=== PATIENT | female | born 1980 | race Caucasian/White ===

== ENCOUNTER → 2018-11-26 12:37 | Outpatient (CLI) | payer BC, SELFPAY ==
[2018-11-26 12:10] VITALS: BMI 50.3
[2018-11-26 13:30] LABS: Absolute Lymphocyte Count 2.23 X10^3/uL (0.83-4.51); Absolute Neutrophil Count 4.7 X10^3/uL (2.0-7.7); Basophil# 0.02 X10^3/uL; Basophil% 0.3 % (0-1); Eosinophil# 0.12 X10^3/uL; Eosinophils% 1.6 % (0-5); Hematocrit 35.7 % (37-47); Hemoglobin 12.4 g/dL (12.0-15.0); Lymphocyte # 2.23 X10^3/ul (4.0); Lymphocyte % 29.1 % (19-41); Mean Corp Hgb Conc 34.7 g/dL (32-36); Mean Corpuscular Hgb 29.8 pg (27.0-32.0); Mean Corpuscular Volume 85.8 fL (81-99); Mean Platelet Vol. 9.4 fl (6.2-12.0); Monocyte# 0.58 X10^3/uL; Monocyte% 7.6 % (0-10); NRBC Flagged by Analyzer 0 % (0-5); Neutrophil # 4.68 X10^3/uL (2.7-7.7); Platelet Count 250 K/mm3 (150-450); RBC Distribution Width CV 13.2 % (11.6-14.6); RBC Distribution Width SD 40.9 fl (35.1-43.9); Red Blood Count 4.16 M/mm3 (4.2-5.4); White Blood Count 7.7 K/mm3 (4.4-11.0)
[2018-11-26 13:49] LABS: T4 Free Direct 1.21 ng/dL (0.76-1.46); Thyroid Stim Hormone (TSH) 5.85 uIU/mL (0.358-3.74)
[2018-11-26 14:30] LABS: HIV - WCH Non-Reactive (Nonreactive); Hepatitis B Surf AB - EMP Non-Reactive; Rubella IgG 27.3 IU/mL
[2018-11-26 17:16] LABS: Chlamydia Trachomatis by PCR Negative (Negative); Neisserai gonorrhoeae by PCR Negative (Negative); Probe Check PASS; Sample Adequacy Control PASS; Specimen Processing Control PASS
[2018-11-28 12:40] LABS: HPV APTIMA, High Risk Negative (Negative)
[2018-11-29 01:33] LABS: Rapid Plasmin Reagin (RPR) NONREACTIVE (NONREACTIVE)
== END ==
PROVIDERS: Nurse Practitioner Women's Health; Family Provider Internal Medicine; PCP Internal Medicine; Referring Provider Obstetrics & Gynecology; Visit Provider Obstetrics & Gynecology
DX: Z12.4 Encounter for screening for malignant neoplasm of cervix (principal); O09.529 Supervision of elderly multigravida, unspecified trimester; Z3A.00 Weeks of gestation of pregnancy not specified
CPT/HCPCS: 36415; 84439; 84443; 85025; 86592; 86703; 86706; 86762; 86850; 86900; 87086; 87088; 87491; 87591; 87624; 88175; G0145

== ENCOUNTER → 2019-01-02 14:20 | Outpatient (CLI) | payer BC, SELFPAY ==
[2018-12-24 10:41] VITALS: BMI 50.3
[2019-01-02 15:30] LABS: Glucose Challenge Gest 1H 50g 114 mg/dL (70-140)
[2019-01-03 08:59] LABS: Hepatitis B Surface Antigen Non-Reactive (Nonreactive)
== END ==
PROVIDERS: Family Provider Internal Medicine; PCP Internal Medicine; Referring Provider Obstetrics & Gynecology; Visit Provider Obstetrics & Gynecology
DX: O09.522 Supervision of elderly multigravida, second trimester (principal); Z3A.00 Weeks of gestation of pregnancy not specified
CPT/HCPCS: 36415; 82950; 87340

== ENCOUNTER → 2019-01-21 10:23 | Outpatient (CLI) | payer BC, SELFPAY ==
[2019-01-21 09:46] VITALS: BMI 50.3
--- NOTE | 2019-01-21 10:25 | US_ITS ---
STUDY: SECOND AND THIRD TRIMESTER OBSTETRICAL ULTRASOUND REASON FOR EXAM: Female, 38 years old well-being. LMP: September 17, 2018 TECHNIQUE: Transabdominal TECHNICAL QUALITY: Adequate. PRIOR ULTRASOUND: None. FINDINGS: There is a single intrauterine fetus. The fetus is in a breech presentation. There is no demonstrated cardiac activity. There is a normal amniotic fluid volume. The placenta is anterior in location and is not low lying. There are Grade 0 placental changes. BIOMETRY: BPD: 2.2 cm: 13 weeks, 5 days HC: 9.4 cm: 14 weeks, 3 days AC: 7.9 cm: 40 weeks, 3 days FL: 1.7 cm: 15 weeks, 1 days age by current US: 14 weeks, 2 days. YANNICK by current US: July 19, 2018 Age by LMP: 18 weeks, 0 days. YANNICK by LMP: June 24, 2018. US/OB Limited With Biometrics IMPRESSION: demise. Electronically Signed: Warren Nguyen, at 11:33 EDT , Service support ,
== END ==
PROVIDERS: Family Provider Internal Medicine; PCP Internal Medicine; Referring Provider Nurse Practitioner Women's Health; Visit Provider Nurse Practitioner Women's Health
DX: O46.90 Antepartum hemorrhage, unspecified, unspecified trimester (principal); Z3A.00 Weeks of gestation of pregnancy not specified
CPT/HCPCS: 76816

== ENCOUNTER 2019-01-24 11:04 | Day surgery (SDC) | payer BC, SELFPAY ==
[2019-01-21 09:46] VITALS: BMI 50.3
--- NOTE | 2019-01-22 06:43 | PCM.HPOB.BLA ---
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 Elective CS 2nd preg. 9#7 at 38wk (7) Supervision of high-risk of elderly multigravida Status: Acute Comment: Grav 5/2 YANNICK: PC:Cristobal Buitrago. Spouse: Burt (8) Papillary thyroid carcinoma Status: Acute Comment: Check labs q trim. Elevated TSH:seeing endo History and Physical Date of Admission: 01/24/19 142 Workload (10) Deficiencies (4) More... Last Refreshed Today 06:38 Turn on coverage Showing your items Edit Coverage Search Workload DIEGO DEL TORO CC Document Renate Navarro 18 hrs Open ANKUR DAI Electrocardiogram CC Report 1 day MARY ANNE REYNOSO CC Document Alfredo Lowery D 1 day Open MAGGIEOFFBERTHA Inpatient CC Items (2) CC Report 2 days STEVAN FOWLER Discharge Summary CC Report 2 days NORMA FLORES Inpatient CC Items (2) CC Report 4 days DELMA GIBBS Inpatient CC Items (2) CC Report 4 days Expand Unread Messages Messages4 of 5 Important Collapse Unread Messages CC Items6 of 7 Diego Del Toro (VIP) Diego Del Toro (VIP) 38 F 1980 Info Button CC Document Open 18 hours Details Subject CC Document From Renate Navarro Provider Adele Singh To Adele Singh CHIEF ELECTRICIAN Visit More Action Complete Save Select Recipients [facility] Radha Garcia SandraGallion, Hannah LMartin, MichelleCline, Stephanie MHastings, MollyMarcanthony, Sharon + Set as Important ? CHIEF ELECTRICIAN Visit Report HxHx print [facility] [address] [place] [address] OFFICE VISIT Date of Service: 01/21/19 MR#:[id number]:[id number] Name: DIEGO DEL TORO #:[id number] : 1980 Provider: JOSE GUADALUPE Navarro Age/Sex: 38/F Location:[facility] Status:Signed Intake Vital Signs 01/21/19 Body Mass Index (BMI) 50.3 01/21/19 Height 5 ft 6 in 01/21/19 Weight: 310 lb 2 oz 01/21/19 Body Mass Index (BMI) 50.0 01/21/19 Blood Pressure 128/78 H Intake Visit Reasons: 18 week ob Flight Control Specialist Required: No Is patient in pain?: No Allergies No Known Allergies Allergy (Verified 01/21/19 09:45) Medications levothyroxine 200 mcg tablet PO QDAY tab 04/11/17 [History Confirmed 01/21/19] Abdominal binder #1 ea 09/27/17 [Rx Confirmed 01/21/19] Last Menstral Period: 09/17/18 Zika: Zika virus screening: Negative : No PFSH PFSH Medical History Abdominal hernia (Acute) Aggressive fibromatosis (Acute) delivery delivered (Acute) Desmoid tumor (Acute) Thyroid cancer (Acute) Thyroid disease (Acute) Surgical History H/O colonoscopy (Acute) H/O excision of mass (Acute) Hx laparoscopic cholecystectomy (Acute ~2011) S/P total thyroidectomy (Acute ~2009) Family History Aunt No problems noted. 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 Date Name GA/Weeks Outcome Route Bth Weight Infant Gen Labor Lgth Anesthesia Del Locatn Provider FOB Unknown 2004- Mac 40 live - full term 10.4 Male 12hours epidural [facility] Dr. Morrison Unknown 2009-Cristobal 38 live - full term 9.7 Male spinal [facility] Dr. Shanice Santos Delivery Date: On 11/26/18 @ 11:22 Franca Cavazos 3rd laceration, large amount of blood loss; Delivery Date: On 11/26/18 @ 11:26 Franca Cavazos SOB post C/S- echo done; very anemic; found thyroid CA; hospitalized post for PE- but tests negative HPI 18 week ob: Details: DIEGO DEL TORO is a 38 year old who presents for routine OB visit. OB Visit YANNICK Calculator Estimated Delivery Date Method Current WG Current Estimate 06/24/19 Ultrasound #1 18w 0d Other Estimates 06/24/19 LMP (Certain) 18w 0d Initial Weight: 312 lb Date EGA Weight BP Urine Prot Glucose FHR FuHt Pres Mov CTX Dilation Effaced St Visit Note Effaced 12/24/18 14w 0d 309 lb (-3 lb) 102/72 Negative Negative 150 no vb some periods of cramping 01/21/19 18w 0d 310 lb 2 oz (-1 lb 14 oz) 128/78 Negative Negative Patient has had brown to clear discharge X 3 days with cramping. Unable to get FHT with doppler Visit Notes Visit Date: 01/21/19 Patient has had brown to clear discharge X 3 days with cramping. Unable to get FHT with doppler ATIF Vanegas on 01/21/19 Visit Date: 12/24/18 no vb some periods of cramping Adele Singh MD on 12/24/18 ACOG First Trimester First Trimester: Desire for , Anticipated Course of Care, Toxoplasmosis Precations, Use of Any medications, Sexual activity, Exercise, Sauna/Hot tub use, Seat Belt use, Indications for US and Screening for Aneuploidy; discussed Alcohol, discussed Tobacco Cessation, discussed Illicit/Recreational Drug/Substance Use, discussed Intimate Partner Violence, discussed Unstable Housing, discussed Environmental/Work Hazards or discussed Diagnostics Diagnostics Labs Blood Type A POSITIVE 11/26/18 Antibody Screen NEGATIVE 11/26/18 Hct 35.7 % (37-47) L 11/26/18 Hgb 12.4 g/dL (12.0-15.0) 11/26/18 Pap Smear Negative 07/18/13 Obstetrics Ultrasound 01/21/19 Rubella IgG Antibody 27.3 IU/mL 11/26/18 RPR NONREACTIVE (NONREACTIVE) 11/26/18 Hep Bs Antigen Non-Reactive (Nonreactive) 01/02/19 HIV 1&2 Antibody Non-Reactive (Nonreactive) 11/26/18 Chlam trachomat DNA PCR Negative (Negative) 11/26/18 N.gonorrhoeae DNA (PCR) Negative (Negative) 11/26/18 Glucose 1 Hr 50 gm 114 mg/dL (70-140) 01/02/19 Miscellaneous Test 01/02/19 Diagnostics Blood Type A POSITIVE 11/26/18 Antibody Screen NEGATIVE 11/26/18 Glucose 1 Hr 50 gm 114 mg/dL (70-140) 01/02/19 HIV 1&2 Antibody Non-Reactive (Nonreactive) 11/26/18 Rubella IgG Antibody 27.3 IU/mL 11/26/18 Pap Smear Negative 07/18/13 Hgb 12.4 g/dL (12.0-15.0) 11/26/18 Hct 35.7 % (37-47) L 11/26/18 RPR NONREACTIVE (NONREACTIVE) 11/26/18 Details: HIV: Urine Culture: Sequential Screen: NIPT Screen: Exam Other: Proceed to US room:no heart tones with negative color doppler of fetus. Patient to radiology for formal US and confirmed demise approx 14 weeks. Results [id number] Office Urine Glucose Negative Last Edit by Nina Alba on 01/21/19 09:48 Office Urine Protein Negative Last Edit by Nina Alba on 01/21/19 09:48 Assessment & Plan Problems 1. demise due to miscarriage O03.9 Plan Patient then met with Dr. Singh and discussed management options:patient would like to proceed with D&C. Dr. Singh discussed with patient risks, benefits, side effects of procedure. Patient wishes to proceed. This will be scheduled 01/24/19. Support given. Patient and responding as expected to situation. Orders Orders: POC Urinalysis 2 Dip (Clinic) Today OB Limited With Biometrics Today O46.90 Coding Level of Care Code OB Routine Diagnoses demise due to miscarriage O03.9 01/21/19 1215<Electronically signed by Renate MARMOLEJOC> Date Renate MARMOLEJOC Cosigner Signature:Date (if applicable) CC: Adele Singh MD ~ + View by User
[2019-01-24] VITALS (8 sets, daily range): BP systolic 126–147; BP diastolic 66–79; PULSE 69–92; RESP 16; TEMP 36.1–36.8; O2SAT 96–100; BMI 50.0
[2019-01-24 11:45] LABS: Hematocrit 33.7 % (37-47); Hemoglobin 11.1 g/dL (12.0-15.0); Mean Corp Hgb Conc 32.9 g/dL (32-36); Platelet Count 243 K/mm3 (150-450); RBC Distribution Width CV 13.2 % (11.6-14.6); RBC Distribution Width SD 42.5 fl (35.1-43.9); Red Blood Count 3.83 M/mm3 (4.2-5.4); White Blood Count 7.5 K/mm3 (4.4-11.0)
[2019-01-24] MEDS: Lactated Ringers 1,000 ML 125 ML IV (11:59)
--- NOTE | 2019-01-24 12:30 | POC_PTH ---
PATIENT: DIEGO DEL TORO [place] [facility] [place][id number] AGE/SX: 38/F ROOM: RE01/24/[address]: Dr. Adele Singh MD : 1980 BED: DIS: 01/24/2019 SPEC #: [id number] RECD: 01/24/19 13:51 STATUS: HILL GIOVANNY #: [id number] MARIEL: 01/24/19 12:[address]: Adele Singh DEPT: SURGICAL PATHOLOGY RECD BY: Eliceo Pressley ENTERED: 01/24/19 14:18 SP TYPE: PROD CONC OTHR DR: Dr. Marleny Waterman MD Tissues: Product of conception, NOS Procedures: Surgery Specimen Level IV HEADER OPERATION: Dilation and evacuation PRE-OP DIAGNOSIS: demise due to miscarriage TISSUE SUBMITTED: Products of conception - Anora testing MICROSCOPIC DIAGNOSIS Endometrium, curettage: Chorionic villi, decidualized stroma and trophoblastic cells consistent with products of conception. Fragments of tissue. AM:kaya 01/27/19 MICROSCOPIC DESCRIPTION Slides are reviewed. GROSS DESCRIPTION Received fresh is one container labeled with the patient's name and designated products of conception, Anora testing. The specimen consists of multiple irregular fragments of pink-red soft tissue that in aggregate measure 13 x 11 x 2 cm. Two pieces of tissue are also noted measuring 3.5 x 3 x 1 cm. A portion of tissue is submitted for cytogenetic (Anora) testing. Barrel Cooper tissue is submitted in three cassettes. Cassette 3 contains the tissue. / SJ:kaya 01/24/19 TC:5 CPT: ADDENDUM ADDENDUM ADDENDUM ADDENDUM ADDENDUM ADDENDUM ADDENDUM ADDENDUM ADDENDUM 02/10/2019 12:36 ADDENDUM 02/10/2019 12:36 ADDENDUM 02/10/2019 12:36 ADDENDUM 02/10/2019 12:36 ADDENDUM 02/10/2019 12:36 ANORA MICROARRAY CHROMOSOME ANALYSIS WITH PARENTAL SUPPORT RESULT: Normal female MICROARRAY RESULT: arr(1-22,X)x2 CLINICAL INTERPRETATION: Normal female result. Maternal cell contamination ([facility]) has been ruled?out. Please see complete above mentioned report in EMR
[2019-01-24] MEDS: Methylergonovine 0.2 MG/ML Ampul IM (13:04)
[2019-01-24] MEDS: miSOPROStol 200 MCG Tablet 800 MCG PO (14:01)
--- NOTE | 2019-01-24 14:25 | PCM.OPRPT ---
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 Elective CS 2nd preg. 9#7 at 38wk (7) Supervision of high-risk of elderly multigravida Status: Acute Comment: Grav 5/2 YANNICK: PC:Cristobal Buitrago. Spouse: Burt (8) Papillary thyroid carcinoma Status: Acute Comment: Check labs q trim. Elevated TSH:seeing endo Report of Operation Date of Procedure: 01/24/19 Pre-Operative Diagnosis: missed ab Post-Operative Diagnosis: same Surgery/Procedure Performed:: dilation and evacuation Description of Surgical Findings:: 16 week size fetus Type of Anesthesia:: Local MAC Special Medications: cytotec methergine pitocin Specimen's removed: fetus and placenta Drains: none Estimated Blood Loss (mL): 100 Fluids Replaced: crystalloid Description of Procedure: Patient was taken to the operating room and placed under MAC local anesthesia. She was prepped and draped in the normal sterile fashion the dorsal lithotomy position. Bladder was drained of clear urine and anterior lip of the cervix was grasped and the uterus sounded to 12 cm initially. Cervix was progressively dilated to allow passage of a 12 mm suction curette. Progressive passes were made removing the retained products of conception and it became evident that the fetus was larger than the initial 14 weeks estimated on ultrasound. Cervix was dilated further and uterus sounded to 16 cm and a 14 mm suction curette was used. Multiple passes were made and parts were removed and identified bilateral upper and lower extremities torso neck and cranium. Placenta and membranes were also identified and removed. Ultrasound guidance was performed to confirm complete removal and although limited visualization due to patient's body habitus was noted patient had minimal bleeding and it was felt that all products were removed based on uterine evaluation sonographically and visually directly. Sharp curettage confirmed complete removal of the retained products. All instruments were removed from the vagina and excellent hemostasis was noted after a stitch of 0 Vicryl was placed on the cervix where the tenaculum site was. Methergine Pitocin and Cytotec were given to help prevent any perioperative bleeding. Overall bleeding was minimal and within normal limits. The patient was taken to recovery in stable condition. Grafts/Implants Used: none - Complications none - Admit VTE Documentation VTE Present on Admission: No Multi Select Codes - Urinary/Genital Urinary/Genital CPT Codes: 42072 Miscarriage; 2nd trimester
--- NOTE | 2019-01-24 14:29 | DCINST_ITS ---
Discharge Diet: No Restrictions Discharge Activity: Return to Normal Activity, May Shower, May Take a Tub Bath Allergies/Adverse Reactions: Allergies No Known Allergies Allergy (Verified 01/24/19 11:39) Medications to take at Discharge levothyroxine 200 mcg tablet 200 mcg PO QDAY tab 04/11/17 Cetirizine HCl [Zyrtec] 10 mg PO DAILY 01/23/19 Primary Care Physician: Marleny Waterman MD [Primary Care Provider] - Test Results: Test results from this visit will be discussed in further detail at your follow- up appointment, if applicable. Please Follow Up With: Adele Singh MD - [phone]
[2019-01-24] MEDS: Doxycycline 100 MG CAPSULE PO (14:59)
[2019-02-11 07:44] LABS: Pathology Specimen OB SEE PATHOLOGY REPORT
== END 2019-01-24 15:18 | disposition home or self-care (01) ==
LOC: SDC 11:05 → AC 11:09
PROVIDERS: Family Provider Internal Medicine; PCP Internal Medicine; Referring Provider Obstetrics & Gynecology; Visit Provider Obstetrics & Gynecology
PROC: (CPT 59821; principal; 2019-01-24 12:15)
DX: O03.9 Complete or unspecified spontaneous abortion without complication (principal); D64.9 Anemia, unspecified
CPT/HCPCS: 01965; 59821; 85027; 86850; 86900; 86901; 88305; J7120; J2405

== ENCOUNTER → 2020-04-22 15:37 | Outpatient (CLI) | payer BC, MEDICAID, SELFPAY ==
[2020-04-22 15:15] VITALS: BMI 41.9
[2020-04-22 15:56] LABS: Absolute Lymphocyte Count 2.45 X10^3/uL (0.83-4.51); Absolute Neutrophil Count 6.4 X10^3/uL (2.0-7.7); Basophil# 0.03 X10^3/uL; Basophil% 0.3 % (0-1); Eosinophil# 0.05 X10^3/uL; Eosinophils% 0.5 % (0-5); Hematocrit 37.9 % (37-47); Hemoglobin 12.7 g/dL (12.0-15.0); Lymphocyte # 2.45 X10^3/ul (4.0); Lymphocyte % 25.4 % (19-41); Mean Corp Hgb Conc 33.5 g/dL (32-36); Mean Corpuscular Hgb 28.7 pg (27.0-32.0); Mean Corpuscular Volume 85.7 fL (81-99); Mean Platelet Vol. 9.1 fl (6.2-12.0); Monocyte% 7.3 % (0-10); NRBC Flagged by Analyzer 0 % (0-5); Neutrophil # 6.38 X10^3/uL (2.7-7.7); Neutrophil % 66.2 % (47-70); Platelet Count 349 K/mm3 (150-450); RBC Distribution Width CV 12.7 % (11.6-14.6); RBC Distribution Width SD 38.8 fl (35.1-43.9); Red Blood Count 4.42 M/mm3 (4.2-5.4); White Blood Count 9.6 K/mm3 (4.4-11.0)
[2020-04-22 16:36] LABS: Follicle Stimulating Hormone 5.6 mIU/mL; Prolactin 10.9 ng/mL
[2020-04-22 17:03] LABS: HIV - WCH Non-Reactive (Nonreactive)
[2020-04-25 20:07] LABS: HCV Quant. RNA PCR HCV Not Detected IU/mL (.)
[2020-04-26 21:00] LABS: HSV 1 IgG < 0.91 index (0.00-0.90); HSV 2 IgG < 0.91 index (0.00-0.90)
[2020-04-29 02:21] LABS: Rapid Plasmin Reagin (RPR) NONREACTIVE (NONREACTIVE)
[2020-04-29 10:16] LABS: 17-Hydroxyprogesterone 76 ng/dL (.)
== END ==
PROVIDERS: PCP Internal Medicine; Referring Provider Obstetrics & Gynecology; Visit Provider Obstetrics & Gynecology
DX: Z11.3 Encounter for screening for infections with a predominantly sexual mode of transmission (principal)
CPT/HCPCS: 36415; 82670; 83001; 83498; 84146; 84402; 85025; 86592; 86695; 86696; 86703; 87522

== ENCOUNTER → 2020-04-22 17:24 | Outpatient (CLI) | payer BC, MEDICAID, SELFPAY ==
[2020-04-22 15:15] VITALS: BMI 41.9
[2020-04-26 16:08] LABS: Chlamydia By Nucleic Acid AMP Negative (Negative)
[2020-04-26 20:52] LABS: Gonococcus By Nucleic Acid AMP Negative (Negative)
== END ==
PROVIDERS: PCP Internal Medicine; Referring Provider Obstetrics & Gynecology; Visit Provider Obstetrics & Gynecology
DX: Z11.3 Encounter for screening for infections with a predominantly sexual mode of transmission (principal)
CPT/HCPCS: 87491; 87591

== ENCOUNTER → 2020-11-03 08:31 | Outpatient (CLI) | payer BC, MEDICAID, SELFPAY ==
[2020-11-03 08:11] VITALS: BMI 41.9
[2020-11-03 08:54] LABS: Absolute Neutrophil Count 2.8 X10^3/uL (2.0-7.7); Basophil# 0.01 X10^3/uL; Basophil% 0.2 % (0-1); Eosinophil# 0.11 X10^3/uL; Eosinophils% 2.1 % (0-5); Hematocrit 38.5 % (37-47); Hemoglobin 12.6 g/dL (12.0-15.0); Lymphocyte % 31.1 % (19-41); Mean Corp Hgb Conc 32.7 g/dL (32-36); Mean Corpuscular Hgb 27.6 pg (27.0-32.0); Mean Corpuscular Volume 84.4 fL (81-99); Monocyte# 0.54 X10^3/uL; Monocyte% 10.5 % (0-10); NRBC Flagged by Analyzer 0 % (0-5); Neutrophil # 2.84 X10^3/uL (2.7-7.7); Neutrophil % 55.1 % (47-70); Platelet Count 249 K/mm3 (150-450); RBC Distribution Width CV 12.8 % (11.6-14.6); RBC Distribution Width SD 39.5 fl (35.1-43.9); Red Blood Count 4.56 M/mm3 (4.2-5.4); White Blood Count 5.2 K/mm3 (4.4-11.0)
[2020-11-04 12:31] LABS: Free T3 1.7 pg/mL (2.18-3.98); T4 Free Direct 1.49 ng/dL (0.76-1.46)
[2020-11-06 03:07] LABS: Chlamydia By Nucleic Acid AMP Negative (Negative)
[2020-11-06 07:31] LABS: Gonococcus By Nucleic Acid AMP Negative (Negative)
== END ==
PROVIDERS: PCP Internal Medicine; Referring Provider Nurse Practitioner Women's Health; Visit Provider Nurse Practitioner Women's Health
DX: Z11.3 Encounter for screening for infections with a predominantly sexual mode of transmission (principal); N76.0 Acute vaginitis
CPT/HCPCS: 36415; 84439; 84443; 84481; 85025; 87070; 87205; 87491; 87591

== ENCOUNTER → 2020-11-16 11:37 | Outpatient (CLI) | payer BC, MEDICAID, SELFPAY ==
[2020-04-22 15:15] VITALS: BMI 41.9
[2020-11-03 08:11] VITALS: BMI 41.9
--- NOTE | 2020-11-16 11:39 | US_ITS ---
STUDY: ULTRASOUND OF THE FEMALE PELVIS - COMPLETE REASON FOR EXAM: Female, 40 years old. aub LMP: 10/22/2020. TECHNIQUE: Transabdominal and Transvaginal TECHNICAL QUALITY: Adequate. COMPARISON: None. FINDINGS: The uterus is anteverted and is in a midline position. The uterus measures 10.7 cm x 7.3 cm x 6.4 cm. There is a Nabothian cyst of the cervix. The endometrium is thickened and measures 12.5 mm in thickness, and is hyperechoic. The myometrium is of heterogeneous echotexture although no focal fibroid is seen. There is no demonstrated myometrial mass. I.U.D. - The patient does not have an I.U.D. The right ovary is visualized. The right ovary measures 2.8 cm x 2.9 cm x 1.8 cm. There is no right ovarian cyst or ovarian mass. There is no visualized right adnexal mass or complex lesion. There is normal arterial and normal venous vascularity. The left ovary is visualized. The left ovary measures 3.7 cm x 2.3 cm x 2.3 cm. There is no left ovarian cyst or ovarian mass. There is no visualized left adnexal mass or complex lesion. There is normal arterial and normal venous vascularity. There is minimal fluid in the cul-de-sac. The pre void volume of the bladder was 412 ml. . US/Pelvic (Non ) IMPRESSION: Thickened endometrium. Electronically Signed: Warren Nguyen MD at 9:10 EDT , Service support ,
--- NOTE | 2020-11-16 11:39 | US_ITS ---
STUDY: ULTRASOUND OF THE FEMALE PELVIS - COMPLETE REASON FOR EXAM: Female, 40 years old. aub LMP: 10/22/2020. TECHNIQUE: Transabdominal and Transvaginal TECHNICAL QUALITY: Adequate. COMPARISON: None. FINDINGS: The uterus is anteverted and is in a midline position. The uterus measures 10.7 cm x 7.3 cm x 6.4 cm. There is a Nabothian cyst of the cervix. The endometrium is thickened and measures 12.5 mm in thickness, and is hyperechoic. The myometrium is of heterogeneous echotexture although no focal fibroid is seen. There is no demonstrated myometrial mass. I.U.D. - The patient does not have an I.U.D. The right ovary is visualized. The right ovary measures 2.8 cm x 2.9 cm x 1.8 cm. There is no right ovarian cyst or ovarian mass. There is no visualized right adnexal mass or complex lesion. There is normal arterial and normal venous vascularity. The left ovary is visualized. The left ovary measures 3.7 cm x 2.3 cm x 2.3 cm. There is no left ovarian cyst or ovarian mass. There is no visualized left adnexal mass or complex lesion. There is normal arterial and normal venous vascularity. There is minimal fluid in the cul-de-sac. The pre void volume of the bladder was 412 ml. . US/Transvaginal Non- IMPRESSION: Thickened endometrium. Electronically Signed: Warren Nguyen MD at 9:10 EDT , Service support ,
== END ==
PROVIDERS: PCP Internal Medicine; Referring Provider Obstetrics & Gynecology; Visit Provider Obstetrics & Gynecology
DX: N93.9 Abnormal uterine and vaginal bleeding, unspecified (principal)
CPT/HCPCS: 76830; 76856

== ENCOUNTER 2021-06-14 08:53 | Outpatient (CLI) | payer BC, MEDICAID, SELFPAY ==
[2021-06-14 09:32] LABS: ALB/GLOB Ratio 0.8 RATIO (0.9-2.4); AST(SGOT) 10 U/L (15-37); Alanine Aminotransfer ALT/SGPT 17 U/L (13-56); Albumin, Serum 3.3 g/dL (3.2-5.0); Alkaline Phosphatase 66 U/L (45-117); Anion Gap 6 (5-15); BUN 9 mg/dL (7-18); BUN/Creat Ratio 13.1 RATIO (10-20); Calcium,Total 8.8 mg/dL (8.5-10.1); Chloride 106 mmol/L (98-107); Creatinine, Serum 0.69 mg/dL (0.55-1.02); EST Glomerular Filtration Rate 100 mL/min (>60); Est Glom Filt Rate - Afr Amer 121 mL/min (>60); Globulin 3.9 g/dL (2.2-4.2); Glucose 100 mg/dL (74-106); Potassium 4.5 mmol/L (3.5-5.1); Protein, Total 7.2 g/dL (6.4-8.2); Sodium Level 138 mmol/L (136-145)
[2021-06-14 09:33] LABS: hCG Titer Quant., Serum 291 mIU/mL (1-3)
[2021-06-14 09:50] LABS: Thyroid Stim Hormone (TSH) 3.99 uIU/mL (0.358-3.74)
== END 2021-06-14 23:59 | disposition home or self-care (01) ==
LOC: PAVLAB 08:55
PROVIDERS: PCP Internal Medicine; Referring Provider Obstetrics & Gynecology; Visit Provider Obstetrics & Gynecology
DX: O20.0 Threatened abortion (principal); Z3A.00 Weeks of gestation of pregnancy not specified
CPT/HCPCS: 36415; 80053; 84443; 84702

== ENCOUNTER 2021-06-16 11:30 | Outpatient (CLI) | payer BC, MEDICAID, SELFPAY ==
--- NOTE | 2021-06-16 11:31 | US_ITS ---
STUDY: FIRST TRIMESTER OBSTETRICAL ULTRASOUND REASON FOR EXAM: Female, 40 years old . Left lower quadrant cramping. Positive test. LMP: 04/25/2021. TECHNIQUE: Transvaginal TECHNICAL QUALITY: Adequate. PRIOR ULTRASOUND: None. FINDINGS: There is no demonstrated intrauterine gestational sac. There is no demonstrated yolk sac. The placenta is non-visualized. There is no demonstrated embryo ( pole). The estimated gestation age (EGA) by LMP is 7 weeks, 3 days. The estimated date of delivery (YANNICK) by LMP is 01/30/2022. The uterus measures 12 cm x 8.4 cm x 6.8 cm. The endometrium is thickened measuring 20 mm. No intrauterine gestational sac is seen. There is no demonstrated uterine fibroid. The cervix is closed. The right ovary measures 2.6 cm x 2.6 cm x 3.5 cm. There is a 1.5 cm x 1.8 cm x 1.6 cm follicle in the right ovary. There is no visualized right adnexal mass or complex lesion. The left ovary measures 2.5 cm x 2.27 x 1.9 cm.. There is no left ovarian cyst. There is no visualized left adnexal mass or complex lesion. Trace amount of fluid in the pelvis. US/Transvaginal w/Preg US IMPRESSION: No intrauterine gestational sac is seen. Thickened endometrium. Repeat sonogram and serial beta hCG correlation recommended for possible early .. Electronically Signed: Warren Nguyen MD at 12:42 EST ,
[2021-06-16 13:53] LABS: ALB/GLOB Ratio 0.9 RATIO (0.9-2.4); AST(SGOT) 9 U/L (15-37); Alanine Aminotransfer ALT/SGPT 16 U/L (13-56); Albumin, Serum 3.2 g/dL (3.2-5.0); Alkaline Phosphatase 60 U/L (45-117); BUN 10 mg/dL (7-18); BUN/Creat Ratio 14.1 RATIO (10-20); Calcium,Total 8.3 mg/dL (8.5-10.1); Chloride 110 mmol/L (98-107); Creatinine, Serum 0.71 mg/dL (0.55-1.02); EST Glomerular Filtration Rate 97 mL/min (>60); Est Glom Filt Rate - Afr Amer 118 mL/min (>60); Globulin 3.4 g/dL (2.2-4.2); Glucose 109 mg/dL (74-106); Potassium 3.9 mmol/L (3.5-5.1); Protein, Total 6.6 g/dL (6.4-8.2); Sodium Level 139 mmol/L (136-145)
[2021-06-16 13:54] LABS: Anion Gap 5 (5-15)
[2021-06-16 13:55] LABS: hCG Titer Quant., Serum 702 mIU/mL (1-3)
== END 2021-06-16 23:59 | disposition home or self-care (01) ==
PROVIDERS: PCP Internal Medicine; Referring Provider Obstetrics & Gynecology; Visit Provider Obstetrics & Gynecology
DX: O20.0 Threatened abortion (principal); N93.9 Abnormal uterine and vaginal bleeding, unspecified; Z87.59 Personal history of other complications of pregnancy, childbirth and the puerperium
CPT/HCPCS: 36415; 76817; 80053; 84702; 93976

== ENCOUNTER 2021-06-27 07:33 | Outpatient (CLI) | payer BC, MEDICAID, SELFPAY ==
[2021-06-27 09:53] LABS: hCG Titer Quant., Serum 8234 mIU/mL (1-3)
== END 2021-06-27 23:59 | disposition home or self-care (01) ==
LOC: LAB 07:35
PROVIDERS: PCP Internal Medicine; Referring Provider Obstetrics & Gynecology; Visit Provider Obstetrics & Gynecology
DX: N92.6 Irregular menstruation, unspecified (principal)
CPT/HCPCS: 36415; 84702

== ENCOUNTER 2021-06-29 08:27 | Outpatient (CLI) | payer BC, MEDICAID, SELFPAY ==
--- NOTE | 2021-06-29 08:29 | US_ITS ---
STUDY: FIRST TRIMESTER OBSTETRICAL ULTRASOUND REASON FOR EXAM: Female, 41 years old well being LMP: Unknown. TECHNIQUE: Transvaginal TECHNICAL QUALITY: Adequate. PRIOR ULTRASOUND: Comparison is made with prior study dated 06/16/2021. FINDINGS: There is visualization of a single gestational sac in a normal intrauterine position. The mean sac diameter (MSD) measures 1.1 cm, indicating an estimated gestational age (EGA) of 5 weeks, 6 days. The gestational sac shape is within normal limits. There is no demonstrated yolk sac. The placenta is non-visualized. There is no demonstrated embryo ( pole). The estimated gestation age (EGA) by US is 5 weeks, 6 days. The estimated date of delivery (YANNICK) by US is 02/23/2022. The uterus measures 12.1 cm x 8.3 cm x 8 cm. There is no demonstrated uterine fibroid. The cervix is closed. The right ovary measures 3.6 cm x 2.4 cm x 3.0 cm. There is no right ovarian cyst. There is no visualized right adnexal mass or complex lesion. The left ovary measures 3.3 cm x 2.2 cm x 2 cm. There is no left ovarian cyst. There is no visualized left adnexal mass or complex lesion. There is no fluid in the cul de sac. US/Transvaginal w/Preg US IMPRESSION: Intrauterine gestational sac with a gestational age of 5 weeks and 6 days. No yolk sac or pole is seen at this time. Electronically Signed: Warren Nguyen MD at 10:50 EST ,
== END 2021-06-29 23:59 | disposition home or self-care (01) ==
PROVIDERS: PCP Internal Medicine; Visit Provider Obstetrics & Gynecology
DX: Z87.59 Personal history of other complications of pregnancy, childbirth and the puerperium (principal)
CPT/HCPCS: 76817

== ENCOUNTER 2021-08-10 13:41 | Outpatient (CLI) | payer MEDICAID, SELFPAY ==
--- NOTE | 2021-08-10 13:41 | US_ITS ---
STUDY: ULTRASOUND OF THE FEMALE PELVIS - COMPLETE REASON FOR EXAM: Female, 41 years old. Missed AB, discharge/odor - RPOC LMP: Unknown TECHNIQUE: Transvaginal TECHNICAL QUALITY: Adequate. COMPARISON: Comparison is made with prior examination dated 06/29/2021. FINDINGS: The uterus is anteverted and is in a midline position. The uterus measures 11.3 cm x 8 cm x 7.3 cm. Normal uterine cervix. The endometrium measures 8 mm in thickness, and is hyperechoic. There is no demonstrated endometrial mass. There is no demonstrated myometrial mass. I.U.D. - The patient does not have an I.U.D. The right ovary is visualized. The right ovary measures 3.7 cm x 2.4 cm x 2.4 cm. There is no right ovarian cyst or ovarian mass. There is no visualized right adnexal mass or complex lesion. There is normal arterial and normal venous vascularity. The left ovary is visualized. The left ovary measures 3.2 cm x 2.9 cm x 1.9 cm. There is no left ovarian cyst or ovarian mass. There is no visualized left adnexal mass or complex lesion. There is normal arterial and normal venous vascularity. There is no fluid in the cul-de-sac. US/Transvaginal Non- IMPRESSION: Normal female pelvis. Electronically Signed: Warren Nguyen MD at 14:55 EDT ,
== END 2021-08-10 23:59 | disposition home or self-care (01) ==
LOC: US 13:41
PROVIDERS: PCP Internal Medicine; Visit Provider Obstetrics & Gynecology
DX: N89.8 Other specified noninflammatory disorders of vagina (principal)
CPT/HCPCS: 76830; 87070; 87205

== ENCOUNTER → 2021-09-01 | Outpatient (CLI) | payer MEDICAID, SELFPAY | END | disposition home or self-care (01) | LOC: PAVLAB 07:55 | PROVIDERS: PCP Internal Medicine; Referring Provider Obstetrics & Gynecology; Visit Provider Obstetrics & Gynecology | DX: N97.0 Female infertility associated with anovulation (principal) | CPT/HCPCS: 36415 ==

== ENCOUNTER → 2021-12-10 | Outpatient (CLI) | payer MEDICAID, SELFPAY ==
[2021-12-10 09:48] LABS: hCG Titer Quant., Serum 5107 mIU/mL (1-3)
== END | disposition home or self-care (01) ==
LOC: LAB 07:39
PROVIDERS: PCP Internal Medicine; Visit Provider Obstetrics & Gynecology
DX: N91.2 Amenorrhea, unspecified (principal)
CPT/HCPCS: 36415; 84702

== ENCOUNTER → 2021-12-15 | Outpatient (CLI) | payer MEDICAID, SELFPAY ==
[2021-12-15 09:55] LABS: hCG Titer Quant., Serum 8178 mIU/mL (1-3)
== END | disposition home or self-care (01) ==
LOC: LAB 07:38
PROVIDERS: PCP Internal Medicine; Visit Provider Obstetrics & Gynecology
DX: N91.2 Amenorrhea, unspecified (principal)
CPT/HCPCS: 36415; 84702

== ENCOUNTER → 2021-12-17 | Outpatient (CLI) | payer MEDICAID, SELFPAY ==
[2021-12-17 10:01] LABS: hCG Titer Quant., Serum 8498 mIU/mL (1-3)
== END | disposition home or self-care (01) ==
LOC: LAB 07:36
PROVIDERS: PCP Internal Medicine; Referring Provider Nurse Practitioner Women's Health; Visit Provider Nurse Practitioner Women's Health
DX: O20.0 Threatened abortion (principal); Z3A.00 Weeks of gestation of pregnancy not specified
CPT/HCPCS: 36415; 84702

== ENCOUNTER → 2022-02-28 | Outpatient (CLI) | payer MEDICAID, SELFPAY | END | disposition home or self-care (01) | PROVIDERS: PCP Internal Medicine; Visit Provider Obstetrics & Gynecology | DX: N89.8 Other specified noninflammatory disorders of vagina (principal) | CPT/HCPCS: 87070; 87205 ==

== ENCOUNTER → 2022-06-21 | Outpatient (CLI) | payer OTHER, MEDICAID, SELFPAY ==
[2022-06-21 17:26] LABS: Homocysteine 6.4 umol/L (3.2-10.7)
[2022-06-21 18:05] LABS: Prolactin 9.5 ng/mL; Thyroid Stim Hormone (TSH) 5.77 uIU/mL (0.358-3.74)
[2022-06-21 19:53] LABS: HIV - WCH Non-Reactive (Nonreactive); Hepatitis B Surface Antigen Non-Reactive (Nonreactive); Hepatitis C Antibody Non-Reactive (Nonreactive); Rubella IgG Reactive (Nonreactive); Syphilis Antibodies Non-reactive; Vitamin D,25 Hydroxy 28.7 ng/mL
[2022-06-22 14:38] LABS: Follicle Stimulating Hormone 6.3 mIU/mL; Luteinizing Hormone 3.6 mIU/mL
[2022-06-28 10:08] LABS: Dilute Russell Viper Venom 35.2 sec (0.0-47.0); Thrombin Time 16.8 sec (0.0-23.0); dPT Confirm Ratio 1.18 Ratio (0.00-1.34)
[2022-06-28 20:32] LABS: Anti-Cardiolipin Ab, IgA, Qn < 9 APL U/mL (0-11); Anti-Cardiolipin Ab, IgG, Qn < 9 GPL U/mL (0-14); Anti-Cardiolipin Ab, IgM, Qn < 9 MPL U/mL (0-12); Antithrombin 3 Function 94 % (75-135); Beta-2-Glycoprotein I IgA <9 (0-25); Beta-2-Glycoprotein I IgG <9 (0-20); Beta-2-Glycoprotein I IgM <9 (0-32); Interpretation Comment: (.); PTT-LA 33.8 sec (0.0-43.5); Protein C, Functional 113 % (73-180); Protein S, Funtional 83 % (63-140); V-Zoster IgG (Immunity) 1348 index (Immune >165)
== END | disposition home or self-care (01) ==
PROVIDERS: PCP Internal Medicine; Referring Provider Obstetrics & Gynecology; Visit Provider Obstetrics & Gynecology
DX: Z01.83 Encounter for blood typing (principal); N97.9 Female infertility, unspecified; Z13.29 Encounter for screening for other suspected endocrine disorder; Z13.0 Encounter for screening for diseases of the blood and blood-forming organs and certain disorders involving the immune mechanism; Z11.3 Encounter for screening for infections with a predominantly sexual mode of transmission; Z11.51 Encounter for screening for human papillomavirus (HPV); N93.9 Abnormal uterine and vaginal bleeding, unspecified
CPT/HCPCS: 85305; 85302; 85306; 83516; 36415; 81240; 82306; 83001; 83002; 83090; 84146; 84443; 85300; 85303; 85307; 86146; 86147; 86703; 86762; 86780; 86787; 86803; 86900; 86901; 87340

== ENCOUNTER → 2022-06-27 | Outpatient (CLI) | payer OTHER, MEDICAID, SELFPAY ==
--- NOTE | 2022-06-27 11:49 | RAD_ITS ---
STUDY: HYSTEROSALPINGOGRAM. REASON FOR EXAM: Female, 42 years old. Fertility testing FLUOROSCOPY TIME (if supplied): ( 16 seconds ) minutes/seconds. One image was submitted. TECHNIQUE: A hysterosalpingogram was performed by the leach tank tender. Imaging was provided. COMPARISON: None. FINDINGS: The uterus is unremarkable. Both fallopian tubes are patent with free spill bilaterally. RAD/Salpingogram IMPRESSION: Normal hysterosalpingogram. Electronically Signed: Warren Nguyen MD at 12:40 EST ,
--- NOTE | 2022-06-27 12:40 | OP.PCM_ITS ---
Problems Associated Problem List Diagnoses (1) Encounter for fertility testing: Operative Report Date of Procedure: 06/27/22 Preop diagnosis: Infertility Postop diagnosis: Infertility, bilateral tubal patency Procedure: Hysterosalpingogram Surgeon: Jyothi Coleman Do Implantable devices: None Complications: None Findings: Bilateral tubal patency and normal uterine cavity Operative details: Patient was taken to the x-ray room and was placed on the x- ray table and was in the dorsal lithotomy position. Speculum was placed in the vagina and the cervix prepped with Betadine and the HSG catheter was easily introduced into the uterus and speculum removed. Radiologist was brought in and while pushing radiopaque dye into the uterus via the HSG catheter the radiologist took multiple images and views and confirmed bilateral tubal patency seen. No gross uterine filling defects or abnormalities were seen. All instruments removed from the vagina and the uterus without complication. Patient tolerated the procedure well. Multi Select Codes Urinary/Genital Urinary/Genital CPT Codes: 50206 HSG/SIS
== END | disposition home or self-care (01) ==
PROVIDERS: PCP Internal Medicine; Visit Provider Obstetrics & Gynecology
DX: Z31.41 Encounter for fertility testing (principal)
CPT/HCPCS: 58340; 74740

== ENCOUNTER → 2022-11-30 | Outpatient (CLI) | payer MEDICAID, SELFPAY ==
[2022-11-30 17:38] LABS: hCG Titer Quant., Serum 3605 mIU/mL (1-3)
== END | disposition home or self-care (01) ==
LOC: LAB 16:16
PROVIDERS: Obstetrics & Gynecology; PCP Internal Medicine; Referring Provider Nurse Practitioner Women's Health; Visit Provider Nurse Practitioner Women's Health
DX: N91.2 Amenorrhea, unspecified (principal); N93.9 Abnormal uterine and vaginal bleeding, unspecified
CPT/HCPCS: 36415; 84443; 84702

== ENCOUNTER → 2022-12-06 | Outpatient (CLI) | payer MEDICAID, SELFPAY ==
--- NOTE | 2022-12-06 14:43 | US_ITS ---
STUDY: FIRST TRIMESTER OBSTETRICAL ULTRASOUND REASON FOR EXAM: Female, 42 years old viability LMP: October 16, 2022 TECHNIQUE: Transvaginal TECHNICAL QUALITY: Adequate. PRIOR ULTRASOUND: None. FINDINGS: There is visualization of a single gestational sac in a normal intrauterine position. The mean sac diameter (MSD) measures 128, indicating an estimated gestational age (EGA) of 6 weeks, 1 days. The gestational sac shape is within normal limits. There is a visualized yolk sac. The yolk sac measures 4 mm. The placenta is non-visualized. There is visualization of a live embryo. The crown-rump length (CRL) measures 3.2 mm, indicating an estimated gestational age (EGA) of 6 weeks, 1 days. There is demonstrated cardiac activity with a heart rate of 105 bpm. The estimated gestation age (EGA) by LMP is 7 weeks, 2 days. The estimated date of delivery (YANNICK) by LMP is July 23, 2023. The estimated gestation age (EGA) by US is 6 weeks, 1 days. The estimated date of delivery (YANNICK) by US is July 31, 2023. The uterus measures 12 cm x 8.2 cm x 7.6 cm. There is no demonstrated uterine fibroid. The cervix is closed. The right ovary measures 3.7 cm x 3 cm x 2.3 cm. There is no right ovarian cyst. There is no visualized right adnexal mass or complex lesion. The left ovary measures 3.7 cm x 2.7 cm x 2.2 cm. There is no left ovarian cyst. There is no visualized left adnexal mass or complex lesion. There is no fluid in the cul de sac. US/Transvaginal w/Preg US IMPRESSION: Single live uterine gestation with a mean gestational age of 6 weeks and 1 day. Electronically Signed: Warren Nguyen MD at 13:43 EDT ,
== END | disposition home or self-care (01) ==
PROVIDERS: PCP Internal Medicine; Referring Provider Obstetrics & Gynecology; Visit Provider Obstetrics & Gynecology
DX: N91.2 Amenorrhea, unspecified (principal)
CPT/HCPCS: 76817

== ENCOUNTER → 2022-12-20 | Outpatient (CLI) | payer MEDICAID, SELFPAY ==
[2022-12-22 22:06] LABS: Chlamydia By Nucleic Acid AMP Negative (Negative); Gonococcus By Nucleic Acid AMP Negative (Negative)
== END | disposition home or self-care (01) ==
PROVIDERS: PCP Internal Medicine; Referring Provider Obstetrics & Gynecology; Visit Provider Obstetrics & Gynecology
DX: O09.90 Supervision of high risk pregnancy, unspecified, unspecified trimester (principal); Z3A.00 Weeks of gestation of pregnancy not specified
CPT/HCPCS: 87086; 87491; 87591

== ENCOUNTER → 2022-12-26 | Outpatient (CLI) | payer MEDICAID, SELFPAY ==
[2022-12-26 15:28] LABS: Absolute Lymphocyte Count 1.87 X10^3/uL (0.83-4.51); Absolute Neutrophil Count 5.1 X10^3/uL (2.0-7.7); Basophil# 0.02 X10^3/uL; Basophil% 0.3 % (0-1); Eosinophil# 0.12 X10^3/uL; Eosinophils% 1.5 % (0-5); Hemoglobin 12.1 g/dL (12.0-15.0); Lymphocyte # 1.87 X10^3/ul (0.83-4.51); Lymphocyte % 23.9 % (19-41); Mean Corp Hgb Conc 33.6 g/dL (32-36); Mean Corpuscular Hgb 27.9 pg (27.0-32.0); Mean Corpuscular Volume 82.9 fL (81-99); Mean Platelet Vol. 9.1 fl (6.2-12.0); Monocyte# 0.66 X10^3/uL; Monocyte% 8.4 % (0-10); NRBC Flagged by Analyzer 0 % (0-5); Neutrophil # 5.11 X10^3/uL (2.7-7.7); Neutrophil % 65.4 % (47-70); Platelet Count 325 K/mm3 (150-450); RBC Distribution Width CV 14.5 % (11.6-14.6); Red Blood Count 4.34 M/mm3 (4.2-5.4); White Blood Count 7.8 K/mm3 (4.4-11.0)
[2022-12-26 16:10] LABS: Thyroid Stim Hormone (TSH) 0.09 uIU/mL (0.358-3.74)
[2022-12-26 16:41] LABS: HIV - WCH Non-Reactive (Nonreactive); Hepatitis B Surface Antigen Non-Reactive (Nonreactive); Hepatitis C Antibody Non-Reactive (Nonreactive); Rubella IgG Reactive (Nonreactive); Syphilis Antibodies Non-reactive
== END | disposition home or self-care (01) ==
LOC: PAVLAB 14:49
PROVIDERS: PCP Internal Medicine; Referring Provider Obstetrics & Gynecology; Visit Provider Obstetrics & Gynecology
DX: O09.90 Supervision of high risk pregnancy, unspecified, unspecified trimester (principal); O99.280 Endocrine, nutritional and metabolic diseases complicating pregnancy, unspecified trimester; E03.9 Hypothyroidism, unspecified; Z3A.00 Weeks of gestation of pregnancy not specified
CPT/HCPCS: 36415; 84443; 85025; 86703; 86762; 86780; 86803; 86850; 86900; 86901; 87340

== ENCOUNTER → 2023-01-09 | Outpatient (CLI) | payer SELFPAY ==
[2023-01-09 15:54] LABS: NATERA MAILED SPECIMEN
== END | disposition home or self-care (01) ==
LOC: PAVLAB 14:42
PROVIDERS: PCP Internal Medicine; Referring Provider Obstetrics & Gynecology; Visit Provider Obstetrics & Gynecology
DX: O09.511 Supervision of elderly primigravida, first trimester (principal); Z3A.00 Weeks of gestation of pregnancy not specified

== ENCOUNTER → 2023-01-24 | Outpatient (CLI) | payer MEDICAID, SELFPAY ==
[2023-01-24 11:54] LABS: Glucose Challenge Gest 1H 50g 176 mg/dL (70-140)
== END | disposition home or self-care (01) ==
PROVIDERS: PCP Internal Medicine; Referring Provider Obstetrics & Gynecology; Visit Provider Obstetrics & Gynecology
DX: Z34.90 Encounter for supervision of normal pregnancy, unspecified, unspecified trimester (principal)
CPT/HCPCS: 36415; 82950

== ENCOUNTER → 2023-02-05 | Outpatient (CLI) | payer MEDICAID, SELFPAY ==
[2023-02-05 16:00] LABS: T4 Free Direct 1.06 ng/dL (0.76-1.46); Thyroid Stim Hormone (TSH) 8.95 uIU/mL (0.358-3.74)
== END | disposition home or self-care (01) ==
LOC: PAVLAB 14:58
PROVIDERS: PCP Internal Medicine; Referring Provider Nurse Practitioner Women's Health; Visit Provider Nurse Practitioner Women's Health
DX: E03.9 Hypothyroidism, unspecified (principal)
CPT/HCPCS: 36415; 84439; 84443

== ENCOUNTER → 2023-03-22 | Outpatient (CLI) | payer MEDICAID, SELFPAY ==
[2023-03-22 11:07] LABS: Absolute Lymphocyte Count 1.77 X10^3/uL (0.83-4.51); Absolute Neutrophil Count 7.4 X10^3/uL (2.0-7.7); Basophil# 0.05 X10^3/uL; Basophil% 0.5 % (0-1); Eosinophil# 0.12 X10^3/uL; Eosinophils% 1.2 % (0-5); Hematocrit 31.9 % (37-47); Hemoglobin 10.3 g/dL (12.0-15.0); Lymphocyte # 1.77 X10^3/ul (0.83-4.51); Lymphocyte % 17.4 % (19-41); Mean Corp Hgb Conc 32.3 g/dL (32-36); Mean Corpuscular Hgb 28.7 pg (27.0-32.0); Mean Corpuscular Volume 88.9 fL (81-99); Mean Platelet Vol. 9.1 fl (6.2-12.0); Monocyte# 0.72 X10^3/uL; Monocyte% 7.1 % (0-10); NRBC Flagged by Analyzer 0 % (0-5); Neutrophil # 7.37 X10^3/uL (2.7-7.7); Neutrophil % 72.3 % (47-70); Platelet Count 237 K/mm3 (150-450); RBC Distribution Width CV 14.5 % (11.6-14.6); RBC Distribution Width SD 46.1 fl (35.1-43.9); Red Blood Count 3.59 M/mm3 (4.2-5.4); White Blood Count 10.2 K/mm3 (4.4-11.0)
[2023-03-22 11:33] LABS: Free T3 1.4 pg/mL (2.18-3.98); T4 Free Direct 1.01 ng/dL (0.76-1.46); Thyroid Stim Hormone (TSH) 5.19 uIU/mL (0.358-3.74)
[2023-03-22 11:51] LABS: HIV - WCH Non-Reactive (Nonreactive); Syphilis Antibodies Non-reactive
== END | disposition home or self-care (01) ==
LOC: PAVLAB 10:38
PROVIDERS: Advanced Practice Midwife; Nurse Practitioner Women's Health; PCP Internal Medicine; Referring Provider Obstetrics & Gynecology; Visit Provider Obstetrics & Gynecology
DX: Z34.90 Encounter for supervision of normal pregnancy, unspecified, unspecified trimester (principal); E03.9 Hypothyroidism, unspecified
CPT/HCPCS: 36415; 84439; 84443; 84481; 85025; 86703; 86780

== ENCOUNTER → 2023-03-28 | Outpatient (CLI) | payer MEDICAID, SELFPAY | END | disposition home or self-care (01) | LOC: LABSPEC 16:43 | PROVIDERS: PCP Internal Medicine; Visit Provider Nurse Practitioner Women's Health | DX: O23.40 Unspecified infection of urinary tract in pregnancy, unspecified trimester (principal); R30.0 Dysuria | CPT/HCPCS: 87077; 87086; 87088; 87186 ==

== ENCOUNTER → 2023-04-18 | Outpatient (CLI) | payer MEDICAID, SELFPAY | END | disposition home or self-care (01) | LOC: LABSPEC 13:30 | PROVIDERS: PCP Internal Medicine; Visit Provider Obstetrics & Gynecology | DX: O23.40 Unspecified infection of urinary tract in pregnancy, unspecified trimester (principal) | CPT/HCPCS: 87086; 87088 ==

== ENCOUNTER → 2023-05-02 | Outpatient (CLI) | payer MEDICAID, SELFPAY ==
[2023-05-02 12:28] LABS: Absolute Lymphocyte Count 1.97 X10^3/uL (0.83-4.51); Absolute Neutrophil Count 7.3 X10^3/uL (2.0-7.7); Basophil# 0.05 X10^3/uL; Basophil% 0.5 % (0-1); Eosinophil# 0.11 X10^3/uL; Eosinophils% 1.1 % (0-5); Hematocrit 34.3 % (37-47); Hemoglobin 10.9 g/dL (12.0-15.0); Lymphocyte # 1.97 X10^3/ul (0.83-4.51); Lymphocyte % 18.9 % (19-41); Mean Corp Hgb Conc 31.8 g/dL (32-36); Mean Corpuscular Hgb 28.5 pg (27.0-32.0); Mean Corpuscular Volume 89.8 fL (81-99); Mean Platelet Vol. 9.6 fl (6.2-12.0); Monocyte# 0.84 X10^3/uL; Monocyte% 8.1 % (0-10); NRBC Flagged by Analyzer 0 % (0-5); Neutrophil # 7.31 X10^3/uL (2.7-7.7); Platelet Count 290 K/mm3 (150-450); RBC Distribution Width CV 14.2 % (11.6-14.6); Red Blood Count 3.82 M/mm3 (4.2-5.4); White Blood Count 10.4 K/mm3 (4.4-11.0)
== END | disposition home or self-care (01) ==
LOC: PAVLAB 11:53
PROVIDERS: PCP Internal Medicine; Referring Provider Obstetrics & Gynecology; Visit Provider Obstetrics & Gynecology
DX: O99.019 Anemia complicating pregnancy, unspecified trimester (principal); Z3A.00 Weeks of gestation of pregnancy not specified
CPT/HCPCS: 36415; 85025

== ENCOUNTER → 2023-06-01 | Outpatient (CLI) | payer MEDICAID, SELFPAY ==
--- NOTE | 2023-06-01 09:39 | US_ITS ---
STUDY: OBSTETRICAL ULTRASOUND - BIOPHYSICAL PROFILE REASON FOR EXAM: Female, 42 years old well being -- 32 weeks LMP: October 16, 2022. PRIOR ULTRASOUND: Comparison is made with prior study dated December 06, 2022. TECHNIQUE: Transabdominal TECHNICAL QUALITY: Adequate. FINDINGS: There is a single intrauterine fetus. The fetus is in a cephalic and oblique left presentation. There is demonstrated cardiac activity with a heart rate of 147 bpm. The amniotic fluid volume is in the 95th percentile. The largest amniotic fluid pocket measures 10.8 cm. The amniotic fluid index (PARTH) is 26.04 cm. The placenta is right lateral in location and is not low lying. There are Grade 1 placental changes. Age by LMP: 32 weeks, 4 days. YANNICK by LMP: July 23, 2023. BIOPHYSICAL PROFILE: Breathing Movements (FBM): 2 Gross Body Movements (GBM): 2 Tone (FT): 2 Amniotic Fluid Volume (AFV): 2 TOTAL SCORE: 8 / 8 The amniotic fluid volume is in the 95th percentile. US/Biophysical Prof W/O Non Stres IMPRESSION: Normal biophysical profile of 8/8. Electronically Signed: Warren Nguyen MD at 10:27 [facility] ,
--- OUTSIDE RECORDS SUMMARY | 2023-06-01 10:06 | XMS RPT_ITS | CCD ---
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 Name Role Phone Micheline DENNIS, Pedro Pablo Jackson Unavailable Adele Steinberg MD Unavailable [phone] Lianet Mckeon MD Primary Care Provider Larisa RN, Odilia Collins (Rn) Unavailable UnavailLianet Barrientos MD Primary Care Provider Larisa CHEN, Odilia Collins (Rn) Unavailable UnavailLianet Barrientos MD Primary Care Provider Pietro Tapia MD Unavailable To Chamorro MD Unavailable Heath DENNIS, PhD, Johnny Ocampo Unavailable Lianet Mckeon MD Primary Care Provider Larisa CHEN, Odilia Collins (Rn) Unavailable UnavailLianet Barrientos MD Primary Care Provider Pietro Tapia MD Unavailable [phone] To Chamorro MD Unavailable Heath DENNIS, PhD, Johnny Ocampo Unavailable [phone] ELIJAH, SHAVON C Referring Unavailable TALAMPAS, LIANET Primary Care Unavailable ELIJAH, SHAVON C Attending Unavailable TALAMPAS, LIANET Primary Care Unavailable ELIJAH, SAHVON C Attending Unavailable ELIJAH, SHAVON C Referring Unavailable ELIJAH, SHAVON C Referring Unavailable TALAMPAS, LIANET Primary Care Unavailable ELIJAH, SHAVON C Attending Unavailable ELIJAH, SHAVON C Attending Unavailable LAYAAMPAUGUSTUS, LIANET Primary Care Unavailable SHAVON NAVA Referring Unavailable TALAMPAS, LIANET Primary Care Unavailable ARI BECERRA Attending Unavailable ARI BECERRA Referring Unavailable Larisa CHEN, Odilia Collins (Rn) Unavailable Unavailab le TALAMPAS, LIANET D Primary Care Unavailable JULIO AVALOS Referring Unavailable TALAMPAS, LIANET D Primary Care Unavailable JULIO AVALOS Attending Unavailable DARIAN PRUETT Referring Unavailable SHEWMONDARIAN Attending Unavailable TALAMPAS, LIANET D Primary Care Unavailable TALAMPAS, LIANET D Primary Care Unavailable SHEWMONDARIAN Referring Unavailable SHEWMONDARIAN Attending Unavailable TALAMPAS, LIANET D Primary Care Unavailable TALAMPAS, LIANET D Primary Care Unavailable SHEWMONDARIAN Referring Unavailable TALAMPAS, LIANET D Primary Care Unavailable TALAMPAS, LIANET D Primary Care Unavailable SHEWMONDARIAN Referring Unavailable SHEWMONDARIAN Attending Unavailable TALAMPAS, LIANET D Primary Care Unavailable ROBBIEJULIO Referring Unavailable Alicia Weiner Attending Unavailable TALAMPAS, LIANET D Referring Unavailable TALAMPAS, LIANET D Primary Care Unavailable TALAMPAS, LIANET Primary Care Unavailable RACHAEL NAM Attending Unavailable JAMES CANNON Referring Unavailab le TALAMPAS, LIANET Primary Care Unavailable ABILIO CHRISTINA Attending Unavailable JAMES CANNON Referring Unavailab JAMIL Leonard Attending Unavailable NO PRIMARY CAREMD Primary Care Unavailable ADELE STEINBERG Referring UnavailJAMIL Herbert Attending Unavailable NO PRIMARY CAREMD Primary Care Unavailable ADELE STEINBERG Referring Unavailabl e JAMES CANNON Referring Unavailab le TALAMPAS, LIANET Primary Care Unavailable RACHAEL NAM Attending Unavailable TALAMPAS, LIANET Primary Care Unavailable RACHAEL NAM Attending Unavailable JAMES CANNON Referring Unavailab le TALAMPAS, LIANET Primary Care Unavailable VON CONTRERAS Attending Unavailable VON CONTRERAS Referring Unavailable Allergies Allergy Classification Reported Allergen(s) Allergy Type Date of Onset Reaction(s) Facility (20 sources) Adhesive Tape; Translations: [ADHESIVE TAPE (ROSLAMBERT)] Propensity to adverse reactions to substance 12-26-2019 Itching [facility] (3 sources) *Adhesive Tape Propensity to adverse reactions 12-26-2019 [facility] Medications Current Medications Medication Drug Class(es) Dates Sig (Normalized) Sig (Original) cetirizine hydrochloride 10 mg oral tablet (3 sources) Histamine-1 Receptor Antagonist take 1 tablet by mouth once daily cetirizine 10 MG Tab Take 1 tablet by mouth daily. 0 Active docosahexaenoic acid 1000 mg / omega-3 acid ethyl esters (residential) 300 mg delayed release oral capsule (3 sources) take 1 capsule by mouth once daily at breakfast [place]-3 Fatty Acids (FISH OIL) [address] take 1,200 mg by mouth daily with breakfast. 0 Active ibuprofen 200 mg oral capsule (3 sources) Nonsteroidal Anti-inflammatory Drug Ibuprofen (MIDOL) 200 MG Cap Take 2 capsules by mouth as needed. 0 Active Multiple Vitamin (multivitamin) capsule (1 source) take 1 capsule by mouth once daily Multiple Vitamin (multivitamin) capsule Take 1 capsule by mouth daily. 0 Active perflutren lipid microspheres 1.3 mL in NaCl (PF) 0.9% 10 mL injection (DEFINITY) (13 sources) Start: 08-10-2021 End: 11-09-2022 perflutren lipid microspheres 1.3 mL in NaCl (PF) 0.9% 10 mL injection (DEFINITY) Probiotic Product (PROBIOTIC DAILY PO) (3 sources) Probiotic Produc t (PROBIOTIC DAILY PO) take by mouth. 0 Active turmeric extract 500 mg oral capsule (3 sources) take 1 tablet by mouth once daily at breakfast Turmeric 500 MG Cap take 1 tablet by mouth daily with breakfast.. Reported on 06/28/2016 0 Active Completed/Discontinued Medications Medication Drug Class(es) Dates Sig (Normalized) Sig (Original) ascorbic acid 500 mg chewable tablet (3 sources) Vitamin C End: 10-18-2022 take 2 tablets by mouth once daily at breakfast ascorbic acid 500 MG Tab take 1,000 mg by mouth daily with breakfast. 0 10/18/2022 Discontinued 12 hr buPROPion hydrochloride 90 mg / naltrexone hydrochloride 8 mg extended release oral tablet (12 sources) Opioid Antagonist, Aminoketone Start: 09-14-2020 naltrexone-bupropi on (CONTRAVE) 8-90 mg ER tablet Indications: Class 3 severe obesity due to excess calories with serious comorbidity and body mass index (BMI) of 40.0 to 44.9 in adult (FORM[facility]LY [facility]) titrate as directed up to 2 tablets twice daily 120 tablet 0 09/14/2020 Active Problems Active Problems Problem Classification Problem Date Documented Da te Episodic/Chronic Cancer of thyroid (20 sources) Papillary thyroid carcinoma; Translations: [Malignant neoplasm of thyroid gland] Onset: 01-05-2010 05-02-2021 Chronic Complications of surgical procedures or medical care (20 sources) Postoperative hypothyroidism; Translations: [Postprocedural hypothyroidism] Onset: 03-15-2018 03-15-2018 Chronic Endometriosis (3 sources) 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; Translations: [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] Onset: 01-19-2017 01-19-2017 Chronic Female infertility (3 sources) Secondary female infertility; Translations: [Female infertility, unspecified] Onset: 01-19-2017 01-19-2017 Chronic Nonspecific chest pain (1 source) Precordial pain; Translations: [Precordial pain] Episodic Nutritional deficiencies (20 sources) Vitamin D deficiency; Translations: [Vitamin D deficiency, unspecified] Onset: 09-21-2011 09-21-2011 Chronic Other gastrointestinal disorders (2 sources) Altered bowel function; Translations: [Change in bowel habit] 11-13-2022 Episodic Other gastrointestinal disorders (2 sources) Diarrhea; Translations: [Diarrhea, unspecified] 11-13-2022 Episodic Other gastrointestinal disorders (2 sources) Abdominal bloating; Translations: [Abdominal distension (gaseous)] 11-13-2022 Episodic Other hematologic conditions (1 source) History of anemia; Translations: [Personal history of diseases of the blood and blood-forming organs and certain disorders involving the immune mechanism] 11-13-2022 Episodic Other nutritional; endocrine; and metabolic disorders (20 sources) Morbid obesity; Translations: [Morbid (severe) obesity due to excess calories] Onset: 10-30-2014 08-15-2018 Chronic Other nutritional; endocrine; and metabolic disorders (10 sources) Body mass index 40+ - severely obese; Translations: [Morbid (severe) obesity due to excess calories] Onset: 10-04-2022 Chronic Other nutritional; endocrine; and metabolic disorders (1 source) Morbid (severe) obesity due to excess calories; Translations: [Obesity, Class III, BMI 40-49.9 (morbid obesity) (HCC)] Onset: 10-04-2022 Chronic Other nutritional; endocrine; and metabolic disorders (1 source) Weight gain; Translations: [Abnormal weight gain] Episodic Other nutritional; endocrine; and metabolic disorders (2 sources) Abnormal weight gain; Translations: [Weight gain] Onset: 10-04-2022 Episodic Residual codes; unclassified (1 source) Sleep apnea; Translations: [Sleep apnea, unspecified] Chronic Residual codes; unclassified (1 source) Sleep apnea, unspecified; Translations: [Sleep apnea, unspecified type] Onset: 03-27-2023 Chronic Residual codes; unclassified (1 source) History of chest pain; Translations: [Personal history of other specified conditions] 11-13-2022 Episodic Unclassified (1 source) APPOINTMENT CANCELLED Past or Other Problems Problem Classification Problem Date Documented Date Episodic/Chronic Abdominal hernia (3 sources) Hernia of abdominal cavity; Translations: [Unspecified abdominal hernia without obstruction or gangrene] Onset: 01-19-2017 01-19-2017 Episodic Malaise and fatigue (2 sources) Fatigue; Translations: [Other fatigue] Onset: 10-04-2022 Episodic Mood disorders (3 sources) Mood disorders Onset: 10-15-2019 Resolved: 10-15-2019 10-15-2019 Nausea and vomiting (20 sources) Postoperative nausea and vomiting; Translations: [Nausea with vomiting, unspecified] Onset: 10-30-2014 10-30-2014 Episodic Neoplasms of unspecified nature or uncertain behavior (20 sources) Abdominal fibromatosis; Translations: [Neoplasm of uncertain behavior of connective and other soft tissue] Onset: 10-30-2014 10-30-2014 Episodic Other aftercare (1 source) Encounter for therapeutic drug level monitoring; Translations: [Encounter for therapeutic drug monitoring] Onset: 10-04-2022 Episodic Other nervous system disorders (20 sources) Abnormal gait; Translations: [Unspecified abnormalities of gait and mobility] Onset: 02-24-2015 02-24-2015 Episodic Other screening for suspected conditions (not mental disorders or infectious disease) (7 sources) Patient encounter status; Translations: [Encounter for screening mammogram for malignant neoplasm of breast] Onset: 10-04-2022 Episodic Results Test Name Value Interpretation Reference Range Facil ity Vital Signs Date Time Vital Sign Value Performing Clinician Lolis garcia 11-13-2022 09:36-0400 Body height 167.6 cm Alicia Sattley PA-C Work Phone: [facility] 11-13-2022 09:36-0400 Body temperature 97.39 [degF] Alicia Husam PA-C Work Phone: [facility] 11-13-2022 09:36-0400 Body weight 140.62 kg Alicia Sattley PA-C Work Phone: [facility] 11-13-2022 09:36-0400 Diastolic blood pressure 76 mm[Hg] Alicia Sattley PA-C Work Phone: [facility] 11-13-2022 09:36-0400 Heart rate 77 /min Alicia Husam PA-C Work Phone: [facility] 11-13-2022 09:36-0400 SaO2% (BldA) [Mass fraction] 100 % Alicia Husam PA-C Work Phone: [facility] 11-13-2022 09:36-0400 Systolic blood pressure 128 mm[Hg] Alicia Husam PA-C Work Phone: [facility] 10-18-2022 14:06-0400 Body mass index (BMI) [Ratio] 49.62 kg/m2 Shavon Elijah PRODUCT DEVELOPMENT ASSISTANT-CORRESPONDENCE REVIEW CLERK Work Phone: [facility] 10-18-2022 14:06-0400 Body temperature 98.2 [degF] Shavon Elijah PRODUCT DEVELOPMENT ASSISTANT-CORRESPONDENCE REVIEW CLERK Work Phone: [facility] 10-18-2022 14:06-0400 Body weight 139.44 kg Shavon [facility] PRODUCT DEVELOPMENT ASSISTANT-CORRESPONDENCE REVIEW CLERK Work Phone: [facility] 10-18-2022 14:06-0400 Diastolic blood pressure 65 mm[Hg] Shavon Elijah PRODUCT DEVELOPMENT ASSISTANT-CORRESPONDENCE REVIEW CLERK Work Phone: [facility] 10-18-2022 14:06-0400 Heart rate 84 /min Shavon Nava PRODUCT DEVELOPMENT ASSISTANT-CORRESPONDENCE REVIEW CLERK Work Phone: [facility] 10-18-2022 14:06-0400 Respiratory rate 16 /min Shavon Elijah PRODUCT DEVELOPMENT ASSISTANT-CORRESPONDENCE REVIEW CLERK Work Phone: [facility] 10-18-2022 14:06-0400 SaO2% (BldA) [Mass fraction] 96 % Shavon Elijah PRODUCT DEVELOPMENT ASSISTANT-CORRESPONDENCE REVIEW CLERK Work Phone: [facility] 10-18-2022 14:06-0400 Systolic blood pressure 137 mm[Hg] Shavon Elijah PRODUCT DEVELOPMENT ASSISTANT-CORRESPONDENCE REVIEW CLERK Work Phone: [facility] 10-04-2022 07:48-0400 Body height 166.4 cm Julio Robbie PRODUCT DEVELOPMENT ASSISTANT.CORRESPONDENCE REVIEW CLERK Work Phone: [facility] 10-04-2022 07:48-0400 Body weight 138.35 kg Julio Robbie PRODUCT DEVELOPMENT ASSISTANT.CORRESPONDENCE REVIEW CLERK Work Phone: [facility] 10-04-2022 07:48-0400 Diastolic blood pressure 68 mm[Hg] Julio Robbie PRODUCT DEVELOPMENT ASSISTANT.CORRESPONDENCE REVIEW CLERK Work Phone: [facility] 10-04-2022 07:48-0400 Heart rate 81 /min Julio Robbie PRODUCT DEVELOPMENT ASSISTANT.CORRESPONDENCE REVIEW CLERK Work Phone: [facility] 10-04-2022 07:48-0400 SaO2% (BldA) [Mass fraction] 98 % Julio Robbie PRODUCT DEVELOPMENT ASSISTANT.CORRESPONDENCE REVIEW CLERK Work Phone: [facility] 10-04-2022 07:48-0400 Systolic blood pressure 114 mm[Hg] Julio Robbie PRODUCT DEVELOPMENT ASSISTANT.CORRESPONDENCE REVIEW CLERK Work Phone: [facility] 07-13-2022 08:34-0500 Body height 167.6 cm Shavon Nava PRODUCT DEVELOPMENT ASSISTANT-CORRESPONDENCE REVIEW CLERK Work Phone: [facility] 07-13-2022 08:34-0500 Body mass index (BMI) [Ratio] 48.42 kg/m2 Shavon Elijah PRODUCT DEVELOPMENT ASSISTANT-CORRESPONDENCE REVIEW CLERK Work Phone: [facility] 07-13-2022 08:34-0500 Body weight 136.08 kg Shavon Nava PRODUCT DEVELOPMENT ASSISTANT-CORRESPONDENCE REVIEW CLERK Work Phone: [facility] 07-13-2022 08:34-0500 Diastolic blood pressure 66 mm[Hg] Shavon [facility] PRODUCT DEVELOPMENT ASSISTANT-CORRESPONDENCE REVIEW CLERK Work Phone: [facility] 07-13-2022 08:34-0500 Heart rate 73 /min Shavon Nava PRODUCT DEVELOPMENT ASSISTANT-CORRESPONDENCE REVIEW CLERK Work Phone: [facility] 07-13-2022 08:34-0500 Systolic blood pressure 130 mm[Hg] Shavon Nava PRODUCT DEVELOPMENT ASSISTANT-CORRESPONDENCE REVIEW CLERK Work Phone: [facility] 07-07-2022 11:26-0500 Body weight 137.98 kg Darian Pruett MD Work Phone: [facility] 07-07-2022 11:26-0500 Diastolic blood pressure 83 mm[Hg] Darian Pruett MD Work Phone: [facility] 07-07-2022 11:26-0500 Heart rate 79 /min Darian Pruett MD Work Phone: [facility] 07-07-2022 11:26-0500 Systolic blood pressure 142 mm[Hg] Darian Pruett MD Work Phone: [facility] 01-23-2017 09:42-0400 BMI (Body Mass Index) 48.38 kg/m2 Pedro Pablo Tobias MD [facility] Work Phone: 01-23-2017 09:42-0400 Body Temperature 98.1 [degF] Pedro Pablo Tobias MD [facility] Work Phone: 01-23-2017 09:42-0400 BP Diastolic 79 mm[Hg] Pedro Pablo Tobias MD [facility] Work Phone: 01-23-2017 09:42-0400 BP Systolic 112 mm[Hg] Pedro Pablo Tobias MD [facility] Work Phone: 01-23-2017 09:42-0400 Pulse (Heart Rate) 80 /min Pedro Pablo Tobias MD [facility] Work Phone: 01-23-2017 09:42-0400 Respiratory Rate 20 /min Pedro Pablo Tobias MD [facility] Work Phone: 01-23-2017 09:42-0400 Weight 135.99 kg Pedro Pablo Tobias MD [facility] Work Phone: 01-19-2017 10:41-0400 BMI (Body Mass Index) 49.64 kg/m2 Adele Steinberg MD [facility] 01-19-2017 10:41-0400 Body Temperature 97.3 [degF] Adele Steinberg MD [facility] 01-19-2017 10:41-0400 BP Diastolic 75 mm[Hg] Adele Steinberg MD [facility] 01-19-2017 10:41-0400 BP Systolic 129 mm[Hg] Adele Steinberg MD [facility] 01-19-2017 10:41-0400 Height 167.64 cm Adele Steinberg MD [facility] 01-19-2017 10:41-0400 Pulse (Heart Rate) 92 /min Adele Steinberg MD [facility] 01-19-2017 10:41-0400 Respiratory Rate 16 /min Adele Steinberg MD [facility] 01-19-2017 10:41-0400 Weight 139.52 kg Adele Steinberg MD [facility] 01-19-2017 10:41-0400 Weight 139.53 kg Adele Steinberg MD [facility] Encounters Encounter Date Encounter Type Care Provider Facility Start: 05-08-2023 End: 05-08-2023 ambulatory [facility] Start: 04-09-2023 End: 04-09-2023 ambulatory [facility]ET [facility] Start: 04-04-2023 ambulatory Lianet ellis MD Work Phone: [facility] [place] Start: 03-27-2023 End: 03-28-2023 ambulatory LIANET MCKEON Facility:[facility] Start: 03-23-2023 End: 03-23-2023 ambulatory [facility] Start: 03-22-2023 End: 03-23-2023 ambulatory LIANET MCKEON Facility:[facility] Start: 03-19-2023 ambulatory LIANET [facility] Start: 03-05-2023 End: 03-05-2023 ambulatory JAMES Lema [facility] Start: 01-26-2023 End: 01-26-2023 ambulatory JAMIL MORELAND [facility] Start: 01-02-2023 Telephone encounter Darian hampton MD Work Phone: [facility] [place] Start: 01-01-2023 Telephone encounter Darian hampton MD Work Phone: [facility] [place] Procedures Date Procedure Procedure Detail Performing Clinician Start: 07-13-2022 Ct abdomen & pelvis w/contrast material Shavon Nava PRODUCT DEVELOPMENT ASSISTANT-CORRESPONDENCE REVIEW CLERK Work Phone: Start: 07-13-2022 End: 07-13-2022 Creatinine blood Shavon Nava PRODUCT DEVELOPMENT ASSISTANT-CORRESPONDENCE REVIEW CLERK Work Phone: Start: 07-07-2022 Us soft tissue head & neck real time imge docm Darian Pruett MD Work Phone: Start: 03-01-2022 Mammography Mammography Coordinator Start: 07-20-2018 Adult depression screening assessment Angely Black OD Work Phone: History of cholecystectomy S/P laparoscopic cholecystectomy Alicia Weiner PA-C Work Phone: Plan of Treatment Date Care Activity Detail Author Start: 02-08-2031 Tetanus vaccination TETANUS [facility] Start: 02-08-2031 Urine microalbumin profile DTaP,Tdap,Td Vaccine (8 - Td or Tdap) [facility] Start: 04-19-2027 Tetanus vaccination TETANUS [facility] Start: 04-19-2027 Urine microalbumin profile [facility] Start: 11-27-2023 HPV TESTING HPV TESTING [facility] Start: 10-05-2023 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 CHINMAY DISEASE VISIT ANNUAL PCP TEAM CHRONIC DISEASE VISIT [facility] Start: 03-01-2023 Mammography [facility] Start: 02-12-2023 End: 04-14-2023 Thyroxine (T4) free [Mass/volume] in Serum or Plasma T4 FREE/FREE THYROX Lab Routine Papillary carcinoma of thyroid (HCC) Expected: 02/12/2023 (Approximate), Expires: 04/14/2023 [facility] Work Phone: Immunizations Immunization Date Immunization Notes Care Provider Fa [facility] 03-05-2020 influenza, seasonal, injectable Angely Black OD Work Phone: [facility] 03-05-2020 influenza virus vaccine, unspecified formulation Shavon Nava PRODUCT DEVELOPMENT ASSISTANT-CORRESPONDENCE REVIEW CLERK Work Phone: [facility] 04-24-2017 measles, mumps and rubella virus vaccine Angely Black OD Work Phone: [facility] Work Phone: 04-19-2017 tetanus toxoid, redu godfrey diphtheria toxoid, and acellular pertussis vaccine, adsorbed Angelyamanda Black OD Work Phone: [facility] 01-28-1994 trivalent poliovirus vaccine, live, oral Angely Black OD Work Phone: [facility] 12-28-1993 measles, mumps and rubella virus vaccine Angelycharles Almodovarr OD Work Phone: [facility] 12-09-1986 diphtheria, tetanus toxoids and pertussis vaccine Angely Wayne OD Work Phone: [facility] 04-12-1983 diphtheria, tetanus toxoids and pertussis vaccine Angely Wayne OD Work Phone: [facility] 04-12-1983 trivalent poliovirus vaccine, live, oral Angely Almodovarr OD Work Phone: [facility] 09-09-1982 measles, mumps and rubella virus vaccine Angely Wayne OD Work Phone: [facility] 1981 diphtheria, tetanus toxoids and pertussis vaccine Angely Wayne OD Work Phone: [facility] 1981 trivalent poliovirus vaccine, live, oral Angely Wayne OD Work Phone: [facility] 1981 diphtheria, tetanus toxoids and pertussis vaccine Angely Wayne OD Work Phone: [facility] 1981 trivalent poliovirus vaccine, live, oral Angely Wayne OD Work Phone: [facility] 1981 diphtheria, tetanus toxoids and pertussis vaccine Angely Wayne OD Work Phone: [facility] 1981 trivalent poliovirus vaccine, live, oral Angely Wayne OD Work Phone: [facility] Payers Date Payer Category Payer Medicaid [id number] 2022 Medicaid [id number] 2022 Private Health Insurance [employer] Tammi MILLER [id number] 2022-Present [address] [place] [address] [id number] 2022 Private Health Insurance [id number] 2020 Medicaid [employer] MEDICAID [id number] 2020-Present [phone] [address] [place] [address] Medicaid [id number] 2020 Medicaid [id number] 2019 Unknown [employer] ADVANT AGE [employer] [id number] 2019-Present [address] [place] [address] [id number] 2019 Unknown [id number] 1981 Unknown [id number] 1981 Unknown [id number] 594 1981 Unknown [id number] 594 1981 Unknown [id number] 594 1981 Unknown [id number] 594 1981 Unknown [id number] 479 1981 Unknown [id number] 1981 Unknown [id number] 479 1981 Unknown [id number] 479 1981 Unknown [id number] 479 1981 Unknown [id number] 479 1981 Unknown [id number] 479 Social History Date Type Detail Facility Start: 09-22-2011 End: 09-04-2014 Tobacco smoking status TXIS Never smoked tobacco [facility] Start: 04-08-2021 End: 11-13-2022 Alcohol intake Current non-drinker of alcohol (finding) [facility] Start: 1980 Sex Assigned At Not on file C [facility] Start: 07-18-2021 End: 07-13-2022 Exposure to SARS-CoV-2 (event) Not sure [facility] Start: 11-14-2021 End: 11-24-2021 Exposure to SARS-CoV-2 (event) Unable to assess [facility] Start: 09-22-2011 End: 09-04-2014 Tobacco use and exposure Smokeless tobacco non-user [facility] Work Phone: Start: 09-29-2022 End: 10-18-2022 History of Social function [facility] Start: 09-29-2022 End: 10-18-2022 [facility] use [facility] [facility] Adolescent depressio n screening assessment 0 [facility] Gender identity Identifies as fe male gender (finding) [facility] Medical Equipment Procedure Code Equipment Code Equipment Origin al Text Equipment Identifier Dates Mesh Xenmatrix A b 15x20 Cm - [id number] Start: 12-08-2014 Clinical Notes 10-02-2009 to 04-04-2023 Telephone Encounter - Carlos A Clemens - 02/06/2023 11:43 AM EDTTelephone Encounter - Alicia Weiner PA-C - 11/13/2022 11:12 AM EDTTelephone Encounter - Raven Mane - 11/13/2022 10:16 AM EDT Note Date & Type Note Facility 04-04-2023 Note Patient Outreach (IN [facility]) DIEGO DEL TORO ([id number]) 1980 F Date Time Provider Department 04/04/23 LIANET MCKEON During your visit today, we recorded the following information about you: Allergies As of Date: 04/04/2023 Noted Allergy Reaction ADHESIVE TAPE (ROSINS) 12/26/2019 9 - Itching Comments: Tegaderm, paper tape ok Date Reviewed: 11/13/2022 Reviewed by: Alicia Weiner PA-C - Fully Assessed Visit Diagnosis:Encounter for screening mammogram for breast cancer [Z12.31] Order(s):[facility] SCREENING [[id number]] Order #: [id number] FUTURE Prescriptions as of 04/09/2023 - levothyroxine (SYNTHROID) 175 mcg tablet take 6 AND 1/2 per week - calcium carbonate (CALCIUM 300 ORAL) Take 1 tablet by mouth once daily. - GARLIC Take 1 mL by mouth once daily. - CPAP AutoPAP 5-20 cmH2O, mask to comfort, tubing, heated humidifier, filters, Lifetime supplies, - Miscellaneous Medical Supply [facility] K[place] brace Dx: S89.92XA, M25.562 - Multivitamin capsule Take 1 capsule by mouth once daily. - Lactobacillus acidophilus 10 billion cell cap Take by mouth once daily. 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 Carlos A Clemens Rx sent Patient asking prep Golytely be sent into [facility] [place] Raven Mane Landscape Designer 02/09/2023 colon/egd ruano Patient denied sooner dates Raven Mane Landscape Designer documented in this encounter [facility] 01-02-2023 Miscellaneous Notes Spoke with Allyson at [facility] and clarified that the patient is to take 1 full tablet of Synthroid 175mcg 6 days/week and 1/2 of a 175mcg tablet 1 day a week. Zenia Fernandez RN Allyson calling from [employer] to get clarification on instructions sent over on levothyroxine (SYNTHROID) 175 mcg tablet. Contact Information [phone] Thank you documented in this encounter [facility] 01-02-2023 Miscellaneous Notes Darian Pruett MD P Lkwd Clerical Pool virtual in 6 weeks, check first before calling to see if patient was successful in making their own appointment 1st Attempt Left message to call office. 01/02/2023 8:39 AM Hoda Au documented in this encounter [facility] 01-01-2023 Note HNO ID: [id number] Author: Darian Pruett MD Service: ? Author Type: Physician Type: Progress Notes Filed: 01/01/2023 11:30 AM Note Text: Virtual Visit utilizing both audio and video components FaceTime I have communicated my name and active licensure. The patient's identity and physical location were verified at the time of this visit. Either the patient or their legal access representative has been informed of the risks and benefits of -- and alternatives to -- treatment through a remote evaluation and consents to proceed with the evaluation remotely. 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 She caught up for missed doses, which is correct, but then stopped levothyroxine for the last 3 days out of concern for the low TSH just found of 0.09. This is actually in Dr. Jes Carbajal's normal range for TSH in 1st trimester of . However I will back her off from daily to 6.5/wk of 175 mcg levothyroxine. Followup in 6 weeks. 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 Six months later, unstimulated TG was undetectable, and has been undetectable without stimulation ever since. 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 Doing OK per this followup. 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 Plan: 1) take 2 pills per day for the next 3 days to catch up with your levothyroxine, then switch to taking 6 AND 1/2 pills per week. 2) [place] to [place] by virtual visit with labs beforehand Darian Pruett MD Data Review: Component Latest Ref Rng AND Units 06/13/2022 10/04/2022 12/29/22 approx TG Antibody Screen <14.4 IU/mL 1.1 Thyroglobulin Ab, Serum <4.0 IU/mL <0.9 Thyroglobulin 1.6 - 59.9 ng/mL <0.2 (L) Thyroglobulin, Serum 1.6 - 50.0 ng/mL 0.2 (L) Free T4 0.9 - 1.7 ng/dL 1.1 3.2 (H) TSH 0.270 - 4.200 mIU/L 13.400 (H) 0.017 (L) 0.09 Free T3 2.3 - 4.1 pg/mL 3.8 History Thyroid Cancer last visit Jun 2022 had ultrasound 10 weeks gestation as of 01/01/23 has lost 4 pregnancies, trying hard to do everything right. Seeing highway engineering technician TSH reported to be 0.09, basis for concern by her Ob She had forgotten levothyroxine for 2 weeks on vacation, so caught up by taking 2 at a time for the next 2 weeks. Then the aboveblood test caused her to be concerned at too suppressed a TSH, so she stopped levothyroxine for the last 3 days... Insurance refused gastric bypass surgery. 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 Tobias, at [facility] Pathology (12/28/09): 4cm classic papillary thyroid CA, in left lobe, no angiolymphatic invasion or extracapsular extension, but capsular penetration pressent. Margins free of tumor. 4/5 nodes positive for metastases. T2N1Mx Scan (03/29/10): post 131-Iodine therapy, uptake in left thyroid bed representing residual thyroid tissue, there was uptake in chest on original scan, but could not be confirmed on SPECT/CT, (02/22/12): focal uptake in thyroid bed, no evidence of distant mets, hypothyroid stimulated [facility] (03/16/10): Rx 100 mCi 131-Iodine Thyroglobulin Component Thyroglobulin TG Antibody Screen Latest Ref Rng 0.8 - 49.0 ng/mL <14.4 IU/mL 02/20/2005 11/01/2009 01/11/2010 5.2 1.1 03/03/2010 11.1 1.0 03/10/2010 16.1 1.1 03/14/2010 08/25/2010 <0.2 (L) <1.0 09/21/2011 <0.2 (L) <1.0 02/09/2012 2.5 <1.0 02/16/2012 5.7 <1.0 07/03/2013 <0.2 (L) 1.0 12/31/2013 <0.2 (L) 1.0 06/29/2014 <0.2 (L) <1.0 01/04/2015 <0.2 (L) <1.0 07/16/2015 <0.2 (L) 1.4 03/10/16 <0.2 1.2 08/18/16 <0.2 1.8 03/15/18 <0.2 4.6 04/14/19 <0.2 2.5 02/11/20 <0.2 1.7 06/13/22 Anu Assay <0.2 1.1 nl <4.0 IU/mL 06/13/2022 0.2 <0.9 mRNA Component TSHR mRNA Latest Ref Rng <1.0 ng/ug 11/01/2009 1.1 (H) Vitamin D Component Vitamin D 25 Hydroxy Latest Ref Rng 31.0 - 80.0 ng/mL 08/25/2010 28.1 (L) 09/21/2011 29.8 (L) 07/03/2013 26.6 (L) 12/31/2013 37.7 06/29/2014 37.6 01/04/2015 43.4 07/16/2015 45.7 Ultrasound (01/13/10): no suspicious adenopathy along great vessels or in lateral neck on either side. No masses in thyroid bed. (09/22/11): no suspicious adenopathy along great vessels or in lateral neck on either side. No masses in thyroid bed. (07/02/13): no suspicious adenopathy along great vessels or in lateral neck on either side. No masses in thyroid bed. (07/06/14): no suspicious adenopathy along great vessels or in lateral neck on either side. (more content not included)... 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 She caught up for missed doses, which is correct, but then stopped levothyroxine for the last 3 days out of concern for the low TSH just found of 0.09. This is actually in Dr. Jes Carbajal's normal range for TSH in 1st trimester of . However I will back her off from daily to 6.5/wk of 175 mcg levothyroxine. Followup in 6 weeks. 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 Six months later, unstimulated TG was undetectable, and has been undetectable without stimulation ever since. 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 Doing OK per this followup. 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 Plan: 1) take 2 pills per day for the next 3 days to catch up with your levothyroxine, then switch to taking 6 & 1/2 pills per week. 2) [place] to [place] 6 [place] by virtual visit with labs beforehand Darian Pruett MD Data Review: Component Latest Ref Rng & Units 06/13/2022 10/04/2022 12/29/22 approx TG Antibody Screen <14.4 IU/mL 1.1 Thyroglobulin Ab, Serum <4.0 IU/mL <0.9 Thyroglobulin 1.6 - 59.9 ng/mL <0.2 (L) Thyroglobulin, Serum 1.6 - 50.0 ng/mL 0.2 (L) Free T4 0.9 - 1.7 ng/dL 1.1 3.2 (H) TSH 0.270 - 4.200 mIU/L 13.400 (H) 0.017 (L) 0.09 Free T3 2.3 - 4.1 pg/mL 3.8 documented in this encounter [facility] 01-01-2023 History of Presen t illness Narrative Virtual Visit utilizing both audio and video components FaceTime I have communicated my name and active licensure. The patient's identity and physical location were verified at the time of this visit. Either the patient or their legal access representative has been informed of the risks and benefits of -- and alternatives to -- treatment through a remote evaluation and consents to proceed with the evaluation remotely. 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 She caught up for missed doses, which is correct, but then stopped levothyroxine for the last 3 days out of concern for the low TSH just found of 0.09. This is actually in Dr. Jes Carbajal's normal range for TSH in 1st trimester of . However I will back her off from daily to 6.5/wk of 175 mcg levothyroxine. Followup in 6 weeks. 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 Six months later, unstimulated TG was undetectable, and has been undetectable without stimulation ever since. 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 Doing OK per this followup. 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 Plan: 1) take 2 pills per day for the next 3 days to catch up with your levothyroxine, then switch to taking 6 & 1/2 pills per week. 2) return to me in 6 weeks by virtual visit with labs beforehand Darian Pruett MD Data Review: Component Latest Ref Rng & Units 06/13/2022 10/04/2022 12/29/22 approx TG Antibody Screen <14.4 IU/mL 1.1 Thyroglobulin Ab, Serum <4.0 IU/mL <0.9 Thyroglobulin 1.6 - 59.9 ng/mL <0.2 (L) Thyroglobulin, Serum 1.6 - 50.0 ng/mL 0.2 (L) Free T4 0.9 - 1.7 ng/dL 1.1 3.2 (H) TSH 0.270 - 4.200 mIU/L 13.400 (H) 0.017 (L) 0.09 Free T3 2.3 - 4.1 pg/mL 3.8 History Thyroid Cancer last visit Jun 2022 had ultrasound 10 weeks gestation as of 01/01/23 has lost 4 pregnancies, trying hard to do everything right. Seeing highway engineering technician TSH reported to be 0.09, basis for concern by her Ob She had forgotten levothyroxine for 2 weeks on vacation, so caught up by taking 2 at a time for the next 2 weeks. Then the aboveblood test caused her to be concerned at too suppressed a TSH, so she stopped levothyroxine for the last 3 days... Insurance refused gastric bypass surgery. 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 Tobias, at [facility] Pathology (12/28/09): 4cm classic papillary thyroid CA, in left lobe, no angiolymphatic invasion or extracapsular extension, but capsular penetration pressent. Margins free of tumor. 4/5 nodes positive for metastases. T2N1Mx Scan (03/29/10): post 131-Iodine therapy, uptake in left thyroid bed representing residual thyroid tissue, there was uptake in chest on original scan, but could not be confirmed on SPECT/CT, (02/22/12): focal uptake in thyroid bed, no evidence of distant mets, hypothyroid stimulated [facility] (03/16/10): Rx 100 mCi 131-Iodine Thyroglobulin Component Thyroglobulin TG Antibody Screen Latest Ref Rng 0.8 - 49.0 ng/mL <14.4 IU/mL 02/20/2005 11/01/2009 01/11/2010 5.2 1.1 03/03/2010 11.1 1.0 03/10/2010 16.1 1.1 03/14/2010 08/25/2010 <0.2 (L) <1.0 09/21/2011 <0.2 (L) <1.0 02/09/2012 2.5 <1.0 02/16/2012 5.7 <1.0 07/03/2013 <0.2 (L) 1.0 12/31/2013 <0.2 (L) 1.0 06/29/2014 <0.2 (L) <1.0 01/04/2015 <0.2 (L) <1.0 07/16/2015 <0.2 (L) 1.4 03/10/16 <0.2 1.2 08/18/16 <0.2 1.8 03/15/18 <0.2 4.6 04/14/19 <0.2 2.5 02/11/20 <0.2 1.7 06/13/22 Anu Assay <0.2 1.1 nl <4.0 IU/mL 06/13/2022 0.2 <0.9 mRNA Component TSHR mRNA Latest Ref Rng <1.0 ng/ug 11/01/2009 1.1 (H) Vitamin D Component Vitamin D 25 Hydroxy Latest Ref Rng 31.0 - 80.0 ng/mL 08/25/2010 28.1 (L) 09/21/2011 29.8 (L) 07/03/2013 26.6 (L) 12/31/2013 37.7 06/29/2014 37.6 01/04/2015 43.4 07/16/2015 45.7 Ultrasound (01/13/10): no suspicious adenopathy along great vessels or in lateral neck on either side. No masses in thyroid bed. (09/22/11): no suspicious adenopathy along great vessels or in lateral neck on either side. No masses in thyroid bed. (07/02/13): no suspicious adenopathy along great vessels or in lateral neck on either side. No masses in thyroid bed. (07/06/14): no suspicious adenopathy along great vessels or in lateral neck on either side. No masses in thyroid bed. (09/08/15): no suspicious adenopathy along great vessels or in lateral neck on either side. No masses in thyroid bed. (06/28/18): no suspicious adenopathy along great vessels or in lateral neck on either side. No masses in thyroid bed. (07/07/22): no suspicious adenopathy along great vessels or in lateral neck on either side. No masses in thyroid bed. ROS PHYSICAL EXAM LMP 09/18/2022 PAST MED / SURG / FAMILY / SOCIAL HISTORY PAST MEDICAL HISTORY Diagnosis Date Cholecystitis, acute 2010 removed Desmoid tumor Thyroid mass papillary cancer Unspecified , without mention of complication, unspecified 06/2006 PAST SURGICAL HISTORY Procedure Laterality Date DELIVERY ONLY 2009 , low transverse COLONOSCOPY FLX DX W/COLLJ SPEC WHEN PFRMD 11/04/2014 Colonoscopy LAPAROSCOPY, SURGICAL; CHOLECYSTOEN 2011 PAST SURGICAL HISTORY OF Abdominal Wall Resection THYROIDECTOMY TOTAL/SUBTOTAL LMTD NECK DISSECT 12-28-09 TOTAL THYROID FAMILY HISTORY Problem Relation Age of Onset Breast Cancer Mother Diabetes Maternal Grandmother Heart Maternal Grandmother Lipids Maternal Grandmother Hypertension Maternal Grandmother Heart Maternal Grandfather Lipids Maternal Grandfather Hypertension Maternal Grandfather other (Parkinson's Disease) Paternal Grandfather Alcohol/Drug Maternal Uncle Social History Tobacco Use Smoking status: Never Smokeless tobacco: Never Vaping Use Vaping Use: Never used Substance Use Topics Alcohol use: No Drug use: No MEDICATIONS & ALLERGIES Current Outpatient Medications Medication Sig Dispense Refill calcium carbonate (CALCIUM 300 ORAL) Take 1 tablet by mouth once daily. GARLIC Take 1 mL by mouth once daily. levothyroxine (SYNTHROID) 175 mcg tablet take 7 & 1/2 pills per week (one a day with extra 1/2 pill on Sunday) 100 tablet 3 CPAP AutoPAP 5-20 cmH2O, mask to comfort, tubing, heated humidifier, filters, Lifetime supplies, 1 Device 0 Miscellaneous Medical Supply [facility] [place] Knee brace Dx: S89.92XA, M25.562 1 Each 0 Multivitamin capsule Take 1 capsule by mouth once daily. Lactobacillus acidophilus 10 billion cell cap Take by mouth once daily. No current facility-administered medications for this visit. ALLERGIES Allergen Reactions Adhesive Tape (Etelvina* Itching Tegaderm, paper tape ok documented in this encounter [facility] 12-19-2022 Note HNO ID: [id number] Author: Janna Ojeda Service: ? Author Type: ? Type: Progress Notes Filed: 12/18/2022 10:12 PM Note Text: The patient did not show up for the scheduled sleep study. The patient will be contacted to reschedule the sleep study. Janna Ojeda [facility] 12-18-2022 History of Presen t illness Narrative The patient did not show up for the scheduled sleep study. The patient will be contacted to reschedule the sleep study. Janna Ojeda October 24, 2022 Standing PSG Orders signed in the last 90 days None Future PSG Orders signed in the last 90 days Ordered Auth. provider PAP TITRATION PSG (CPAP, BIPAP, ASV) [[id number]] 10/04/22 Julio Avalos APRN.CORRESPONDENCE REVIEW CLERK Assoc. diagnoses: Weight gain [R63.5], Sleep apnea, unspecified type [G47.30] Q: Indications: A: Obstructive sleep apnea Q: STOP-BANG conditions - Select All That Apply: A: BMI > 35 kg/m2 Q: Special Needs (e.g.behavior, non-ambulatory, >450 lbs)?: A: No Q: Prior PAP (CPAP or Bilevel PAP) Use?: A: Yes Q: Sleep History: A: Sleep apnea Q: Current use of supplemental oxygen during sleep period?: A: No Q: Add supplemental oxygen if needed per sleep lab policy?: A: Yes All Prior Sleep Studies (past 365 days) Some values may be hidden. Unless noted otherwise, only the newest values recorded on each date are displayed. Sleep Studies PAP TITRATION PSG (CPAP, BIPAP, ASV) Future Expected: Expires: 11/03/23 BMI Readings from Last 2 Encounters: 10/04/22 : 49.98 kg/m 07/07/22 : 49.10 kg/m PAST MEDICAL HISTORY Diagnosis Date Cholecystitis, acute 2010 removed Desmoid tumor Thyroid mass papillary cancer Unspecified , without mention of complication, unspecified 06/2006 The medical record was reviewed to determine if the proposed sleep study conforms to the AASM Practice Parameters for the Indications for Polysomnography and Related Procedures, or if the sleep study is indicated for other reasons. Indications for study: CHASTITY previously diagnosed: Evaluate response to PAP therapy Sleep study to be performed: Split Study-Polysomnogram with PAP titration Special instructions: Split night study if AHI > 15. Start with 5 cmH2O then titrate per protocol Target REM/supine sleep Add EtCO2 and Transcutaneous CO2 if available Hx CHASTITY on APAP 5-20 cmH2O Alesia Sluga --- Sleep Medicine Staff Note: I have read the above protocol, edited as needed, and agree to the plan. Michael Dawkins III, PhD 1:28 PM, 10/24/2022 October 24, 2022 An order has been received for PAP titration study from tammi [facility] Staff. Visit prep complete. Comments :No The sleep study is scheduled for 11/09. Insurance: Payor: [employer] MEDICAID / Plan: [employer] MEDICAID [facility] / Product Type: Medicaid / Payer/Plan Subscr Sex Relation Sub. Ins. ID Effective Group Num 1. ANTHEM MEDICA* DIEGO DEL TORO 1980 Female Self [id number] 06/07/22 [address] [place] documented in this encounter [facility] 11-13-2022 Note HNO ID: [id number] Author: Alicia Weiner PA-C Service: ? Author Type: Physician Computer Support Specialist Type: Progress Notes Filed: 11/13/2022 12:32 PM Note Text: HISTORY AND PHYSICAL Diego Martinmanisha 1980 REFERRING PHYSICIAN: Julio Avalos APRN.CNP CHIEF COMPLAINT: Consult (Colonoscopy consult, abdominal pain. ) HPI: The patient is a 42 year old female referred for endoscopy. Diego notes a long history of loose stools. Patient denies any particular aggravating or alleviating factors and notes random onset of symptoms, sometimes during the day and sometimes waking up at night with these. Associated symptoms include upper and lower abdominal discomfort and bloating. Denies changes in medications or travel. Patient is s/p cholecystectomy in 2011. Patient has undergone prior colonoscopy, denies EGD previously. Colonoscopy [place] [address] Malloy under Monitored Anesthetic Care showed no concerning findings. Patient notes was told by another that provider that given her personal history of abdominal desmoid tumor and papillary thyroid cancer, she should be having colonoscopies regularly. Patient denies problems with sedation in the past. Of note, patient has upcoming stress test scheduled for evaluation of precordial pain and fatigue. PAST MEDICAL HISTORY Diagnosis Date Cholecystitis, acute 2010 removed Desmoid tumor Thyroid mass papillary cancer Unspecified , without mention of complication, unspecified 06/2006 PAST SURGICAL HISTORY Procedure Laterality Date DELIVERY ONLY 2009 , low transverse COLONOSCOPY FLX DX W/COLLJ SPEC WHEN PFRMD 11/04/2014 Colonoscopy LAPAROSCOPY, SURGICAL; CHOLECYSTOEN 2011 PAST SURGICAL HISTORY OF Abdominal Wall Resection THYROIDECTOMY TOTAL/SUBTOTAL LMTD NECK DISSECT 12-28-09 TOTAL THYROID Current Outpatient Medications Medication Sig calcium carbonate (CALCIUM 300 ORAL) Take 1 tablet by mouth once daily. GARLIC Take 1 mL by mouth once daily. levothyroxine (SYNTHROID) 175 mcg tablet take 7 AND 1/2 pills per week (one a day with extra 1/2 pill on Sunday) CPAP AutoPAP 5-20 cmH2O, mask to comfort, tubing, heated humidifier, filters, Lifetime supplies, Multivitamin capsule Take 1 capsule by mouth once daily. Lactobacillus acidophilus 10 billion cell cap Take by mouth once daily. Miscellaneous Medical Supply [facility] Knee brace Dx: S89.92XA, M25.562 No current facility-administered medications for this visit. ALLERGIES: Adhesive Tape (Rosins) PERSONAL HISTORY: Social History Tobacco Use Smoking status: Never Smokeless tobacco: Never Vaping Use Vaping Use: Never used Substance Use Topics Alcohol use: No Drug use: No FAMILY HISTORY: FAMILY HISTORY Problem Relation Age of Onset Breast Cancer Mother Diabetes Maternal Grandmother Heart Maternal Grandmother Lipids Maternal Grandmother Hypertension Maternal Grandmother Heart Maternal Grandfather Lipids Maternal Grandfather Hypertension Maternal Grandfather other (Parkinson's Disease) Paternal Grandfather Alcohol/Drug Maternal Uncle REVIEW OF SYMPTOMS: The review of systems data was entered by the nurse and reviewed by mn Nursing Notes: Irais Gilbert RN 11/13/2022 9:43 AM Signed REVIEW OF SYSTEMS: General: The patient NOTES fatigue, denies weight loss, NOTES weight gain, denies feeling hot, and denies feelings of cold. Eyes: The patient denies glaucoma, denies eye injury/surgery, wears glasses or contacts. Ear/Nose/Throat: The patient NOTES allergies, denies hayfever, denies ear infections, and denies bloody noses. Cardiovascular: The patient NOTES chest pain, denies heart disease, denies high blood pressure,denies cardiac stent, denies prior heart attack, denies irregular heart beat, denies high cholesterol, denies poor circulation, denies heart failure, other cardiac issues, NOTES claudication, denies cold feet, denies peripheral arterial stent. Respiratory: The patient denies tuberculosis, denies pneumonia, denies frequent cough, denies pulmonary embolism, denies shortness of breath, and denies coughing up blood. Gastrointestinal: The patient denies difficulty swallowing, denies acid reflux, denies ulcers, denies vomiting, denies jaundice/hepatitis, NOTES gallbladder problems, denies black or tarry stools, NOTES hemorrhoids, denies bleeding from rectum, denies diverticulitis, denies constipation, NOTES diarrhea, denies loss of stool control, and NOTES hernias. Kidney/Bladder: The patient denies kidney stones, denies urine infections, and denies bloody urine. Skin: The patient denies a history of skin cancer, NOTES bleeding/changing moles, and denies a history of skin rash. Neurologic: The patient denies a history of epilepsy/convulsions, denies headaches, denies head/spinal injuries, and denies stroke/TIA. Psychiatric: The patient denies psychiatric medications, denies depression, and de (more content not included)... [facility] 11-13-2022 History of Presen t illness Narrative HISTORY AND PHYSICAL Diego Del Toro 1980 REFERRING PHYSICIAN: Julio Avalos APRN.CNP CHIEF COMPLAINT: Consult (Colonoscopy consult, abdominal pain. ) HPI: The patient is a 42 year old female referred for endoscopy. Diego notes a long history of loose stools. Patient denies any particular aggravating or alleviating factors and notes random onset of symptoms, sometimes during the day and sometimes waking up at night with these. Associated symptoms include upper and lower abdominal discomfort and bloating. Denies changes in medications or travel. Patient is s/p cholecystectomy in 2011. Patient has undergone prior colonoscopy, denies EGD previously. Colonoscopy in [address] Malloy under Monitored Anesthetic Care showed no concerning findings. Patient notes was told by another that provider that given her personal history of abdominal desmoid tumor and papillary thyroid cancer, she should be having colonoscopies regularly. Patient denies problems with sedation in the past. Of note, patient has upcoming stress test scheduled for evaluation of precordial pain and fatigue. PAST MEDICAL HISTORY Diagnosis Date Cholecystitis, acute 2010 removed Desmoid tumor Thyroid mass papillary cancer Unspecified , without mention of complication, unspecified 06/2006 PAST SURGICAL HISTORY Procedure Laterality Date DELIVERY ONLY 2009 , low transverse COLONOSCOPY FLX DX W/COLLJ SPEC WHEN PFRMD 11/04/2014 Colonoscopy LAPAROSCOPY, SURGICAL; CHOLECYSTOEN 2011 PAST SURGICAL HISTORY OF Abdominal Wall Resection THYROIDECTOMY TOTAL/SUBTOTAL LMTD NECK DISSECT 12-28-09 TOTAL THYROID Current Outpatient Medications Medication Sig calcium carbonate (CALCIUM 300 ORAL) Take 1 tablet by mouth once daily. GARLIC Take 1 mL by mouth once daily. levothyroxine (SYNTHROID) 175 mcg tablet take 7 & 1/2 pills per week (one a day with extra 1/2 pill on Sunday) CPAP AutoPAP 5-20 cmH2O, mask to comfort, tubing, heated humidifier, filters, Lifetime supplies, Multivitamin capsule Take 1 capsule by mouth once daily. Lactobacillus acidophilus 10 billion cell cap Take by mouth once daily. Miscellaneous Medical Supply [facility] [place] brace Dx: S89.92XA, M25.562 No current facility-administered medications for this visit. ALLERGIES: Adhesive Tape (Rosins) PERSONAL HISTORY: Social History Tobacco Use Smoking status: Never Smokeless tobacco: Never Vaping Use Vaping Use: Never used Substance Use Topics Alcohol use: No Drug use: No FAMILY HISTORY: FAMILY HISTORY Problem Relation Age of Onset Breast Cancer Mother Diabetes Maternal Grandmother Heart Maternal Grandmother Lipids Maternal Grandmother Hypertension Maternal Grandmother Heart Maternal Grandfather Lipids Maternal Grandfather Hypertension Maternal Grandfather other (Parkinson's Disease) Paternal Grandfather Alcohol/Drug Maternal Uncle REVIEW OF SYMPTOMS: The review of systems data was entered by the nurse and reviewed by mn Nursing Notes: Irais Gilbert RN 11/13/2022 9:43 AM Signed REVIEW OF SYSTEMS: General: The patient NOTES fatigue, denies weight loss, NOTES weight gain, denies feeling hot, and denies feelings of cold. Eyes: The patient denies glaucoma, denies eye injury/surgery, wears glasses or contacts. Ear/Nose/Throat: The patient NOTES allergies, denies hayfever, denies ear infections, and denies bloody noses. Cardiovascular: The patient NOTES chest pain, denies heart disease, denies high blood pressure,denies cardiac stent, denies prior heart attack, denies irregular heart beat, denies high cholesterol, denies poor circulation, denies heart failure, other cardiac issues, NOTES claudication, denies cold feet, denies peripheral arterial stent. Respiratory: The patient denies tuberculosis, denies pneumonia, denies frequent cough, denies pulmonary embolism, denies shortness of breath, and denies coughing up blood. Gastrointestinal: The patient denies difficulty swallowing, denies acid reflux, denies ulcers, denies vomiting, denies jaundice/hepatitis, NOTES gallbladder problems, denies black or tarry stools, NOTES hemorrhoids, denies bleeding from rectum, denies diverticulitis, denies constipation, NOTES diarrhea, denies loss of stool control, and NOTES hernias. Kidney/Bladder: The patient denies kidney stones, denies urine infections, and denies bloody urine. Skin: The patient denies a history of skin cancer, NOTES bleeding/changing moles, and denies a history of skin rash. Neurologic: The patient denies a history of epilepsy/convulsions, denies headaches, denies head/spinal injuries, and denies stroke/TIA. Psychiatric: The patient denies psychiatric medications, denies depression, and denies voices, denies substance abuse. Endocrine: The patient NOTES thyroid disorders, denies diabetes, and denies hormonal problems. Hematologic: The patient denies a history of bruising, denies bleeding, and denies anemia, denies blood clots. Infections: The patient denies a history of measles and mumps, denies rheumatic fever, and denies sexually transmitted diseases. Musculoskeletal: The patient denies back pain/injury, denies back problems, denies sciatica, denies knee/foot trouble, denies arthritis, or denies gout. When was patient's last Mammogram screening? 03/01/2022 Last Colonoscopy: 11/04/2014 Irais Gilbert RN I have confirmed and edited as necessary, the PFSH and ROS obtained by others. Alicia Weiner PA-C PHYSICAL EXAMINATION: General: The patient is 42 year old female, well nourished, well hydrated in no acute distress. The patient is oriented to time, place, and person. VITALS: Blood pressure 128/76, pulse 77, temperature 36.3 C (97.4 F), height 167.6 cm (5' 6 ), weight (!) 140.6 kg (310 lb), last menstrual period 09/18/2022, SpO2 100 %. Body mass index is 50.04 kg/m . HEENT: Normal cephalic, ataumatic, pupils are equally round, sclera are anicteric, mucous membranes are moist, oropharynx is clear. Neck has no masses, asymmetry or lymphadenopathy. Respiratory: Clear to auscultation and percussion. Normal respiratory excursion and pattern. Cardiac: Examination is regular rate and rhythm. Normal S1/S2 Abdominal exam: Soft, nontender, with no palpable masses. No hepatosplenomegaly. No palpable hernias. Extremities: no clubbing, cyanosis or edema. No adenopathy. LABORATORY VALUES: As Noted RADIOLOGIC STUDIES: As Noted Assessment IMPRESSION: change in bowel habits, diarrhea, abdominal bloating, upper abdominal discomfort. 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 Will plan for upper and lower endoscopy with biopsies, pending stress test. We discussed the risks and benefits of the planned endoscopy. I have informed the patient that complications can occur including failure to complete the endoscopy and perforation. The patient had the opportunity to ask questions concerning the planned endoscopy. My staff has also explained the procedure to the patient in understandable terms and has given the patient printed material concerning the procedure. The patient freely consents to surgery. I plan to use Golytely bowel preparation The patient has medical comorbidities for which we will plan for the procedure to be performed under Monitored Anesthetic Care. If scopes negative, consider trial of cholestyramine resin Diagnoses: (R19.4) Change in bowel habits (primary encounter diagnosis) (R19.7) Diarrhea, unspecified type (R14.0) Abdominal bloating (D48.1) Desmoid tumor of abdomen (C73) Papillary thyroid CA (Z90.49) S/P laparoscopic cholecystectomy (Z87.898) History of chest pain Consultation requested by Julio Avalos CNP for an opinion regarding abdominal bloating, diarrhea, and need for high-risk colonoscopy due to personal history of abdominal desmoid tumor and papillary thyroid cancer. My final recommendations will be communicated back to the requesting physician by way of shared Medical record or letter to requesting physician via US mail. Alicia Weiner PA-C documented in this encounter [facility] 11-13-2022 Nurse Note REVIEW OF SYSTEMS: General: The patient NOTES fatigue, denies weight loss, NOTES weight gain, denies feeling hot, and denies feelings of cold. Eyes: The patient denies glaucoma, denies eye injury/surgery, wears glasses or contacts. Ear/Nose/Throat: The patient NOTES allergies, denies hayfever, denies ear infections, and denies bloody noses. Cardiovascular: The patient NOTES chest pain, denies heart disease, denies high blood pressure,denies cardiac stent, denies prior heart attack, denies irregular heart beat, denies high cholesterol, denies poor circulation, denies heart failure, other cardiac issues, NOTES claudication, denies cold feet, denies peripheral arterial stent. Respiratory: The patient denies tuberculosis, denies pneumonia, denies frequent cough, denies pulmonary embolism, denies shortness of breath, and denies coughing up blood. Gastrointestinal: The patient denies difficulty swallowing, denies acid reflux, denies ulcers, denies vomiting, denies jaundice/hepatitis, NOTES gallbladder problems, denies black or tarry stools, NOTES hemorrhoids, denies bleeding from rectum, denies diverticulitis, denies constipation, NOTES diarrhea, denies loss of stool control, and NOTES hernias. Kidney/Bladder: The patient denies kidney stones, denies urine infections, and denies bloody urine. Skin: The patient denies a history of skin cancer, NOTES bleeding/changing moles, and denies a history of skin rash. Neurologic: The patient denies a history of epilepsy/convulsions, denies headaches, denies head/spinal injuries, and denies stroke/TIA. Psychiatric: The patient denies psychiatric medications, denies depression, and denies voices, denies substance abuse. Endocrine: The patient NOTES thyroid disorders, denies diabetes, and denies hormonal problems. Hematologic: The patient denies a history of bruising, denies bleeding, and denies anemia, denies blood clots. Infections: The patient denies a history of measles and mumps, denies rheumatic fever, and denies sexually transmitted diseases. Musculoskeletal: The patient denies back pain/injury, denies back problems, denies sciatica, denies knee/foot trouble, denies arthritis, or denies gout. When was patient's last Mammogram screening? 03/01/2022 Last Colonoscopy: 11/04/2014 Irais Gilbert RN documented in this encounter [facility] 10-24-2022 Note HNO ID: [id number] Author: Michael Dawkins III, PhD Service: ? Author Type: Physician Type: Progress Notes Filed: 12/18/2022 10:12 PM Note Text: October 24, 2022 Standing PSG Orders signed in the last 90 days None Future PSG Orders signed in the last 90 days Ordered Auth. provider PAP TITRATION PSG (CPAP, BIPAP, ASV) [[id number]] 10/04/22 Julio Avalos APRN.CORRESPONDENCE REVIEW CLERK Assoc. diagnoses: Weight gain [R63.5], Sleep apnea, unspecified type [G47.30] Q: Indications: A: Obstructive sleep apnea Q: STOP-BANG conditions - Select All That Apply: A: BMI > 35 kg/m2 Q: Special Needs (e.g.behavior, non-ambulatory, >450 lbs)?: A: No Q: Prior PAP (CPAP or Bilevel PAP) Use?: A: Yes Q: Sleep History: A: Sleep apnea Q: Current use of supplemental oxygen during sleep period?: A: No Q: Add supplemental oxygen if needed per sleep lab policy?: A: Yes All Prior Sleep Studies (past 365 days) Some values may be hidden. Unless noted otherwise, only the newest values recorded on each date are displayed. Sleep Studies PAP TITRATION PSG (CPAP, BIPAP, ASV) Future Expected: Expires: 11/03/23 BMI Readings from Last 2 Encounters: 10/04/22 : 49.98 kg/m? 07/07/22 : 49.10 kg/m? PAST MEDICAL HISTORY Diagnosis Date Cholecystitis, acute 2010 removed Desmoid tumor Thyroid mass papillary cancer Unspecified , without mention of complication, unspecified 06/2006 The medical record was reviewed to determine if the proposed sleep study conforms to the AASM Practice Parameters for the Indications for Polysomnography and Related Procedures, or if the sleep study is indicated for other reasons. Indications for study: CHASTITY previously diagnosed: Evaluate response to PAP therapy Sleep study to be performed: Split Study-Polysomnogram with PAP titration Special instructions: Split night study if AHI > 15. Start with 5 cmH2O then titrate per protocol Target REM/supine sleep Add EtCO2 and Transcutaneous CO2 if available Hx CHASTITY on APAP 5-20 cmH2O Alesia Sluga --- Sleep Medicine Staff Note: I have read the above protocol, edited as needed, and agree to the plan. Michael Dawkins III, PhD 1:28 PM, 10/24/2022 [facility] 10-24-2022 Note HNO ID: [id number] Author: Ny Jacobo Service: ? Author Type: ? Type: Progress Notes Filed: 12/18/2022 10:12 PM Note Text: October 24, 2022 An order has been received for PAP titration study from tammi Monet. [facility] Staff. Visit prep complete. Comments :No The sleep study is scheduled for 11/09. Insurance: Payor: [employer]ICAID / Plan: [employer] [facility] MEDICAID [facility] / Product Type: Medicaid / Payer/Plan Subscr Sex Relation Sub. Ins. ID Effective Group Num 1. [employer]* DIEGO DEL TORO 1980 Female Self [id number] 06/07/22 [address] Ny Jacobo [facility] 10-18-2022 History of Presen t illness Narrative CC: Chief Complaint Patient presents with Follow-up This visit was completed via telephone. HPI: Ms. Butzer, a 42 y.o. 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 HISTORY She initially presented with left chest wall pain in 07/2013 and was thought to have a rib cage deformity. CXR in July 2013 was unremarkable. She was sent to another physician for spine manipulation and then later referred to a chiropractor. Over time the mass increased in size and became very painful. She went back to her PCP in 08/2014 to ask for an abdominal brace/binder and further workup were eventually done. CT Chest/Abdomen 08/20/2014 demonstrated a 14.2 x 8.9 x 11.9 cm left anterior chest/superior abdomen mass, involving the left rectus abdominis muscle partially displacing the rectus abdominus muscle anteriorly. It invaded the chest wall and there was cortical breakthrough of the ribs. Treatment History: 08/24/2014: S/p core needle biopsy of the chest wall mass pathology c/w desmoid tumor. [facility] concurs. 09/09/2014: initial consultation with Dr. Joe. She did report black discharge expressed from her left nipple and followed up with her [employer]PER[employer]. Initial and follow up mammograms showed no abnormalities. 09/16/2014: case discussed at the [facility] and the consensus is to proceed with surgery. 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 Combo case with Dr. Chaomrro and Dr. Tapia. Pt had uncomplicated postop recovery course and has been on active surveillance since then. 02/03/2015: Patient had an outside scan to evaluate a LLQ abdominal wall nodule. It has been there for >2 years at the scar. There was also finding of a subcutaneous nodule close to her umbilicus. 04/21/2015: Surveillance CT chest/abd/pelvis showed no evidence of local recurrence. Relatively stable periumbilical and LLQ subcutaneous nodules. 06/08/16: Surveillance CT abdomen/pelvis shows the ovoid nodule in the periumbilical region has increased in size measuring 2.8 X 1.7 cm, previously 1.9 X 1.3 cm. The anterior left lower abdominal wall nodule has increased in size measuring 2.3 X 2.8 cm, previously 1.9 X 1.8 cm. 07/17/16: Biopsy Pathology: ---Final Pathologic Diagnosis--- A. Abdominal wall nodule #1, biopsy: (LLQ Abdominal wall) - Endometriosis (ER, ID, and CD10 reactive) B. Abdominal wall nodule #2, biopsy: (jose martin-umbilical nodule) - Histologically unremarkable fibroconnective tissue 05/15/18: Stable NEDRA Previously seen by Dr. Ramirez for hernia repair, in which she was recommended weight loss and observation at this time in regards to hernia repair. She was lost to follow up with many cancelled/no show visits. Last time she was seen was via telehealth 01/2020. Today, is a follow-up visit with CT A/P. She has no concerns or new lumps/lesions to report. States just trying to get back in for surveillance. She is feeling well. Denies changes in PMH, PSH, ROS, except as noted above. Current Medications: Current Outpatient Medications Medication Sig Dispense Refill Calcium Carbonate (CALCIUM 600 PO) Take by mouth. cetirizine 10 MG Tab Take 1 tablet by mouth daily. GARLIC PO take 1,000 mg by mouth daily with breakfast. Ibuprofen (MIDOL) 200 MG Cap Take 2 capsules by mouth as needed. levothyroxine (SYNTHROID) 175 MCG Tab Take 1.1429 tablets by mouth every morning before breakfast. Multiple Vitamin (multivitamin) capsule Take 1 capsule by mouth daily. Probiotic Product (PROBIOTIC DAILY PO) take by mouth. Vitamin D3 2000 UNITS Cap Take 1 capsule by mouth daily with breakfast. [place]-3 Fatty Acids (FISH OIL) [address] take 1,200 mg by mouth daily with breakfast. (Patient not taking: Reported on 10/18/2022) Turmeric 500 MG Cap take 1 tablet by mouth daily with breakfast.. Reported on 06/28/2016 (Patient not taking: Reported on 10/18/2022) No current facility-administered medications for this visit. Review of Systems Negative for additional constitutional, HEENT, cardiovascular, respiratory, gastrointestinal, genitourinary, musculoskeletal, integumentary, neurological, psychiatric, endocrine, or hematologic/lymphatic complaints aside from that which was mentioned in the history of present illness. Physical Exam Physical Exam Constitutional: Appearance: She is obese. She is not ill-appearing. Eyes: Extraocular Movements: Extraocular movements intact. Cardiovascular: Rate and Rhythm: Normal rate and regular rhythm. Pulses: Normal pulses. Heart sounds: Normal heart sounds. No murmur heard. Pulmonary: Effort: Pulmonary effort is normal. No respiratory distress. Breath sounds: Normal breath sounds. No wheezing. Abdominal: General: Bowel sounds are normal. There is no distension. Palpations: Abdomen is soft. There is no mass. Tenderness: There is no abdominal tenderness. Hernia: No hernia is present. Comments: Well healed abdominal/lower chest incision. No nodularity or mass appreciated. Musculoskeletal: Right lower leg: No edema. Left lower leg: No edema. Skin: General: Skin is dry. Findings: No lesion or rash. Neurological: Mental Status: She is alert. Imaging: MRI 10/15/19 FINDINGS: Patient was unable to tolerate imaging. The exam is significantly degraded by motion artifact. Postcontrast images were not obtained. Lack of IV contrast limits the evaluation of solid organs and vasculature. There is a fat-containing hernia along the right anterior abdominal wall superior to the umbilicus, grossly similar in appearance the prior exam. Previously described left lower abdominal wall nodule and ovoid soft tissue nodule in the periumbilical region are not seen on this exam and may be out of the [id number] or obscured by motion artifact. IMPRESSION IMPRESSION: 1. Exam severely limited by patient's ability to cooperate with imaging. Previously described periumbilical and left anterior lower abdominal wall nodules are not well evaluated on this exam. 2. Stable large fat-containing right paramedian ventral wall hernia. 12/26/19 CT A/P FINDINGS: Lung Bases: The visualized lung bases and lower mediastinal structures are unremarkable. ABDOMEN Liver: Liver attenuation suggesting steatosis. No focal lesions. Biliary/Gallbladder: The gallbladder is surgically absent. The biliary tree is nondilated. Spleen: Spleen is normal in size and CT density. Pancreas: Pancreas is normal. There is no evidence of pancreatic mass or peripancreatic fluid. Adrenals: Adrenal glands are unremarkable. Kidneys: Kidneys are normal in size. There are no stones or hydronephrosis. Subcentimeter left interpolar cyst. Retroperitoneal/Vasculature: No retroperitoneal adenopathy is identified. Gastrointestinal/Mesentery: The bowel loops are non-dilated without wall thickening or mass. Stomach is filled with oral contrast. PELVIS Bladder: The bladder is only mildly distended at the time of image acquisition which limits evaluation, but appears grossly normal. Genital: The uterus, ovaries and adnexal structures are unremarkable. Other: Redemonstration of right paramedian fat-containing ventral wall hernia. The ovoid soft tissue nodule containing fat in the periumbilical region has significantly decreased in size (axial image 90) measuring 1.3 cm, previously 2.3 x 1.8 cm in June 2016. The anterior left lower abdominal wall nodule has decreased in size (axial image 108) measuring 1.7 x 1.8 cm, previously 2.3 x 2.1 x 2.5 cm in June 2016. Long standing abdominal wall ventral hernia containing fat with its orifice measuring 4.3 cm. Bony Structures: Visualized bony structures are consistent with the patient's age. IMPRESSION IMPRESSION: 1. Decreased size of periumbilical and left lower quadrant abdominal masses compared with exam from June 2016 and May 2018. 2. No new suspicious masses or lymph nodes. 3. Redemonstration of fat-containing right paramedian ventral hernia. Assessment: Diego Del Toro is a 42 y.o. female with large left chest wall desmoid tumor s/p resection, partial resection of left ribs (6 and 7) and complex reconstruction on 12/08/2014. Patient is doing well clinically without concerns. Two abdominal nodules on 06/08/2016 CT had showed increased in size, which were previously biopsied- one nodule as endometriosis (LLQ), and 2nd nodule as fibroconnective tissue (jose martin-umbilical). Midline umbilical abdominal wall nodule currently measuring 1.8 x 2 cm (has historically increased/decreased on scans) Previously 2.3 x 1.8 cm in June 2016-biopsied unremarkable fibroconnective tissue LLQ abdominal wall nodule is stable-biopsied endometriosis. Plan: 1. CT chest now to fully evaluate prior Desmoid field-call with results (if remains NEDRA can RTC [address] Chest) Patient will contact the office if any concern or question arises in the meantime. PRIYANK Ching documented in this encounter [facility] 10-18-2022 Instructions Claire Chavez RN - 10/18/2022 1:30 PM EDT [facility] Surgical Oncology Care Team Office: [phone] Dr. Johnny Joe/ Dr. Ari Becerra/ Dr. Natalie Case Nurse Practitioner--PRIYANK Ching Primary RN--Claire SYKESN, RN, OCN Windows Security Engineer--Melinda Monzon and Franca GUTIERREZ reviewed with patient documented in this encounter [facility] 10-07-2022 Miscellaneous Notes Pt called and is notified of providers results and instructions. Pt voices understanding. Alicia De La Paz RN Please call Diego and let her know labs back, her thyroid is actually over active at this point so we need to decrease her synthroid dose. I have that currently she takes the 175 mcg for a total of 7 and a half pills per week. I would decrease that by 1 whole pill, so instead she would take 6 and a half pills per week, take 175 mcg as a whole tablet 6 days and then only a half a tablet on one day of the week. Her iron is also low, I recommend she start an iron supplement, could do an OTC but would recommend she do something like a ferrous sulfate 325 mg and could do every other day. Blood counts, hgba1c, kidneys, liver, electrolytes, cholesterol, vitamin D, vitamin b12 all with in an acceptable range. Inflammation markers also stable, SED rate normal, CRP just on the edge of normal. documented in this encounter [facility] 10-04-2022 Note HNO ID: [id number] Author: Julio Avalos APRN.CORRESPONDENCE REVIEW CLERK Service: ? Author Type: Nurse Practitioner Type: Progress Notes Filed: 10/04/2022 9:21 AM Note Text: SUBJECTIVE Diego Del Toro is a 42 year old female here today for concerns. Chief Complaint Patient presents with: Chest Pain: off and on and described it as burning sensation would like to have a stress test Abdominal Pain: with loose stools and is interested in a colonoscopy Fatigue: uses CPAP and questions if need PAP titration to check settings Lab Orders Weight Problem HPI Diego Del Toro is a 42 year old female established patient of Lianet Mckeon MD. She presents today with several concerns. Has concerns that she does not feel good overall. She has been noticing a lot of fatigue, weight gain of about 25+ pounds, some abdominal discomfort, and at times chest pains with exercises. Previously had an EKG that showed sinus rhythm, no signs ischemia or infarction noted and had ordered a stress test but did not complete this. No shortness of breath. Would like to do so now. She does have a history significant for sleep apnea, thyroid cancer with post-surgical hypothyroidism and vitamin d def. She is compliant with PAP therapy and would like a repeat titration sleep study. Also would like to have labs. Her medications were reviewed today and her list is now up to date. Medications Current Outpatient Medications Medication Sig calcium carbonate (CALCIUM 300 ORAL) Take 1 tablet by mouth once daily. GARLIC Take 1 mL by mouth once daily. levothyroxine (SYNTHROID) 175 mcg tablet take 7 AND 1/2 pills per week (one a day with extra 1/2 pill on Sunday) Lactobacillus acidophilus 10 billion cell cap Take by mouth once daily. cholecalciferol (VITAMIN D3) 50 mcg (2,000 unit) tablet Take 1 tablet by mouth once daily. CPAP AutoPAP 5-20 cmH2O, mask to comfort, tubing, heated humidifier, filters, Lifetime supplies, Rdvnn-5-YDS-EPA-Fish Oil (FISH OIL) 1,000 mg (120 mg-180 mg) cap Take 2 capsules by mouth once daily. (Patient not taking: Reported on 10/04/2022) Miscellaneous Medical Supply [facility] [place] Dx: S89.92XA, M25.562 Multivitamin capsule Take 1 capsule by mouth once daily. 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 Tobias, at [facility] * Path (12/28/09): 4cm classic papillary thyroid CA, in left lobe, no angiolymphatic invasion or extracapsular extension, but capsular penetration pressent. Margins free of tumor. 4/5 nodes positive for metastases. T2N1Mx * [facility] (03/16/10): Rx 100 mCi 131-Iodine * Scan (03/29/10): post 131-Iodine therapy, uptake in left thyroid bed representing residual thyroid tissue, there was uptake in chest on original scan, but could not be confirmed on SPECT/CT, * Thyroglobulin (01/11/10): TG=5.2 ng/ml, Ab=1.1 IU/ml (02/21/10): TG=11.1 ng/ml, Ab=1.0 IU/ml, TSH=29.60 (03/11/10): TG=16.1 ng/ml, Ab=1.1 IU/ml, TSH=40.87 (08/25/10): TG <0.2 ng/ml, Ab <1.0 IU/ml Component Thyroglobulin TG Antibody Screen Stmiulation Latest Ref Rng 0.8 - 49.0 ng/mL <14.4 IU/mL 01/11/2010 5.2 1.1 03/03/2010 11.1 1.0 03/10/2010 16.1 1.1 08/25/2010 <0.2 (L) <1.0 09/21/2011 <0.2 (L) <1.0 02/09/2012 2.5 <1.0 hypothyroid 02/16/2012 5.7 <1.0 hypothyroid * Social History Tobacco Use Smoking status: Never Smokeless tobacco: Never Substance Use Topics Alcohol use: No Drug use: No Review of Systems Constitutional: Positive for fatigue and unexpected weight change. Negative for chills, diaphoresis and fever. Respiratory: Negative. Cardiovascular: Positive for chest pain. Negative for palpitations and leg swelling. OBJECTIVE BP 114/68 Pulse 81 Ht 5' 5.5 (1.66m) Wt 305 lb (138.3kg) SpO2 98% LMP 09/18/2022 BMI 49.96 kg/(m2). Physical Exam Vitals and nursing note reviewed. Constitutional: General: She is awake. She is not in acute distress. Appearance: Normal appearance. She is well-developed and well-groomed. She is obese. She is not ill-appearing, toxic-appearing or diaphoretic. HENT: Head: Normocephalic. Right Ear: External ear normal. Left Ear: External ear normal. Nose: Nose normal. Eyes: Gen (more content not included)... [facility] 10-04-2022 History of Presen t illness Narrative SUBJECTIVE Diego Del Toro is a 42 year old female here today for concerns. Chief Complaint Patient presents with: Chest Pain: off and on and described it as burning sensation would like to have a stress test Abdominal Pain: with loose stools and is interested in a colonoscopy Fatigue: uses CPAP and questions if need PAP titration to check settings Lab Orders Weight Problem HPI Diego Del Toro is a 42 year old female established patient of Lianet Mckeon MD. She presents today with several concerns. Has concerns that she does not feel good overall. She has been noticing a lot of fatigue, weight gain of about 25+ pounds, some abdominal discomfort, and at times chest pains with exercises. Previously had an EKG that showed sinus rhythm, no signs ischemia or infarction noted and had ordered a stress test but did not complete this. No shortness of breath. Would like to do so now. She does have a history significant for sleep apnea, thyroid cancer with post-surgical hypothyroidism and vitamin d def. She is compliant with PAP therapy and would like a repeat titration sleep study. Also would like to have labs. Her medications were reviewed today and her list is now up to date. \ Medications Current Outpatient Medications Medication Sig calcium carbonate (CALCIUM 300 ORAL) Take 1 tablet by mouth once daily. GARLIC Take 1 mL by mouth once daily. levothyroxine (SYNTHROID) 175 mcg tablet take 7 & 1/2 pills per week (one a day with extra 1/2 pill on Sunday) Lactobacillus acidophilus 10 billion cell cap Take by mouth once daily. cholecalciferol (VITAMIN D3) 50 mcg (2,000 unit) tablet Take 1 tablet by mouth once daily. CPAP AutoPAP 5-20 cmH2O, mask to comfort, tubing, heated humidifier, filters, Lifetime supplies, Yowpd-4-DDZ-EPA-Fish Oil (FISH OIL) 1,000 mg (120 mg-180 mg) cap Take 2 capsules by mouth once daily. (Patient not taking: Reported on 10/04/2022) [facility] [place] Dx: S89.92XA, M25.562 Multivitamin capsule Take 1 capsule by mouth once daily. 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 Tobias, at [facility] * Path (12/28/09): 4cm classic papillary thyroid CA, in left lobe, no angiolymphatic invasion or extracapsular extension, but capsular penetration pressent. Margins free of tumor. 4/5 nodes positive for metastases. T2N1Mx * [facility] (03/16/10): Rx 100 mCi 131-Iodine * Scan (03/29/10): post 131-Iodine therapy, uptake in left thyroid bed representing residual thyroid tissue, there was uptake in chest on original scan, but could not be confirmed on SPECT/CT, * Thyroglobulin (01/11/10): TG=5.2 ng/ml, Ab=1.1 IU/ml (02/21/10): TG=11.1 ng/ml, Ab=1.0 IU/ml, TSH=29.60 (03/11/10): TG=16.1 ng/ml, Ab=1.1 IU/ml, TSH=40.87 (08/25/10): TG <0.2 ng/ml, Ab <1.0 IU/ml Component Thyroglobulin TG Antibody Screen Stmiulation Latest Ref Rng 0.8 - 49.0 ng/mL <14.4 IU/mL 01/11/2010 5.2 1.1 03/03/2010 11.1 1.0 03/10/2010 16.1 1.1 08/25/2010 <0.2 (L) <1.0 09/21/2011 <0.2 (L) <1.0 02/09/2012 2.5 <1.0 hypothyroid 02/16/2012 5.7 <1.0 hypothyroid * Social History Tobacco Use Smoking status: Never Smokeless tobacco: Never Substance Use Topics Alcohol use: No Drug use: No Review of Systems Constitutional: Positive for fatigue and unexpected weight change. Negative for chills, diaphoresis and fever. Respiratory: Negative. Cardiovascular: Positive for chest pain. Negative for palpitations and leg swelling. OBJECTIVE BP 114/68 Pulse 81 Ht 5' 5.5 (1.66m) Wt 305 lb (138.3kg) SpO2 98% LMP 09/18/2022 BMI 49.96 kg/(m^2). Physical Exam Vitals and nursing note reviewed. Constitutional: General: She is awake. She is not in acute distress. Appearance: Normal appearance. She is well-developed and well-groomed. She is obese. She is not ill-appearing, toxic-appearing or diaphoretic. HENT: Head: Normocephalic. Right Ear: External ear normal. Left Ear: External ear normal. Nose: Nose normal. Eyes: General: Vision grossly intact. Conjunctiva/sclera: Conjunctivae normal. Pupils: Pupils are equal, round, and reactive to light. Neck: Vascular: No JVD. Trachea: Trachea normal. Cardiovascular: Rate and Rhythm: Normal rate and regular rhythm. Pulses: Normal pulses. Heart sounds: Normal heart sounds. No murmur heard. Pulmonary: Effort: Pulmonary effort is normal. No accessory muscle usage, prolonged expiration or respiratory distress. Breath sounds: Normal breath sounds. Musculoskeletal: Cervical back: Neck supple. Skin: General: Skin is warm and dry. Capillary Refill: Capillary refill takes less than 2 seconds. Neurological: General: No focal deficit present. Mental Status: She is alert and oriented to person, place, and time. Mental status is at baseline. Psychiatric: Attention and Perception: Attention and perception normal. Mood and Affect: Mood and affect normal. Speech: Speech normal. Behavior: Behavior normal. Behavior is cooperative. Thought Content: Thought content normal. Cognition and Memory: Cognition and memory normal. Judgment: Judgment normal. ASSESSMENT/PLAN: 1. Precordial pain - ICD9: 786.51, ICD10: R07.2 (primary diagnosis) Check labs today, set up for stress test, depending on results may need to consider checking an ECHO. Reviewed prior EKG, stable, she states no changes in symptoms since that EKG. - NM CARDIAC PERF STRESS/EXERCISE 2. Other fatigue - ICD9: 780.79, ICD10: R53.83 See above, labs today to check for any metabolic issues. - TSH BLD - T3 FREE BLD - T4 FREE/FREE THYROX - IRON + TIBC - VITAMIN D 25 HYDROXY - VITAMIN B12 BLOOD - SED RATE WESTERGREN - C-REACTIVE PROTEIN (CRP) - NM CARDIAC PERF STRESS/EXERCISE 3. Weight gain - ICD9: 783.1, ICD10: R63.5 See above. - HGB A1C - TSH BLD - T3 FREE BLD - T4 FREE/FREE THYROX - PAP TITRATION PSG (CPAP, BIPAP, ASV) 4. Sleep apnea, unspecified type - ICD9: 780.57, ICD10: G47.30 See above. More fatigue possibly due to worsening sleep apnea. - PAP TITRATION PSG (CPAP, BIPAP, ASV) 5. Post-surgical hypothyroidism - ICD9: 244.0, ICD10: E89.0 Check labs, more fatigue may be from worsening hypothyroidism. - TSH BLD - T3 FREE BLD - T4 FREE/FREE THYROX 6. Vitamin D deficiency - ICD9: 268.9, ICD10: E55.9 - VITAMIN D 25 HYDROXY 7. Obesity, Class III, BMI >= 40 - ICD9: 278.01, ICD10: E66.01 - HGB A1C 8. Lipid screening - ICD9: V77.91, ICD10: Z13.220 - LIPID PANEL BASIC 9. Encounter for therapeutic drug monitoring - ICD9: V58.83, ICD10: Z51.81 - CBC + DIFF - COMP METABOLIC PANEL 10. Screening for colon cancer - ICD9: V76.51, ICD10: Z12.11 Would like a follow up colonoscopy from her prior one because of thyroid cancer and connective tissues history. Prior colonoscopy provider did not mention any follow up so she will see general surgery to discuss. - CONSULT TO GENERAL SURGERY Portions of this note have been entered by ancillary staff. I have reviewed and when necessary edited, so that they are an adequate record of my encounter with this patient Please note that parts of this document were created using voice recognition software and therefore may contain grammatical errors. Patient verbalizes understanding of instructions from today's visit and in agreement with treatment plan. Questions answered. Agrees to call the office if questions, concerns of issues with acute symptoms not improving or if they worsen. See diagnoses and orders for additional plan(s). Allergies and medications were reviewed, list was updated, and refills given if needed. Past medical, surgical, social, and family history reviewed and updated as appropriate. Encouraged proper diet & exercise as well as compliance with taking medications. Age-appropriate health preventative measures were discussed. Return if symptoms worsen or fail to improve, for Keep next scheduled appointment.. Complete testing, call with results, decide on next steps. Julio Avalos APRN-NIHARIKA documented in this encounter [facility] 08-08-2022 Note HNO ID: [id number] Author: Asya Bynum Poly-T Service: ? Author Type: ? Type: Progress Notes Filed: 08/07/2022 10:45 PM Note Text: Your patient, Diego Del Toro, could not have the sleep study you ordered due to noshow. We will call the patient and make a reasonable attempt to reschedule the sleep study. Please note, your orders will still be valid for one year. Thank you for your attention. [facility] 07-07-2022 Note HNO ID: [id number] Author: Darian Pruett MD Service: ? Author Type: Physician Type: Procedures Filed: 07/07/2022 12:13 PM Note Text: Thyroid / Neck Ultrasound Findings: no suspicious adenopathy along great vessels or in lateral neck on either side. No masses in thyroid bed. Impression benign study Recommendation: followup ultrasound in 1 year Darian Pruett MD Clinical Issues Reason for the study: followup of thyroid CA Comparison: none Technical Issues Equipment: [employer] Prosound Alpha 6 Transducer: Linear/Trapezoidal multifrequency Regions examined: Neck, Sagittal and transverse views were obtained. Color power Doppler were applied when indicated. [facility] 07-07-2022 Note HNO ID: [id number] Author: Darian Pruett MD Service: ? Author Type: Physician Type: Progress Notes Filed: 07/07/2022 12:13 PM Note Text: Assessment / Plan Assessment: 1) Surgical hypothyroidism. TSH high, apparently from forgetting doses. Rather than increase the dose significantly, I'll just increase the dose based on her weight change (6% gain), and have her take 175 x 7.5/wk followup labs in 6 weeks and send Thinkr message. Discussed catching up for missed doses. 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 Six months later, unstimulated TG was undetectable, and has been undetectable without stimulation ever since. Ultrasound today clean 3) Desmoid tumor, had extensive surgery down at [facility], involved the chest wall and abdomen. Doing OK per this followup. 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 Plan: 1) increase on the levothyroxine 175 mcg x 7 AND 1/2 per week, I'll look at your labs and send comment by MyChart 2) return to me in 6 months by virtual visit Darian Purett MD Data Review: Component Latest Ref Rng AND Units 01/24/2021 08/10/2021 06/13/2022 TG Antibody Screen <14.4 IU/mL 1.1 Thyroglobulin Ab, Serum <4.0 IU/mL <0.9 Thyroglobulin 1.6 - 59.9 ng/mL <0.2 (L) <0.2 (L) Thyroglobulin, Serum 1.6 - 50.0 ng/mL 0.2 (L) TSH 0.270 - 4.200 mIU/L 0.164 (L) 0.124 (L) 13.400 (H) Free T4 0.9 - 1.7 ng/dL 1.9 (H) 2.1 (H) 1.1 Free T3 2.3 - 4.1 pg/mL Thyroglobulin Ab <14.4 IU/mL <1.0 History Thyroid Cancer, TSH currently 13.4 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 Fertility doc upped her dose to 200 mcg/d levothyroxine, she hasn't started yet. Insurance refused gastric bypass surgery. 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 Tobias, at [facility] Pathology (12/28/09): 4cm classic papillary thyroid CA, in left lobe, no angiolymphatic invasion or extracapsular extension, but capsular penetration pressent. Margins free of tumor. 4/5 nodes positive for metastases. T2N1Mx Scan (03/29/10): post 131-Iodine therapy, uptake in left thyroid bed representing residual thyroid tissue, there was uptake in chest on original scan, but could not be confirmed on SPECT/CT, (02/22/12): focal uptake in thyroid bed, no evidence of distant mets, hypothyroid stimulated [facility] (03/16/10): Rx 100 mCi 131-Iodine Thyroglobulin Component Thyroglobulin TG Antibody Screen Latest Ref Rng 0.8 - 49.0 ng/mL <14.4 IU/mL 02/20/2005 11/01/2009 01/11/2010 5.2 1.1 03/03/2010 11.1 1.0 03/10/2010 16.1 1.1 03/14/2010 08/25/2010 <0.2 (L) <1.0 09/21/2011 <0.2 (L) <1.0 02/09/2012 2.5 <1.0 02/16/2012 5.7 <1.0 07/03/2013 <0.2 (L) 1.0 12/31/2013 <0.2 (L) 1.0 06/29/2014 <0.2 (L) <1.0 01/04/2015 <0.2 (L) <1.0 07/16/2015 <0.2 (L) 1.4 03/10/16 <0.2 1.2 08/18/16 <0.2 1.8 03/15/18 <0.2 4.6 04/14/19 <0.2 2.5 02/11/20 <0.2 1.7 06/13/22 Anu Assay <0.2 1.1 nl <4.0 IU/mL 06/13/2022 0.2 <0.9 mRNA Component TSHR mRNA Latest Ref Rng <1.0 ng/ug 11/01/2009 1.1 (H) Vitamin D Component Vitamin D 25 Hydroxy Latest Ref Rng 31.0 - 80.0 ng/mL 08/25/2010 28.1 (L) 09/21/2011 29.8 (L) 07/03/2013 26.6 (L) 12/31/2013 37.7 06/29/2014 37.6 01/04/2015 43.4 07/16/2015 45.7 Ultrasound (01/13/10): no suspicious adenopathy along great vessels or in lateral neck on either side. No masses in thyroid bed. (09/22/11): no suspicious adenopathy along great vessels or in lateral neck on either side. No masses in thyroid bed. (07/02/13): no suspicious adenopathy along great vessels or in lateral neck on either side. No masses in thyroid bed. (07/06/14): no suspicious adenopathy along great vessels or in lateral neck on either side. No masses in thyroid bed. (09/08/15): no suspicious adenopathy along great vessels or in lateral neck on either side. No masses in thyroid bed. (06/28/18): no suspicious adenopathy along great vessels or in lateral neck on either side. No masses in thyroid bed. (07/07/22): no suspicious adenopathy along great vessels or in lateral neck on either side. No masses in thyroid bed. ROS PHYSICAL EXAM BP 142/83 Pulse 79 Wt (!) 138 kg (304 lb 3.2 oz) LMP 05/12/2021 BMI 49.10 kg/m? PAST MED / SURG / FAMILY / SOCIAL HISTORY PAST MEDICAL HISTORY Diagnosis Date Cholecystitis, acute 2010 removed Desmoid tumor Thyroid mass papillary cancer Unspecified , without mention of complication, unspecified 06/2006 PAST SURGICAL HISTORY Procedure Laterality Date DELIVERY O (more content not included)... [facility] 07-07-2022 Instructions Darian Pruett MD - 07/07/2022 12:12 PM EST Assessment / Plan Assessment: 1) Surgical hypothyroidism. TSH high, apparently from forgetting doses. Rather than increase the dose significantly, I'll just increase the dose based on her weight change (6% gain), and have her take 175 x 7.5/wk followup labs in 6 weeks and send Thinkr message. Discussed catching up for missed doses. 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 Six months later, unstimulated TG was undetectable, and has been undetectable without stimulation ever since. Ultrasound today clean 3) Desmoid tumor, had extensive surgery down at [facility], involved the chest wall and abdomen. Doing OK per this followup. 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 Plan: 1) increase on the levothyroxine 175 mcg x 7 & 1/2 per week, I'll look at your labs and send comment by MyChart 2) return to me in 6 months by virtual visit Darian Pruett MD Data Review: Component Latest Ref Rng & Units 01/24/2021 08/10/2021 06/13/2022 TG Antibody Screen <14.4 IU/mL 1.1 Thyroglobulin Ab, Serum <4.0 IU/mL <0.9 Thyroglobulin 1.6 - 59.9 ng/mL <0.2 (L) <0.2 (L) Thyroglobulin, Serum 1.6 - 50.0 ng/mL 0.2 (L) TSH 0.270 - 4.200 mIU/L 0.164 (L) 0.124 (L) 13.400 (H) Free T4 0.9 - 1.7 ng/dL 1.9 (H) 2.1 (H) 1.1 Free T3 2.3 - 4.1 pg/mL Thyroglobulin Ab <14.4 IU/mL <1.0 documented in this encounter [facility] 07-07-2022 Procedure note Thyroid / Neck Ultrasound Findings: no suspicious adenopathy along great vessels or in lateral neck on either side. No masses in thyroid bed. Impression benign study Recommendation: followup ultrasound in 1 year Darian Pruett MD Clinical Issues Reason for the study: followup of thyroid CA Comparison: none Technical Issues Equipment: [employer] Prosound Alpha 6 Transducer: Linear/Trapezoidal multifrequency Regions examined: Neck, Sagittal and transverse views were obtained. Color power Doppler were applied when indicated. documented in this encounter [facility] 07-07-2022 History of Presen t illness Narrative Assessment / Plan Assessment: 1) Surgical hypothyroidism. TSH high, apparently from forgetting doses. Rather than increase the dose significantly, I'll just increase the dose based on her weight change (6% gain), and have her take 175 x 7.5/wk followup labs in 6 weeks and send Thinkr message. Discussed catching up for missed doses. 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 Six months later, unstimulated TG was undetectable, and has been undetectable without stimulation ever since. Ultrasound today clean 3) Desmoid tumor, had extensive surgery down at [facility], involved the chest wall and abdomen. Doing OK per this followup. 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 Plan: 1) increase on the levothyroxine 175 mcg x 7 & 1/2 per week, I'll look at your labs and send comment by Thinkr 2) return to me in 6 months by virtual visit Darian Pruett MD Data Review: Component Latest Ref Rng & Units 01/24/2021 08/10/2021 06/13/2022 TG Antibody Screen <14.4 IU/mL 1.1 Thyroglobulin Ab, Serum <4.0 IU/mL <0.9 Thyroglobulin 1.6 - 59.9 ng/mL <0.2 (L) <0.2 (L) Thyroglobulin, Serum 1.6 - 50.0 ng/mL 0.2 (L) TSH 0.270 - 4.200 mIU/L 0.164 (L) 0.124 (L) 13.400 (H) Free T4 0.9 - 1.7 ng/dL 1.9 (H) 2.1 (H) 1.1 Free T3 2.3 - 4.1 pg/mL Thyroglobulin Ab <14.4 IU/mL <1.0 History Thyroid Cancer, TSH currently 13.4 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 Fertility doc upped her dose to 200 mcg/d levothyroxine, she hasn't started yet. Insurance refused gastric bypass surgery. 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 Tobias, at [facility] Pathology (12/28/09): 4cm classic papillary thyroid CA, in left lobe, no angiolymphatic invasion or extracapsular extension, but capsular penetration pressent. Margins free of tumor. 4/5 nodes positive for metastases. T2N1Mx Scan (03/29/10): post 131-Iodine therapy, uptake in left thyroid bed representing residual thyroid tissue, there was uptake in chest on original scan, but could not be confirmed on SPECT/CT, (02/22/12): focal uptake in thyroid bed, no evidence of distant mets, hypothyroid stimulated [facility] (03/16/10): Rx 100 mCi 131-Iodine Thyroglobulin Component Thyroglobulin TG Antibody Screen Latest Ref Rng 0.8 - 49.0 ng/mL <14.4 IU/mL 02/20/2005 11/01/2009 01/11/2010 5.2 1.1 03/03/2010 11.1 1.0 03/10/2010 16.1 1.1 03/14/2010 08/25/2010 <0.2 (L) <1.0 09/21/2011 <0.2 (L) <1.0 02/09/2012 2.5 <1.0 02/16/2012 5.7 <1.0 07/03/2013 <0.2 (L) 1.0 12/31/2013 <0.2 (L) 1.0 06/29/2014 <0.2 (L) <1.0 01/04/2015 <0.2 (L) <1.0 07/16/2015 <0.2 (L) 1.4 03/10/16 <0.2 1.2 08/18/16 <0.2 1.8 03/15/18 <0.2 4.6 04/14/19 <0.2 2.5 02/11/20 <0.2 1.7 06/13/22 Anu Assay <0.2 1.1 nl <4.0 IU/mL 06/13/2022 0.2 <0.9 mRNA Component TSHR mRNA Latest Ref Rng <1.0 ng/ug 11/01/2009 1.1 (H) Vitamin D Component Vitamin D 25 Hydroxy Latest Ref Rng 31.0 - 80.0 ng/mL 08/25/2010 28.1 (L) 09/21/2011 29.8 (L) 07/03/2013 26.6 (L) 12/31/2013 37.7 06/29/2014 37.6 01/04/2015 43.4 07/16/2015 45.7 Ultrasound (01/13/10): no suspicious adenopathy along great vessels or in lateral neck on either side. No masses in thyroid bed. (09/22/11): no suspicious adenopathy along great vessels or in lateral neck on either side. No masses in thyroid bed. (07/02/13): no suspicious adenopathy along great vessels or in lateral neck on either side. No masses in thyroid bed. (07/06/14): no suspicious adenopathy along great vessels or in lateral neck on either side. No masses in thyroid bed. (09/08/15): no suspicious adenopathy along great vessels or in lateral neck on either side. No masses in thyroid bed. (06/28/18): no suspicious adenopathy along great vessels or in lateral neck on either side. No masses in thyroid bed. (07/07/22): no suspicious adenopathy along great vessels or in lateral neck on either side. No masses in thyroid bed. ROS PHYSICAL EXAM BP 142/83 Pulse 79 Wt (!) 138 kg (304 lb 3.2 oz) LMP 05/12/2021 BMI 49.10 kg/m PAST MED / SURG / FAMILY / SOCIAL HISTORY PAST MEDICAL HISTORY Diagnosis Date Cholecystitis, acute 2010 removed Desmoid tumor Thyroid mass papillary cancer Unspecified , without mention of complication, unspecified 06/2006 PAST SURGICAL HISTORY Procedure Laterality Date DELIVERY ONLY 2009 , low transverse COLONOSCOPY FLX DX W/COLLJ SPEC WHEN PFRMD 11/04/2014 Colonoscopy LAPAROSCOPY, SURGICAL; CHOLECYSTOEN 2011 PAST SURGICAL HISTORY OF Abdominal Wall Resection THYROIDECTOMY TOTAL/SUBTOTAL LMTD NECK DISSECT 12-28-09 TOTAL THYROID FAMILY HISTORY Problem Relation Age of Onset Breast Cancer Mother Diabetes Maternal Grandmother Heart Maternal Grandmother Lipids Maternal Grandmother Hypertension Maternal Grandmother Heart Maternal Grandfather Lipids Maternal Grandfather Hypertension Maternal Grandfather other (Parkinson's Disease) Paternal Grandfather Alcohol/Drug Maternal Uncle Social History Tobacco Use Smoking status: Never Smokeless tobacco: Never Substance Use Topics Alcohol use: No Drug use: No MEDICATIONS & ALLERGIES Current Outpatient Medications Medication Sig Dispense Refill levothyroxine (SYNTHROID) 175 mcg tablet take 6 & 1/2 pills per week (one a day but only 1/2 pill on Sunday) 90 tablet 3 CPAP AutoPAP 5-20 cmH2O, mask to comfort, tubing, heated humidifier, filters, Lifetime supplies, 1 Device 0 Samvp-6-[id number]-EPA-Fish Oil (FISH OIL) 1,000 mg (120 mg-180 mg) cap Take 2 capsules by mouth once daily. Miscellaneous Medical Supply [facility] [place] brace Dx: S89.92XA, M25.562 1 Each 0 Multivitamin capsule Take 1 capsule by mouth once daily. Lactobacillus acidophilus 10 billion cell cap Take by mouth once daily. cholecalciferol (VITAMIN D3) 50 mcg (2,000 unit) tablet Take 1 tablet by mouth once daily. Current Facility-Administered Medications Medication Dose Route Frequency Provider Last Rate Last Admin perflutren lipid microspheres 1.3 mL in NaCl (PF) 0.9% 10 mL injection (DEFINITY) INTRAVENOUS DIRECTED PRN Kinga Perez MD sodium chloride 0.9 % (flush) 10 mL (BD POSIFLUSH) 10 mL INTRAVENOUS DIRECTED PRN Kinga Perez MD ALLERGIES Allergen Reactions Adhesive Tape (Etelvina* Itching Tegaderm, paper tape ok documented in this encounter [facility] 06-13-2022 Note HNO ID: [id number] Author: Darian Pruett MD Service: ? Author Type: Physician Type: Progress Notes Filed: 06/13/2022 9:47 AM Note Text: Virtual Visit utilizing both audio and video components FaceTime Assessment / Plan Assessment: 1) Surgical hypothyroidism. TSH a ittle suppressed last check which was 9 months ago. Will check now. Has tried for , lost 2 early in in the last year. Her minimally suppressed TSH mamta have been normal for . I'll check labs now, but she doesn't have a need for TSH suppression this far out after thyroid CA. 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 Six months later, unstimulated TG was undetectable, and has been undetectable without stimulation ever since. 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 Doing OK per this followup. 4) CHASTITY on CPAP, has been using every night, doing well with it. Has another sleep study coming up. Plan: 1) continue on the levothyroxine 175 mcg x 6 AND 1/2 per week, I'll look at your labs and send comment by MyChart 2) return to me this Sunday for quick neck ultrasound. 2) return to me in 6 months by virtual visit Darian Pruett MD Data Review: History Thyroid Cancer, she is not fogetting her levothyroxine any more, she is on 200 mcg/d since letting me know she was 4 weeks ago Insurance refused gastric bypass surgery. 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 Tobias, at [facility] Pathology (12/28/09): 4cm classic papillary thyroid CA, in left lobe, no angiolymphatic invasion or extracapsular extension, but capsular penetration pressent. Margins free of tumor. 4/5 nodes positive for metastases. T2N1Mx Scan (03/29/10): post 131-Iodine therapy, uptake in left thyroid bed representing residual thyroid tissue, there was uptake in chest on original scan, but could not be confirmed on SPECT/CT, (02/22/12): focal uptake in thyroid bed, no evidence of distant mets, hypothyroid stimulated [facility] (03/16/10): Rx 100 mCi 131-Iodine Thyroglobulin Component Thyroglobulin TG Antibody Screen TSH Latest Ref Rng 0.8 - 49.0 ng/mL <14.4 IU/mL 0.400 - 5.500 uIU/mL 02/20/2005 0.96 11/01/2009 0.67 01/11/2010 5.2 1.1 03/03/2010 11.1 1.0 29.60 (H) 03/10/2010 16.1 1.1 40.87 (H) 03/14/2010 40.52 (H) 08/25/2010 <0.2 (L) <1.0 0.332 (L) 09/21/2011 <0.2 (L) <1.0 1.010 02/09/2012 2.5 <1.0 35.360 02/16/2012 5.7 <1.0 48.720 07/03/2013 <0.2 (L) 1.0 1.050 12/31/2013 <0.2 (L) 1.0 0.879 06/29/2014 <0.2 (L) <1.0 2.230 01/04/2015 <0.2 (L) <1.0 0.427 07/16/2015 <0.2 (L) 1.4 4.090 03/10/16 <0.2 1.2 9.070 08/18/16 <0.2 1.8 0.032 03/15/18 <0.2 4.6 0.030 mRNA Component TSHR mRNA Latest Ref Rng <1.0 ng/ug 11/01/2009 1.1 (H) Vitamin D Component Vitamin D 25 Hydroxy Latest Ref Rng 31.0 - 80.0 ng/mL 08/25/2010 28.1 (L) 09/21/2011 29.8 (L) 07/03/2013 26.6 (L) 12/31/2013 37.7 06/29/2014 37.6 01/04/2015 43.4 07/16/2015 45.7 Ultrasound (01/13/10): no suspicious adenopathy along great vessels or in lateral neck on either side. No masses in thyroid bed. (09/22/11): no suspicious adenopathy along great vessels or in lateral neck on either side. No masses in thyroid bed. (07/02/13): no suspicious adenopathy along great vessels or in lateral neck on either side. No masses in thyroid bed. (07/06/14): no suspicious adenopathy along great vessels or in lateral neck on either side. No masses in thyroid bed. (09/08/15): no suspicious adenopathy along great vessels or in lateral neck on either side. No masses in thyroid bed. (06/28/18): no suspicious adenopathy along great vessels or in lateral neck on either side. No masses in thyroid bed. ROS PHYSICAL EXAM LMP 05/12/2021 PAST MED / SURG / FAMILY / SOCIAL HISTORY PAST MEDICAL HISTORY Diagnosis Date Cholecystitis, acute 2010 removed Desmoid tumor Thyroid mass papillary cancer Unspecified , without mention of complication, unspecified 06/2006 PAST SURGICAL HISTORY Procedure Laterality Date DELIVERY ONLY 2009 , low transverse COLONOSCOPY FLX DX W/COLLJ SPEC WHEN PFRMD 11/04/2014 Colonoscopy LAPAROSCOPY, SURGICAL; CHOLECYSTOEN 2011 PAST SURGICAL HISTORY OF Abdominal Wall Resection THYROIDECTOMY TOTAL/SUBTOTAL LMTD NECK DISSECT 12-28-09 TOTAL THYROID FAMILY HISTORY Problem Relation Age of Onset Breast Cancer Mother Diabetes Maternal Grandmother Heart Maternal Grandmother Lipids Maternal Grandmother Hypertension Maternal Grandmother Heart Maternal Grandfather Lipids Maternal Grandfather Hypertension Maternal Grandfather other (Parkinson's Disease) Paternal Grandfather Al (more content not included)... [facility] 06-13-2022 Instructions Darian Pruett MD - 06/13/2022 9:46 AM EST Assessment / Plan Assessment: 1) Surgical hypothyroidism. TSH a ittle suppressed last check which was 9 months ago. Will check now. Has tried for , lost 2 early in in the last year. Her minimally suppressed TSH mamta have been normal for . I'll check labs now, but she doesn't have a need for TSH suppression this far out after thyroid CA. 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 Six months later, unstimulated TG was undetectable, and has been undetectable without stimulation ever since. 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 Doing OK per this followup. 4) CHASTITY on CPAP, has been using every night, doing well with it. Has another sleep study coming up. Plan: 1) continue on the levothyroxine 175 mcg x 6 & 1/2 per week, I'll look at your labs and send comment by Stephany 2) return to me this Sunday for quick neck ultrasound. 2) return to me in 6 months by virtual visit Darian Pruett MD documented in this encounter [facility] 06-13-2022 History of Presen t illness Narrative Virtual Visit utilizing both audio and video components FaceTime Assessment / Plan Assessment: 1) Surgical hypothyroidism. TSH a ittle suppressed last check which was 9 months ago. Will check now. Has tried for , lost 2 early in in the last year. Her minimally suppressed TSH mamta have been normal for . I'll check labs now, but she doesn't have a need for TSH suppression this far out after thyroid CA. 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 Six months later, unstimulated TG was undetectable, and has been undetectable without stimulation ever since. 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 Doing OK per this followup. 4) CHASTITY on CPAP, has been using every night, doing well with it. Has another sleep study coming up. Plan: 1) continue on the levothyroxine 175 mcg x 6 & 1/2 per week, I'll look at your labs and send comment by Stephany 2) return to me this Sunday for quick neck ultrasound. 2) return to me in 6 months by virtual visit Darian Pruett MD Data Review: History Thyroid Cancer, she is not fogetting her levothyroxine any more, she is on 200 mcg/d since letting me know she was 4 weeks ago Insurance refused gastric bypass surgery. 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 Tobias, at [facility] Pathology (12/28/09): 4cm classic papillary thyroid CA, in left lobe, no angiolymphatic invasion or extracapsular extension, but capsular penetration pressent. Margins free of tumor. 4/5 nodes positive for metastases. T2N1Mx Scan (03/29/10): post 131-Iodine therapy, uptake in left thyroid bed representing residual thyroid tissue, there was uptake in chest on original scan, but could not be confirmed on SPECT/CT, (02/22/12): focal uptake in thyroid bed, no evidence of distant mets, hypothyroid stimulated [facility] (03/16/10): Rx 100 mCi 131-Iodine Thyroglobulin Component Thyroglobulin TG Antibody Screen TSH Latest Ref Rng 0.8 - 49.0 ng/mL <14.4 IU/mL 0.400 - 5.500 uIU/mL 02/20/2005 0.96 11/01/2009 0.67 01/11/2010 5.2 1.1 03/03/2010 11.1 1.0 29.60 (H) 03/10/2010 16.1 1.1 40.87 (H) 03/14/2010 40.52 (H) 08/25/2010 <0.2 (L) <1.0 0.332 (L) 09/21/2011 <0.2 (L) <1.0 1.010 02/09/2012 2.5 <1.0 35.360 02/16/2012 5.7 <1.0 48.720 07/03/2013 <0.2 (L) 1.0 1.050 12/31/2013 <0.2 (L) 1.0 0.879 06/29/2014 <0.2 (L) <1.0 2.230 01/04/2015 <0.2 (L) <1.0 0.427 07/16/2015 <0.2 (L) 1.4 4.090 03/10/16 <0.2 1.2 9.070 08/18/16 <0.2 1.8 0.032 03/15/18 <0.2 4.6 0.030 mRNA Component TSHR mRNA Latest Ref Rng <1.0 ng/ug 11/01/2009 1.1 (H) Vitamin D Component Vitamin D 25 Hydroxy Latest Ref Rng 31.0 - 80.0 ng/mL 08/25/2010 28.1 (L) 09/21/2011 29.8 (L) 07/03/2013 26.6 (L) 12/31/2013 37.7 06/29/2014 37.6 01/04/2015 43.4 07/16/2015 45.7 Ultrasound (01/13/10): no suspicious adenopathy along great vessels or in lateral neck on either side. No masses in thyroid bed. (09/22/11): no suspicious adenopathy along great vessels or in lateral neck on either side. No masses in thyroid bed. (07/02/13): no suspicious adenopathy along great vessels or in lateral neck on either side. No masses in thyroid bed. (07/06/14): no suspicious adenopathy along great vessels or in lateral neck on either side. No masses in thyroid bed. (09/08/15): no suspicious adenopathy along great vessels or in lateral neck on either side. No masses in thyroid bed. (06/28/18): no suspicious adenopathy along great vessels or in lateral neck on either side. No masses in thyroid bed. ROS PHYSICAL EXAM LMP 05/12/2021 PAST MED / SURG / FAMILY / SOCIAL HISTORY PAST MEDICAL HISTORY Diagnosis Date Cholecystitis, acute 2010 removed Desmoid tumor Thyroid mass papillary cancer Unspecified , without mention of complication, unspecified 06/2006 PAST SURGICAL HISTORY Procedure Laterality Date DELIVERY ONLY 2009 , low transverse COLONOSCOPY FLX DX W/COLLJ SPEC WHEN PFRMD 11/04/2014 Colonoscopy LAPAROSCOPY, SURGICAL; CHOLECYSTOEN 2011 PAST SURGICAL HISTORY OF Abdominal Wall Resection THYROIDECTOMY TOTAL/SUBTOTAL LMTD NECK DISSECT 12-28-10 TOTAL THYROID FAMILY HISTORY Problem Relation Age of Onset Breast Cancer Mother Diabetes Maternal Grandmother Heart Maternal Grandmother Lipids Maternal Grandmother Hypertension Maternal Grandmother Heart Maternal Grandfather Lipids Maternal Grandfather Hypertension Maternal Grandfather other (Parkinson's Disease) Paternal Grandfather Alcohol/Drug Maternal Uncle Social History Tobacco Use Smoking status: Never Smokeless tobacco: Never Substance Use Topics Alcohol use: No Drug use: No MEDICATIONS & ALLERGIES Current Outpatient Medications Medication Sig Dispense Refill levothyroxine (SYNTHROID) 175 mcg tablet take 6 & 1/2 pills per week (one a day but only 1/2 pill on Sunday) 90 tablet 0 CPAP AutoPAP 5-20 cmH2O, mask to comfort, tubing, heated humidifier, filters, Lifetime supplies, 1 Device 0 Fkujv-0-JTQ-EPA-Fish Oil (FISH OIL) 1,000 mg (120 mg-180 mg) cap Take 2 capsules by mouth once daily. Miscellaneous Medical Supply [facility] [place] K[place] brace Dx: S89.92XA, M25.562 1 Each 0 Multivitamin capsule Take 1 capsule by mouth once daily. Lactobacillus acidophilus (PROBIOTIC) 10 billion cell cap Take by mouth once daily. Cholecalciferol, Vitamin D3, (VITAMIN D-3) 2,000 unit tab Take 1 tablet by mouth once daily. Current Facility-Administered Medications Medication Dose Route Frequency Provider Last Rate Last Admin perflutren lipid microspheres 1.3 mL in NaCl (PF) 0.9% 10 mL injection (DEFINITY) INTRAVENOUS DIRECTED PRN Kinga Perez MD sodium chloride 0.9 % (flush) 10 mL (BD POSIFLUSH) 10 mL INTRAVENOUS DIRECTED PRN Kinga Perez MD ALLERGIES Allergen Reactions Adhesive Tape (Etelvina* Itching Tegaderm, paper tape ok documented in this encounter [facility] 03-13-2022 Miscellaneous Notes Patient notified Hello. Please call patient and let them know mammogram was without problems. No changes needed at this time and to keep next scheduled appointment. Recommend repeat mammogram per screening guidelines in 1 year. Thanks. documented in this encounter [facility] 03-06-2022 Miscellaneous Notes Called pt regarding instructions for stress test and needs to reschedule. Transferred to cental scheduling. documented in this encounter [facility] 03-02-2022 Miscellaneous Notes March 02, 2022 PID: [id number] [place] [address] Dear Ms. Del Toro, We are pleased to inform you that the results of your recent breast imaging exam on 03/01/2022 are normal. Early detection of cancer is very important. We also understand recommendations regarding breast cancer screening are controversial. Please discuss with your primary care provider which strategy is best for you and whether a mammogram is right for you. Your imaging studies and report will be kept on file at [facility] as part of your permanent medical record and are available for your continuing care. Thank you for allowing us to help in meeting your health care needs. Sincerely, Dr. Phipps Interpreting Radiologist [facility] (Normal over 40) documented in this encounter [facility] 02-02-2022 Miscellaneous Notes Left message regarding reminder for stress test tomorrow and given instructions. documented in this encounter [facility] 12-08-2021 History of Presen t illness Narrative The patient did not show up for the scheduled sleep study. The patient will be contacted to reschedule the sleep study. Janna Ortega November 11, 2021 Standing PSG Orders signed in the last 90 days None Future PSG Orders signed in the last 90 days None All Prior Sleep Studies (past 365 days) Some values may be hidden. Unless noted otherwise, only the newest values recorded on each date are displayed. Sleep Studies CONSULT TO SLEEP MEDICINE - ADULT Future Expected: Expires: 08/10/22 PAP TITRATION PSG (CPAP, BIPAP, ASV) Future Expected: Expires: 09/09/22 BMI Readings from Last 2 Encounters: 08/10/21 : 46.16 kg/m 01/13/21 : 43.77 kg/m PAST MEDICAL HISTORY Diagnosis Date Cholecystitis, acute 2010 removed Desmoid tumor Thyroid mass papillary cancer Unspecified , without mention of complication, unspecified 06/2006 The medical record was reviewed to determine if the proposed sleep study conforms to the AASM Practice Parameters for the Indications for Polysomnography and Related Procedures, or if the sleep study is indicated for other reasons. Indications for study: Repeat Sleep Testing She does not feel that the sleep machine is helping her, she has lost 14 pounds since the test 4 yearse ago, and would like her machine adjusted. Sleep study to be performed: Split Study-Polysomnogram with PAP titration Special instructions: Split night study if AHI > 15. Start with 5 cmH2O then titrate per protocol Target REM/supine sleep Add EtCO2 or Transcutaneous CO2 if available Gómez Polanco Poly-T --- Sleep Medicine Staff Note: I have read the above protocol, edited as needed, and agree to the plan. Michael Dawkins III, PhD 11:47 AM, 11/11/2021 November 11, 2021 An order has been received for PAP titration study from Dr. Kinga Perez MD, a [facility] Staff. Visit prep complete. Comments :No The sleep study is scheduled for 12/07. Insurance: Payor: [place] [employer]ICA[employer] / Plan: [employer] ADVANTAGE MEDICAID / Product Type: Medicaid / Payor/Plan Subscr Sex Relation Sub. Ins. ID Effective Group Num 1. PARAMOUNT MED* ALVERT[place]IE[place] S 1980 Female Self [id number] [birth year] [address] Ceasar Rosas documented in this encounter [facility] 08-26-2021 Miscellaneous Notes Spoke with patient regarding reminder for stress test on Sunday and given instructions documented in this encounter [facility] 08-19-2021 Miscellaneous Notes Please call the patient to clarify if she reduced levothyroxine to 6.5 tablets weekly? Her labs indicate that she is still getting too much thyroid hormone. Thank you- Tonja Pathak APRN.CORRESPONDENCE REVIEW CLERK Component Latest Ref Rng & Units 08/10/2021 TSH 0.270 - 4.200 mIU/L 0.124 (L) Free T4 0.9 - 1.7 ng/dL 2.1 (H) documented in this encounter [facility] 08-13-2021 Miscellaneous Notes Done. Thank you, Cee Beasley Noted and sent to [employer] bpm architect. Dolly Wang LPN Order is placed. Thank you Yisel Rojo APRN.NIHARIKA The COVID swab ordered expires 08/20. In order to get stress echo done 08/29 the exp date needs to be changed documented in this encounter [facility] 08-08-2021 Miscellaneous Notes Patient states its not worse, its been off an off. Has appointment Sunday with Dr. Perez, will go to ER if worsening. Unclear from message if current symptoms are worse or not. If she is having chest pain with exertion currently she should be seen in the emergency department. If severe or concerning symptoms would also recommend emergency department. Patient calling with request for sooner appointment. Patient denies any new or worsening symptoms of which a provider is not aware: Yes. Patient states she has been dealing with leg swelling, fatigue, back pain and chest pain with exertion and just not feeling herself has mad an appointment for next month but would like to be seen sooner. Patient was conferenced to Ruiz in Appointment Center for PCP scheduling. documented in this encounter [facility] 08-01-2021 History of Presen t illness Narrative Not on Zoom, no answer for telephone, voicemail full so cannot leave message. The appointment was cancelled for this patient. Darian Pruett MD documented in this encounter [facility] 07-22-2021 Miscellaneous Notes Patient came to desk asking to have glasses rx reprinted off from April. I was not able to find it or print it off. Patient would like hers and her sons as well. Per patient will be back the 24th to get it. documented in this encounter [facility] documented as of this encounter (statuses as of 07/29/2021) [facility]05-29-2010 History of Past illness Narrative* Problem Noted Date Resolved Date Nocturnal dyspnea 10/02/2009 10/30/2014 Overview: Volume overload following ; Spiral CT negative for PE but with small pleural effusions; Echocardiogram normal Supervision of other normal 02/22/2009 10/11/2009 with poor obstetric history 02/22/2009 10/11/2009 documented as of this encounter (statuses as of 08/01/2021) [facility] History of Past illness Narrative* Problem Noted Date Resolved Date Nocturnal dyspnea 10/02/2009 10/30/2014 Overview: Volume overload following ; Spiral CT negative for PE but with small pleural effusions; Echocardiogram normal Supervision of other normal 02/22/2009 10/11/2009 with poor obstetric history 02/22/2009 10/11/2009 documented as of this encounter (statuses as of 08/01/2021) [facility] History of Past illness Narrative* Problem Noted Date Resolved Date Nocturnal dyspnea 10/02/2009 10/30/2014 Overview: Volume overload following ; Spiral CT negative for PE but with small pleural effusions; Echocardiogram normal Supervision of other normal 02/22/2009 10/11/2009 with poor obstetric history 02/22/2009 10/11/2009 documented as of this encounter (statuses as of 08/08/2021) [facility] History of Past illness Narrative* Problem Noted Date Resolved Date Nocturnal dyspnea 10/02/2009 10/30/2014 Overview: Volume overload following ; Spiral CT negative for PE but with small pleural effusions; Echocardiogram normal Supervision of other normal 02/22/2009 10/11/2009 with poor obstetric history 02/22/2009 10/11/2009 documented as of this encounter (statuses as of 08/13/2021) [facility] History of Past illness Narrative* Problem Noted Date Resolved Date Nocturnal dyspnea 10/02/2009 10/30/2014 Overview: Volume overload following ; Spiral CT negative for PE but with small pleural effusions; Echocardiogram normal Supervision of other normal 02/22/2009 10/11/2009 with poor obstetric history 02/22/2009 10/11/2009 documented as of this encounter (statuses as of 08/19/2021) [facility] History of Past illness Narrative* Problem Noted Date Resolved Date Nocturnal dyspnea 10/02/2009 10/30/2014 Overview: Volume overload following ; Spiral CT negative for PE but with small pleural effusions; Echocardiogram normal Supervision of other normal 02/22/2009 10/11/2009 with poor obstetric history 02/22/2009 10/11/2009 documented as of this encounter (statuses as of 08/26/2021) [facility] History of Past illness Narrative* Problem Noted Date Resolved Date Nocturnal dyspnea 10/02/2009 10/30/2014 Overview: Volume overload following ; Spiral CT negative for PE but with small pleural effusions; Echocardiogram normal Supervision of other normal 02/22/2009 10/11/2009 with poor obstetric history 02/22/2009 10/11/2009 documented as of this encounter (statuses as of 12/08/2021) [facility] History of Past illness Narrative* Problem Noted Date Resolved Date Nocturnal dyspnea 10/02/2009 10/30/2014 Overview: Volume overload following ; Spiral CT negative for PE but with small pleural effusions; Echocardiogram normal Supervision of other normal 02/22/2009 10/11/2009 with poor obstetric history 02/22/2009 10/11/2009 documented as of this encounter (statuses as of 02/02/2022) [facility] History of Past illness Narrative* Problem Noted Date Resolved Date Nocturnal dyspnea 10/02/2009 10/30/2014 Overview: Volume overload following ; Spiral CT negative for PE but with small pleural effusions; Echocardiogram normal Supervision of other normal 02/22/2009 10/11/2009 with poor obstetric history 02/22/2009 10/11/2009 documented as of this encounter (statuses as of 03/04/2022) [facility] History of Past illness Narrative* Problem Noted Date Resolved Date Nocturnal dyspnea 10/02/2009 10/30/2014 Overview: Volume overload following ; Spiral CT negative for PE but with small pleural effusions; Echocardiogram normal Supervision of other normal 02/22/2009 10/11/2009 with poor obstetric history 02/22/2009 10/11/2009 documented as of this encounter (statuses as of 03/06/2022) [facility] History of Past illness Narrative* Problem Noted Date Resolved Date Nocturnal dyspnea 10/02/2009 10/30/2014 Overview: Volume overload following ; Spiral CT negative for PE but with small pleural effusions; Echocardiogram normal Supervision of other normal 02/22/2009 10/11/2009 with poor obstetric history 02/22/2009 10/11/2009 documented as of this encounter (statuses as of 03/13/2022) [facility] History of Past illness Narrative* Problem Noted Date Resolved Date Nocturnal dyspnea 10/02/2009 10/30/2014 Overview: Volume overload following ; Spiral CT negative for PE but with small pleural effusions; Echocardiogram normal Supervision of other normal 02/22/2009 10/11/2009 with poor obstetric history 02/22/2009 10/11/2009 documented as of this encounter (statuses as of 06/13/2022) [facility] History of Past illness Narrative* Problem Noted Date Resolved Date Nocturnal dyspnea 10/02/2009 10/30/2014 Overview: Volume overload following ; Spiral CT negative for PE but with small pleural effusions; Echocardiogram normal Supervision of other normal 02/22/2009 10/11/2009 with poor obstetric history 02/22/2009 10/11/2009 documented as of this encounter (statuses as of 06/17/2022) [facility] History of Past illness Narrative* Problem Noted Date Resolved Date Nocturnal dyspnea 10/02/2009 10/30/2014 Overview: Volume overload following ; Spiral CT negative for PE but with small pleural effusions; Echocardiogram normal Supervision of other normal 02/22/2009 10/11/2009 with poor obstetric history 02/22/2009 10/11/2009 documented as of this encounter (statuses as of 07/07/2022) [facility] History of Past illness Narrative* Problem Noted Date Resolved Date Nocturnal dyspnea 10/02/2009 10/30/2014 Overview: Volume overload following ; Spiral CT negative for PE but with small pleural effusions; Echocardiogram normal Supervision of other normal 02/22/2009 10/11/2009 with poor obstetric history 02/22/2009 10/11/2009 documented as of this encounter (statuses as of 10/04/2022) [facility] History of Past illness Narrative* Problem Noted Date Resolved Date Nocturnal dyspnea 10/02/2009 10/30/2014 Overview: Volume overload following ; Spiral CT negative for PE but with small pleural effusions; Echocardiogram normal Supervision of other normal 02/22/2009 10/11/2009 with poor obstetric history 02/22/2009 10/11/2009 documented as of this encounter (statuses as of 10/07/2022) [facility] History of Past illness Narrative* Problem Noted Date Diagnosed Date Resolved Date Nocturnal dyspnea 10/02/2009 10/30/2014 Overview: Volume overload following ; Spiral CT negative for PE but with small pleural effusions; Echocardiogram normal Supervision of other normal 02/22/2009 10/11/2009 with poor obstetric history 02/22/2009 10/11/2009 documented as of this encounter (statuses as of 11/13/2022) [facility] History of Past illness Narrative* Problem Noted Date Diagnosed Date Resolved Date Nocturnal dyspnea 10/02/2009 10/30/2014 Overview: Volume overload following ; Spiral CT negative for PE but with small pleural effusions; Echocardiogram normal Supervision of other normal 02/22/2009 10/11/2009 with poor obstetric history 02/22/2009 10/11/2009 documented as of this encounter (statuses as of 12/19/2022) [facility] History of Past illness Narrative* Problem Noted Date Diagnosed Date Resolved Date Nocturnal dyspnea 10/02/2009 10/30/2014 Overview: Volume overload following ; Spiral CT negative for PE but with small pleural effusions; Echocardiogram normal Supervision of other normal 02/22/2009 10/11/2009 with poor obstetric history 02/22/2009 10/11/2009 documented as of this encounter (statuses as of 01/01/2023) [facility] History of Past illness Narrative* Problem Noted Date Diagnosed Date Resolved Date Nocturnal dyspnea 10/02/2009 10/30/2014 Overview: Volume overload following ; Spiral CT negative for PE but with small pleural effusions; Echocardiogram normal Supervision of other normal 02/22/2009 10/11/2009 with poor obstetric history 02/22/2009 10/11/2009 documented as of this encounter (statuses as of 01/02/2023) [facility] History of Past illness Narrative* Problem Noted Date Diagnosed Date Resolved Date Nocturnal dyspnea 10/02/2009 10/30/2014 Overview: Volume overload following ; Spiral CT negative for PE but with small pleural effusions; Echocardiogram normal Supervision of other normal 02/22/2009 10/11/2009 with poor obstetric history 02/22/2009 10/11/2009 documented as of this encounter (statuses as of 01/02/2023) [facility] History of Past illness Narrative* Problem Noted Date Diagnosed Date Resolved Date Nocturnal dyspnea 10/02/2009 10/30/2014 Overview: Volume overload following ; Spiral CT negative for PE but with small pleural effusions; Echocardiogram normal Supervision of other normal 02/22/2009 10/11/2009 with poor obstetric history 02/22/2009 10/11/2009 documented as of this encounter (statuses as of 02/07/2023) [facility] History of Past illness Narrative* Problem Noted Date Diagnosed Date Resolved Date Nocturnal dyspnea 10/02/2009 10/30/2014 Overview: Volume overload following ; Spiral CT negative for PE but with small pleural effusions; Echocardiogram normal Supervision of other normal 02/22/2009 10/11/2009 with poor obstetric history 02/22/2009 10/11/2009 documented as of this encounter (statuses as of 04/09/2023) [facility] Diagnosis Encounter for screening mammogram for breast cancer [facility]LL[facility]- [facility] Diagnosis Pre-op testing- Primary Preoperative examination, unspecified [facility] Diagnosis 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 documented in this encounter [facility] note* Diagnosis Postoperative hypothyroidism- Primary Postsurgical hypothyroidism documented in this encounter [facility] note* Diagnosis Papillary carcinoma of thyroid (HCC)- Primary Malignant neoplasm of thyroid gland [facility]* Diagnosis 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 documented in this encounter [facility] note* Diagnosis Precordial pain- Primary Other fatigue Weight gain Abnormal weight gain Sleep apnea, unspecified type Post-surgical hypothyroidism Postsurgical hypothyroidism Vitamin D deficiency Unspecified vitamin D deficiency Obesity, Class III, BMI >= 40 Morbid obesity Lipid screening Screening for lipoid disorders Encounter for therapeutic drug monitoring Screening for colon cancer Special screening for malignant neoplasms, colon documented in this encounter [facility] note* Diagnosis 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 Desmoid Neoplasm of uncertain behavior of connective and other soft tissue documented in this encounter [facility] note* Diagnosis Change in bowel habits- Primary Other symptoms involving digestive system Diarrhea, unspecified type Abdominal bloating Flatulence, eructation, and gas pain Desmoid tumor of abdomen Neoplasm of uncertain behavior of connective and other soft tissue Papillary thyroid CA Malignant neoplasm of thyroid gland S/P laparoscopic cholecystectomy Other postprocedural status History of chest pain Personal history of other specified diseases [facility]* Diagnosis Papillary carcinoma of thyroid (HCC)- Primary Malignant neoplasm of thyroid gland [facility]* Diagnosis Diarrhea, unspecified type- Primary Abdominal bloating Flatulence, eructation, and gas pain Change in bowel habits Other symptoms involving digestive system History of anemia Personal history of diseases of blood and blood-forming organs [facility]* Diagnosis Encounter for screening mammogram for breast cancer documented in this encounter [facility] for referral (narrative)* Diagnostic Procedure Only (Routine) - Pending Review Specialty Diagnoses / Procedures Referred By Morris mckeon Referred To Contact [facility] Diagnoses Encounter for screening mammogram for breast cancer Procedures CHAZ SCREENING SCREENING MAMMOGRAPHY BI 2-VIEW BREAST INC CAD Lianet Mckeon MD [address] [place] [address] [facility] [address] [place] [address] Referral ID Status Reason Start Date Expiration Date Visits Requested Visits Authorized [id number] Pending Review Auto-Generat ed Referral 07/27/2021 08/26/2022 1 1 [facility] for referral (narrative)* Diagnostic Procedure Only (Routine) - Authorized Specialty Diagnoses / Procedures Referred By Morris mckeon Referred To Contact [facility] Diagnoses Other fatigue Precordial pain Procedures NM CARDIAC PERF STRESS/EXERCISE MYOCARDIAL SPECT MULTIPLE STUDIES Julio Avalos APRN.CNP [address] [place] [id number] [facility] [address] [place] [address] Referral ID Status Reason Start Date Expiration Date Visits Requested Visits Authorized [id number] Authorized Auto-Generat ed Referral 10/04/2022 11/03/2023 1 1 * Consult, Test, Treat (Routine) - Pending Review Specialty Diagnoses / Procedures Referred By Morris mckeon Referred To Contact General Surgery Diagnoses Screening for colon cancer Procedures CONSULT TO GENERAL SURGERY OFFICE/OUTPATIENT [facility] 60-74 MINUTES Julio Avalos APRN.CNP [address] [place] [address] Referral ID Status Reason Start Date Expiration Date Visits Requested Visits Authorized [id number] Pending Review PCP Requested Referral 10/04/2022 10/04/2023 1 1 [facility] for referral (narrative)* Outpatient Procedure (Routine) - Pending Review Specialty Diagnoses / Procedures Referred By Morris mckeon Referred To Contact [facility] Diagnoses Diarrhea, unspecified type Abdominal bloating Change in bowel habits History of anemia Procedures COLONOSCOPY DIAGNOSTIC COLONOSCOPY FLX DX W/COLLJ SPEC WHEN PFRMD Alicia Weiner PA-C [address] [place] [address] [facility] [place] [address] [place] [phone] Referral ID Status Reason Start Date Expiration Date Visits Requested Visits Authorized [id number] Pending Review Auto-Generat ed Referral 11/13/2022 11/14/2023 1 1 * Outpatient Procedure (Routine) - Pending Review Specialty Diagnoses / Procedures Referred By Morris mckeon Referred To Contact [facility] Diagnoses Diarrhea, unspecified type Abdominal bloating Change in bowel habits History of anemia Procedures EGD DIAGNOSTIC ESOPHAGOGASTRODUODENOSC OPY TRANSORAL DIAGNOSTIC Alicia Weiner PA-C [address] [place] [address] [address] Referral ID Status Reason Start Date Expiration Date Visits Requested Visits Authorized [id number] Pending Review Auto-Generat ed Referral 11/13/2022 11/14/2023 1 1 [facility] for referral (narrative)* Diagnostic Procedure Only (Routine) - Pending Review Specialty Diagnoses / Procedures Referred By Morris mckeon Referred To Contact [facility] Diagnoses Encounter for screening mammogram for breast cancer Procedures CHAZ SCREENING SCREENING MAMMOGRAPHY BI 2-VIEW BREAST INC CAD Lianet Mckeon MD [address] [place] [address] [facility] [address] [place] [address] Referral ID Status Reason Start Date Expiration Date Visits Requested Visits Authorized [id number] Pending Review Auto-Generat ed Referral 05/03/2024 1 1 [facility] Summary Purpose Family History No Family History Records FoundNo Family History Records FoundNo Family History Records FoundNo Family History Records FoundNo Family History Records Found Advance Directives No Advanced Directives Records FoundNo Advanced Directives Records FoundNo Advanced Directives Records FoundNo Advanced Directives Records FoundNo Advanced Directives Records Found Reason for Referral Specialty Diagnoses / Procedures Referred By Contac t Referred To Contact Diagnoses 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 Procedures CT ABDOMEN/PELVIS WITH CONTRAST CHG CT SCAN,ABDOMENT AND PELVIS,W CONTRAST Shavon Nava C, PRODUCT DEVELOPMENT ASSISTANT-CORRESPONDENCE REVIEW CLERK [address] [place] [address] Referral ID Status Reason Start Date Expiration Date Visits Re quested Visits Authorized [id number] Closed 02/22/2022 03/19/2023 1 1 Specialty Diagnoses / Procedures Referred By Contac t Referred To Contact Diagnoses Desmoid Procedures CT CHEST WITH CONTRAST CHG DIAGNOSTIC COMPUTED TOMOGRAPHY THORAX W/CONTRAST Shavon Nava, PRODUCT DEVELOPMENT ASSISTANT-CORRESPONDENCE REVIEW CLERK [address] [place] [address] Referral ID Status Reason Start Date Expiration Date V isits Requested Visits Authorized [id number] Auth Not Needed 10/18/2022 11/12/2023 1 1 Additional Source Comments Source Comments (unrecognize d section and content) In the event this informatio n is protected by the Federal Confidentiality of Alcohol and Drug Abuse Patient Records regulations: The Federal rules restrict any use of the information to criminally investigate or prosecute any alcohol or drug abuse patient.[facility] the event this information is protected by the Federal Confidentiality of Alcohol and Drug Abuse Patient Records regulations: The Federal rules restrict any use of the information to criminally investigate or prosecute any alcohol or drug abuse patient.[facility] the event this information is protected by the Federal Confidentiality of Alcohol and Drug Abuse Patient Records regulations: The Federal rules restrict any use of the information to criminally investigate or prosecute any alcohol or drug abuse patient.[facility] the event this information is protected by the Federal Confidentiality of Alcohol and Drug Abuse Patient Records regulations: The Federal rules restrict any use of the information to criminally investigate or prosecute any alcohol or drug abuse patient.[facility] the event this information is protected by the Federal Confidentiality of Alcohol and Drug Abuse Patient Records regulations: The Federal rules restrict any use of the information to criminally investigate or prosecute any alcohol or drug abuse patient.[facility] the event this information is protected by the Federal Confidentiality of Alcohol and Drug Abuse Patient Records regulations: The Federal rules restrict any use of the information to criminally investigate or prosecute any alcohol or drug abuse patient.[facility] the event this information is protected by the Federal Confidentiality of Alcohol and Drug Abuse Patient Records regulations: The Federal rules restrict any use of the information to criminally investigate or prosecute any alcohol or drug abuse patient.[facility] the event this information is protected by the Federal Confidentiality of Alcohol and Drug Abuse Patient Records regulations: The Federal rules restrict any use of the information to criminally investigate or prosecute any alcohol or drug abuse patient.[facility] the event this information is protected by the Federal Confidentiality of Alcohol and Drug Abuse Patient Records regulations: The Federal rules restrict any use of the information to criminally investigate or prosecute any alcohol or drug abuse patient.[facility] the event this information is protected by the Federal Confidentiality of Alcohol and Drug Abuse Patient Records regulations: The Federal rules restrict any use of the information to criminally investigate or prosecute any alcohol or drug abuse patient.[facility] the event this information is protected by the Federal Confidentiality of Alcohol and Drug Abuse Patient Records regulations: The Federal rules restrict any use of the information to criminally investigate or prosecute any alcohol or drug abuse patient.[facility] the event this information is protected by the Federal Confidentiality of Alcohol and Drug Abuse Patient Records regulations: The Federal rules restrict any use of the information to criminally investigate or prosecute any alcohol or drug abuse patient.[facility] the event this information is protected by the Federal Confidentiality of Alcohol and Drug Abuse Patient Records regulations: The Federal rules restrict any use of the information to criminally investigate or prosecute any alcohol or drug abuse patient.[facility] the event this information is protected by the Federal Confidentiality of Alcohol and Drug Abuse Patient Records regulations: The Federal rules restrict any use of the information to criminally investigate or prosecute any alcohol or drug abuse patient.[facility] the event this information is protected by the Federal Confidentiality of Alcohol and Drug Abuse Patient Records regulations: The Federal rules restrict any use of the information to criminally investigate or prosecute any alcohol or drug abuse patient.[facility] the event this information is protected by the Federal Confidentiality of Alcohol and Drug Abuse Patient Records regulations: The Federal rules restrict any use of the information to criminally investigate or prosecute any alcohol or drug abuse patient.[facility] the event this information is protected by the Federal Confidentiality of Alcohol and Drug Abuse Patient Records regulations: The Federal rules restrict any use of the information to criminally investigate or prosecute any alcohol or drug abuse patient.[facility] the event this information is protected by the Federal Confidentiality of Alcohol and Drug Abuse Patient Records regulations: The Federal rules restrict any use of the information to criminally investigate or prosecute any alcohol or drug abuse patient.[facility] the event this information is protected by the Federal Confidentiality of Alcohol and Drug Abuse Patient Records regulations: The Federal rules restrict any use of the information to criminally investigate or prosecute any alcohol or drug abuse patient.[facility] the event this information is protected by the Federal Confidentiality of Alcohol and Drug Abuse Patient Records regulations: The Federal rules restrict any use of the information to criminally investigate or prosecute any alcohol or drug abuse patient.[facility] the event this information is protected by the Federal Confidentiality of Alcohol and Drug Abuse Patient Records regulations: The Federal rules restrict any use of the information to criminally investigate or prosecute any alcohol or drug abuse patient.[facility] the event this information is protected by the Federal Confidentiality of Alcohol and Drug Abuse Patient Records regulations: The Federal rules restrict any use of the information to criminally investigate or prosecute any alcohol or drug abuse patient.[facility] the event this information is protected by the Federal Confidentiality of Alcohol and Drug Abuse Patient Records regulations: The Federal rules restrict any use of the information to criminally investigate or prosecute any alcohol or drug abuse patient.[facility] the event this information is protected by the Federal Confidentiality of Alcohol and Drug Abuse Patient Records regulations: The Federal rules restrict any use of the information to criminally investigate or prosecute any alcohol or drug abuse patient.[facility] Reason for Visit (unrecogniz ed section and content) Reason Onset Date Comments Appointment Cancelled 08/01/2021 Reason Comments Appointment Reason Comments Orders Reason Comments Results Reason Comments Reminder Call Reason Comments PSG Check In Specialty Diagnoses / Procedures Referred By Contac t Referred To Contact Diagnoses 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 Procedures CT ABDOMEN/PELVIS WITH CONTRAST CHG CT SCAN,ABDOMENT AND PELVIS,W CONTRAST Shavon Nava, PRODUCT DEVELOPMENT ASSISTANT-CORRESPONDENCE REVIEW CLERK [address] [place] [address] Referral ID Status Reason Start Date Expiration Date V isits Requested Visits Authorized [id number] Auth Not Needed 02/22/2022 03/19/2023 1 1 Reason Comments Thyroid Cancer Reason Comments Thyroid Problem Specialty Diagnoses / Procedures Referred By Contac t Referred To Contact Endocrinology / ENDOCRINOLOGY Diagnoses Thyroid cancer (HCC) neck ultrasound for thyroid Cancer *per [facility] Procedures US SOFT TISSUE HEAD & NECK REAL TIME IMGE DOCM THYROID BIOPSY/ULTRASOUND Darian Pruett MD [address] [place] [address] Darian Pruett MD [address] [place] [address] Referral ID Status Reason Start Date Expiration Date Visits Re quested Visits Authorized [id number] Closed 06/13/2022 05/06/2023 1 1 Referral ID Status Reason Start Date Expiration Date Visits Re quested Visits Authorized [id number] Closed 02/22/2022 03/19/2023 1 1 Reason Comments Chest Pain off and on and descr ibed it as burning sensation would like to have a stress test Abdominal Pain with loose stools an d is interested in a colonoscopy Fatigue uses CPAP and questi ons if need PAP titration to check settings Lab Orders Weight Problem Reason Comments Follow-up Reason Comments Consult Colonoscopy consult, abdominal pain. Specialty Diagnoses / Procedures Referred By Contac t Referred To Contact General Surgery Diagnoses Screening for colon cancer Procedures CONSULT TO GENERAL SURGERY OFFICE/OUTPATIENT [facility] 60-74 MINUTES Julio Avalos APRN.CORRESPONDENCE REVIEW CLERK [address] [place] [address] Referral ID Status Reason Start Date Expiration Date Visits Requested Visits Authorized [id number] Pending Review PCP Requested Referral 10/04/2022 10/04/2023 1 1 Reason Comments Medication Clarification Reason Comments 02/09/2023 colon/egd ruano ' Care Teams (unrecognized sec tion and content) 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 Start Date End Date Lianet Mckeon MD [address] [place] [address] PCP - General 11/04/14 Odilia Peres (Rn), RN [address] [place] [address] Specialty Can Filler General Surgery 08/20/18 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 Start Date End Date Lianet Mckeon MD [address] [place] [address] PCP - General 11/04/14 Odilia Peres (Rn), RN [address] [place] [address] Specialty Can Filler General Surgery 08/20/18 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 Start Date End Date Lianet Mckeon MD [address] [place] [address] PCP - General 11/04/14 Odilia Peres (Rn), RN [address] [place], [place] [phone] Specialty Can Filler General Surgery 08/20/18 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 Start Date End Date Lianet Mckeon MD [address] [place] [address] PCP - General 11/04/14 Odilia Peres (Rn), RN [address] [place], [place] [phone] Specialty Can Filler General Surgery 08/20/18 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 Start Date End Date Lianet Mckeon MD [address] [place] [address] PCP - General 11/04/14 Odilia Peres (Rn), RN [address] [place] [address] Specialty Can Filler General Surgery 08/20/18 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 Start Date End Date Lianet Mckeon MD [address] [place] [address] PCP - General 11/04/14 Odilia Peres (Rn), RN [address] [place], [place] [phone] Specialty Can Filler General Surgery 08/20/18 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 Start Date End Date Lianet Mckeon MD [address] [place] [address] PCP - General 11/04/14 Odilia Peres (Rn), RN [address] [place], [place] [phone] Specialty Can Filler General Surgery 08/20/18 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 Start Date End Date Lianet Mckeon MD [address] [place] [address] PCP - General 11/04/14 Odilia Peres (Rn), RN [address] [place], [place] [phone] Specialty Can Filler General Surgery 08/20/18 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 Start Date End Date Lianet Mckeon MD [address] [place] [address] PCP - General 11/04/14 Odilia Peres (Rn), RN [address] [place], [place] [phone] Specialty Can Filler General Surgery 08/20/18 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 Start Date End Date Lianet Mckeon MD PCP - General Internal Medicine 09/09/14 Pietro Tapia MD [address] [place] [address] [place] [phone] Surgeon Plastic Surgery 12/08/14 To Chamorro MD Surgeon Thoracic Surgery 12/08/14 Johnny Joe MD, PhD [address] [place] [phone] Surgeon Surgical Oncology 12/08/14 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 Start Date End Date Lianet Mckeon MD [address] [place] [address] PCP - General 11/04/14 Odilia Peres (Rn), RN [address] [place] [address] Specialty Can Filler General Surgery 08/20/18 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 Start Date End Date Lianet Mckeon MD [address] [place] [address] PCP - General 11/04/14 Oidlia Peres (Rn), RN [address] [place], [place] [phone] Specialty Can Filler General Surgery 08/20/18 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 Start Date End Date Lianet Mckeon MD PCP - General Internal Medicine 09/09/14 Pietro Tapia MD [address] [facility] [address] [place] [address] Surgeon Plastic Surgery 12/08/14 To Chamorro MD Surgeon Thoracic Surgery 12/08/14 Johnny Joe MD, PhD [address] [place] [address] Surgeon Surgical Oncology 12/08/14 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 Start Date End Date Lianet Mckeon MD [address] [place] [address] PCP - General 11/04/14 Odilia Peres (Rn), [place] [id number] [place] [address] Specialty Can Filler General Surgery 08/20/18 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 Start Date End Date Lianet Mckeon MD [address] [place] [address] PCP - General 11/04/14 Odilia Peres (Rn), RN [address] [place] [address] Specialty Can Filler General Surgery 08/20/18 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 Start Date End Date Lianet Mckeon MD PCP - General Internal Medicine 09/09/14 Pietro Tapia MD [address] [facility] [address] [place] [address] Surgeon Plastic Surgery 12/08/14 To Chamorro MD [address] [facility] [address] [place] [address] Surgeon Thoracic Surgery 12/08/14 Johnny Joe MD, PhD [address] [place] [address] Surgeon Surgical Oncology 12/08/14 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 Start Date End Date Lianet Mckeon MD [address] [place] [address] PCP - General 11/04/14 Odilia Peres (Rn), [place] [id number] [place] [address] Specialty Can Filler General Surgery 08/20/18 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 Start Date End Date Lianet Mckeon MD [address] [place] [address] PCP - General 11/04/14 Odilia Peres (Rn), RN [address] [place] [address] Specialty Can Filler General Surgery 08/20/18 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 Start Date End Date Lianet Mckeon MD [address] [place] [address] PCP - General 11/04/14 Odilia Peres (Rn), RN [address] [place], [place] [phone] Specialty Can Filler General Surgery 08/20/18 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 Start Date End Date Lianet Mckeon MD [address] [place] [address] PCP - General 11/04/14 Odilia Peres (Rn), RN [address] [place], [place] [phone] Specialty Can Filler General Surgery 08/20/18 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 Start Date End Date Lianet Mckeon MD [address] [place] [address] PCP - General 11/04/14 Odilia Peres (Rn), RN [address] [place], [place] [phone] Specialty Can Filler General Surgery 08/20/18 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 Start Date End Date Lianet Mckeon MD [address] [place] [address] PCP - General 11/04/14 Odilia Peres (Rn), RN [address] [place] [address] Specialty Can Filler General Surgery 08/20/18 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 Start Date End Date Lianet Mckeon MD [address] [place] [address] PCP - General 11/04/14 [place] [address] [facility] [address] [place] [address] Specialty Can Filler General Surgery 08/20/18 INFORMATION SOURCE (unrecogn ized section and content) DATE CREATED AUTHOR AUTHOR'S ORGANIZ ATION 10/27/2022 [facility] DATE CREATED AUTHOR AUTHOR'S ORGANIZ ATION 04/10/2023 [facility] DATE CREATED AUTHOR AUTHOR'S ORGANIZ ATION 04/21/2023 [facility] DATE CREATED AUTHOR AUTHOR'S ORGANIZ ATION 05/09/2023 [facility] FOR RECORDS PERTAINING TO PATIENTS WHO ARE OR HAVE BEEN ENROLLED IN A CHEMICAL DEPENDENCY/SUBSTANCEABUSE PROGRAM, SOME INFORMATION MAY BE OMITTED. This clinical summary was aggregated from multiple sources. Caution should be exercised in using it in the provision of clinical care. This summary normalizes information from multiple sources, and as a consequence, information in this document may materially change the coding, format and clinical context of patient data. In addition, data may be omitted in some cases. CLINICAL DECISIONS SHOULD BE BASED ON THE PRIMARY CLINICAL RECORDS. [employer] provides no warranty or guarantee of the accuracy or completeness of information in this document.
== END | disposition home or self-care (01) ==
PROVIDERS: PCP Internal Medicine; Referring Provider Obstetrics & Gynecology; Visit Provider Obstetrics & Gynecology
DX: O24.419 Gestational diabetes mellitus in pregnancy, unspecified control (principal); Z3A.00 Weeks of gestation of pregnancy not specified
CPT/HCPCS: 76819

== ENCOUNTER → 2023-06-12 | Outpatient (CLI) | payer MEDICAID, SELFPAY ==
--- NOTE | 2023-06-12 09:44 | US_ITS ---
STUDY: OBSTETRICAL ULTRASOUND - BIOPHYSICAL PROFILE REASON FOR EXAM: Female, 42 years old well being -- 34 weeks LMP: October 16, 2022. PRIOR ULTRASOUND: Comparison is made with prior study dated June 01, 2023. TECHNIQUE: Transabdominal TECHNICAL QUALITY: Adequate. FINDINGS: There is a single intrauterine fetus. The fetus is in a breech presentation. There is demonstrated cardiac activity with a heart rate of 140 bpm. There is a normal amniotic fluid volume. The largest amniotic fluid pocket measures 5.8 cm. The amniotic fluid index (PARTH) is 18 cm. The placenta is fundal in location. There are Grade 0 placental changes. Age by LMP: 34 weeks, 1 days. YANNICK by LMP: July 23, 2023. age by prior US: 34 weeks, 1 days. YANNICK by prior US: July 23, 2023. BIOPHYSICAL PROFILE: Breathing Movements (FBM): 2 Gross Body Movements (GBM): 2 Tone (FT): 2 Amniotic Fluid Volume (AFV): 2 TOTAL SCORE: 8 / 8 US/Biophysical Prof W/O Non Stres IMPRESSION: Normal biophysical profile of 8/8. Electronically Signed: Warren Nguyen MD at 11:01 EST ,
== END | disposition home or self-care (01) ==
PROVIDERS: PCP Internal Medicine; Referring Provider Obstetrics & Gynecology; Visit Provider Obstetrics & Gynecology
DX: O24.419 Gestational diabetes mellitus in pregnancy, unspecified control (principal); Z3A.00 Weeks of gestation of pregnancy not specified
CPT/HCPCS: 76819

== ENCOUNTER → 2023-06-19 | Outpatient (CLI) | payer MEDICAID, SELFPAY ==
--- NOTE | 2023-06-19 09:31 | US_ITS ---
STUDY: OBSTETRICAL ULTRASOUND - BIOPHYSICAL PROFILE REASON FOR EXAM: Female, 42 years old well being -- 35 weeks LMP: October 16, 2022. PRIOR ULTRASOUND: Comparison is made with prior study dated June 12, 2023. TECHNIQUE: Transabdominal TECHNICAL QUALITY: Adequate. FINDINGS: There is a single intrauterine fetus. The fetus is in a breech presentation. There is demonstrated cardiac activity with a heart rate of 136 bpm. There is a normal amniotic fluid volume. The largest amniotic fluid pocket measures 9.3 cm. The amniotic fluid index (PARTH) is 23.8 cm. This measures upper limits of normal. The placenta is fundal in location. There are Grade 1 placental changes. Age by LMP: 35 weeks, 1 days. YANNICK by LMP: July 23, 2023. age by prior US: 35 weeks, 1 days. YANNICK by prior US: July 23, 2023. BIOPHYSICAL PROFILE: Breathing Movements (FBM): 2 Gross Body Movements (GBM): 2 Tone (FT): 2 Amniotic Fluid Volume (AFV): 2 TOTAL SCORE: 8 / 8 US/Biophysical Prof W/O Non Stres IMPRESSION: Normal biophysical profile of 8/8. Electronically Signed: Warren Nguyen MD at 12:23 EST ,
== END | disposition home or self-care (01) ==
PROVIDERS: PCP Internal Medicine; Referring Provider Obstetrics & Gynecology; Visit Provider Obstetrics & Gynecology
DX: O24.419 Gestational diabetes mellitus in pregnancy, unspecified control (principal); Z3A.34 34 weeks gestation of pregnancy
CPT/HCPCS: 76819

== ENCOUNTER → 2023-06-22 | Outpatient (CLI) | payer MEDICAID, SELFPAY ==
--- NOTE | 2023-06-22 12:34 | US_ITS ---
STUDY: OBSTETRICAL ULTRASOUND - BIOPHYSICAL PROFILE REASON FOR EXAM: Female, 42 years old well being, polyhydramnios -- GDM LMP: October 16, 2022. PRIOR ULTRASOUND: Comparison is made with prior study dated June 19, 2023. TECHNIQUE: Transabdominal TECHNICAL QUALITY: Adequate. FINDINGS: There is a single intrauterine fetus. The fetus is in a breech presentation. There is demonstrated cardiac activity with a heart rate of 131 bpm. There is increased amniotic fluid consistent with polyhydramnios. The largest amniotic fluid pocket measures 10.3 cm. The amniotic fluid index (PARTH) is 26.8 cm. The placenta is fundal in location. There are Grade 1 placental changes. Age by LMP: 35 weeks, 4 days. YANNICK by LMP: July 23, 2023. BIOPHYSICAL PROFILE: Breathing Movements (FBM): 2 Gross Body Movements (GBM): 2 Tone (FT): 2 Amniotic Fluid Volume (AFV): 2 TOTAL SCORE: 8 / 8 US/Biophysical Prof W/O Non Stres IMPRESSION: Normal biophysical profile of 8/8. Electronically Signed: Warren Nguyen MD at 14:58 EST ,
--- OUTSIDE RECORDS SUMMARY | 2023-06-22 12:53 | XMS RPT_ITS | CCD ---
Author Name Unknown Address [address] [place] [address] Organization [facility] Care Team Providers Care Mechanotherapist Name Role Phone Micheline DENNIS, Pedro Pablo Jackosn Unavailable Adele Steinberg MD Unavailable [phone] Lianet Mckeon MD Primary Care Provider Larisa RN, Odilia Collins (Rn) Unavailable UnavailLianet Barrientos MD Primary Care Provider Larisa CHEN, Odilia Collins (Rn) Unavailable UnavailLianet Barrientos MD Primary Care Provider Pietro Tapia MD Unavailable To Chamorro MD Unavailable [phone] Heath DENNIS, PhD, Johnny Ocampo Unavailable Lianet Mckeon MD Primary Care Provider Larisa CHEN, Odilia Collins (Rn) Unavailable UnavailLianet Barrientos MD Primary Care Provider Pietro Tapia MD Unavailable [phone] Chamorro MD Unavailable [phone] Heath DENNIS, PhD, Johnny Ocampo Unavailable [phone] ELIJAH, SHAVON C Referring Unavailable TALAMPAS, LIANET Primary Care Unavailable ELIJAH, SHAVON C Attending Unavailable TALAMPAS, LIANET Primary Care Unavailable ELIJAH, SHAVON C Attending Unavailable ELIJAH, SHAVON C Referring [...] AVALOS Attending Unavailable DARIAN PRUETT Referring Unavailable SHEWDARIAN LIZARRAGA Attending Unavailable TALAMPAS, LIANET D Primary Care Unavailable TALAMPAS, LIANET D Primary Care Unavailable SHEWDARIAN LIZARRAGA Referring Unavailable SHEWMONDARIAN Attending Unavailable TALAMPAS, LIANET D Primary Care Unavailable TALAMPAS, LIANET D Primary Care Unavailable DARIAN PRUETT Referring Unavailable TALAMPAS, LIANET D Primary Care Unavailable TALAMPAS, LIANET D Primary Care Unavailable SHEWDARIAN LIZARRAGA Referring Unavailable SHEWMONDARIAN Attending Unavailable TALAMPAS, LIANET D Primary Care Unavailable JULIO AVALOS Referring Unavailable Alicia Weiner Attending Unavailable TALAMPAS, LIANET D Referring Unavailable TALAMPAS, LIANET D Primary Care Unavailable RACHAEL NAM Attending Unavailable JAMES CANNON Referring Unavailab le TALAMPAS, LIANET Primary Care Unavailable ABILIO CHRISTINA Attending Unavailable JAMES CANNON Referring Unavailab le TALAMPAS, LIANET Primary Care Unavailable RACHAEL NAM Attending Unavailable JAMES CANNON Referring Unavailab le TALAMPAS, LIANET Primary Care Unavailable TALAMPAS, LIANET Primary Care Unavailable VON CONTRERAS Attending Unavailable VON CONTRERAS Referring Unavailable TALAMPAS, LIANET Primary Care Unavailable RACHAEL NAM Attending Unavailable JAMES CANNON Referring Unavailab le TALAMPAS, LIANET Primary Care Unavailable JAMES CANNON Referring Unavailab le RACHAEL NAM Attending Unavailable JAMIL MORELAND Attending Unavailable NO PRIMARY CARE, Primary Care Unavailable ADELE STEINBERG Referring Unavailroxanne e JAMIL MORELAND Attending Unavailable NO PRIMARY CARE, Primary Care Unavailable ADELE STEINBERG Referring Unavailabl e Allergies Allergy Classification Reported Allergen(s) Allergy Type Date of Onset Reaction(s) Facility (20 sources) Adhesive Tape; Translations: [ADHESIVE TAPE (ROSINS)] Propensity to adverse reactions to substance 12-26-2019 Itching [facility] (3 sources) *Adhesive Tape Propensity to adverse reactions 12-26-2019 [facility] Medications Current Medications Medication Drug Class(es) Dates Sig (Normalized) Sig (Original) cetirizine hydrochloride 10 mg oral tablet (3 sources) Histamine-1 Receptor Antagonist take 1 tablet by mouth once daily cetirizine 10 MG Tab Take 1 tablet by mouth daily. 0 Active docosahexaenoic acid 1000 mg / omega-3 acid ethyl esters (shelter) 300 mg delayed release oral capsule (3 sources) take 1 capsule by mouth once daily at breakfast Peterson-3 Fatty Acids (FISH OIL) 1000 MG Cap [...] (BMI) of 40.0 to 44.9 in adult (HCC) titrate as directed up to 2 tablets [...] 11-13-2022 09:36-0400 Body height 167.6 cm Alicia Patelf PA-C Work Phone: [facility] 11-13-2022 09:36-0400 Body temperature 97.39 [degF] Alicia [place] PA-C Work Phone: [facility] 11-13-2022 09:36-0400 Body weight 140.62 kg Alicia Husam PA-C Work Phone: [facility] 11-13-2022 09:36-0400 Diastolic blood pressure 76 mm[Hg] Alicia [place] PA-C Work Phone: [facility] 11-13-2022 09:36-0400 Heart rate 77 /min Alicia Husam PA-C Work Phone: [facility] 11-13-2022 09:36-0400 SaO2% (BldA) [Mass fraction] 100 % Alicia [place] PA-C Work Phone: [facility] 11-13-2022 09:36-0400 Systolic blood pressure 128 mm[Hg] Alicia Husam PA-C Work Phone: [facility] 10-18-2022 14:06-0400 Body mass index (BMI) [Ratio] 49.62 kg/m2 Shavon Elijah ROCK CLIMBING INSTRUCTOR-BENCH WORKER Work Phone: [facility] 10-18-2022 14:06-0400 Body temperature 98.2 [degF] Shavon Rodgerswell ROCK CLIMBING INSTRUCTOR-BENCH WORKER Work Phone: [facility] 10-18-2022 14:06-0400 Body weight 139.44 kg Shavon [place] ROCK CLIMBING INSTRUCTOR-BENCH WORKER Work Phone: [facility] 10-18-2022 14:06-0400 Diastolic blood pressure 65 mm[Hg] Shavon Rodgerswell ROCK CLIMBING INSTRUCTOR-BENCH WORKER Work Phone: [facility] 10-18-2022 14:06-0400 Heart rate 84 /min Shavon Elijah ROCK CLIMBING INSTRUCTOR-BENCH WORKER Work Phone: [facility] 10-18-2022 14:06-0400 Respiratory rate 16 /min Shavon [place] ROCK CLIMBING INSTRUCTOR-BENCH WORKER Work Phone: [facility] 10-18-2022 14:06-0400 SaO2% (BldA) [Mass fraction] 96 % Shavon [place] ROCK CLIMBING INSTRUCTOR-BENCH WORKER Work Phone: [facility] 10-18-2022 14:06-0400 Systolic blood pressure 137 mm[Hg] Shavon [place] ROCK CLIMBING INSTRUCTOR-BENCH WORKER Work Phone: [facility] 10-04-2022 07:48-0400 Body height 166.4 cm Julio Brittney ROCK CLIMBING INSTRUCTOR.BENCH WORKER Work Phone: [facility] 10-04-2022 07:48-0400 Body weight 138.35 kg Julio Brittney ROCK CLIMBING INSTRUCTOR.BENCH WORKER Work Phone: [facility] 10-04-2022 07:48-0400 Diastolic blood pressure 68 mm[Hg] Julio Brittney ROCK CLIMBING INSTRUCTOR.BENCH WORKER Work Phone: [facility] 10-04-2022 07:48-0400 Heart rate 81 /min Julio Brittney ROCK CLIMBING INSTRUCTOR.BENCH WORKER Work Phone: [facility] 10-04-2022 07:48-0400 SaO2% (BldA) [Mass fraction] 98 % Julio Brittney ROCK CLIMBING INSTRUCTOR.BENCH WORKER Work Phone: [facility] 10-04-2022 07:48-0400 Systolic blood pressure 114 mm[Hg] Julio Brittney ROCK CLIMBING INSTRUCTOR.BENCH WORKER Work Phone: [facility] 07-13-2022 08:34-0500 Body height 167.6 cm Shavon Nava ROCK CLIMBING INSTRUCTOR-BENCH WORKER Work Phone: [facility] 07-13-2022 08:34-0500 Body mass index (BMI) [Ratio] 48.42 kg/m2 Shavon Nava ROCK CLIMBING INSTRUCTOR-BENCH WORKER Work Phone: [facility] 07-13-2022 08:34-0500 Body weight 136.08 kg Shavon Nava ROCK CLIMBING INSTRUCTOR-BENCH WORKER Work Phone: [facility] 07-13-2022 08:34-0500 Diastolic blood pressure 66 mm[Hg] Shavon Nava ROCK CLIMBING INSTRUCTOR-BENCH WORKER Work Phone: [facility] 07-13-2022 08:34-0500 Heart rate 73 /min Shavon Nava ROCK CLIMBING INSTRUCTOR-BENCH WORKER Work Phone: [facility] 07-13-2022 08:34-0500 Systolic blood pressure 130 mm[Hg] Shavon Nava ROCK CLIMBING INSTRUCTOR-BENCH WORKER Work Phone: [facility] 07-07-2022 11:26-0500 Body weight 137.98 kg Darian Pruett MD Work Phone: [facility] 07-07-2022 11:26-0500 Diastolic blood pressure 83 mm[Hg] Darian Pruett MD Work Phone: [facility] 07-07-2022 11:26-0500 Heart rate 79 /min Darian Pruett MD Work Phone: [facility] 07-07-2022 11:26-0500 Systolic blood pressure 142 mm[Hg] Darian Pruett MD Work Phone: [facility] 01-23-2017 09:42-0400 BMI (Body Mass Index) 48.38 kg/m2 Pedro Pablo Tobias MD [facility] Work Phone: 01-23-2017 09:42-0400 Body Temperature 98.1 [degF] Pedro Pablo Tobias MD [facility] Work Phone: 01-23-2017 09:42-0400 BP Diastolic 79 mm[Hg] Pedro aPblo Tobias MD [facility] Work Phone: 01-23-2017 09:42-0400 BP Systolic 112 mm[Hg] Pedro Pablo Tobias MD [facility] Work Phone: 01-23-2017 09:42-0400 Pulse (Heart Rate) 80 /min Pedro Pablo Tobias MD [facility] Work Phone: 01-23-2017 09:42-0400 Respiratory Rate 20 /min Pedro Pablo Tobias MD [facility] Work Phone: 01-23-2017 09:42-0400 Weight 135.99 kg Pedro Pablo Tobias MD [facility] Work Phone: 01-19-2017 10:41-0400 BMI (Body Mass Index) 49.64 kg/m2 Adele Steinberg MD [facility] 01-19-2017 10:41-0400 Body Temperature 97.3 [degF] Adele Steinberg MD [facility] 01-19-2017 10:41-0400 BP Diastolic 75 mm[Hg] Adele Steinberg MD [facility] 01-19-2017 10:41-0400 BP Systolic 129 mm[Hg] Adele Steinberg MD [facility] 01-19-2017 10:41-0400 Height 167.64 cm Adele Steinberg MD [facility] 01-19-2017 10:41-0400 Pulse (Heart Rate) 92 /min Adele Steinberg MD [facility] 01-19-2017 10:41-0400 Respiratory Rate 16 /min Adele Steinberg MD [facility] 01-19-2017 10:41-0400 Weight 139.52 kg Adele Steinberg MD [facility] 01-19-2017 10:41-0400 Weight 139.53 kg Adele Steinberg MD [facility] Encounters Encounter Date Encounter Type Care Provider Facility Start: 06-05-2023 End: 06-05-2023 ambulatory RACHAEL NAM [facility] Start: 05-08-2023 End: 05-08-2023 ambulatory ABILIO CHRISTINA [facility] Start: 04-09-2023 End: 04-09-2023 ambulatory RACHAEL NAM [facility] Start: 04-04-2023 ambulatory Lianet ellis MD Work Phone: [facility] Start: 03-27-2023 End: 03-28-2023 ambulatory LIANET ASIFAMPAUGUSTUS Facility:[facility] Start: 03-23-2023 End: 03-23-2023 ambulatory LIANET LAYAAMPAUGUSTUS [facility] Start: 03-22-2023 End: 03-23-2023 ambulatory LIANET MCKEON Facility:[facility] Start: 03-19-2023 ambulatory LIANET LAYAAMPAS [facility] Start: 03-05-2023 End: 03-05-2023 ambulatory LIANET LAYAAMPAUGUSTUS [facility] Start: 01-26-2023 End: 01-26-2023 ambulatory JAMIL MORELAND [facility] Start: 01-02-2023 Telephone encounter Darian hampton MD Work Phone: [facility] [place] Start: 01-01-2023 Telephone encounter Darian hampton MD Work Phone: [facility] [place] Procedures Date Procedure Procedure Detail Performing Clinician Start: 07-13-2022 Ct abdomen & pelvis w/contrast material Shavon Nava ROCK CLIMBING INSTRUCTOR-BENCH WORKER Work Phone: Start: 07-13-2022 End: 07-13-2022 Creatinine blood Shavon Nava ROCK CLIMBING INSTRUCTOR-BENCH WORKER Work Phone: Start: 07-07-2022 Us soft tissue head & neck real time imge docm Darian Pruett MD Work Phone: Start: 03-01-2022 Mammography Mammography Coordinator Start: 07-20-2018 Adult depression screening assessment Angely Black OD Work Phone: History of cholecystectomy S/P laparoscopic cholecystectomy Alicia Weiner PA-C Work Phone: Plan of Treatment Date Care Activity Detail Author Start: 02-08-2031 Tetanus vaccination TETANUS [facility] Start: 02-08-2031 Urine microalbumin profile DTaP,Tdap,Td Vaccine (8 - Td or Tdap) [facility] Start: 04-19-2027 Tetanus vaccination TETANUS [facility] Start: 04-19-2027 Urine microalbumin profile [facility] Start: 11-27-2023 HPV TESTING HPV TESTING [facility] Start: 10-05-2023 ANNUAL PCP TEAM CREW LEAD CHINMAY DISEASE VISIT ANNUAL PCP TEAM CHRONIC DISEASE VISIT [facility] Start: 03-01-2023 Mammography [facility] Start: 02-12-2023 End: 04-14-2023 Thyroxine (T4) free [Mass/volume] in Serum or Plasma T4 FREE/FREE THYROX Lab Routine Papillary carcinoma of thyroid (HCC) Expected: 02/12/2023 (Approximate), Expires: 04/14/2023 [facility] Work Phone: Immunizations Immunization Date Immunization Notes Care Provider Yoko anthony 03-05-2020 influenza, seasonal, injectable Angely Black OD Work Phone: [facility] 03-05-2020 influenza virus vaccine, unspecified formulation Shavon Nava ROCK CLIMBING INSTRUCTOR-BENCH WORKER Work Phone: [facility] 04-24-2017 measles, mumps and rubella virus vaccine Angely Black OD Work Phone: [facility] Work Phone: 04-19-2017 tetanus toxoid, redu godfrey diphtheria toxoid, and acellular pertussis vaccine, adsorbed Angely Black OD Work Phone: [facility] 01-28-1994 trivalent poliovirus vaccine, live, oral Angely Black OD Work Phone: [facility] 12-28-1993 measles, mumps and rubella virus vaccine Angely Wayne OD Work Phone: [facility] 12-09-1986 diphtheria, tetanus toxoids and pertussis vaccine Angely Black OD Work Phone: [facility] 04-12-1983 diphtheria, tetanus toxoids and pertussis vaccine Angely Black OD Work Phone: [facility] 04-12-1983 trivalent poliovirus vaccine, live, oral Angely Black OD Work Phone: [facility] 09-09-1982 measles, mumps and rubella virus vaccine Angely Wayne OD Work Phone: [facility] 1980 diphtheria, tetanus toxoids and pertussis vaccine Angely Wayne OD Work Phone: [facility] 1980 trivalent poliovirus vaccine, live, oral Angely Wayne OD Work Phone: [facility] 1980 diphtheria, tetanus toxoids and pertussis vaccine Angely Wayne OD Work Phone: [facility] 1980 trivalent poliovirus vaccine, live, oral Angely Wayne OD Work Phone: [facility] 1980 diphtheria, tetanus toxoids and pertussis vaccine Angely Wayne OD Work Phone: [facility] 1980 trivalent poliovirus vaccine, live, oral Angely Wayne OD Work Phone: [facility] Payers Date Payer Category Payer Medicaid [id number] 2022 Medicaid [id number] 2022 Private Health Insurance LAVERNE MILLER [id number] 2022-Present [address] [place] [address] [id number] 2022 Private Health Insurance [id number] 2020 Medicaid [employer] MEDICAID [id number] 2020-Present [phone] [address] [place] [address] Medicaid [id number] 2020 Medicaid [id number] 2019 Unknown [employer] AGE [employer] [id number] 2019-Present [address] [place] [address] [id number] 2019 Unknown [id number] 1981 Unknown [id number] 594 1981 Unknown [id number]. 594 1981 Unknown [id number]. 594 1981 Unknown [id number] [id number]. 594 1981 Unknown [id number]. 594 1981 Unknown [id number] [id number]. 479 1981 Unknown [id number]. 479 1981 Unknown [id number] [id number]. 479 1981 Unknown [id number] [id number]. 479 1981 Unknown [id number] [id number]. 479 1981 Unknown [id number] [id number]. 479 1981 Unknown [id number]. 479 1981 Unknown [id number]. 479 Social History Date Type Detail Facility Start: 09-22-2011 End: 09-04-2014 Tobacco smoking status [facility] Never smoked tobacco [facility] Start: 04-08-2021 End: 11-13-2022 Alcohol intake Current non-drinker of alcohol (finding) [facility] Start: 1980 Sex Assigned At Not on file [facility] Start: 07-18-2021 End: 07-13-2022 Exposure to SARS-CoV-2 (event) Not sure [facility] Start: 11-14-2021 End: 11-24-2021 Exposure to SARS-CoV-2 (event) Unable to assess [facility] Start: 09-22-2011 End: 09-04-2014 Tobacco use and exposure Smokeless tobacco non-user [facility] Work Phone: Start: 09-29-2022 End: 10-18-2022 History of Social function [facility] Start: 09-29-2022 End: 10-18-2022 Tobacco use panel [facility] Adolescent depressio n screening assessment 0 [facility] Gender identity Identifies as fe male gender (finding) [facility] Medical Equipment Procedure Code Equipment Code Equipment Origin al Text Equipment Identifier Dates Mesh Xenmatrix A b 15x20 Cm - [id number] Start: 12-08-2014 Clinical Notes 10-02-2009 to 04-04-2023 Telephone Encounter - Carlos A Clemens - 02/06/2023 11:43 AM EDTTelephone Encounter - Alicia Weiner PA-C - 11/13/2022 11:12 AM EDTTelephone Encounter - Raven Mane - 11/13/2022 10:16 AM EDT Note Date & Type Note Facility 04-04-2023 Note Patient Outreach (IN [facility]) DIEGO [place] ([id number]) 1980 F Date Time Provider Department 04/04/23 LIANET MCKEON During your visit today, we recorded the following information about you: Allergies As of Date: 04/04/2023 Noted Allergy Reaction ADHESIVE TAPE (ROSINS) 12/26/2019 9 - Itching Comments: Reina, paper tape ok Date Reviewed: 11/13/2022 Reviewed by: Alicia Weiner PA-C - Fully Assessed Visit Diagnosis:Encounter for screening mammogram for breast cancer [Z12.31] Order(s):[facility] SCREENING [[id number]] Order #: [id number] FUTURE Prescriptions as of 04/09/2023 - levothyroxine (SYNTHROID) 175 mcg tablet take 6 AND 1/2 per week - calcium carbonate (CALCIUM 300 ORAL) Take 1 tablet by mouth once daily. - GARLIC Take 1 mL by mouth once daily. - CPAP AutoPAP 5-20 cmH2O, mask to comfort, tubing, heated humidifier, filters, Lifetime supplies, - Miscellaneous Medical Supply [facility] Knee brace Dx: S89.92XA, M25.562 - Multivitamin [...] >= 40 [E66.01] 10/04/2022 Encounter Status:Closed by JOSE, PRODUSER on 04/09/23 [facility] 02-06-2023 Miscellaneous Notes Patient procedure has been cancelled, she is . Carlos A Clemens Rx sent Patient [facility] [place] [facility] Nurse 02/09/2023 colon/egd ruano Patient denied sooner dates [facility] Nurse documented in this encounter [facility] 01-02-2023 Miscellaneous Notes Spoke with Allyson at [facility] and clarified that the patient is to take 1 full tablet of Synthroid 175mcg 6 days/week and 1/2 of a 175mcg tablet 1 day a week. Zenia Fernandez RN Allyson calling from [facility] to get clarification on instructions sent over on levothyroxine (SYNTHROID) 175 mcg tablet. Contact Information [phone] Thank you documented in this encounter [facility] 01-02-2023 Miscellaneous Notes Darian Pruett MD P Lkwd Clerical Pool virtual in 6 weeks, check first before calling to see if patient was successful in making their own appointment 1st Attempt Left message to call office. 01/02/2023 8:39 AM Hoda Au documented in this encounter [facility] 01-01-2023 Note HNO ID: [id number] Author: Darian Pruett MD Service: ? Author Type: Physician Type: Progress Notes Filed: 01/01/2023 11:30 AM Note Text: Virtual Visit utilizing both audio and video components FaceTime I have communicated my name and active licensure. The patient's identity and physical location were verified at the time of this visit. Either the patient or their legal business services representative has been informed of the risks and benefits of -- and alternatives to -- treatment through a remote evaluation and consents to proceed with the evaluation remotely. Patient location: [place], [place] Assessment / Plan Assessment: 1) Surgical [...] hard to do everything right. Seeing highway construction inspector TSH reported to be 0.09, basis for [...] refused gastric bypass surgery. 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 Tobias, at [facility] Pathology (12/28/09): 4cm classic papillary thyroid CA, [...] on either side. (more content not included)... [facility] 01-01-2023 Instructions Darian Pruett MD - [...] 4.1 pg/mL 3.8 documented in this encounter [facility] 01-01-2023 History of Presen t illness Narrative Virtual Visit utilizing both audio and video components FaceTime I have communicated my name and active licensure. The patient's identity and physical location were verified at the time of this visit. Either the patient or their legal business services representative has been informed of the risks and benefits of -- and alternatives to -- treatment through a remote evaluation and consents to proceed with the evaluation remotely. Patient location: [place], [place] Assessment / Plan Assessment: 1) Surgical hypothyroidism [...] hard to do everything right. Seeing highway construction inspector TSH reported to be 0.09, basis for [...] refused gastric bypass surgery. 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 Tobias, at [facility] Pathology (12/28/09): 4cm classic papillary thyroid CA, [...] supplies, 1 Device 0 Miscellaneous Medical Supply [facility] Knee brace Dx: S89.92XA, M25.562 1 Each 0 Multivitamin capsule Take 1 capsule by mouth once daily. Lactobacillus acidophilus 10 billion cell cap Take by mouth once daily. No current facility-administered medications for this visit. ALLERGIES Allergen Reactions Adhesive Tape (Etelvina* Itching Tegaderm, paper tape ok documented in this encounter [facility] 12-19-2022 Note HNO ID: [id number] Author: Janna Ojeda Service: ? Author Type: ? Type: Progress Notes Filed: 12/18/2022 10:12 PM Note Text: The patient did not show up for the scheduled sleep study. The patient will be contacted to reschedule the sleep study. Janna Ojeda [facility] 12-18-2022 History of Presen t illness Narrative The patient did not show up for the scheduled sleep study. The patient will be contacted to reschedule the sleep study. Jannalawson Ojeda October 24, 2022 Standing PSG Orders signed in the last 90 days None Future PSG Orders signed in the last 90 days Ordered Auth. provider PAP TITRATION PSG (CPAP, BIPAP, ASV) [[id number]] 10/04/22 Julio Avalos APRN.BENCH WORKER Assoc. diagnoses: Weight gain [R63.5], Sleep apnea, [...] been received for PAP titration study from lawson [facility] Staff. Visit prep complete. Comments :No The sleep study is scheduled for 11/09. Insurance: Payor: [employer] MEDICAID / Plan: [employer] [facility] MEDICAID [facility] / Product Type: Medicaid / Payer/Plan Subscr Sex Relation Sub. Ins. ID Effective Group Num 1. ANTHEM MEDICA* GENNARO DEL TOROINE [place] 1980 Female Self [id number] 06[birth year]07/22 [address] Ny Jacobo documented in this encounter [facility] 11-13-2022 Note HNO ID: [id number] Author: Alicia Weiner PA-C Service: ? Author Type: Physician Carding Supervisor Type: Progress Notes Filed: 11/13/2022 12:32 PM Note Text: HISTORY AND PHYSICAL Diego [place] 1980 REFERRING PHYSICIAN: Julio Avalos APRN.CNP CHIEF [...] Wall Resection THYROIDECTOMY TOTAL/SUBTOTAL LMTD NECK DISSECT 824-10 TOTAL THYROID Current Outpatient Medications Medication Sig [...] by mouth once daily. Miscellaneous Medical Supply [facility] Knee brace Dx: S89.92XA, M25.562 No current [...] entered by the nurse and reviewed by me Nursing Notes: Irais Gilbert RN 11/13/2022 9:43 [...] depression, and de (more content not included)... [facility] 11-13-2022 History of Presen t illness [...] TOTAL/SUBTOTAL LMTD NECK DISSECT 12-28-10 TOTAL THYROID Current Outpatient Medications Medication Sig [...] by mouth once daily. Miscellaneous Medical Supply [facility] Knee brace Dx: S89.92XA, M25.562 No current [...] entered by the nurse and reviewed by ma Nursing Notes: Irais Gilbert RN 11/13/2022 9:43 [...] Alicia Weiner PA-C documented in this encounter [facility] 11-13-2022 Nurse Note REVIEW OF SYSTEMS: [...] Irais Gilbert RN documented in this encounter [facility] 10-24-2022 Note HNO ID: [id number] Author: Michael Dawkins III, PhD Service: ? Author Type: Physician Type: Progress Notes Filed: 12/18/2022 10:12 PM Note Text: October 24, 2022 Standing PSG Orders signed in the last 90 days None Future PSG Orders signed in the last 90 days Ordered Auth. provider PAP TITRATION PSG (CPAP, BIPAP, ASV) [[id number]] 10/04/22 Julio Avaols APRN.BENCH WORKER Assoc. diagnoses: Weight gain [R63.5], Sleep apnea, [...] Michael Dawkins III, PhD 1:28 PM, 10/24/2022 [facility] 10-24-2022 Note HNO ID: [id number] Author: Ny Jacobo Service: ? Author Type: ? Type: Progress Notes Filed: 12/18/2022 10:12 PM Note Text: October 24, 2022 An order has been received for PAP titration study from lawson Monet. [facility] Staff. Visit prep complete. Comments :No The sleep study is scheduled for 11/09. Insurance: Payor: [employer] MEDICAID / Plan: [facility] MEDICAID [facility] / Product Type: Medicaid / Payer/Plan Subscr Sex Relation Sub. Ins. ID Effective Group Num 1. ANTHEM MEDICA* DIEGO DEL TORO 1980 Female Self [id number] 06/07/22 [address] Ny Jacobo [facility] 10-18-2022 History of Presen t illness Narrative CC: Chief Complaint Patient presents with Follow-up This visit was completed via telephone. HPI: Ms. Del Toro, a 42 y.o. female from [facility], was seen in the [facility] [...] left nipple and followed up with her FOOD PRODUCTS TESTER. Initial and follow up mammograms showed no abnormalities. 09/16/2014: case discussed at the [facility] and the consensus is to proceed with surgery. 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 Combo case with Dr. Chamorro and Dr. Tapia. Pt had uncomplicated postop [...] biopsy: (LLQ Abdominal wall) - Endometriosis (ER, VT, and CD10 reactive) B. Abdominal wall nodule [...] 1 capsule by mouth daily with breakfast. Peterson-3 Fatty Acids (FISH OIL) 1000 MG Cap [...] exam and may be out of the [id number] or obscured by motion artifact. IMPRESSION IMPRESSION: [...] meantime. PRIYANK Ching documented in this encounter [facility] 10-18-2022 Instructions Claire Chavez RN - 10/18/2022 1:30 PM EDT Your Surgical Oncology Care Team Office: [phone] Dr. Johnny Joe/ Dr. Ari Becerra/ Dr. Natalie Case Nurse Practitioner--PRIYANK Ching Primary RN--Claire SYKESN, RN, OCN Engineering And Development Director--Melinda Monzon and Franca GUTIERREZ reviewed with patient documented in this encounter [facility] 10-07-2022 Miscellaneous Notes Pt called and is [...] edge of normal. documented in this encounter [facility] 10-04-2022 Note HNO ID: [id number] Author: Julio Avalos APRN.NIHARIKA Service: ? Author Type: Nurse Practitioner Type: [...] comfort, tubing, heated humidifier, filters, Lifetime supplies, Ihjcj-3-JLY-EPA-Fish Oil (FISH OIL) 1,000 mg (120 mg-180 mg) cap Take 2 capsules by mouth once daily. (Patient not taking: Reported on 10/04/2022) Miscellaneous Medical Supply [facility] Knee brace Dx: S89.92XA, M25.562 Multivitamin capsule [...] Surgery (12/28/09): total thyroidectomy, Dr. Tobias, at [facility] * Path (12/28/09): 4cm classic papillary thyroid [...] normal. Eyes: Gen (more content not included)... [facility] 10-04-2022 History of Presen t illness [...] comfort, tubing, heated humidifier, filters, Lifetime supplies, Hwclj-8-YTE-EPA-Fish Oil (FISH OIL) 1,000 mg (120 mg-180 mg) cap Take 2 capsules by mouth once daily. (Patient not taking: Reported on 10/04/2022) [facility] Knee brace Dx: S89.92XA, M25.562 Multivitamin capsule [...] Surgery (12/28/09): total thyroidectomy, Dr. Tobias, at [facility] * Path (12/28/09): 4cm classic papillary thyroid [...] call with results, decide on next steps. PRIYANK Vargas documented in this encounter [facility] 08-08-2022 Note HNO ID: [id number] Author: Asya Parada-T Service: ? Author Type: ? Type: Progress Notes Filed: 08/07/2022 10:45 PM Note Text: Your patient, Diego Del Toro, could not have the sleep study you ordered due to noshow. We will call the patient and make a reasonable attempt to reschedule the sleep study. Please note, your orders will still be valid for one year. Thank you for your attention. [facility] 07-07-2022 Note HNO ID: [id number] Author: Darian Pruett MD Service: ? Author [...] Color power Doppler were applied when indicated. [facility] 07-07-2022 Note HNO ID: [id number] Author: Darian Pruett MD Service: ? Author Type: Physician Type: Progress Notes Filed: 07/07/2022 12:13 PM Note Text: Assessment / Plan Assessment: 1) Surgical hypothyroidism. TSH high, apparently from forgetting doses. Rather than increase the dose significantly, I'll just increase the dose based on her weight change (6% gain), and have her take 175 x 7.5/wk followup labs in 6 weeks and send Weeve message. Discussed catching up for missed doses. 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 Fertility doc upped her dose to 200 mcg/d levothyroxine, she hasn't started yet. Insurance refused gastric bypass surgery. 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 Tobias, at [facility] Pathology (12/28/09): 4cm classic papillary thyroid CA, [...] Date DELIVERY O (more content not included)... [facility] 07-07-2022 Instructions Darian Pruett MD - 07/07/2022 12:12 PM EST Assessment / Plan Assessment: 1) Surgical hypothyroidism. TSH high, apparently from forgetting doses. Rather than increase the dose significantly, I'll just increase the dose based on her weight change (6% gain), and have her take 175 x 7.5/wk followup labs in 6 weeks and send Weeve message. Discussed catching up for missed doses. [...] at your labs and send comment by YouFighart 2) return to me in 6 months [...] <14.4 IU/mL <1.0 documented in this encounter [facility] 07-07-2022 Procedure note Thyroid / Neck Ultrasound Findings: no suspicious adenopathy along great vessels or in lateral neck on either side. No masses in thyroid bed. Impression benign study Recommendation: followup ultrasound in 1 year Darian Pruett MD Clinical Issues Reason for the study: followup of thyroid CA Comparison: none Technical Issues Equipment: [employer] Alpha 6 Transducer: Linear/Trapezoidal multifrequency Regions examined: Neck, Sagittal and transverse views were obtained. Color power Doppler were applied when indicated. documented in this encounter [facility] 07-07-2022 History of Presen t illness Narrative Assessment / Plan Assessment: 1) Surgical hypothyroidism. TSH high, apparently from forgetting doses. Rather than increase the dose significantly, I'll just increase the dose based on her weight change (6% gain), and have her take 175 x 7.5/wk followup labs in 6 weeks and send Weeve message. Discussed catching up for missed doses. 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 Fertility doc upped her dose to 200 mcg/d levothyroxine, she hasn't started yet. Insurance refused gastric bypass surgery. 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 Tobias, at [facility] Pathology (12/28/09): 4cm classic papillary thyroid CA, [...] humidifier, filters, Lifetime supplies, 1 Device 0 Kkjjm-0-WMN-EPA-Fish Oil (FISH OIL) 1,000 mg (120 mg-180 mg) cap Take 2 capsules by mouth once daily. Miscellaneous Medical Supply [facility] Knee brace Dx: S89.92XA, M25.562 1 Each [...] paper tape ok documented in this encounter [facility] 06-13-2022 Note HNO ID: [id number] Author: Darian Pruett MD Service: ? Author [...] at your labs and send comment by YouFighart 2) return to me this Sunday for quick neck ultrasound. 2) return to me in 6 months by virtual visit Darian Pruett MD Data Review: History Thyroid Cancer, she is not fogetting her levothyroxine any more, she is on 200 mcg/d since letting me know she was 4 weeks ago Insurance refused gastric bypass surgery. 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 Tobias, at [facility] Pathology (12/28/09): 4cm classic papillary thyroid CA, [...] either side. No masses in thyroid bed. (5/18/12): no suspicious adenopathy along great vessels or [...] Paternal Grandfather Al (more content not included)... [facility] 06-13-2022 Instructions Darian Pruett MD - [...] Darian Pruett MD documented in this encounter [facility] 06-13-2022 History of Presen t illness [...] refused gastric bypass surgery. 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 Tobias, at [facility] Pathology (12/28/09): 4cm classic papillary thyroid CA, [...] humidifier, filters, Lifetime supplies, 1 Device 0 Facwq-7-HKS-EPA-Fish Oil (FISH OIL) 1,000 mg (120 mg-180 mg) cap Take 2 capsules by mouth once daily. Miscellaneous Medical Supply [facility] Knee brace Dx: S89.92XA, M25.562 1 Each [...] paper tape ok documented in this encounter [facility] 03-13-2022 Miscellaneous Notes Patient notified Anna. Please call patient and let them know mammogram was without problems. No changes needed at this time and to keep next scheduled appointment. Recommend repeat mammogram per screening guidelines in 1 year. Thanks. documented in this encounter [facility] 03-06-2022 Miscellaneous Notes Called pt regarding instructions for stress test and needs to reschedule. Transferred to [facility]. documented in this encounter [facility] 03-02-2022 Miscellaneous Notes March 02, 2022 PID: [id number] Diego Del Toro [address] [place] [address] Dear Ms. Del Toro, We are pleased [...] report will be kept on file at [facility] as part of your permanent medical record and are available for your continuing care. Thank you for allowing us to help in meeting your health care needs. Sincerely, Dr. Phipps Interpreting Radiologist [facility] (Normal over 40) documented in this encounter [facility] 02-02-2022 Miscellaneous Notes Left message regarding reminder for stress test tomorrow and given instructions. documented in this encounter [facility] 12-08-2021 History of Presen t illness Narrative The patient did not show up for the scheduled sleep study. The patient will be contacted to reschedule the sleep study. Janna GarciaT November 11, 2021 Standing PSG Orders signed [...] from Dr. Kinga Perez MD, a B. [facility] Staff. Visit prep complete. Comments :No The sleep study is scheduled for 12/07. Insurance: Payor: [employer] MEDICAID / Plan: [employer] ADVANTAGE MEDICAID / Product Type: Medicaid / Payor/Plan Subscr Sex Relation Sub. Ins. ID Effective Group Num 1. PARAMOUNT MED* ALVRETOGENNARODIEGO S 1980 Female Self [id number] [birth year]20 [address] Ceasar Rosas documented in this encounter [facility] 08-26-2021 Miscellaneous Notes Spoke with patient regarding reminder for stress test on Sunday and given instructions documented in this encounter [facility] 08-19-2021 Miscellaneous Notes Please call the patient to clarify if she reduced levothyroxine to 6.5 tablets weekly? Her labs indicate that she is still getting too much thyroid hormone. Thank you- Tonja Pathak APRN.BENCH WORKER Component Latest Ref Rng & Units 08/10/2021 TSH 0.270 - 4.200 mIU/L 0.124 (L) Free T4 0.9 - 1.7 ng/dL 2.1 (H) documented in this encounter [facility] 08-13-2021 Miscellaneous Notes Done. Thank you, Cee Beasley Noted and sent to maintenance groundman. Dolly Wang LPN Order is placed. Thank you Yisel Rjoo APRN.NIHARIKA The COVID swab ordered expires 08/20. In order to get stress echo done 08/29 the exp date needs to be changed documented in this encounter [facility] 08-08-2021 Miscellaneous Notes Patient states its [...] be seen sooner. Patient was conferenced to [facility] for PCP scheduling. documented in this encounter [facility] 08-01-2021 History of Presen t illness Narrative Not on Zoom, no answer for telephone, voicemail full so cannot leave message. The appointment was cancelled for this patient. Darian Pruett MD documented in this encounter [facility] 07-22-2021 Miscellaneous Notes Patient came to desk asking to have glasses rx reprinted off from April. I was not able to find it or print it off. Patient would like hers and her sons as well. Per patient will be back the to get it. documented in this encounter [facility] documented as of this encounter (statuses as of 07/29/2021) [facility] History of Past illness Narrative* Problem Noted Date Resolved Date Nocturnal dyspnea 10/02/2009 10/30/2014 Overview: Volume overload following ; Spiral CT negative for PE but with small pleural effusions; Echocardiogram normal Supervision of other normal 02/22/2009 10/11/2009 with poor obstetric history 02/22/2009 10/11/2009 documented as of this encounter (statuses as of 08/01/2021) [facility] History of Past illness Narrative* Problem Noted Date Resolved Date Nocturnal dyspnea 10/02/2009 10/30/2014 Overview: Volume overload following ; Spiral CT negative for PE but with small pleural effusions; Echocardiogram normal Supervision of other normal 02/22/2009 10/11/2009 with poor obstetric history 02/22/2009 10/11/2009 documented as of this encounter (statuses as of 08/01/2021) [facility] History of Past illness Narrative* Problem Noted Date Resolved Date Nocturnal dyspnea 10/02/2009 10/30/2014 Overview: Volume overload following ; Spiral CT negative for PE but with small pleural effusions; Echocardiogram normal Supervision of other normal 02/22/2009 10/11/2009 with poor obstetric history 02/22/2009 10/11/2009 documented as of this encounter (statuses as of 08/08/2021) [facility] History of Past illness Narrative* Problem Noted Date Resolved Date Nocturnal dyspnea 10/02/2009 10/30/2014 Overview: Volume overload following ; Spiral CT negative for PE but with small pleural effusions; Echocardiogram normal Supervision of other normal 02/22/2009 10/11/2009 with poor obstetric history 02/22/2009 10/11/2009 documented as of this encounter (statuses as of 08/13/2021) [facility] History of Past illness Narrative* Problem Noted Date Resolved Date Nocturnal dyspnea 10/02/2009 10/30/2014 Overview: Volume overload following ; Spiral CT negative for PE but with small pleural effusions; Echocardiogram normal Supervision of other normal 02/22/2009 10/11/2009 with poor obstetric history 02/22/2009 10/11/2009 documented as of this encounter (statuses as of 08/19/2021) [facility] History of Past illness Narrative* Problem Noted Date Resolved Date Nocturnal dyspnea 10/02/2009 10/30/2014 Overview: Volume overload following ; Spiral CT negative for PE but with small pleural effusions; Echocardiogram normal Supervision of other normal 02/22/2009 10/11/2009 with poor obstetric history 02/22/2009 10/11/2009 documented as of this encounter (statuses as of 08/26/2021) [facility] History of Past illness Narrative* Problem Noted Date Resolved Date Nocturnal dyspnea 10/02/2009 10/30/2014 Overview: Volume overload following ; Spiral CT negative for PE but with small pleural effusions; Echocardiogram normal Supervision of other normal 02/22/2009 10/11/2009 with poor obstetric history 02/22/2009 10/11/2009 documented as of this encounter (statuses as of 12/08/2021) [facility] History of Past illness Narrative* Problem Noted Date Resolved Date Nocturnal dyspnea 10/02/2009 10/30/2014 Overview: Volume overload following ; Spiral CT negative for PE but with small pleural effusions; Echocardiogram normal Supervision of other normal 02/22/2009 10/11/2009 with poor obstetric history 02/22/2009 10/11/2009 documented as of this encounter (statuses as of 02/02/2022) [facility] History of Past illness Narrative* Problem Noted Date Resolved Date Nocturnal dyspnea 10/02/2009 10/30/2014 Overview: Volume overload following ; Spiral CT negative for PE but with small pleural effusions; Echocardiogram normal Supervision of other normal 02/22/2009 10/11/2009 with poor obstetric history 02/22/2009 10/11/2009 documented as of this encounter (statuses as of 03/04/2022) [facility] History of Past illness Narrative* Problem Noted Date Resolved Date Nocturnal dyspnea 10/02/2009 10/30/2014 Overview: Volume overload following ; Spiral CT negative for PE but with small pleural effusions; Echocardiogram normal Supervision of other normal 02/22/2009 10/11/2009 with poor obstetric history 02/22/2009 10/11/2009 documented as of this encounter (statuses as of 03/06/2022) [facility] History of Past illness Narrative* Problem Noted Date Resolved Date Nocturnal dyspnea 10/02/2009 10/30/2014 Overview: Volume overload following ; Spiral CT negative for PE but with small pleural effusions; Echocardiogram normal Supervision of other normal 02/22/2009 10/11/2009 with poor obstetric history 02/22/2009 10/11/2009 documented as of this encounter (statuses as of 03/13/2022) [facility] History of Past illness Narrative* Problem Noted Date Resolved Date Nocturnal dyspnea 10/02/2009 10/30/2014 Overview: Volume overload following ; Spiral CT negative for PE but with small pleural effusions; Echocardiogram normal Supervision of other normal 02/22/2009 10/11/2009 with poor obstetric history 02/22/2009 10/11/2009 documented as of this encounter (statuses as of 06/13/2022) [facility] History of Past illness Narrative* Problem Noted Date Resolved Date Nocturnal dyspnea 10/02/2009 10/30/2014 Overview: Volume overload following ; Spiral CT negative for PE but with small pleural effusions; Echocardiogram normal Supervision of other normal 02/22/2009 10/11/2009 with poor obstetric history 02/22/2009 10/11/2009 documented as of this encounter (statuses as of 06/17/2022) [facility] History of Past illness Narrative* Problem Noted Date Resolved Date Nocturnal dyspnea 10/02/2009 10/30/2014 Overview: Volume overload following ; Spiral CT negative for PE but with small pleural effusions; Echocardiogram normal Supervision of other normal 02/22/2009 10/11/2009 with poor obstetric history 02/22/2009 10/11/2009 documented as of this encounter (statuses as of 07/07/2022) [facility] History of Past illness Narrative* Problem Noted Date Resolved Date Nocturnal dyspnea 10/02/2009 10/30/2014 Overview: Volume overload following ; Spiral CT negative for PE but with small pleural effusions; Echocardiogram normal Supervision of other normal 02/22/2009 10/11/2009 with poor obstetric history 02/22/2009 10/11/2009 documented as of this encounter (statuses as of 10/04/2022) [facility] History of Past illness Narrative* Problem Noted Date Resolved Date Nocturnal dyspnea 10/02/2009 10/30/2014 Overview: Volume overload following ; Spiral CT negative for PE but with small pleural effusions; Echocardiogram normal Supervision of other normal 02/22/2009 10/11/2009 with poor obstetric history 02/22/2009 10/11/2009 documented as of this encounter (statuses as of 10/07/2022) [facility] History of Past illness Narrative* Problem Noted Date Diagnosed Date Resolved Date Nocturnal dyspnea 10/02/2009 10/30/2014 Overview: Volume overload following ; Spiral CT negative for PE but with small pleural effusions; Echocardiogram normal Supervision of other normal 02/22/2009 10/11/2009 with poor obstetric history 02/22/2009 10/11/2009 documented as of this encounter (statuses as of 11/13/2022) [facility] History of Past illness Narrative* Problem Noted Date Diagnosed Date Resolved Date Nocturnal dyspnea 10/02/2009 10/30/2014 Overview: Volume overload following ; Spiral CT negative for PE but with small pleural effusions; Echocardiogram normal Supervision of other normal 02/22/2009 10/11/2009 with poor obstetric history 02/22/2009 10/11/2009 documented as of this encounter (statuses as of 12/19/2022) [facility] History of Past illness Narrative* Problem Noted Date Diagnosed Date Resolved Date Nocturnal dyspnea 10/02/2009 10/30/2014 Overview: Volume overload following ; Spiral CT negative for PE but with small pleural effusions; Echocardiogram normal Supervision of other normal 02/22/2009 10/11/2009 with poor obstetric history 02/22/2009 10/11/2009 documented as of this encounter (statuses as of 01/01/2023) [facility] History of Past illness Narrative* Problem Noted Date Diagnosed Date Resolved Date Nocturnal dyspnea 10/02/2009 10/30/2014 Overview: Volume overload following ; Spiral CT negative for PE but with small pleural effusions; Echocardiogram normal Supervision of other normal 02/22/2009 10/11/2009 with poor obstetric history 02/22/2009 10/11/2009 documented as of this encounter (statuses as of 01/02/2023) [facility] History of Past illness Narrative* Problem Noted Date Diagnosed Date Resolved Date Nocturnal dyspnea 10/02/2009 10/30/2014 Overview: Volume overload following ; Spiral CT negative for PE but with small pleural effusions; Echocardiogram normal Supervision of other normal 02/22/2009 10/11/2009 with poor obstetric history 02/22/2009 10/11/2009 documented as of this encounter (statuses as of 01/02/2023) [facility] History of Past illness Narrative* Problem Noted Date Diagnosed Date Resolved Date Nocturnal dyspnea 10/02/2009 10/30/2014 Overview: Volume overload following ; Spiral CT negative for PE but with small pleural effusions; Echocardiogram normal Supervision of other normal 02/22/2009 10/11/2009 with poor obstetric history 02/22/2009 10/11/2009 documented as of this encounter (statuses as of 02/07/2023) [facility] History of Past illness Narrative* Problem Noted Date Diagnosed Date Resolved Date Nocturnal dyspnea 10/02/2009 10/30/2014 Overview: Volume overload following ; Spiral CT negative for PE but with small pleural effusions; Echocardiogram normal Supervision of other normal 02/22/2009 10/11/2009 with poor obstetric history 02/22/2009 10/11/2009 documented as of this encounter (statuses as of 04/09/2023) [facility] Diagnosis Encounter for screening mammogram for breast cancer [facility] Diagnosis APPOINTMENT CANCELLED- Primary [facility] Diagnosis Pre-op testing- Primary Preoperative examination, unspecified [facility] Diagnosis 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 [facility] Diagnosis Postoperative hypothyroidism- Primary Postsurgical hypothyroidism [facility] Diagnosis Papillary carcinoma of thyroid (HCC)- Primary Malignant neoplasm of thyroid gland [facility] Diagnosis 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 [facility] Diagnosis Precordial pain- Primary Other fatigue Weight gain Abnormal weight gain Sleep apnea, unspecified type Post-surgical hypothyroidism Postsurgical hypothyroidism Vitamin D deficiency Unspecified vitamin D deficiency Obesity, Class III, BMI >= 40 Morbid obesity Lipid screening Screening for lipoid disorders Encounter for therapeutic drug monitoring Screening for colon cancer Special screening for malignant neoplasms, colon [facility] Diagnosis 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 Desmoid Neoplasm of uncertain behavior of connective and other soft tissue [facility] Diagnosis Change in bowel habits- Primary [...] other specified diseases [facility] Diagnosis Papillary carcinoma of thyroid (HCC)- Primary Malignant neoplasm of thyroid gland [facility] Diagnosis Diarrhea, unspecified type- Primary Abdominal bloating Flatulence, eructation, and gas pain Change in bowel habits Other symptoms involving digestive system History of anemia Personal history of diseases of blood and blood-forming organs [facility] Diagnosis Encounter for screening mammogram for breast cancer documented in this encounter [facility] for referral (narrative)* Diagnostic Procedure Only (Routine) - Pending Review Specialty Diagnoses / Procedures Referred By Morris mckeon Referred To Contact [facility] Diagnoses Encounter for screening mammogram for breast cancer Procedures CHAZ SCREENING SCREENING MAMMOGRAPHY BI 2-[place] [address] [place] [address] [facility] [address] [place] [address] Referral ID Status Reason Start Date Expiration Date Visits Requested Visits Authorized [id number] Pending Review Auto-Generat ed Referral 07/27/2021 08/26/2022 1 1 [facility] for referral (narrative)* Diagnostic Procedure Only (Routine) - Authorized Specialty Diagnoses / Procedures Referred By Morris mckeon Referred To Contact [facility] Diagnoses Other fatigue Precordial pain Procedures NM CARDIAC PERF STRESS/EXERCISE MYOCARDIAL SPECT MULTIPLE STUDIES Julio Avalos APRN.CNP [address] [place] [phone] [facility] [address] [place] [address] Referral ID Status Reason Start Date Expiration Date Visits Requested Visits Authorized [id number] Authorized Auto-Generat ed Referral 10/04/2022 11/03/2023 1 1 * Consult, Test, Treat (Routine) - Pending Review Specialty Diagnoses / Procedures Referred By Morris mckeon Referred To Contact General Surgery Diagnoses Screening for colon cancer Procedures CONSULT TO GENERAL SURGERY OFFICE/OUTPATIENT NEW HIGH MDM 60-74 MINUTES Julio Avalos APRN.CNP [address] [place] [address] Referral ID Status Reason Start Date Expiration Date Visits Requested Visits Authorized [id number] Pending Review PCP Requested Referral 10/04/2022 10/04/2023 1 1 [facility] for referral (narrative)* Outpatient Procedure (Routine) - Pending Review Specialty Diagnoses / Procedures Referred By Contac t Referred To Contact [facility] Diagnoses Diarrhea, unspecified type Abdominal bloating Change in bowel habits History of anemia Procedures COLONOSCOPY DIAGNOSTIC COLONOSCOPY FLX DX W/COLLJ SPEC WHEN PFRMD Alicia Weiner PA-C [address] [place] [address] [facility] Disease [address] [address] Referral ID Status Reason Start Date Expiration Date Visits Requested Visits Authorized [id number] Pending Review Auto-Generat ed Referral 11/13/2022 11/14/2023 1 1 * Outpatient Procedure (Routine) - Pending Review Specialty Diagnoses / Procedures Referred By Contac t Referred To Contact [facility] Diagnoses Diarrhea, unspecified type Abdominal bloating Change in bowel habits History of anemia Procedures EGD DIAGNOSTIC ESOPHAGOGASTRODUODENOSC OPY TRANSORAL DIAGNOSTIC Alicia Weiner PA-C [address] [place] [address] [facility] Disease [address] [address] Referral ID Status Reason Start Date Expiration Date Visits Requested Visits Authorized [id number] Pending Review Auto-Generat ed Referral 11/13/2022 11/14/2023 1 1 [facility] for referral (narrative)* Diagnostic Procedure Only (Routine) - Pending Review Specialty Diagnoses / Procedures Referred By Contac t Referred To Contact [facility] Diagnoses Encounter for screening mammogram for breast cancer Procedures CHAZ SCREENING SCREENING MAMMOGRAPHY BI 2-VIEW BREAST INC Lianet Parra MD [address] [place] [address] [facility] [address] [place] [address] Referral ID Status Reason Start Date Expiration Date Visits Requested Visits Authorized [id number] Pending Review Auto-Generat ed Referral 3 05/03/2024 1 1 [facility] Summary Purpose Family History No Family History Records FoundNo Family History Records FoundNo Family History Records FoundNo Family History Records FoundNo Family History Records Found Advance Directives No Advanced Directives Records FoundNo Advanced Directives Records FoundNo Advanced Directives Records FoundNo Advanced Directives Records FoundNo Advanced Directives Records Found Reason for Referral Specialty Diagnoses / Procedures Referred By Morris mckeon Referred To Contact Diagnoses 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 Procedures CT ABDOMEN/PELVIS WITH CONTRAST CHG CT SCAN,ABDOMENT AND PELVIS,W CONTRAST Shavon Nava, ROCK CLIMBING INSTRUCTOR-BENCH WORKER [address] [place] [phone] Referral ID Status Reason Start Date Expiration Date Visits Re quested Visits Authorized [id number] Closed 02/22/2022 03/19/2023 1 1 Specialty Diagnoses / Procedures Referred By Morris mckeon Referred To Contact Diagnoses Desmoid Procedures CT CHEST WITH CONTRAST CHG DIAGNOSTIC COMPUTED TOMOGRAPHY THORAX W/CONTRAST Shavon Nava, ROCK CLIMBING INSTRUCTOR-BENCH WORKER [address] [place] [address] Referral ID Status Reason Start Date Expiration Date V isits Requested Visits Authorized [id number] Auth Not Needed 10/18/2022 11/12/2023 1 1 Additional Source Comments Source Comments (unrecognize d section and content) In the event this informatio n is protected by the Federal Confidentiality of Alcohol and Drug Abuse Patient Records regulations: The Federal rules restrict any use of the information to criminally investigate or prosecute any alcohol or drug abuse patient.[facility] the event this information is protected by the Federal Confidentiality of Alcohol and Drug Abuse Patient Records regulations: The Federal rules restrict any use of the information to criminally investigate or prosecute any alcohol or drug abuse patient.[facility] the event this information is protected by the Federal Confidentiality of Alcohol and Drug Abuse Patient Records regulations: The Federal rules restrict any use of the information to criminally investigate or prosecute any alcohol or drug abuse patient.[facility] the event this information is protected by the Federal Confidentiality of Alcohol and Drug Abuse Patient Records regulations: The Federal rules restrict any use of the information to criminally investigate or prosecute any alcohol or drug abuse patient.[facility] the event this information is protected by the Federal Confidentiality of Alcohol and Drug Abuse Patient Records regulations: The Federal rules restrict any use of the information to criminally investigate or prosecute any alcohol or drug abuse patient.[facility] the event this information is protected by the Federal Confidentiality of Alcohol and Drug Abuse Patient Records regulations: The Federal rules restrict any use of the information to criminally investigate or prosecute any alcohol or drug abuse patient.[facility] the event this information is protected by the Federal Confidentiality of Alcohol and Drug Abuse Patient Records regulations: The Federal rules restrict any use of the information to criminally investigate or prosecute any alcohol or drug abuse patient.[facility] the event this information is protected by the Federal Confidentiality of Alcohol and Drug Abuse Patient Records regulations: The Federal rules restrict any use of the information to criminally investigate or prosecute any alcohol or drug abuse patient.[facility] the event this information is protected by the Federal Confidentiality of Alcohol and Drug Abuse Patient Records regulations: The Federal rules restrict any use of the information to criminally investigate or prosecute any alcohol or drug abuse patient.[facility] the event this information is protected by the Federal Confidentiality of Alcohol and Drug Abuse Patient Records regulations: The Federal rules restrict any use of the information to criminally investigate or prosecute any alcohol or drug abuse patient.[facility] the event this information is protected by the Federal Confidentiality of Alcohol and Drug Abuse Patient Records regulations: The Federal rules restrict any use of the information to criminally investigate or prosecute any alcohol or drug abuse patient.[facility] the event this information is protected by the Federal Confidentiality of Alcohol and Drug Abuse Patient Records regulations: The Federal rules restrict any use of the information to criminally investigate or prosecute any alcohol or drug abuse patient.[facility] the event this information is protected by the Federal Confidentiality of Alcohol and Drug Abuse Patient Records regulations: The Federal rules restrict any use of the information to criminally investigate or prosecute any alcohol or drug abuse patient.[facility] the event this information is protected by the Federal Confidentiality of Alcohol and Drug Abuse Patient Records regulations: The Federal rules restrict any use of the information to criminally investigate or prosecute any alcohol or drug abuse patient.[facility] the event this information is protected by the Federal Confidentiality of Alcohol and Drug Abuse Patient Records regulations: The Federal rules restrict any use of the information to criminally investigate or prosecute any alcohol or drug abuse patient.[facility] the event this information is protected by the Federal Confidentiality of Alcohol and Drug Abuse Patient Records regulations: The Federal rules restrict any use of the information to criminally investigate or prosecute any alcohol or drug abuse patient.[facility] the event this information is protected by the Federal Confidentiality of Alcohol and Drug Abuse Patient Records regulations: The Federal rules restrict any use of the information to criminally investigate or prosecute any alcohol or drug abuse patient.[facility] the event this information is protected by the Federal Confidentiality of Alcohol and Drug Abuse Patient Records regulations: The Federal rules restrict any use of the information to criminally investigate or prosecute any alcohol or drug abuse patient.[facility] the event this information is protected by the Federal Confidentiality of Alcohol and Drug Abuse Patient Records regulations: The Federal rules restrict any use of the information to criminally investigate or prosecute any alcohol or drug abuse patient.[facility] the event this information is protected by the Federal Confidentiality of Alcohol and Drug Abuse Patient Records regulations: The Federal rules restrict any use of the information to criminally investigate or prosecute any alcohol or drug abuse patient.[facility] the event this information is protected by the Federal Confidentiality of Alcohol and Drug Abuse Patient Records regulations: The Federal rules restrict any use of the information to criminally investigate or prosecute any alcohol or drug abuse patient.[facility] the event this information is protected by the Federal Confidentiality of Alcohol and Drug Abuse Patient Records regulations: The Federal rules restrict any use of the information to criminally investigate or prosecute any alcohol or drug abuse patient.[facility] the event this information is protected by the Federal Confidentiality of Alcohol and Drug Abuse Patient Records regulations: The Federal rules restrict any use of the information to criminally investigate or prosecute any alcohol or drug abuse patient.[facility] the event this information is protected by the Federal Confidentiality of Alcohol and Drug Abuse Patient Records regulations: The Federal rules restrict any use of the information to criminally investigate or prosecute any alcohol or drug abuse patient.[facility] Reason for Visit (unrecogniz ed section [...] SCAN,ABDOMENT AND PELVIS,W CONTRAST Shavon Nava C, ROCK CLIMBING INSTRUCTOR-BENCH WORKER [address] [place] [address] Referral ID Status Reason Start Date Expiration Date V isits Requested Visits Authorized [id number] Auth Not Needed 02/22/2022 03/19/2023 1 1 Reason Comments Thyroid Cancer Reason Comments Thyroid Problem Specialty Diagnoses / Procedures Referred By Contac t Referred To Contact Endocrinology / ENDOCRINOLOGY Diagnoses Thyroid cancer (HCC) neck ultrasound for thyroid Cancer *per [facility] Procedures US SOFT TISSUE HEAD & NECK REAL TIME IMGE DOCM THYROID BIOPSY/ULTRASOUND Darian Pruett MD [address] [place] [address] Dairan Pruett MD [address] [place] [address] Referral ID Status Reason Start Date Expiration Date Visits Re quested Visits Authorized [id number] Closed 06/13/2022 05/06/2023 1 1 Referral ID Status Reason Start Date Expiration Date Visits Re quested Visits Authorized [id number] Closed 02/22/2022 03/19/2023 1 1 Reason Comments [...] cancer Procedures CONSULT TO GENERAL SURGERY OFFICE/OUTPATIENT NEW HIGH MDM 60-74 MINUTES Julio Avalos APRN.BENCH WORKER [address] [place] [address] Referral ID Status Reason Start Date Expiration Date Visits Requested Visits Authorized [id number] Pending Review PCP Requested Referral 10/04/2022 10/04/2023 1 1 Reason Comments Medication Clarification Reason Comments 02/09/2023 colon/egd ruano ' Care Teams (unrecognized sec tion and content) Mechanotherapist Relationship Specialty Start Date End Date Lianet Mckeon MD [address] [place] [address] PCP - General 11/04/14 Odilia Peres (Rn), RN [address] [place] [address] Specialty Milk Delivery Driver General Surgery 08/20/18 Mechanotherapist Relationship Specialty Start Date End Date Lianet Mckeon MD [address] [place] [address] PCP - General 11/04/14 Odilia Peres (Rn), RN [address] [place], [place] [phone] Specialty Milk Delivery Driver General Surgery 08/20/18 Mechanotherapist Relationship Specialty Start Date End Date Lianet Mckeon MD [address] [place] [address] PCP - General 11/04/14 Odilia Peres (Rn), RN [address] [place], [place] [id number] Specialty Milk Delivery Driver General Surgery 08/20/18 Mechanotherapist Relationship Specialty Start Date End Date Lianet Mckeon MD [address] [place] [address] PCP - General 11/04/14 Odilia Peres (Rn), RN [address] [place], [place] [phone] Specialty Milk Delivery Driver General Surgery 08/20/18 Mechanotherapist Relationship Specialty Start Date End Date Lianet Mckeon MD [address] [place] [address] PCP - General 11/04/14 Odilia Peres (Rn), RN [address] [place] [address] Specialty Milk Delivery Driver General Surgery 08/20/18 Mechanotherapist Relationship Specialty Start Date End Date Lianet Mckeon MD [address] [place] [address] PCP - General 11/04/14 Odilia Peres (Rn), RN [address] [place] [address] Specialty Milk Delivery Driver General Surgery 08/20/18 Mechanotherapist Relationship Specialty Start Date End Date Lianet Mckeon MD [address] [place] [address] PCP - General 11/04/14 Odilia Peres (Rn), RN [address] [place], [place] [phone] Specialty Milk Delivery Driver General Surgery 08/20/18 Mechanotherapist Relationship Specialty Start Date End Date Lianet Mckeon MD [address] [place] [address] PCP - General 11/04/14 Odilia Peres (Rn), RN [address] [place], [place] [phone] Specialty Milk Delivery Driver General Surgery 08/20/18 Mechanotherapist Relationship Specialty Start Date End Date Lianet Mckeon MD [address] [place] [address] PCP - General 11/04/14 Odilia Peres (Rn), RN [address] [place], [place] [phone] Specialty Milk Delivery Driver General Surgery 08/20/18 Mechanotherapist Relationship Specialty Start Date End Date Lianet Mckeon MD PCP - General Internal Medicine 09/09/14 Pietro Tapia MD [address] [facility] [address] [place] [phone] Surgeon Plastic Surgery 12/08/14 To Chamorro MD Surgeon Thoracic Surgery 12/08/14 Johnny Joe MD, PhD [address] [place] [phone] Surgeon Surgical Oncology 12/08/14 Mechanotherapist Relationship Specialty Start Date End Date Lianet Mckeon MD [address] [place] [address] PCP - General 11/04/14 Odilia Peres (Rn), RN [address] [place], [place] [phone] Specialty Milk Delivery Driver General Surgery 08/20/18 Mechanotherapist Relationship Specialty Start Date End Date Lianet Mckeon MD [address] [place] [address] PCP - General 11/04/14 Odilia Peres (Rn), RN [address] [place] [address] Specialty Milk Delivery Driver General Surgery 08/20/18 Mechanotherapist Relationship Specialty Start Date End Date Lianet Mckeon MD PCP - General Internal Medicine 09/09/14 Pietro Tapia MD [address] [facility] [address] [place] [address] Surgeon Plastic Surgery 12/08/14 To Chamorro MD Surgeon Thoracic Surgery 12/08/14 Johnny Joe MD, PhD [address] [place] [phone] Surgeon Surgical Oncology 12/08/14 Mechanotherapist Relationship Specialty Start Date End Date Lianet Mckeon MD [address] [place] [address] PCP - General 11/04/14 Odilia Peres (Rn), RN [address] [place] [address] Specialty Milk Delivery Driver General Surgery 08/20/18 Mechanotherapist Relationship Specialty Start Date End Date Lianet Mckeon MD [address] [place], [place] [id number] PCP - General 11/04/14 Odilia Peres (Rn), RN [address] [place] [address] Specialty Milk Delivery Driver General Surgery 08/20/18 Mechanotherapist Relationship Specialty Start Date End Date Lianet Mckeon MD PCP - General Internal Medicine 09/09/14 Pietro Tapia MD 5 [facility] [address] [place] [phone] Surgeon Plastic Surgery 12/08/14 To Chamorro MD [address] [place] [address] [place] [phone] Surgeon Thoracic Surgery 12/08/14 Johnny Joe MD, PhD [address] [place] [address] Surgeon Surgical Oncology 12/08/14 Mechanotherapist Relationship Specialty [place] [address] [place] [address] PCP - General 11/04/14 Odilia Peres (Rn), RN [address] [place], [place] [phone] Specialty Milk Delivery Driver General Surgery 08/20/18 Mechanotherapist Relationship Specialty Start Date End Date Lianet Mckeon MD [address] [place] [address] PCP - General 11/04/14 Odilia Peres (Rn), RN [address] [place], [place] [phone] Specialty Milk Delivery Driver General Surgery 08/20/18 Mechanotherapist Relationship Specialty Start Date End Date Lianet Mckeon MD [address] [place] [address] PCP - General 11/04/14 Odilia Peres (Rn), RN [address] [place] [address] Specialty Milk Delivery Driver General Surgery 08/20/18 Mechanotherapist Relationship Specialty Start Date End Date Lianet Mckeon MD [address] [place] [address] PCP - General 11/04/14 Odilia Peres (Rn), RN [address] [place] [address] Specialty Milk Delivery Driver General Surgery 08/20/18 Mechanotherapist Relationship Specialty Start Date End Date Lianet Mckeon MD [address] [place] [address] PCP - General 11/04/14 Odilia Peres (Rn), RN [id number] [place] [address] Specialty Milk Delivery Driver General Surgery 08/20/18 Mechanotherapist Relationship Specialty Start Date End Date Lianet Mckeon MD [address] [place] [address] PCP - General 11/04/14 Od[place] ([place] [address] [place] [phone] Specialty Milk Delivery Driver General Surgery 08/20/18 Mechanotherapist Relationship Specialty Start Date End Date Lianet Mckeon MD [address] [place] [address] PCP - General 11/04/14 [place] ([place] [address] [place] [phone] Specialty Milk Delivery Driver General Surgery 08/20/18 INFORMATION SOURCE (unrecogn ized section and content) DATE CREATED AUTHOR AUTHOR'S ORGANIZ ATION 10/27/2022 [facility] DATE CREATED AUTHOR AUTHOR'S ORGANIZ ATION 04/10/2023 [facility] DATE CREATED AUTHOR AUTHOR'S ORGANIZ ATION 04/21/2023 [facility] DATE CREATED AUTHOR AUTHOR'S ORGANIZ ATION 06/06/2023 [facility] FOR RECORDS PERTAINING TO PATIENTS WHO ARE [...] BE BASED ON THE PRIMARY CLINICAL RECORDS. [employer] provides no warranty or guarantee of the accuracy or completeness of information in this document.
== END | disposition home or self-care (01) ==
LOC: US 12:33
PROVIDERS: PCP Internal Medicine; Referring Provider Obstetrics & Gynecology; Visit Provider Obstetrics & Gynecology
DX: O24.419 Gestational diabetes mellitus in pregnancy, unspecified control (principal); Z3A.35 35 weeks gestation of pregnancy
CPT/HCPCS: 76819

== ENCOUNTER → 2023-06-27 | Outpatient (CLI) | payer MEDICAID, SELFPAY ==
--- NOTE | 2023-06-27 10:24 | US_ITS ---
STUDY: OBSTETRICAL ULTRASOUND - BIOPHYSICAL PROFILE REASON FOR EXAM: Female, 43 years old well being -- 36 weeks LMP: October 16, 2022. PRIOR ULTRASOUND: Comparison is made with prior study dated June 22, 2023. TECHNIQUE: Transabdominal TECHNICAL QUALITY: Adequate. FINDINGS: There is a single intrauterine fetus. The fetus is in a breech presentation. There is demonstrated cardiac activity with a heart rate of 132 bpm. There is increased amniotic fluid consistent with polyhydramnios. The largest amniotic fluid pocket measures 9.1 cm x 2.4 cm. The amniotic fluid index (PARTH) is 27.4 cm. The placenta is fundal in location. There are Grade 1 placental changes. Age by LMP: 36 weeks, 2 days. YANNICK by LMP: July 23, 2023. BIOPHYSICAL PROFILE: Breathing Movements (FBM): 2 Gross Body Movements (GBM): 2 Tone (FT): 2 Amniotic Fluid Volume (AFV): 2 TOTAL SCORE: 8 / 8 US/Biophysical Prof W/O Non Stres IMPRESSION: Normal biophysical profile of 8/8. Polyhydramnios. Electronically Signed: Warren Nguyen MD at 13:45 EST ,
--- OUTSIDE RECORDS SUMMARY | 2023-06-27 10:51 | XMS RPT_ITS | CCD ---
Author Name Unknown Address [email or web address] [place] [address] Organization [facility] Care Team Providers Care Hydramatic Mechanic Name Role Phone Micheline DENNIS, Pedro Pablo Jackson Unavailable Adele Steinberg MD Unavailable [phone] Lianet Mckeon MD Primary Care Provider Larisa RN, Odilia Collins (Rn) Unavailable UnavailLianet Barrientos MD Primary Care Provider Larisa CHEN, Odilia Collins (Rn) Unavailable UnavailLianet Barrientos MD Primary Care Provider Pietro Tapia MD Unavailable To Chamorro MD Unavailable [phone] Heath DENNIS, PhD, Johnny Ocampo Unavailable [phone] Lianet Mckeon MD Primary Care Provider Larisa CHEN, Odilia Collins (Rn) Unavailable UnavailLianet Barrientos MD Primary Care Provider Pietro Tapia MD Unavailable To Chamorro MD Unavailable Heath DENNIS, PhD, Johnny Ocampo Unavailable [phone] ELIJAH, SHAVON C Referring Unavailable TALAMPAS, LIANET Primary Care Unavailable ELIJAH, SHAVON C Attending Unavailable TALAMPAS, LIANET Primary Care Unavailable ELIJAH, SHAVON C Attending Unavailable LEIJAH, SHAVON C Referring Unavailable ELIJAH, SHAVON C [...] to adverse reactions to substance 12-26-[address] [facility] (3 sources) *Adhesive Tape Propensity to adverse reactions 12-26-2019 [facility] Medications Current Medications Medication Drug Class(es) Dates Sig (Normalized) Sig (Original) cetirizine hydrochloride 10 mg oral tablet (3 sources) Histamine-1 Receptor Antagonist take 1 tablet by mouth once daily cetirizine 10 MG Tab Take 1 tablet by mouth daily. 0 Active docosahexaenoic acid 1000 mg / omega-3 acid ethyl esters (mcc) 300 mg delayed release oral capsule (3 sources) take 1 capsule by mouth once daily at breakfast [place]-3 Fatty Acids (FISH OIL) 1000 MG Cap [...] 167.6 cm Alicia Patelf PA-C Work Phone: [facility] 11-13-2022 09:36-0400 Body temperature 97.39 [degF] Alicia Ruch PA-C Work Phone: [facility] 11-13-2022 09:36-0400 Body weight 140.62 kg Alicia Husam PA-C Work Phone: [facility] 11-13-2022 09:36-0400 Diastolic blood pressure 76 mm[Hg] Alicia Ruch PA-C Work Phone: [facility] 11-13-2022 09:36-0400 Heart rate 77 /min Alicia Husam PA-C Work Phone: [facility] 11-13-2022 09:36-0400 SaO2% (BldA) [Mass fraction] 100 % Alicia Ruch PA-C Work Phone: [facility] 11-13-2022 09:36-0400 Systolic blood pressure 128 mm[Hg] Alicia Husam PA-C Work Phone: [facility] 10-18-2022 14:06-0400 Body mass index (BMI) [Ratio] 49.62 kg/m2 Shavon Elijah LEADERSHIP INTERN-DIRECTOR OF GOLF Work Phone: [facility] 10-18-2022 14:06-0400 Body temperature 98.2 [degF] Shavon Rodgerswell LEADERSHIP INTERN-DIRECTOR OF GOLF Work Phone: [facility] 10-18-2022 14:06-0400 Body weight 139.44 kg Shavon Freeport LEADERSHIP INTERN-DIRECTOR OF GOLF Work Phone: [facility] 10-18-2022 14:06-0400 Diastolic blood pressure 65 mm[Hg] Shavon Rodgerswell LEADERSHIP INTERN-DIRECTOR OF GOLF Work Phone: [facility] 10-18-2022 14:06-0400 Heart rate 84 /min Shavon Elijah LEADERSHIP INTERN-DIRECTOR OF GOLF Work Phone: [facility] 10-18-2022 14:06-0400 Respiratory rate 16 /min Shavon Freeport LEADERSHIP INTERN-DIRECTOR OF GOLF Work Phone: [facility] 10-18-2022 14:06-0400 SaO2% (BldA) [Mass fraction] 96 % Shavon Freeport LEADERSHIP INTERN-DIRECTOR OF GOLF Work Phone: [facility] 10-18-2022 14:06-0400 Systolic blood pressure 137 mm[Hg] Shavon Freeport LEADERSHIP INTERN-DIRECTOR OF GOLF Work Phone: [facility] 10-04-2022 07:48-0400 Body height 166.4 cm Julio Brittney LEADERSHIP INTERN.DIRECTOR OF GOLF Work Phone: [facility] 10-04-2022 07:48-0400 Body weight 138.35 kg Julio Brittney LEADERSHIP INTERN.DIRECTOR OF GOLF Work Phone: [facility] 10-04-2022 07:48-0400 Diastolic blood pressure 68 mm[Hg] Julio Brittney LEADERSHIP INTERN.DIRECTOR OF GOLF Work Phone: [facility] 10-04-2022 07:48-0400 Heart rate 81 /min Julio Brittney LEADERSHIP INTERN.DIRECTOR OF GOLF Work Phone: [facility] 10-04-2022 07:48-0400 SaO2% (BldA) [Mass fraction] 98 % Julio Brittney LEADERSHIP INTERN.DIRECTOR OF GOLF Work Phone: [facility] 10-04-2022 07:48-0400 Systolic blood pressure 114 mm[Hg] Julio Brittney LEADERSHIP INTERN.DIRECTOR OF GOLF Work Phone: [facility] 07-13-2022 08:34-0500 Body height 167.6 cm Shavon Nava LEADERSHIP INTERN-DIRECTOR OF GOLF Work Phone: [facility] 07-13-2022 08:34-0500 Body mass index (BMI) [Ratio] 48.42 kg/m2 Shavon Nava LEADERSHIP INTERN-DIRECTOR OF GOLF Work Phone: [facility] 07-13-2022 08:34-0500 Body weight 136.08 kg Shavon Nava LEADERSHIP INTERN-DIRECTOR OF GOLF Work Phone: [facility] 07-13-2022 08:34-0500 Diastolic blood pressure 66 mm[Hg] Shavon Nava LEADERSHIP INTERN-DIRECTOR OF GOLF Work Phone: [facility] 07-13-2022 08:34-0500 Heart rate 73 /min Shavon Nava LEADERSHIP INTERN-DIRECTOR OF GOLF Work Phone: [facility] 07-13-2022 08:34-0500 Systolic blood pressure 130 mm[Hg] Shavon Nava LEADERSHIP INTERN-DIRECTOR OF GOLF Work Phone: [facility] 07-07-2022 11:26-0500 Body weight 137.98 kg Darian Pruett MD Work Phone: [facility] 07-07-2022 11:26-0500 Diastolic blood pressure 83 mm[Hg] Darian Pruett MD Work Phone: [facility] 07-07-2022 11:26-0500 Heart rate 79 /min Darian Pruett MD Work Phone: [facility] 07-07-2022 11:26-0500 Systolic blood pressure 142 mm[Hg] Darian Pruett MD Work Phone: [facility] 01-23-2017 09:42-0400 BMI (Body Mass Index) 48.38 kg/m2 Pedro Pablo Tobias MD [facility] Work Phone: 01-23-2017 09:42-0400 Body Temperature 98.1 [degF] Pedro Pablo Tobias MD [facility] Work Phone: 01-23-2017 09:42-0400 BP Diastolic 79 mm[Hg] Pedro Pablo Tobias MD [facility] Work Phone: 01-23-2017 09:42-0400 BP Systolic 112 mm[Hg] Pedro Pablo Tobias MD [facility] Work Phone: 01-23-2017 09:42-0400 Pulse (Heart Rate) 80 /min Pedro Pablo Tobias MD [facility] Work Phone: 01-23-2017 09:42-0400 Respiratory Rate 20 /min Pedro Pablo Tobias MD [facility] Work Phone: 01-23-2017 09:42-0400 Weight 135.99 kg Pedro Pablo Tobias MD [facility] Work Phone: 01-19-2017 10:41-0400 BMI (Body Mass Index) 49.64 kg/m2 Adele Steinberg MD [facility] 01-19-2017 10:41-0400 Body Temperature 97.3 [degF] Adele Steinberg MD [facility] 01-19-2017 10:41-0400 BP Diastolic 75 mm[Hg] Adele Steinberg MD [facility] 01-19-2017 10:41-0400 BP Systolic 129 mm[Hg] Adele Steinberg MD [facility] 01-19-2017 10:41-0400 Height 167.64 cm Adele Steinberg MD [facility] 01-19-2017 10:41-0400 Pulse (Heart Rate) 92 /min Adele Steinberg MD [facility] 01-19-2017 10:41-0400 Respiratory Rate 16 /min Adele Steinberg MD [facility] 01-19-2017 10:41-0400 Weight 139.52 kg Adele Steinberg MD [facility] 01-19-2017 10:41-0400 Weight 139.53 kg Adele Steinberg MD [facility] Encounters Encounter Date Encounter Type Care Provider Facility Start: 06-05-2023 End: 06-05-2023 ambulatory RACHAEL NAM [facility] Start: 05-08-2023 End: 05-08-2023 ambulatory ABILIO CHRISTINA [facility] Start: 04-09-2023 End: 04-09-2023 ambulatory RACHAEL NAM [facility] Start: 04-04-2023 ambulatory Lianet ellis MD Work Phone: [facility] [place] Start: 03-27-2023 End: 03-28-2023 ambulatory LIANET ASIFAMPAGUUSTUS Facility:[facility] Start: 03-23-2023 End: 03-23-2023 ambulatory LIANET LAYAAMPAUGUSTUS [facility] Start: 03-22-2023 End: 03-23-2023 ambulatory LIANET MCKEON Facility:[facility] Start: 03-19-2023 ambulatory LIANET LAYAAMPAS [facility]ign[facility] Start: 03-05-2023 End: 03-05-2023 ambulatory LIANET LAYAAMPAUGUSTUS [facility] Start: 01-26-2023 End: 01-26-2023 ambulatory JAMIL MORELAND [facility] Start: 01-02-2023 Telephone encounter Darian hampton MD Work Phone: [facility] [place] Start: 01-01-2023 Telephone encounter Darian hampton MD Work Phone: [facility] [place] Procedures Date Procedure Procedure Detail Performing Clinician Start: 07-13-2022 Ct abdomen & pelvis w/contrast material Shavon Nava LEADERSHIP INTERN-DIRECTOR OF GOLF Work Phone: Start: 07-13-2022 End: 07-13-2022 Creatinine blood Shavon Nava LEADERSHIP INTERN-DIRECTOR OF GOLF Work Phone: Start: 07-07-2022 Us soft tissue head & neck real time imge docm Darian Pruett MD Work Phone: Start: 03-01-2022 Mammography Mammography Coordinator Start: 07-20-2018 Adult depression screening assessment Angely Black OD Work Phone: History of cholecystectomy S/P laparoscopic cholecystectomy Alicia Weiner PA-C Work Phone: Plan of Treatment Date Care Activity Detail Author Start: 02-08-2031 Tetanus vaccination TETANUS [facility] Start: 02-08-2031 Urine microalbumin profile DTaP,Tdap,Td Vaccine (8 - Td or Tdap) [facility] Start: 04-19-2027 Tetanus vaccination TETANUS [facility] Start: 04-19-2027 Urine microalbumin profile [facility] Start: 11-27-2023 HPV TESTING HPV TESTING [facility] Start: 10-05-2023 ANNUAL PCP TEAM CHRISTIAN SCIENCE READER CHINMAY DISEASE VISIT ANNUAL PCP TEAM CHRONIC DISEASE VISIT [facility] Start: 03-01-[address] [facility] Start: 02-12-2023 End: 04-14-2023 Thyroxine (T4) free [Mass/volume] in Serum or Plasma T4 FREE/FREE THYROX Lab Routine Papillary carcinoma of thyroid (HCC) Expected: 02/12/2023 (Approximate), Expires: 04/14/2023 [facility] Work Phone: Immunizations Immunization Date Immunization Notes Care Provider Yoko anthony 03-05-2020 influenza, seasonal, injectable Angely Black OD Work Phone: [facility] 03-05-2020 influenza virus vaccine, unspecified formulation Shavon Nava LEADERSHIP INTERN-DIRECTOR OF GOLF Work Phone: [facility] 04-24-2017 measles, mumps and rubella virus vaccine Angely Black OD Work Phone: [facility] Work Phone: 04-19-2017 tetanus toxoid, redu godfrey diphtheria toxoid, and acellular pertussis vaccine, adsorbed Angely Black OD Work Phone: [facility] 01-28-1994 trivalent poliovirus vaccine, live, oral Angely Black OD Work Phone: [facility] 12-28-1993 measles, mumps and rubella virus vaccine Angely Wayne OD Work Phone: [facility] 12-09-1986 diphtheria, tetanus toxoids and pertussis vaccine Angely Black OD Work Phone: [facility] 04-12-1983 diphtheria, tetanus toxoids and pertussis vaccine Angely Black OD Work Phone: [facility] 04-12-1983 trivalent poliovirus vaccine, live, oral Angely Black OD Work Phone: [facility] 09-09-1982 measles, mumps and rubella virus vaccine Angely Wayne OD Work Phone: [facility] 1980 diphtheria, tetanus toxoids and pertussis vaccine Angely Wayne OD Work Phone: [facility] 1980 trivalent poliovirus vaccine, live, oral Angely Wayne OD Work Phone: [facility] 1980 diphtheria, tetanus toxoids and pertussis vaccine Angely Wayne OD Work Phone: [facility] 1980 trivalent poliovirus vaccine, live, oral Angely Wayne OD Work Phone: [facility] 1980 diphtheria, tetanus toxoids and pertussis vaccine Angely Wayne OD Work Phone: [facility] 1980 trivalent poliovirus vaccine, live, oral Angely Wayne OD Work Phone: [facility] Payers Date Payer Category Payer Medicaid [id number] 2022 Medicaid [id number] 2022 Private Health Insurance LAVERNE MILLER [id number] 2022-Present [address] [place] [address] [id number] 2022 Private Health Insurance [id number] 2020 Medicaid [employer] MEDICAID [id number] 2020-Present [phone] [address] [place] [address] Medicaid [id number] 2020 Medicaid [id number] 2019 Unknown [employer] AGE [employer] [id number] 2019-Present [address] [place] [address] [id number] 2019 Unknown [id number] 1980 Unknown [id number]. 594 1981 Unknown [id number]. 594 1981 Unknown [id number]. 594 1981 Unknown [id number] [id number]. 594 1981 Unknown [id number] [id number]. 594 1981 Unknown [id number] [id number]. 479 1981 Unknown [id number] [id number]. 479 1981 Unknown [id number] [id number]. 479 1981 Unknown [id number] [id number]. 479 1981 Unknown [id number] [id number]. 479 1981 Unknown [id number] [id number]. 479 1981 Unknown [id number] [id number]. 479 1980 Unknown [id number]. 479 Social History Date Type Detail Facility Start: 09-22-2011 End: 09-04-2014 Tobacco smoking status [facility] Never smoked tobacco [facility] Start: 04-08-2021 End: 11-13-2022 Alcohol intake Current non-drinker of alcohol (finding) [facility] Start: 1980 Sex Assigned At Not on file [facility] Start: 07-18-2021 End: 07-13-2022 Exposure to SARS-CoV-2 (event) Not sure [facility] Start: 11-14-2021 End: 11-24-2021 Exposure to SARS-CoV-2 (event) Unable to assess [facility] Start: 09-22-2011 End: 09-04-2014 Tobacco use and exposure Smokeless tobacco non-user [facility] Work Phone: Start: 09-29-2022 End: 10-18-2022 History of Social function [facility] Start: 09-29-2022 End: 10-18-2022 Tobacco use panel [facility] Adolescent depressio n screening assessment 0 [facility] Gender identity Identifies as fe male gender (finding) [facility] Medical Equipment Procedure Code Equipment Code Equipment Origin al Text Equipment Identifier Dates Mesh Xenmatrix A b 15x20 Cm - [id number] Start: 12-08-2014 Clinical Notes 10-02-2009 to 04-04-2023 Telephone Encounter - Carlos A Clemens - 02/06/2023 11:43 AM EDTTelephone Encounter - Alicia Weiner PA-C - 11/13/2022 11:12 AM EDTTelephone Encounter - Raven Mane - 11/13/2022 10:16 AM EDT Note Date & Type Note Facility 04-04-2023 Note Patient Outreach (IN [facility]) DIEGO DEL TORO ([id number]) 1980 F Date Time Provider Department 04/04/23 LIANET MCKEON During your visit today, we recorded the following information about you: Allergies As of Date: 04/04/2023 Noted Allergy Reaction ADHESIVE TAPE (ROSINS) 12/26/2019 9 - Itching Comments: Reina, paper tape ok Date Reviewed: 11/13/2022 Reviewed by: Alicia Weiner PA-C - Fully Assessed Visit Diagnosis:Encounter for screening mammogram for breast cancer [Z12.31] Order(s):[facility] SCREENING [[id number]] Order #: [id number] FUTURE Prescriptions as of 04/09/2023 - levothyroxine (SYNTHROID) 175 mcg tablet take 6 AND 1/2 per week - calcium carbonate (CALCIUM 300 ORAL) Take 1 tablet by mouth once daily. - GARLIC Take 1 mL by mouth once daily. - CPAP AutoPAP 5-20 cmH2O, mask to comfort, tubing, heated humidifier, filters, Lifetime supplies, - Miscellaneous Medical [facility] [place] brace Dx: S89.92XA, M25.562 - Multivitamin [...] Encounter Status:Closed by JOSE, PRODUSER on 04/09/23 [facility] 02-06-2023 Miscellaneous Notes Patient procedure has been cancelled, she is . Carlos A Clemens Rx sent Patient asking prep Golytely be sent into [facility] [place] Raven Mane Reading Specialist 02/09/2023 colon/egd ruano Patient denied sooner dates Raven Mane Reading Specialist documented in this encounter [facility] 01-02-2023 Miscellaneous Notes Spoke with Allyson at [facility] and clarified that the patient is to take 1 full tablet of Synthroid 175mcg 6 days/week and 1/2 of a 175mcg tablet 1 day a week. Zenia Fernandez RN Allyson calling from [employer] to get clarification on instructions sent over on levothyroxine (SYNTHROID) 175 mcg tablet. Contact Information [phone] Thank you documented in this encounter [facility] 01-02-2023 Miscellaneous Notes Darian Pruett MD P Lkwd Clerical Pool virtual in 6 weeks, check first before calling to see if patient was successful in making their own appointment 1st Attempt Left message to call office. 01/02/2023 8:39 AM Hoda Au documented in this encounter [facility] 01-01-2023 Note HNO ID: [id number] Author: Darian Pruett MD Service: ? Author Type: Physician Type: Progress Notes Filed: 01/01/2023 11:30 AM Note Text: Virtual Visit utilizing both audio and video components FaceTime I have communicated my name and active licensure. The patient's identity and physical location were verified at the time of this visit. Either the patient or their legal technology sales representative has been informed of the risks and benefits of -- and alternatives to -- treatment through a remote evaluation and consents to proceed with the evaluation remotely. Patient location: [place], [place] Assessment / Plan Assessment: 1) Surgical [...] trying hard to do everything right. Seeing high pressure firer TSH reported to be 0.09, basis for [...] refused gastric bypass surgery. 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 Tobias, at [facility] Pathology (12/28/09): 4cm classic papillary thyroid [...] on either side. (more content not included)... [facility] 01-01-2023 Instructions Darian Pruett MD - [...] 4.1 pg/mL 3.8 documented in this encounter [facility] 01-01-2023 History of Presen t illness Narrative Virtual Visit utilizing both audio and video components FaceTime I have communicated my name and active licensure. The patient's identity and physical location were verified at the time of this visit. Either the patient or their legal technology sales representative has been informed of the risks and benefits of -- and alternatives to -- treatment through a remote evaluation and consents to proceed with the evaluation remotely. Patient location: [place], [place] Assessment / Plan Assessment: 1) Surgical hypothyroidism [...] trying hard to do everything right. Seeing high pressure firer TSH reported to be 0.09, basis for [...] refused gastric bypass surgery. 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 Tobias, at [facility] Pathology (12/28/09): 4cm classic papillary thyroid [...] supplies, 1 Device 0 Miscellaneous Medical Supply [facility] K[place] brace Dx: S89.92XA, M25.562 1 Each 0 Multivitamin capsule Take 1 capsule by mouth once daily. Lactobacillus acidophilus 10 billion cell cap Take by mouth once daily. No current facility-administered medications for this visit. ALLERGIES Allergen Reactions Adhesive Tape (Etelvina* Itching Tegaderm, paper tape ok documented in this encounter [facility] 12-19-2022 Note HNO ID: [id number] Author: Janna Ojeda Service: ? Author Type: ? Type: Progress Notes Filed: 12/18/2022 10:12 PM Note Text: The patient did not show up for the scheduled sleep study. The patient will be contacted to reschedule the sleep study. Janna Ojeda [facility] 12-18-2022 History of Presen t illness Narrative The patient did not show up for the scheduled sleep study. The patient will be contacted to reschedule the sleep study. Jannalawson Ojeda October 24, 2022 Standing PSG Orders signed in the last 90 days None Future PSG Orders signed in the last 90 days Ordered Auth. provider PAP TITRATION PSG (CPAP, BIPAP, ASV) [[id number]] 10/04/22 Julio Avalos APRN.DIRECTOR OF GOLF Assoc. diagnoses: Weight gain [R63.5], Sleep apnea, [...] for PAP titration study from lawson Monet [facility] Staff. Visit prep complete. Comments :No The sleep study is scheduled for 11/09. Insurance: Payor: [employer] MEDICAID / Plan: [employer] [facility] MEDICAID [facility] / Product Type: Medicaid / Payer/Plan Subscr Sex Relation Sub. Ins. ID Effective Group Num 1. ANTHEM MEDICA* GENNARO DEL [place]INE [place] 1980 Female Self [id number] [birth year] [address] [place] documented in this encounter [facility] 11-13-2022 Note HNO ID: [id number] Author: Alicia Weiner PA-C Service: ? Author Type: Physician Contact Center Assistant Type: Progress Notes Filed: 11/13/2022 12:32 PM Note Text: HISTORY AND PHYSICAL [place] Al[place] 1980 REFERRING PHYSICIAN: Julio Avalos APRN.CNP CHIEF COMPLAINT: Consult (Colonoscopy consult, abdominal pain. ) HPI: The patient is a 42 year old female referred for endoscopy. Deigo notes a long history of loose stools. [...] by mouth once daily. Miscellaneous Medical [facility] Knee brace Dx: S89.92XA, M25.562 No current [...] depression, and de (more content not included)... [facility] 11-13-2022 History of Presen t illness [...] by mouth once daily. Miscellaneous [facility] Knee brace Dx: S89.92XA, M25.562 No current [...] Alicia Weiner PA-C documented in this encounter [facility] 11-13-2022 Nurse Note REVIEW OF SYSTEMS: [...] Irais Gilbert RN documented in this encounter [facility] 10-24-2022 Note HNO ID: [id number] Author: Michael Dawkins III, PhD Service: ? Author Type: Physician Type: Progress Notes Filed: 12/18/2022 10:12 PM Note Text: October 24, 2022 Standing PSG Orders signed in the last 90 days None Future PSG Orders signed in the last 90 days Ordered Auth. provider PAP TITRATION PSG (CPAP, BIPAP, ASV) [[id number]] 10/04/22 Julio Avalos APRN.DIRECTOR OF GOLF Assoc. diagnoses: Weight gain [R63.5], Sleep apnea, [...] Michael Dawkins III, PhD 1:28 PM, 10/24/2022 [facility] 10-24-2022 Note HNO ID: [id number] Author: Ny Jacobo Service: ? Author Type: ? Type: Progress Notes Filed: 12/18/2022 10:12 PM Note Text: October 24, 2022 An order has been received for PAP titration study from [facility]. [facility] Staff. Visit prep complete. Comments :No The sleep study is scheduled for 11/09. Insurance: Payor: [employer] MEDICAID / Plan: [facility] MEDICAID [facility] / Product Type: Medicaid / Payer/Plan Subscr Sex Relation Sub. Ins. ID Effective Group Num 1. ANTHEM MEDICA* DIEGO DEL TORO 1980 Female Self [id number] [birth year] [address] [place] Jacobo [facility] 10-18-2022 History of Presen t illness Narrative CC: Chief Complaint Patient presents with Follow-up This visit was completed via telephone. HPI: Ms. Del Toro, a 42 y.o. female from [facility], was seen in the [facility] [...] left nipple and followed up with her [facility] SOFTWARE ENGINEER. Initial and follow up mammograms showed no [...] biopsy: (LLQ Abdominal wall) - Endometriosis (ER, [place], and CD10 reactive) B. Abdominal wall nodule [...] 1 capsule by mouth daily with breakfast. [place]-3 Fatty Acids (FISH OIL) 1000 MG Cap [...] exam and may be out of the [id number] or obscured by motion artifact. IMPRESSION IMPRESSION: [...] meantime. PRIYANK Ching documented in this encounter [facility] 10-18-2022 Instructions Claire Chavez RN - 10/18/2022 1:30 PM EDT Your Surgical Oncology Care Team Office: [phone] Dr. Johnny Joe/ Dr. Ari Becerra/ Dr. Natalie Case Nurse Practitioner--PRIYANK Ching Primary RN--Claire SYKESN, RN, OCN Inspector Cold Working--Melinda Monzon and Franca GUTIERREZ reviewed with patient documented in this encounter [facility] 10-07-2022 Miscellaneous Notes Pt called and is [...] edge of normal. documented in this encounter [facility] 10-04-2022 Note HNO ID: [id number] Author: Julio Avalos APRN.NIHARIKA Service: ? Author [...] comfort, tubing, heated humidifier, filters, Lifetime supplies, Gdgtk-9-VHL-EPA-Fish Oil (FISH OIL) 1,000 mg (120 mg-180 mg) cap Take 2 capsules by mouth once daily. (Patient not taking: Reported on 10/04/2022) Miscellaneous [facility] [place] Dx: S89.92XA, M25.562 Multivitamin capsule [...] Surgery (12/28/09): total thyroidectomy, Dr. Tobias, at [facility] * Path (12/28/09): 4cm classic papillary [...] normal. Eyes: Gen (more content not included)... [facility] 10-04-2022 History of Presen t illness [...] comfort, tubing, heated humidifier, filters, Lifetime supplies, Siald-0-WIO-EPA-Fish Oil (FISH OIL) 1,000 mg (120 mg-180 mg) cap Take 2 capsules by mouth once daily. (Patient not taking: Reported on 10/04/2022) [facility] [place] [place] Dx: S89.92XA, M25.562 Multivitamin capsule [...] Surgery (12/28/09): total thyroidectomy, Dr. Tobias, at [facility] * Path (12/28/09): 4cm classic papillary [...] steps. PRIYANK Vargas documented in this encounter [facility] 08-08-2022 Note HNO ID: [id number] Author: Asya Parada-T Service: ? Author Type: [...] one year. Thank you for your attention. [facility] 07-07-2022 Note HNO ID: [id number] Author: Darian Pruett MD Service: ? Author [...] Color power Doppler were applied when indicated. [facility] 07-07-2022 Note HNO ID: [id number] Author: Darian Pruett MD Service: ? Author Type: Physician Type: Progress Notes Filed: 07/07/2022 12:13 PM Note Text: Assessment / Plan Assessment: 1) Surgical hypothyroidism. TSH high, apparently from forgetting doses. Rather than increase the dose significantly, I'll just increase the dose based on her weight change (6% gain), and have her take 175 x 7.5/wk followup labs in 6 weeks and send Showpad message. Discussed catching up for missed doses. 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 Fertility doc upped her dose to 200 mcg/d levothyroxine, she hasn't started yet. Insurance refused gastric bypass surgery. 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 Tobias, at [facility] Pathology (12/28/09): 4cm classic papillary thyroid [...] Date DELIVERY O (more content not included)... [facility] 07-07-2022 Instructions Darian Pruett MD - 07/07/2022 12:12 PM EST Assessment / Plan Assessment: 1) Surgical hypothyroidism. TSH high, apparently from forgetting doses. Rather than increase the dose significantly, I'll just increase the dose based on her weight change (6% gain), and have her take 175 x 7.5/wk followup labs in 6 weeks and send Showpad message. Discussed catching up for missed doses. [...] at your labs and send comment by [employer] 2) return to me in 6 months [...] <14.4 IU/mL <1.0 documented in this encounter [facility] 07-07-2022 Procedure note Thyroid / Neck Ultrasound Findings: no suspicious adenopathy along great vessels or in lateral neck on either side. No masses in thyroid bed. Impression benign study Recommendation: followup ultrasound in 1 year Darian Pruett MD Clinical Issues Reason for the study: followup of thyroid CA Comparison: none Technical Issues Equipment: RadLogicsound Alpha 6 Transducer: Linear/Trapezoidal multifrequency Regions examined: Neck, Sagittal and transverse views were obtained. Color power Doppler were applied when indicated. documented in this encounter [facility] 07-07-2022 History of Presen t illness Narrative Assessment / Plan Assessment: 1) Surgical hypothyroidism. TSH high, apparently from forgetting doses. Rather than increase the dose significantly, I'll just increase the dose based on her weight change (6% gain), and have her take 175 x 7.5/wk followup labs in 6 weeks and send Showpad message. Discussed catching up for missed doses. 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 Fertility doc upped her dose to 200 mcg/d levothyroxine, she hasn't started yet. Insurance refused gastric bypass surgery. 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 Tobias, at [facility] Pathology (12/28/09): 4cm classic papillary thyroid [...] humidifier, filters, Lifetime supplies, 1 Device 0 Qmovl-7-KIW-EPA-Fish Oil (FISH OIL) 1,000 mg (120 mg-180 mg) cap Take 2 capsules by mouth once daily. Miscellaneous [facility] [place] brace Dx: S89.92XA, M25.562 1 Each [...] paper tape ok documented in this encounter [facility] 06-13-2022 Note HNO ID: [id number] Author: Darian Pruett MD Service: ? Author [...] at your labs and send comment by [employer] 2) return to me this Sunday for quick neck ultrasound. 2) return to me in 6 months by virtual visit Darian Pruett MD Data Review: History Thyroid Cancer, she is not fogetting her levothyroxine any more, she is on 200 mcg/d since letting me know she was 4 weeks ago Insurance refused gastric bypass surgery. 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 Tobias, at [facility] Pathology (12/28/09): 4cm classic papillary thyroid [...] Paternal Grandfather Al (more content not included)... [facility] 06-13-2022 Instructions Darian Pruett MD - [...] Darian Pruett MD documented in this encounter [facility] 06-13-2022 History of Presen t illness [...] refused gastric bypass surgery. 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 Tobias, at [facility] Pathology (12/28/09): 4cm classic papillary thyroid [...] humidifier, filters, Lifetime supplies, 1 Device 0 Ruvon-7-JXV-EPA-Fish Oil (FISH OIL) 1,000 mg (120 mg-180 mg) cap Take 2 capsules by mouth once daily. Miscellaneous [facility] [place] brace Dx: S89.92XA, M25.562 1 Each [...] paper tape ok documented in this encounter [facility] 03-13-2022 Miscellaneous Notes Patient notified Anna. Please call patient and let them know mammogram was without problems. No changes needed at this time and to keep next scheduled appointment. Recommend repeat mammogram per screening guidelines in 1 year. Thanks. documented in this encounter [facility] 03-06-2022 Miscellaneous Notes Called pt regarding instructions for stress test and needs to reschedule. Transferred to [facility]. documented in this encounter [facility] 03-02-2022 Miscellaneous Notes March 02, 2022 PID: [id number] Diego Del Toro [address] [place] [address] Dear Ms. Del Toro, We are pleased [...] report will be kept on file at [facility] as part of your permanent medical record and are available for your continuing care. Thank you for allowing us to help in meeting your health care needs. Sincerely, Dr. Phipps Interpreting Radiologist [facility] (Normal over 40) documented in this encounter [facility] 02-02-2022 Miscellaneous Notes Left message regarding reminder for stress test tomorrow and given instructions. documented in this encounter [facility] 12-08-2021 History of Presen t illness [...] from Dr. Kinga Perez MD, a B. [facility] Staff. Visit prep complete. Comments :No The sleep study is scheduled for 12/07. Insurance: Payor: [employer] MEDICAID / Plan: [employer] ADVANTAGE MEDICAID / Product Type: Medicaid / Payor/Plan Subscr Sex Relation Sub. Ins. ID Effective Group Num 1. PARAMOUNT MED* ALVERTOGENN[employer]OD[place]GO S 1980 Female Self [id number] [birth year] [address] Ceasar Rosas documented in this encounter [facility] 08-26-2021 Miscellaneous Notes Spoke with patient regarding reminder for stress test on Sunday and given instructions documented in this encounter [facility] 08-19-2021 Miscellaneous Notes Please call the patient to clarify if she reduced levothyroxine to 6.5 tablets weekly? Her labs indicate that she is still getting too much thyroid hormone. Thank you- Tonja Pathak APRN.DIRECTOR OF [employer] Latest Ref Rng & Units 08/10/2021 TSH 0.270 - 4.200 mIU/L 0.124 (L) Free T4 0.9 - 1.7 ng/dL 2.1 (H) documented in this encounter [facility] 08-13-2021 Miscellaneous Notes Done. Thank you, Cee Beasley Noted and sent to ladies suit operator. Dolly Wang LPN Order is placed. Thank you Yisel Rojo APRN.NIHARIKA The COVID swab ordered expires 08/20. In order to get stress echo done 08/29 the exp date needs to be changed documented in this encounter [facility] 08-08-2021 Miscellaneous Notes Patient states its [...] be seen sooner. Patient was conferenced to [facility] for PCP scheduling. documented in this encounter [facility] 08-01-2021 History of Presen t illness Narrative Not on Zoom, no answer for telephone, voicemail full so cannot leave message. The appointment was cancelled for this patient. Darian Pruett MD documented in this encounter [facility] 07-22-2021 Miscellaneous Notes Patient came to desk asking to have glasses rx reprinted off from April. I was not able to find it or print it off. Patient would like hers and her sons as well. Per patient will be back the to get it. documented in this encounter [facility] documented as of this encounter (statuses as of 07/29/2021) [facility] History of Past illness Narrative* Problem Noted Date Resolved Date Nocturnal dyspnea 10/02/2009 10/30/2014 Overview: Volume overload following ; Spiral CT negative for PE but with small pleural effusions; Echocardiogram normal Supervision of other normal 02/22/2009 10/11/2009 with poor obstetric history 02/22/2009 10/11/2009 documented as of this encounter (statuses as of 08/01/2021) [facility] History of Past illness Narrative* Problem Noted Date Resolved Date Nocturnal dyspnea 10/02/2009 10/30/2014 Overview: Volume overload following ; Spiral CT negative for PE but with small pleural effusions; Echocardiogram normal Supervision of other normal 02/22/2009 10/11/2009 with poor obstetric history 02/22/2009 10/11/2009 documented as of this encounter (statuses as of 08/01/2021) [facility] History of Past illness Narrative* Problem Noted Date Resolved Date Nocturnal dyspnea 10/02/2009 10/30/2014 Overview: Volume overload following ; Spiral CT negative for PE but with small pleural effusions; Echocardiogram normal Supervision of other normal 02/22/2009 10/11/2009 with poor obstetric history 02/22/2009 10/11/2009 documented as of this encounter (statuses as of 08/08/2021) [facility] History of Past illness Narrative* Problem Noted Date Resolved Date Nocturnal dyspnea 10/02/2009 10/30/2014 Overview: Volume overload following ; Spiral CT negative for PE but with small pleural effusions; Echocardiogram normal Supervision of other normal 02/22/2009 10/11/2009 with poor obstetric history 02/22/2009 10/11/2009 documented as of this encounter (statuses as of 08/13/2021) [facility] of Past illness Narrative* Problem Noted Date Resolved Date Nocturnal dyspnea 10/02/2009 10/30/2014 Overview: Volume overload following ; Spiral CT negative for PE but with small pleural effusions; Echocardiogram normal Supervision of other normal 02/22/2009 10/11/2009 with poor obstetric history 02/22/2009 10/11/2009 documented as of this encounter (statuses as of 08/19/2021) [facility] of Past illness Narrative* Problem Noted Date Resolved Date Nocturnal dyspnea 10/02/2009 10/30/2014 Overview: Volume overload following ; Spiral CT negative for PE but with small pleural effusions; Echocardiogram normal Supervision of other normal 02/22/2009 10/11/2009 with poor obstetric history 02/22/2009 10/11/2009 documented as of this encounter (statuses as of 08/26/2021) [facility] of Past illness Narrative* Problem Noted Date Resolved Date Nocturnal dyspnea 10/02/2009 10/30/2014 Overview: Volume overload following ; Spiral CT negative for PE but with small pleural effusions; Echocardiogram normal Supervision of other normal 02/22/2009 10/11/2009 with poor obstetric history 02/22/2009 10/11/2009 documented as of this encounter (statuses as of 12/08/2021) [facility] of Past illness Narrative* Problem Noted Date Resolved Date Nocturnal dyspnea 10/02/2009 10/30/2014 Overview: Volume overload following ; Spiral CT negative for PE but with small pleural effusions; Echocardiogram normal Supervision of other normal 02/22/2009 10/11/2009 with poor obstetric history 02/22/2009 10/11/2009 documented as of this encounter (statuses as of 02/02/2022) [facility] of Past illness Narrative* Problem Noted Date Resolved Date Nocturnal dyspnea 10/02/2009 10/30/2014 Overview: Volume overload following ; Spiral CT negative for PE but with small pleural effusions; Echocardiogram normal Supervision of other normal 02/22/2009 10/11/2009 with poor obstetric history 02/22/2009 10/11/2009 documented as of this encounter (statuses as of 03/04/2022) [facility] of Past illness Narrative* Problem Noted Date Resolved Date Nocturnal dyspnea 10/02/2009 10/30/2014 Overview: Volume overload following ; Spiral CT negative for PE but with small pleural effusions; Echocardiogram normal Supervision of other normal 02/22/2009 10/11/2009 with poor obstetric history 02/22/2009 10/11/2009 documented as of this encounter (statuses as of 03/06/2022) [facility] of Past illness Narrative* Problem Noted Date Resolved Date Nocturnal dyspnea 10/02/2009 10/30/2014 Overview: Volume overload following ; Spiral CT negative for PE but with small pleural effusions; Echocardiogram normal Supervision of other normal 02/22/2009 10/11/2009 with poor obstetric history 02/22/2009 10/11/2009 documented as of this encounter (statuses as of 03/13/2022) [facility] of Past illness Narrative* Problem Noted Date Resolved Date Nocturnal dyspnea 10/02/2009 10/30/2014 Overview: Volume overload following ; Spiral CT negative for PE but with small pleural effusions; Echocardiogram normal Supervision of other normal 02/22/2009 10/11/2009 with poor obstetric history 02/22/2009 10/11/2009 documented as of this encounter (statuses as of 06/13/2022) [facility] of [facility] illness Narrative* Problem Noted Date Resolved Date Nocturnal dyspnea 10/02/2009 10/30/2014 Overview: Volume overload following ; Spiral CT negative for PE but with small pleural effusions; Echocardiogram normal Supervision of other normal 02/22/2009 10/11/2009 with poor obstetric history 02/22/2009 10/11/2009 documented as of this encounter (statuses as of 06/17/2022) [facility] of Past illness Narrative* Problem Noted Date Resolved Date Nocturnal dyspnea 10/02/2009 10/30/2014 Overview: Volume overload following ; Spiral CT negative for PE but with small pleural effusions; Echocardiogram normal Supervision of other normal 02/22/2009 10/11/2009 with poor obstetric history 02/22/2009 10/11/2009 documented as of this encounter (statuses as of 07/07/2022) [facility] of [facility] illness Narrative* Problem Noted Date Resolved Date Nocturnal dyspnea 10/02/2009 10/30/2014 Overview: Volume overload following ; Spiral CT negative for PE but with small pleural effusions; Echocardiogram normal Supervision of other normal 02/22/2009 10/11/2009 with poor obstetric history 02/22/2009 10/11/2009 documented as of this encounter (statuses as of 10/04/2022) [facility] Narrative* Problem Noted Date Resolved Date Nocturnal dyspnea 10/02/2009 10/30/2014 Overview: Volume overload following ; Spiral CT negative for PE but with small pleural effusions; Echocardiogram normal Supervision of other normal 02/22/2009 10/11/2009 with poor obstetric history 02/22/2009 10/11/2009 documented as of this encounter (statuses as of 10/07/2022) [facility] of Past illness Narrative* Problem Noted Date Diagnosed Date Resolved Date Nocturnal dyspnea 10/02/2009 10/30/2014 Overview: Volume overload following ; Spiral CT negative for PE but with small pleural effusions; Echocardiogram normal Supervision of other normal 02/22/2009 10/11/2009 with poor obstetric history 02/22/2009 10/11/2009 documented as of this encounter (statuses as of 11/13/2022) [facility] of Past illness Narrative* Problem Noted Date Diagnosed Date Resolved Date Nocturnal dyspnea 10/02/2009 10/30/2014 Overview: Volume overload following ; Spiral CT negative for PE but with small pleural effusions; Echocardiogram normal Supervision of other normal 02/22/2009 10/11/2009 with poor obstetric history 02/22/2009 10/11/2009 documented as of this encounter (statuses as of 12/19/2022) [facility] of Past illness Narrative* Problem Noted Date Diagnosed Date Resolved Date Nocturnal dyspnea 10/02/2009 10/30/2014 Overview: Volume overload following ; Spiral CT negative for PE but with small pleural effusions; Echocardiogram normal Supervision of other normal 02/22/2009 10/11/2009 with poor obstetric history 02/22/2009 10/11/2009 documented as of this encounter (statuses as of 01/01/2023) [facility] of Past illness Narrative* Problem Noted Date Diagnosed Date Resolved Date Nocturnal dyspnea 10/02/2009 10/30/2014 Overview: Volume overload following ; Spiral CT negative for PE but with small pleural effusions; Echocardiogram normal Supervision of other normal 02/22/2009 10/11/2009 with poor obstetric history 02/22/2009 10/11/2009 documented as of this encounter (statuses as of 01/02/2023) [facility] of Past illness Narrative* Problem Noted Date Diagnosed Date Resolved Date Nocturnal dyspnea 10/02/2009 10/30/2014 Overview: Volume overload following ; Spiral CT negative for PE but with small pleural effusions; Echocardiogram normal Supervision of other normal 02/22/2009 10/11/2009 with poor obstetric history 02/22/2009 10/11/2009 documented as of this encounter (statuses as of 01/02/2023) [facility] of Past illness Narrative* Problem Noted Date Diagnosed Date Resolved Date Nocturnal dyspnea 10/02/2009 10/30/2014 Overview: Volume overload following ; Spiral CT negative for PE but with small pleural effusions; Echocardiogram normal Supervision of other normal 02/22/2009 10/11/2009 with poor obstetric history 02/22/2009 10/11/2009 documented as of this encounter (statuses as of 02/07/2023) [facility] of [facility] illness Narrative* Problem Noted Date Diagnosed Date Resolved Date Nocturnal dyspnea 10/02/2009 10/30/2014 Overview: Volume overload following ; Spiral CT negative for PE but with small pleural effusions; Echocardiogram normal Supervision of other normal 02/22/2009 10/11/2009 with poor obstetric history 02/22/2009 10/11/2009 documented as of this encounter (statuses as of 04/09/2023) [facility] Diagnosis Encounter for screening mammogram for breast cancer [facility] AP[facility]MENT CANCELLED- Primary [facility] Diagnosis Pre-op testing- Primary Preoperative examination, unspecified [facility] Diagnosis 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 [facility] Diagnosis Postoperative hypothyroidism- Primary Postsurgical hypothyroidism [facility] Diagnosis Papillary carcinoma of thyroid (HCC)- Primary Malignant neoplasm of thyroid gland 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 Diagnosis Papillary carcinoma of thyroid (HCC)- Primary Malignant neoplasm of thyroid gland [facility] Diagnosis Diarrhea, unspecified type- Primary Abdominal bloating Flatulence, eructation, and gas pain Change in bowel habits Other symptoms involving digestive system History of anemia Personal history of diseases of blood and blood-forming organs [facility] Diagnosis Encounter for screening mammogram for breast cancer documented in this encounter [facility] for referral (narrative)* Diagnostic Procedure Only (Routine) - Pending Review Specialty Diagnoses / Procedures Referred By Morris mckeon Referred To Contact [facility] Diagnoses Encounter for screening mammogram for breast cancer Procedures CHAZ SCREENING SCREENING MAMMOGRAPHY BI 2-VIEW [place] [address] [place] [address] [facility] [address] [place] [address] Referral ID Status Reason Start Date Expiration Date Visits Requested Visits Authorized [id number] Pending Review Auto-Generat ed Referral 07/27/2021 08/26/2022 1 1 [facility] for referral (narrative)* Diagnostic Procedure Only (Routine) - Authorized Specialty Diagnoses / Procedures Referred By Morris mckeon Referred To Contact [facility]LE[facility]CTION[facility]AG[facility] Diagnoses Other fatigue Precordial pain Procedures NM CARDIAC PERF STRESS/EXERCISE MYOCARDIAL SPECT MULTIPLE STUDIES Julio Avalos APRN.CNP [address] [place] [address] [facility] [address] [place] [address] Referral ID Status Reason Start Date Expiration Date Visits Requested Visits Authorized [id number] Authorized Auto-Generat ed Referral 10/04/2022 11/03/2023 1 1 * Consult, Test, Treat (Routine) - Pending Review Specialty Diagnoses / Procedures Referred By Morris mckeon Referred To Contact General Surgery Diagnoses Screening for colon cancer Procedures CONSULT TO GENERAL SURGERY OFFICE/OUTPATIENT NEW HIGH MDM 60-74 MINUTES Julio Avalos APRN.CNP [address] [place] [address] Referral ID Status Reason Start Date Expiration Date Visits Requested Visits Authorized [id number] Pending Review PCP Requested Referral 10/04/2022 10/04/2023 1 1 [facility] for referral (narrative)* Outpatient Procedure (Routine) - Pending Review Specialty Diagnoses / Procedures Referred By Contac t Referred To Contact [facility] Diagnoses Diarrhea, unspecified type Abdominal bloating Change in bowel habits History of anemia Procedures COLONOSCOPY DIAGNOSTIC COLONOSCOPY FLX DX W/COLLJ SPEC WHEN PFRMD Alicia Weiner PA-C [address] [place] [address] [facility] [address] [address] Referral ID Status Reason Start Date Expiration Date Visits Requested Visits Authorized [id number] Pending Review Auto-Generat ed Referral 11/13/2022 11/14/2023 1 1 * Outpatient Procedure (Routine) - Pending Review Specialty Diagnoses / Procedures Referred By Contac t Referred To Contact [facility] Diagnoses Diarrhea, unspecified type Abdominal bloating Change in bowel habits History of anemia Procedures EGD DIAGNOSTIC ESOPHAGOGASTRODUODENOSC OPY TRANSORAL DIAGNOSTIC Alicia Weiner PA-C [address] [place] [address] [facility] [address] [address] Referral ID Status Reason Start Date Expiration Date Visits Requested Visits Authorized [id number] Pending Review Auto-Generat ed Referral 11/13/2022 11/14/2023 1 1 [facility] for referral (narrative)* Diagnostic Procedure Only (Routine) - Pending Review Specialty Diagnoses / Procedures Referred By Contac t Referred To Contact [facility] Diagnoses Encounter for screening mammogram for breast cancer Procedures CHAZ SCREENING SCREENING MAMMOGRAPHY BI 2-VIEW BREAST INC Lianet Parra MD [address] [place] [address] [facility] [address] [place] [address] Referral ID Status Reason Start Date Expiration Date Visits Requested Visits Authorized [id number] Pending Review Auto-Generat ed Referral 3 05/03/2024 [address] [facility] Summary Purpose Family History No Family [...] CT SCAN,ABDOMENT AND PELVIS,W CONTRAST Shavon Nava, [employer] [address] [place] [phone] Referral ID Status Reason Start Date Expiration Date Visits Re quested Visits Authorized [id number] Closed 02/22/2022 03/19/2023 1 1 Specialty Diagnoses / Procedures Referred By Morris mckeon Referred To Contact Diagnoses Desmoid Procedures CT CHEST WITH CONTRAST CHG DIAGNOSTIC COMPUTED TOMOGRAPHY THORAX W/CONTRAST Shavon Nava, [employer] [address] [place] [address] Referral ID Status Reason Start Date Expiration Date V isits Requested Visits Authorized [id number] Auth Not Needed 10/18/2022 11/12/2023 1 1 Additional Source Comments Source Comments (unrecognize d section and content) In the event this informatio n is protected by the Federal Confidentiality of Alcohol and Drug Abuse Patient Records regulations: The Federal rules restrict any use of the information to criminally investigate or prosecute any alcohol or drug abuse patient.[facility] the event this information is protected by the Federal Confidentiality of Alcohol and Drug Abuse Patient Records regulations: The Federal rules restrict any use of the information to criminally investigate or prosecute any alcohol or drug abuse patient.[facility] the event this information is protected by the Federal Confidentiality of Alcohol and Drug Abuse Patient Records regulations: The Federal rules restrict any use of the information to criminally investigate or prosecute any alcohol or drug abuse patient.[facility] the event this information is protected by the Federal Confidentiality of Alcohol and Drug Abuse Patient Records regulations: The Federal rules restrict any use of the information to criminally investigate or prosecute any alcohol or drug abuse patient.[facility] the event this information is protected by the Federal Confidentiality of Alcohol and Drug Abuse Patient Records regulations: The Federal rules restrict any use of the information to criminally investigate or prosecute any alcohol or drug abuse patient.[facility] the event this information is protected by the Federal Confidentiality of Alcohol and Drug Abuse Patient Records regulations: The Federal rules restrict any use of the information to criminally investigate or prosecute any alcohol or drug abuse patient.[facility] the event this information is protected by the Federal Confidentiality of Alcohol and Drug Abuse Patient Records regulations: The Federal rules restrict any use of the information to criminally investigate or prosecute any alcohol or drug abuse patient.[facility] the event this information is protected by the Federal Confidentiality of Alcohol and Drug Abuse Patient Records regulations: The Federal rules restrict any use of the information to criminally investigate or prosecute any alcohol or drug abuse patient.[facility] the event this information is protected by the Federal Confidentiality of Alcohol and Drug Abuse Patient Records regulations: The Federal rules restrict any use of the information to criminally investigate or prosecute any alcohol or drug abuse patient.[facility] the event this information is protected by the Federal Confidentiality of Alcohol and Drug Abuse Patient Records regulations: The Federal rules restrict any use of the information to criminally investigate or prosecute any alcohol or drug abuse patient.[facility] the event this information is protected by the Federal Confidentiality of Alcohol and Drug Abuse Patient Records regulations: The Federal rules restrict any use of the information to criminally investigate or prosecute any alcohol or drug abuse patient.[facility] the event this information is protected by the Federal Confidentiality of Alcohol and Drug Abuse Patient Records regulations: The Federal rules restrict any use of the information to criminally investigate or prosecute any alcohol or drug abuse patient.[facility] the event this information is protected by the Federal Confidentiality of Alcohol and Drug Abuse Patient Records regulations: The Federal rules restrict any use of the information to criminally investigate or prosecute any alcohol or drug abuse patient.[facility] the event this information is protected by the Federal Confidentiality of Alcohol and Drug Abuse Patient Records regulations: The Federal rules restrict any use of the information to criminally investigate or prosecute any alcohol or drug abuse patient.[facility] the event this information is protected by the Federal Confidentiality of Alcohol and Drug Abuse Patient Records regulations: The Federal rules restrict any use of the information to criminally investigate or prosecute any alcohol or drug abuse patient.[facility] the event this information is protected by the Federal Confidentiality of Alcohol and Drug Abuse Patient Records regulations: The Federal rules restrict any use of the information to criminally investigate or prosecute any alcohol or drug abuse patient.[facility] the event this information is protected by the Federal Confidentiality of Alcohol and Drug Abuse Patient Records regulations: The Federal rules restrict any use of the information to criminally investigate or prosecute any alcohol or drug abuse patient.[facility] the event this information is protected by the Federal Confidentiality of Alcohol and Drug Abuse Patient Records regulations: The Federal rules restrict any use of the information to criminally investigate or prosecute any alcohol or drug abuse patient.[facility] the event this information is protected by the Federal Confidentiality of Alcohol and Drug Abuse Patient Records regulations: The Federal rules restrict any use of the information to criminally investigate or prosecute any alcohol or drug abuse patient.[facility] the event this information is protected by the Federal Confidentiality of Alcohol and Drug Abuse Patient Records regulations: The Federal rules restrict any use of the information to criminally investigate or prosecute any alcohol or drug abuse patient.[facility] the event this information is protected by the Federal Confidentiality of Alcohol and Drug Abuse Patient Records regulations: The Federal rules restrict any use of the information to criminally investigate or prosecute any alcohol or drug abuse patient.[facility] the event this information is protected by the Federal Confidentiality of Alcohol and Drug Abuse Patient Records regulations: The Federal rules restrict any use of the information to criminally investigate or prosecute any alcohol or drug abuse patient.[facility] the event this information is protected by the Federal Confidentiality of Alcohol and Drug Abuse Patient Records regulations: The Federal rules restrict any use of the information to criminally investigate or prosecute any alcohol or drug abuse patient.[facility] the event this information is protected by the Federal Confidentiality of Alcohol and Drug Abuse Patient Records regulations: The Federal rules restrict any use of the information to criminally investigate or prosecute any alcohol or drug abuse patient.[facility] Reason for Visit (unrecogniz ed section [...] SCAN,ABDOMENT AND PELVIS,W CONTRAST Shavon Nava C, [employer] [address] [place] [address] Referral ID Status Reason Start Date Expiration Date V isits Requested Visits Authorized [id number] Auth Not Needed 02/22/2022 03/19/2023 1 1 Reason Comments Thyroid Cancer Reason Comments Thyroid Problem Specialty Diagnoses / Procedures Referred By Contac t Referred To Contact Endocrinology / ENDOCRINOLOGY Diagnoses Thyroid cancer (HCC) neck ultrasound for thyroid Cancer *per [facility] Procedures US SOFT TISSUE HEAD & NECK REAL TIME IMGE DOCM THYROID BIOPSY/ULTRASOUND Darian Pruett MD [address] [place] [address] Darian Pruett MD [address] [place] [address] Referral ID Status Reason Start Date Expiration Date Visits Re quested Visits Authorized [id number] Closed 06/13/2022 05/06/2023 1 1 Referral ID Status Reason Start Date Expiration Date Visits Re quested Visits Authorized [id number] Closed 02/22/2022 03/19/2023 1 1 Reason Comments [...] NEW HIGH MDM 60-74 MINUTES Julio Avalos APRN.DIRECTOR OF [employer] [address] [place] [address] Referral ID Status Reason Start Date Expiration Date Visits Requested Visits Authorized [id number] Pending Review PCP Requested Referral 10/04/2022 10/04/2023 1 1 Reason Comments Medication Clarification Reason Comments 02/09/2023 colon/egd ruano ' Care Teams (unrecognized sec tion and content) Hydramatic Mechanic Relationship Specialty Start Date End Date Lianet Mckeon MD [address] [place] [address] PCP - General 11/04/14 Odilia Peres (Rn), RN [address] [place] [address] Specialty Manager Surgical General Surgery 08/20/18 Hydramatic Mechanic Relationship Specialty Start Date End Date Lianet Mckeon MD [address] [place] [address] PCP - General 11/04/14 Odilia Peres (Rn), RN [address] [place], [place] [phone] Specialty Manager Surgical General Surgery 08/20/18 Hydramatic Mechanic Relationship Specialty Start Date End Date Lianet Mckeon MD [address] [place] [address] PCP - General 11/04/14 Odilia Peres (Rn), RN [address] [place], [place] [phone] Specialty Manager Surgical General Surgery 08/20/18 Hydramatic Mechanic Relationship Specialty Start Date End Date Lianet Mckeon MD [address] [place] [address] PCP - General 11/04/14 Odilia Peres (Rn), RN [address] [place], [place] [phone] Specialty Manager Surgical General Surgery 08/20/18 Hydramatic Mechanic Relationship Specialty Start Date End Date Lianet Mckeon MD [address] [place] [address] PCP - General 11/04/14 Odilia Peres (Rn), RN [address] [place] [address] Specialty Manager Surgical General Surgery 08/20/18 Hydramatic Mechanic Relationship Specialty Start Date End Date Lianet Mckeon MD [address] [place] [address] PCP - General 11/04/14 Odilia Peres (Rn), RN [address] [place] [address] Specialty Manager Surgical General Surgery 08/20/18 Hydramatic Mechanic Relationship Specialty Start Date End Date Lianet Mckeon MD [address] [place] [address] PCP - General 11/04/14 Odilia Peres (Rn), RN [address] [place], [place] [phone] Specialty Manager Surgical General Surgery 08/20/18 Hydramatic Mechanic Relationship Specialty Start Date End Date Lianet Mckeon MD [address] [place] [address] PCP - General 11/04/14 Odilia Peres (Rn), RN [address] [place], [place] [phone] Specialty Manager Surgical General Surgery 08/20/18 Hydramatic Mechanic Relationship Specialty Start Date End Date Lianet Mckeon MD [address] [place] [address] PCP - General 11/04/14 Odilia Peres (Rn), RN [address] [place], [place] [phone] Specialty Manager Surgical General Surgery 08/20/18 Hydramatic Mechanic Relationship Specialty Start Date End Date Lianet Mckeon MD PCP - General Internal Medicine 09/09/14 Pietro Tapia MD [address] [facility] [address] [place] [phone] Surgeon Plastic Surgery 12/08/14 To Chamorro MD Surgeon Thoracic Surgery 12/08/14 Johnny Joe MD, PhD [address] [place] [phone] Surgeon Surgical Oncology 12/08/14 Hydramatic Mechanic Relationship Specialty Start Date End Date Lianet Mckeon MD [address] [place] [address] PCP - General 11/04/14 Odilia Peres (Rn), RN [address] [place], [place] [phone] Specialty Manager Surgical General Surgery 08/20/18 Hydramatic Mechanic Relationship Specialty Start Date End Date Lianet Mckeon MD [address] [place] [address] PCP - General 11/04/14 Odilia Peres (Rn), RN [address] [place] [address] Specialty Manager Surgical General Surgery 08/20/18 Hydramatic Mechanic Relationship Specialty Start Date End Date Lianet Mckeon MD PCP - General Internal Medicine 09/09/14 Pietro Tapia MD [address] [facility] [address] [place] [address] Surgeon Plastic Surgery 12/08/14 To Chamorro MD Surgeon Thoracic Surgery 12/08/14 Johnny Joe MD, PhD [address] [place] [phone] Surgeon Surgical Oncology 12/08/14 Hydramatic Mechanic Relationship Specialty Start Date End Date Lianet Mckeon MD [address] [place] [address] PCP - General 11/04/14 Odilia Peres (Rn), RN [address] [place] [address] Specialty Manager Surgical General Surgery 08/20/18 Hydramatic Mechanic Relationship Specialty Start Date End Date Lianet Mckeon MD [address] [place], [place] [id number] PCP - General 11/04/14 Odilia Peres (Rn), RN [address] [place] [address] Specialty Manager Surgical General Surgery 08/20/18 Hydramatic Mechanic Relationship Specialty Start Date End Date Lianet Mckeon MD PCP - General Internal Medicine 09/09/14 Pietro Tapia MD [address] [facility] [address] [place] [phone] Surgeon Plastic Surgery 12/08/14 To Chamorro MD [address] [place] [address] [place] [phone] Surgeon Thoracic Surgery 12/08/14 Johnny Joe MD, PhD [address] [place] [address] Surgeon Surgical Oncology 12/08/14 Hydramatic Mechanic Relationship Specialty [place] [address] [place] [address] PCP - General 11/04/14 Odilia Peres (Rn), RN [address] [place], [place] [phone] Specialty Manager Surgical General Surgery 08/20/18 Hydramatic Mechanic Relationship Specialty Start Date End Date Lianet Mckeon MD [address] [place] [address] PCP - General 11/04/14 Odilia Peres (Rn), RN [address] [place], [place] [phone] Specialty Manager Surgical General Surgery 08/20/18 Hydramatic Mechanic Relationship Specialty Start Date End Date Lianet Mcekon MD [address] [place] [address] PCP - General 11/04/14 Odilia Peres (Rn), RN [address] [place] [address] Specialty Manager Surgical General Surgery 08/20/18 Hydramatic Mechanic Relationship Specialty Start Date End Date Lianet Mckeon MD [address] [place] [address] PCP - General 11/04/14 Odilia Peres (Rn), RN [address] [place] [address] Specialty Manager Surgical General Surgery 08/20/18 Hydramatic Mechanic Relationship Specialty Start Date End Date Lianet Mckeon MD [address] [place] [address] PCP - General 11/04/14 Odilia Peres (Rn), [place] [id number] [place] [address] Specialty Manager Surgical General Surgery 08/20/18 Hydramatic Mechanic Relationship Specialty Start Date End Date Lianet Mckeon MD [address] [place] [address] PCP - General 11/04/14 Odilia Pe[place] ([place] [address] [place] [phone] Specialty Manager Surgical General Surgery 08/20/18 Hydramatic Mechanic Relationship Specialty Start Date End Date Lianet Mckeon MD [address] [place] [address] PCP - General 11/04/14 Odilia Pe[place] [address] [place] [phone] Specialty Manager Surgical General Surgery 08/20/18 INFORMATION SOURCE (unrecogn ized section and content) DATE CREATED AUTHOR AUTHOR'S ORGANIZ ATION 10/27/2022 [facility] DATE CREATED AUTHOR AUTHOR'S ORGANIZ ATION 04/10/2023 [facility] DATE CREATED AUTHOR AUTHOR'S ORGANIZ ATION 04/21/2023 [facility] DATE CREATED AUTHOR AUTHOR'S ORGANIZ ATION 06/06/2023 [facility] FOR RECORDS PERTAINING TO PATIENTS WHO ARE [...] BE BASED ON THE PRIMARY CLINICAL RECORDS. [employer] provides no warranty or guarantee of the accuracy or completeness of information in this document.
== END | disposition home or self-care (01) ==
LOC: US 10:23
PROVIDERS: PCP Internal Medicine; Referring Provider Obstetrics & Gynecology; Visit Provider Obstetrics & Gynecology
DX: O24.419 Gestational diabetes mellitus in pregnancy, unspecified control (principal); Z3A.36 36 weeks gestation of pregnancy
CPT/HCPCS: 76819

== ENCOUNTER 2023-06-29 11:50 | Outpatient (CLI) | payer MEDICAID, SELFPAY ==
[2023-06-29] VITALS (77 sets, daily range): BP systolic 119–148; BP diastolic 60–78; PULSE 82–107; RESP 18–20; TEMP 36.2–37; O2SAT 94–99; BMI 52.2
--- NOTE | 2023-06-29 12:30 | US_ITS ---
STUDY: OBSTETRICAL ULTRASOUND - BIOPHYSICAL PROFILE REASON FOR EXAM: Female, 43 years old Pneumonia LMP: October 16, 2022. PRIOR ULTRASOUND: Comparison is made with prior study dated June 27, 2023. TECHNIQUE: Transabdominal TECHNICAL QUALITY: Adequate. FINDINGS: There is a single intrauterine fetus. The fetus is in a transverse lie with the head on the maternal right side. There is demonstrated cardiac activity with a heart rate of 1:30 bpm. There is increased amniotic fluid consistent with polyhydramnios. The largest amniotic fluid pocket measures 10.9 cm. The amniotic fluid index (PARTH) is 26.3 cm. The placenta is posterior in location and is not low lying. There are Grade 2 placental changes. Age by LMP: 36 weeks, 4 days. YANNICK by LMP: July 23, 2019. age by prior US: 36 weeks, 4 days. YANNICK by prior US: July 23, 2023. BIOPHYSICAL PROFILE: Breathing Movements (FBM): 2 Gross Body Movements (GBM): 2 Tone (FT): 2 Amniotic Fluid Volume (AFV): 2 TOTAL SCORE: / 8 US/Biophysical Prof W/O Non Stres IMPRESSION: Normal biophysical profile of 12/12. Electronically Signed: Warren Nguyen MD at 15:08 EST ,
--- NOTE | 2023-06-29 13:00 | RAD_ITS ---
INDICATION: pneumonia EXAMINATION/TECHNIQUE: X-RAY - XR Chest 2 Views COMPARISON: No relevant prior comparison study available FINDINGS: LINES/DEVICES: None. LUNGS: Hypoventilatory changes in the right lower lung. No focal infiltrate is seen. No evidence of pleural effusions. MEDIASTINUM AND CARDIOVASCULAR STRUCTURES: Cardiac silhouette not enlarged. Central airways and mediastinal contour are unremarkable. BONES AND SOFT TISSUES: Unremarkable. RAD/Chest PA and Lateral IMPRESSION: No radiographic evidence of acute cardiopulmonary disease. Electronically Signed: Nikunj Dobson MD at 14:42 EST ,
--- NOTE | 2023-06-29 13:16 | CON.PCM.HO_ITS ---
Assessment & Plan Assessment/Plan (1) Pneumonia: QUALIFIERS: Pneumonia type: due to unspecified organism Laterality: bilateral Lung location: lower lobe of lung Qualified Code(s): J18.9 - Pneumonia, unspecified organism PLAN: Plan This is 43-year-old female, 37-week being admitted for further evaluation and management of right lower lobe pneumonia. 1. Right lower lobe pneumonia affecting third term of : Patient is being admitted under Dr. Tinoco. Pneumonia workup including blood cultures x 2, sputum culture, urinary antigens and MRSA nasal screen. Started on IV antibiotics ceftriaxone and Zithromax. Patient is being managed on bronchodilator as needed for shortness of breath, Mucinex?DM, incentive spirometry and Pep. Patient denies history of chronic smoking. Denies history of chronic lung disease. 2. Persistent tachycardia: Patient is stated she has tachycardia which is persistent sometimes even at rest but get worse on exertion even before she had flu and pneumonia. She has appointment to see photovoltaic subcontractor as an outpatient. Her current heart rate is 80 to 90/min. Monitor. 3. 37-week : Patient on ultrasound biophysical monitoring. Management as per attending Dr. Tinoco. HPI Consult Data Date of Consult: 06/29/23 HPI Narrative Reason for Consultation: Pneumonialike symptoms HPI Narrative: DIEGO DEL TORO, is a 43 F 37-week is being admitted by Dr. Miller for having symptoms of cough, shortness of breath fever ongoing for about 10-12 days. She stated that she was having cough is productive fever and was diagno sed with flu and completed 5 days of Tamiflu 5 days ago. She further said during Tamiflu she felt better in regards to cough and shortness of breath but got worse after she completed it with increasing sputum production greenish- yellow, intermittent but every day fever as high as 102 Fahrenheit that she measured 5 6 days ago and severe cough. Her cough is nonstop that causes her chest and abdominal wall soreness. She had a schedule appoint with Dr. Tinoco today and chest x-ray PA and lateral done which is not officially reported. Chest x-ray PA and lateral individually reviewed and shows right lower lobe infiltrate. She is being admitted for further treatment. She had last CT chest with contrast in September 2009 seems to rule out PE but was suboptimal. [facility] Medical History Abdominal hernia Abnormal uterine bleeding Acute maxillary sinusitis, unspecified Aggressive fibromatosis delivery delivered Desmoid tumor Encounter for fertility testing Exposure to COVID-19 virus Nasal congestion Thyroid cancer Thyroid disease Vaginitis Home Medications levothyroxine 175 mcg tablet 175 mcg PO DAILY 04/22/20 [History Last Taken Unknown] multivitamin no.47-iron fum 27 mg-folate no.1 1 mg-dha 300 mg capsule (PNV-DHA) cap PO 12/20/22 [History Last Taken Unknown] blood-glucose meter #1 ea 02/05/23 [Rx Last Taken Unknown] miscellaneous medical supply See Rx Instructions miscellaneous .COMPLEX abdominal hernia support #1 ea 03/20/23 [Rx Last Taken Unknown] blood sugar diagnostic (Blood Glucose Test strips) #120 ea 05/02/23 [Rx Last Taken Unknown] docusate sodium 50 mg capsule (Colace Clear) 50 mg PO DAILY PRN constipation #60 caps 05/02/23 [Rx Last Taken Unknown] enoxaparin 40 mg/0.4 mL subcutaneous syringe (Lovenox) 40 mg (0.4 mL) subcut DAILY 30 days #4 mL 05/02/23 [Rx Last Taken Unknown] ferrous sulfate 137 mg (45 mg iron) tablet,extended release (Slow Fe) See Rx Instructions PO DAILY #30 tabs 05/02/23 [Rx Last Taken Unknown] lancets #200 ea 05/02/23 [Rx Last Taken Unknown] insulin NPH isoph U-100 human 100 unit/mL (3 mL) subcutaneous pen (Humulin N NPH U-100 Insulin KwikPen) 35 unit (0.35 mL) subcut QPM #15 mL 06/08/23 [Rx Last Taken Unknown] metformin 1,000 mg tablet 1,000 mg PO BID #60 tabs 06/08/23 [Rx Last Taken Unknown] docusate sodium 100 mg capsule (Colace) 100 mg PO DAILY #30 caps 06/15/23 [Rx Last Taken Unknown] magnesium oxide 400 mg (241.3 mg magnesium) tablet 400 mg PO DAILY #30 tabs 06/21/23 [Rx Last Taken Unknown] amoxicillin 500 mg capsule 1,000 mg (2 x 500 mg) PO BID 10 days #40 caps 06/27/23 [Rx Last Taken Unknown] Allergy/AdvReac Type Severity Reaction Status Date / Time No Known Allergies Allergy Verified 06/29/23 12:46 Family History Aunt No problems noted. Surgical History H/O colonoscopy H/O excision of mass Hx laparoscopic cholecystectomy (~2011) S/P total thyroidectomy (~2009) Social History adopted: No household members: family number of children: 2 current occupational status: employed current occupation: [employer] pets and animals: Yes pets and animals: dog(s) history of recent travel: Yes ([place], [place]) out of state: Yes out of country: No sexually active: Yes Smoking Status: Never smoker second hand exposure: Yes alcohol intake: never substance use type: does not use well-balanced diet: daily or most days caffeine: No eating out: 1-3 times/week during the past year weight has: increased > 10 lbs what type of physical activity do you participate in: none deborah/buddhism: Pentecostalism seatbelt use: always do you feel safe at home: Yes additional social history: Significant other Antonio- [place] ROS ROS Narrative Constitutional: Reports fatigue and weakness. Fever present. HEENT: Reports systems reviewed and no addt'l complaints, except as documented Respiratory/Chest: Chest wall tightness/soreness from persistent cough. Increased shortness of breath over the last 10 to 12 days then described HPI CVS: Denies chest pressure/anginal-like symptoms. Gastrointestinal: Nausea. Denies coffee ground emesis, hematemesis or vomiting Genitourinary: 37-week . Third trimester. Denies burning urination or new urinary tract symptoms Musculoskeletal: Denies acute joint pain or limited range of motion. No acute injury Neurologic: Denies seizure-like symptoms. skin: No ulcer. No rash Endocrinology: Reports systems reviewed and no addt'l complaints, except as documented Hematologic/Lymphatic: Reports systems reviewed and no addt'l complaints, except as documented Rest 14 ROS are negative except as mentioned in HPI Charges/Coding Visit Charges Office Visits / Consults: 24688 IP Consult L4
[2023-06-29] MEDS: Albuterol 2.5 MG/3 ML VIAL.NEB. INHALATION (13:28)
[2023-06-29 14:03] LABS: Bedside Glucose 83 mg/dL (74-106)
[2023-06-29 15:03] LABS: Absolute Lymphocyte Count 2.14 X10^3/uL (0.83-4.51); Absolute Neutrophil Count 6.5 X10^3/uL (2.0-7.7); Basophil# 0.04 X10^3/uL; Basophil% 0.4 % (0-1); Eosinophil# 0.07 X10^3/uL; Eosinophils% 0.7 % (0-5); Hematocrit 32.9 % (37-47); Hemoglobin 10.7 g/dL (12.0-15.0); Lymphocyte # 2.14 X10^3/ul (0.83-4.51); Lymphocyte % 22.2 % (19-41); Mean Corp Hgb Conc 32.5 g/dL (32-36); Mean Corpuscular Hgb 27.5 pg (27.0-32.0); Mean Corpuscular Volume 84.6 fL (81-99); Mean Platelet Vol. 10.3 fl (6.2-12.0); Monocyte# 0.77 X10^3/uL; NRBC Flagged by Analyzer 0 % (0-5); Neutrophil # 6.49 X10^3/uL (2.7-7.7); Neutrophil % 67.5 % (47-70); Platelet Count 249 K/mm3 (150-450); RBC Distribution Width CV 14.6 % (11.6-14.6); RBC Distribution Width SD 44.9 fl (35.1-43.9); Red Blood Count 3.89 M/mm3 (4.2-5.4); White Blood Count 9.6 K/mm3 (4.4-11.0)
[2023-06-29] MEDS: Lactated Ringers 1,000 ML 15 ML IV (15:17)
[2023-06-29] MEDS: Ceftriaxone 2 GM in 0.9% Normal Saline (50mL MB+) 50 ML IV (15:19)
[2023-06-29 15:22] LABS: Uric Acid 3.9 mg/dL (2.6-6.0)
[2023-06-29 15:25] LABS: Protein, Urine (Random) 22.4 mg/dL (<11.9); Protein:Creat Ratio 317 mg/g CRE (0-200)
[2023-06-29] MEDS: guaiFENesin 1,200 MG Tablet 1200 MG PO ×2 (15:51→22:00)
[2023-06-29] MEDS: Azithromycin 500 MG in Dextrose 5%-Water (250mL Bag) 250 ML 250 MG IV (15:53)
[2023-06-29 16:10] LABS: M R Staph aureus DNA By PCR Negative (Negative); Probe Check PASS; Specimen Processing Control PASS
--- NOTE | 2023-06-29 16:51 | HP.PCM.OB_ITS ---
HPI - General HPI Narrative DIEGO DEL TORO, is a 43 y/o @ 36 weeks 4 days who presents to L&d with dyspnea upon exertion and recent diagnosis of pneumonia. Her pulse ox in the office was 91. Here on 1 liter of o2, it is 96 and 97%. She denies loss of fluid, vaginal bleeding, or dec fm. Maternal Data Information YANNICK Calculator Estimated Delivery Date Method Current WG Current Estimate 07/23/23 LMP (Certain) 36w 4d Other Estimates 07/31/23 Ultrasound #1 35w 3d 07/20/23 Ultrasound #2 37w 0d PFSH PFSH Medical History Abdominal hernia Abnormal uterine bleeding Acute maxillary sinusitis, unspecified Aggressive fibromatosis delivery delivered Desmoid tumor Encounter for fertility testing Exposure to COVID-19 virus Nasal congestion Thyroid cancer Thyroid disease Vaginitis Home Medications levothyroxine 175 mcg tablet 175 mcg PO DAILY 04/22/20 [History Last Taken 06/28/23 06:00] multivitamin no.47-iron fum 27 mg-folate no.1 1 mg-dha 300 mg capsule (PNV-DHA) cap PO 12/20/22 [History Last Taken 06/28/23 18:00] blood-glucose meter #1 ea 02/05/23 [Rx Last Taken Unknown] miscellaneous medical supply See Rx Instructions miscellaneous .COMPLEX abdominal hernia support #1 ea 03/20/23 [Rx Last Taken Unknown] blood sugar diagnostic (Blood Glucose Test strips) #120 ea 05/02/23 [Rx Last Taken Unknown] enoxaparin 40 mg/0.4 mL subcutaneous syringe (Lovenox) 40 mg (0.4 mL) subcut DAILY 30 days #4 mL 05/02/23 [Rx Last Taken 06/28/23 21:00 40 mg] ferrous sulfate 137 mg (45 mg iron) tablet,extended release (Slow Fe) See Rx Instructions PO DAILY #30 tabs 05/02/23 [Rx Last Taken Unknown] lancets #200 ea 05/02/23 [Rx Last Taken Unknown] insulin NPH isoph U-100 human 100 unit/mL (3 mL) subcutaneous pen (Humulin N NPH U-100 Insulin KwikPen) 35 unit (0.35 mL) subcut QPM #15 mL 06/08/23 [Rx Last Taken 06/28/23 22:00 35 units] docusate sodium 100 mg capsule (Colace) 100 mg PO DAILY #30 caps 06/15/23 [Rx Last Taken Unknown] magnesium oxide 400 mg (241.3 mg magnesium) tablet 400 mg PO DAILY #30 tabs 06/21/23 [Rx Last Taken Unknown] amoxicillin 500 mg capsule 1,000 mg (2 x 500 mg) PO BID 10 days #40 caps 06/27/23 [Rx Last Taken 06/29/23 08:00 1,000 mg] Allergy/AdvReac Type Severity Reaction Status Date / Time No Known Allergies Allergy Verified 06/29/23 12:46 Family History Aunt No problems noted. Surgical History H/O colonoscopy H/O excision of mass Hx laparoscopic cholecystectomy (~2011) S/P total thyroidectomy (~2009) Social History adopted: No household members: family number of children: 2 current occupational status: employed current occupation: [employer] pets and animals: Yes pets and animals: dog(s) history of recent travel: Yes ([place], [place]) out of state: Yes out of country: No sexually active: Yes Smoking Status: Never smoker second hand exposure: Yes alcohol intake: never substance use type: does not use well-balanced diet: daily or most days caffeine: No eating out: 1-3 times/week during the past year weight has: increased > 10 lbs what type of physical activity do you participate in: none deborah/oriental orthodox: Confucianist seatbelt use: always do you feel safe at home: Yes additional social history: Significant other Antonio- Driscoll History 8 Elective abortions Hx Para 2 Spontaneous abortions 5 Hx # Term Pregnancies Ectopic pregnancies Hx # Pregnancies Multiple births # of living children 2 Past Pregnancies Del. Date Name GA/Weeks Outcome Route Bth Weight Infant Gen Labor Lgth Anesthesia Del Locatn Provider FOB Unknown 2004- [facility] 40 live - full term 10.4 Male 12hours e pidural [facility] Dr. Morrison Unknown 2009-[facility] 38 live - full term 9.7 Male spinal [facility] Dr. Shanice Santos Unknown 2019 demise -[facility] Delivery Date: Last Updated by: Franca Cavazos 3rd laceration, large amount of blood loss; Delivery Date: Last Updated by: Franca Cavazos SOB post C/S- echo done; very anemic; found thyroid CA; hospitalized post for PE- but tests negative Visit Details Expected Delivery Route/Plan for rpt section Plans Covid status: [] Flu vaccine: declines Tdap vaccine: [] Rhogam: ma LARC form signed: [] Problem list reviewed and updated with the most current plan of care details and appropriate orders placed. Relevant counseling for the gestational age provided. Continue routine care and follow up unless otherwise noted in visit notes/problem list details OB Flowsheet Initial Weight: 306 lb Date -?-?-?-?-?-?-?-?-?-?-?-?- EGA Weight BP Urine Prot -?-?-?-?-?-?-?-?-?-?-?-?- Glucose FHR FuHt Pres Dilation -?-?-?-?-?-?-?-?-?-?-?-?- Effaced St Visit Note 12/20/22 -?-?-?-?-?-?-?-?-?-?-?-?- 9w 2d 306 lb (+0 oz) 137/84 -?-?-?-?-?-?-?-?-?-?-?-?- 168 -?-?-?-?-?-?-?-?-?-?-?-?- JV- CRL consiste nt with previous ultrasound. pt reassured. wants NIPT but will be returning weekly for heart tones until 11 weeks when we do her labs. 12/26/22 -?-?-?-?-?-?-?-?-?-?-?-?- 10w 1d 304 lb 6 oz (-1 lb 10 oz) 136/82 -?-?-?-?-?-?-?-?-?-?-?-?- 136 -?-?-?-?-?-?-?-?-?-?-?-?- KW- patient had some spotting thurs that resolved with rest. FHT with US today. MFM consult per recommendation. 01/02/23 -?-?-?-?-?-?-?-?-?-?-?-?- 11w 1d 305 lb 2 oz (-14 oz) 133/80 Negative -?-?-?-?-?-?-?-?-?-?-?-?- Negative 160 -?-?-?-?-?-?-?-?-?-?-?-?- KW-no vb. some c ramping noted. Endo following TSH levels-stable 01/09/23 -?-?-?-?-?-?-?-?-?-?-?-?- 12w 1d 307 lb (+16 oz) 136/70 Negative -?-?-?-?-?-?-?-?-?-?-?-?- Negative 170 -?-?-?-?-?-?-?-?-?-?-?--?- JV- pt is experi encing sharp vaginal pains from time to time. CRL now more consistent with LMP. heart tones recorded and patient reassured. 01/16/23 -?-?-?-?-?-?-?-?-?--?-?-?- 13w 1d 307 lb 6 oz (+1 lb 6 oz) 124/86 Negative -?-?-?-?-?-?-?-?-?-?-?-?- Negative 165 -?-?-?-?-?-?-?-?-?-?-?-?- KW-no vb/crampin g. NIPT reviewed. 01/24/23 -?-?-?-?-?-?-?-?-?-?-?-?- 14w 2d 304 lb 8 oz (-1 lb 8 oz) 124/64 Negative -?-?-?-?-?--?-?-?-?-?-?-?- Negative 165 -?-?-?-?-?-?-?-?-?-?-?-?- JV- CRL consiste nt with established ga, no complaints. failed 1 hr. 3 hr ordered. has appt with MFM next week. 02/05/23 -?-?-?-?-?-?-?-?-?-?-?-?- 16w 0d 307 lb 2 oz (+1 lb 2 oz) 126/68 Negative -?-?-?-?-?-?-?-?-?-?-?-?- Negative 160 -?-?-?-?-?-?-?-?-?-?-?-?- MH-No VB. Some c ramping. Instruct on glucose testing qid, supplies sent. Bedside US to confirm FHT 02/16/23 -?-?-?-?-?-?-?-?-?-?-?-?- 17w 4d 305 lb (-16 oz) 132/79 Negative -?-?-?-?-?-?-?-?-?-?-?-?- Negative 160 -?-?-?-?-?-?-?-?-?-?-?-?- KW-no vb/lof. po ssible flutters felt. having intermittent cramping. Anatomy US next sunday. 02/28/23 -?-?-?-?-?-?-?-?-?-?-?-?- 19w 2d 308 lb 2 oz (+2 lb 2 oz) 129/82 Negative -?-?-?-?-?-?-?-?-?-?-?-?- Negative 155 -?-?-?-?-?-?-?-?-?-?-?-?- JV- has anatomy scan scheduled coming up. MFM readjusted her lovenox to [address] Duarte looking into it and may change again. more up date to come 03/20/23 -?-?-?-?-?-?-?-?-?-?-?-?- 22w 1d 310 lb (+4 lb) 112/72 Negative -?-?-?-?-?-?-?-?-?-?-?-?- Negative 140 -?-?-?-?-?-?-?-?-?-?-?-?- KW- no vb/lof/re gular ctx. good fm. had rest of anatomy scan yesterday and the y were unable to see all chambers of the heart. echo ordered for sunday. having increased fatigue and EM at times. TSH orders placed. To do them and cbc today. then repeat labs in 3rd trimester. BS reviewed and under parameters. Requested refill on Lovenox and abdominal binder for hernia. growth US ordered for fibroid uterus. 04/02/23 -?-?-?-?-?-?-?-?-?-?-?-?- 24w 0d 314 lb 8 oz (+8 lb 8 oz) 126/77 Negative -?-?-?-?-?-?-?-?-?-?-?-?- Negative 141 24 -?-?-?-?-?-?-?-?-?-?-?-?- JV- pt has some tachycardia at rest. was supposed to get a stress test for chest pain with exercise prior to . will consult cardiology. her baby's echo was normal last week. 04/18/23 -?-?-?-?--?-?-?-?-?-?-?-?- 26w 2d 319 lb 2 oz (+13 lb 2 oz) 135/64 Negative -?-?-?-?-?-?-?-?-?-?-?-?- Negative 150 -?-?-?-?-?-?-?-?-?-?-?-?- JV- pt would lik e referral to [facility]ology. planning ahead for 38 week rpt cs. no complaints. 05/02/23 -?-?-?-?-?-?-?-?-?-?-?-?- 28w 2d 321 lb (+15 lb) 128/82 Negative -?-?-?-?-?-?-?-?-?-?-?-?- Negative 146 32 -?-?-?-?-?-?-?-?-?-?-?-?- MH-No Vb, LOF. E nc to bring BS readings each visit. States WNL. Next growth US w/MFM 05/08/23. Plans wkly BPP w MFM at 32 wk. Good FM. 05/18/23 -?-?-?-?-?-?-?-?-?-?-?-?- 30w 4d 322 lb 8 oz (+16 lb 8 oz) 141/85 -?-?-?-?-?-?-?-?-?-?-?-?- 140 38 -?-?-?-?-?-?-?-?-?-?-?-?- kw-no vb/crampin g. good fm. kick counts reviewed. tsh and cbc ordered for 3rd trimester. Fasting BS are starting to rise. kw-no vb/cramping. good fm. kick counts reviewed. tsh and cbc ordered for 3rd trimester. Fasting BS are starting to rise-discussed with JV. plan for Metformin 500 BID 05/31/23 -?-?-?-?-?-?-?-?-?-?-?-?- 32w 3d 323 lb 8 oz (+17 lb 8 oz) 137/80 Negative -?-?-?-?-?-?-?-?-?-?-?-?- Negative 145 -?-?-?-?-?-?-?-?-?-?-?-?- SM- no vb lof go od fm no regular ctx reviewed BS and increased metformin, if not controlled by next week recommend insulin. discussed recommend twice weekly testing with once weekly bpp and once wekely nst- wants bpp at [facility]. growth US at [facility]. 06/08/23 -?-?-?-?-?-?-?-?-?-?-?-?- 33w 4d 327 lb (+21 lb) 134/80 Negative -?-?-?-?-?-?-?-?-?-?-?-?- Negative 140 -?-?-?-?-?-?-?-?-?-?-?-?- JV- fasting gluc ose levels as high as 144. starting NPH at night. growth scan put her at 99th% for AC, indicating likely uncontrolled DM> 06/15/23 -?-?-?-?-?-?-?-?-?-?-?-?- 34w 4d 323 lb (+17 lb) 129/84 Negative -?-?-?-?-?-?-?-?-?-?-?-?- Negative 140 -?-?-?-?-?-?-?-?-?-?-?-?- JV- fasting kristin ls still 90-115 but has not been able to start insulin. will start this today. difficult doing nsts. will change BPP's to twice weekly (sunday and Sunday) 06/29/23 -?-?-?-?-?-?-?-?-?-?-?-?- 36w 4d 325 lb 2 oz (+19 lb 2 oz) 134/84 Negative -?-?-?-?-?-?-?-?-?-?-?-?- Negative 126 1 -?-?-?-?-?-?-?-?-?-?-?-?- JV- pt is not fe eling well. she was diagnosed with pneumonia and is taking amoxicillin. her resting pulse ox is 91 and pulse is 106. Bp is not low, but she appears actively laboring to breath. Sending to l&D for albuterol treatment, chest x-ray and bpp. ROS Constitutional Constitutional: Denies change in weight, fatigue, fever(s), headache(s), poor appetite or weakness Eyes Eyes: Denies blurry vision, change in vision, seeing flashes or spots in vision ENT HEENT: Denies dizziness, headache(s), loss taste/smell or sore throat Cardiovascular Cardiovascular: Denies chest pain, dizziness, dyspnea, irregular heart rhythm, leg edema, palpitations, rapid heart rate or vomiting Respiratory/Chest Respiratory/Chest: Denies chest tightness, cough, dyspnea or breast pain Gastrointestinal Gastrointestinal: Denies abdominal pain, anorexia, constipation, cramping, diarrhea, hemorrhoids, vomiting or weight changes Genitourinary Genitourinary: Denies dysuria, flank pain, genital lesions, genital pain, urinary frequency or urinary urgency Musculoskeletal Musculoskeletal: Denies back pain, difficulty walking, joint pain, limited range of motion, muscle cramps or numbness Integumentary Integumentary: Denies lesions or unusual bruising Neurologic Neurologic: Denies abnormal movements, abnormal speech, dizziness, numbness, seizure-like activity or syncope Psychiatric Psychiatric: Denies anxiety, behavioral changes, change in appetite, change in libido, cognitive impairment, confusion, depression, difficulty concentrating, hallucinations or suicidal thoughts Endocrine Endocrinology: Denies excessive sweating, polydipsia or polyuria Hematologic/Lymphatic Hematologic/Lymphatic: Denies easy bleeding, easy bruising or lymphadenopathy Allergic/Immunologic Allergic/Immunologic: Denies itchy eyes, lip swelling, seasonal rhinorrhea, rhinitis, throat swelling, tongue swelling, eczemia, wheezing or asthma Vital Signs Vital Signs Vital Signs: 06/29/23 13:16 06/29/23 13:16 06/29/23 13:20 Temperature Temperature Source Pulse Rate 96 91 Respiratory Rate Blood Pressure BP Systolic BP Diastolic Pulse Ox 96 Oxygen Delivery Method Oxygen Flow Rate (L/min) 06/29/23 13:20 06/29/23 13:21 06/29/23 13:21 Temperature Temperature Source Pulse Rate 102 H Respiratory Rate Blood Pressure BP Systolic BP Diastolic Pulse Ox 94 94 Oxygen Delivery Method Oxygen Flow Rate (L/min) 06/29/23 13:26 06/29/23 13:26 06/29/23 13:33 Temperature Temperature Source Pulse Rate 88 82 Respiratory Rate Blood Pressure BP Systolic BP Diastolic Pulse Ox 94 Oxygen Delivery Method Oxygen Flow Rate (L/min) 06/29/23 13:33 06/29/23 13:38 06/29/23 13:38 Temperature Temperature Source Pulse Rate 96 Respiratory Rate Blood Pressure BP Systolic BP Diastolic Pulse Ox 98 96 Oxygen Delivery Method Oxygen Flow Rate (L/min) 06/29/23 13:42 06/29/23 13:42 06/29/23 13:43 Temperature Temperature Source Pulse Rate 88 93 Respiratory Rate Blood Pressure BP Systolic BP Diastolic Pulse Ox 94 Oxygen Delivery Method Oxygen Flow Rate (L/min) 06/29/23 13:43 06/29/23 13:48 06/29/23 13:48 Temperature Temperature Source Pulse Rate 100 Respiratory Rate Blood Pressure BP Systolic BP Diastolic Pulse Ox 95 95 Oxygen Delivery Method Oxygen Flow Rate (L/min) 06/29/23 13:53 06/29/23 13:53 06/29/23 13:58 Temperature Temperature Source Pulse Rate 89 91 Respiratory Rate Blood Pressure BP Systolic BP Diastolic Pulse Ox 96 Oxygen Delivery Method Oxygen Flow Rate (L/min) 06/29/23 13:58 06/29/23 14:03 06/29/23 14:03 Temperature Temperature Source Pulse Rate 99 Respiratory Rate Blood Pressure BP Systolic BP Diastolic Pulse Ox 95 97 Oxygen Delivery Method Oxygen Flow Rate (L/min) 06/29/23 14:08 06/29/23 14:08 06/29/23 14:13 Temperature Temperature Source Pulse Rate 89 87 Respiratory Rate Blood Pressure BP Systolic BP Diastolic Pulse Ox 97 Oxygen Delivery Method Oxygen Flow Rate (L/min) 06/29/23 14:13 06/29/23 14:18 06/29/23 14:18 Temperature Temperature Source Pulse Rate 98 Respiratory Rate Blood Pressure BP Systolic BP Diastolic Pulse Ox 96 95 Oxygen Delivery Method Oxygen Flow Rate (L/min) 06/29/23 14:23 06/29/23 14:23 06/29/23 14:27 Temperature Temperature Source Pulse Rate 82 Respiratory Rate Blood Pressure 131/78 H BP Systolic 131 BP Diastolic 78 Pulse Ox 96 Oxygen Delivery Method Oxygen Flow Rate (L/min) 06/29/23 14:27 06/29/23 14:28 06/29/23 14:28 Temperature Temperature Source Pulse Rate 90 85 Respiratory Rate Blood Pressure BP Systolic BP Diastolic Pulse Ox 96 Oxygen Delivery Method Oxygen Flow Rate (L/min) 06/29/23 14:33 06/29/23 14:33 06/29/23 14:38 Temperature Temperature Source Pulse Rate 87 83 Respiratory Rate Blood Pressure BP Systolic BP Diastolic Pulse Ox 96 Oxygen Delivery Method Oxygen Flow Rate (L/min) 06/29/23 14:38 06/29/23 14:41 06/29/23 14:41 Temperature Temperature Source Pulse Rate 85 Respiratory Rate Blood Pressure BP Systolic BP Diastolic Pulse Ox 96 94 Oxygen Delivery Method Oxygen Flow Rate (L/min) 06/29/23 14:43 06/29/23 14:43 06/29/23 15:41 Temperature Temperature Source Pulse Rate 96 Respiratory Rate Blood Pressure 128/75 H BP Systolic 128 BP Diastolic 75 Pulse Ox 96 Oxygen Delivery Method Oxygen Flow Rate (L/min) 06/29/23 15:41 06/29/23 15:31 06/29/23 15:31 Temperature 97.1 F L Temperature Source Temporal Pulse Rate 91 Respiratory Rate Blood Pressure BP Systolic BP Diastolic Pulse Ox Oxygen Delivery Method Oxygen Flow Rate (L/min) 06/29/23 15:54 06/29/23 15:54 06/29/23 16:08 Temperature Temperature Source Pulse Rate 86 Respiratory Rate Blood Pressure 148/72 H 137/62 H BP Systolic 148 137 BP Diastolic 72 62 Pulse Ox Oxygen Delivery Method Oxygen Flow Rate (L/min) 06/29/23 16:08 06/29/23 13:25 06/29/23 13:25 Temperature Temperature Source Pulse Rate 92 95 Respiratory Rate 18 Blood Pressure BP Systolic BP Diastolic Pulse Ox 97 Oxygen Delivery Method Nasal Cannula Oxygen Flow Rate (L/min) 1 Weight Weight: 324 lb Body Mass Index (BMI) 52.2 Physical Exam Const alert and oriented x3 General Appearance: cooperative, anxious and diaphoretic HEENT normocephalic Face and Sinus: normal facial exam Eyes EOMs intact bilaterally and no scleral icterus General Eye: normal appearance of both eyes Neck full ROM and supple Lymph Lymphatic: no lymphadenopathy noted Chest Chest: abnormal inspection of the chest and symmetrical chest wall rise Resp normal respiratory effort Effort and Inspection: able to speak in complete sentences, labored, actively coughing productive and uses accessory muscles Auscultation: clear to auscultation bilaterally Cardio regular rate GI soft to palpation and non-tender Inspection: gravid Palpation: soft; Negative for tender external exam normal Back/Spine no CVA tenderness Extremity normal to inspection, full ROM and no clubbing, cyanosis or edema General Extremity: Negative for calf tenderness or edema Skin Lesions: no lesions Rashes: no rashes Psych mental status grossly normal Labs Labs Labs: Blood Type A POSITIVE Antibody Screen NEGATIVE Hct 32.9 % (37-47) L Hgb 10.7 g/dL (12.0-15.0) L Pap Smear Negative Obstetrics Ultrasound Syphilis Total Ab Non-reactive VZV IgG Antibody 1348 index (Immune >165) Rubella IgG Antibody Reactive (Nonreactive) Hep Bs Antigen Non-Reactive (Nonreactive) Hepatitis C Antibody Non-Reactive (Nonreactive) Chlamydia DNA (DEV) Negative (Negative) N.gonorrhoeae DNA (DEV) Negative (Negative) HIV 1&2 Antibody Non-Reactive (Nonreactive) Glucose 1 Hr 50 gm 176 mg/dL (70-140) H Miscellaneous Test Assessment & Plan (1) Mild pre-eclampsia: (2) Pneumonia affecting in third trimester: (3) Acute maxillary sinusitis, unspecified: (4) History of section: (5) Gestational diabetes mellitus in third trimester: COMMENT: increase to 1000mg BID. weekly nst, weekly BPP for twice weekly total testing due to chtn and gdm, if not controlled recommend insulin. (6) Polyhydramnios affecting : COMMENT: testing ordered (7) Large for gestational age fetus: COMMENT: discussed glucose control. (8) HTN in , chronic: COMMENT: no meds. Plans w/MFM:growth US Q4wk and wkly BPP at 32 wk. (9) UTI in : QUALIFIERS: Trimester: second trimester Qualified Code(s): O23.42 - Unspecified infection of urinary tract in , second trimester COMMENT: Rx macrobid. Repeat culture neg (10) Anemia affecting : QUALIFIERS: Trimester: second trimester Qualified Code(s): O99.012 - Anemia complicating , second trimester COMMENT: start iron (11) Fibroid uterus: QUALIFIERS: Uterine leiomyoma location: unspecified location Qualified Code(s): D25.9 - Leiomyoma of uterus, unspecified COMMENT: growth US q4 weeks 04/09:86%. (12) AMA (advanced maternal age) multigravida 35+: QUALIFIERS: Trimester: third trimester Qualified Code(s): O09.523 - Supervision of elderly multigravida, third trimester COMMENT: low risk NIPT. (13) Obesity: QUALIFIERS: Obesity type: unspecified obesity type Obesity classification: unspecified obesity classification Serious obesity comorbidity presence: without serious comorbidity Qualified Code(s): E66.9 - Obesity, unspecified COMMENT: testing planned due to other comorbidities. (14) Supervision of high-risk : QUALIFIERS: Trimester: second trimester Qualified Code(s): O09.92 - Supervision of high risk , unspecified, second trimester COMMENT: [id number], YANNICK 07/[birth year] boy Denys MEI [facility], [facility](20wk demise-Z[facility]am) Ju?- Antonio, /S 07-09-23 (15) : QUALIFIERS: Weeks of gestation: 36 weeks Qualified Code(s): Z3 A.36 - 36 weeks gestation of COMMENT: NIPT low risk, didn't do ntd screen, carrier testing. nl anatomy. (16) Hypothyroidism: QUALIFIERS: Hypothyroidism type: postoperative Qualified Code(s): E89.0 - Postprocedural hypothyroidism COMMENT: labs q trimester, repeat labs ordered 05/31 (17) History of miscarriage: COMMENT: history of 2 1st trimester losses (18) Second trimester : COMMENT: h/o 2nd trimester loss- it was determined at this time that she was positive for Factor V leiden def. (19) Infertility counseling: COMMENT: [facility] referral for managment, ovarian assessment report eggy supply fair 10, egg quality and age reduced and 40 (20) Factor 5 Leiden mutation, heterozygous: COMMENT: lovenox 40 daily per MFM; rpt lab as not confirmed but elevate Protein C on APL. 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 PLAN: Plan hospitalist consulted to assist in choice of antibiotics- zith + ceftriaxone, respiratory therapy consulted for albuterol inhaler pt is influenza a pos- status post one week of tamiflu treatment continue nasal canula o2 bpp 8/8 nst reactive cat 1 tracing plan to continue home insulin 20 units nph at bedtime and start checking fasting and 2hr pp levels pt now has proteinuria and slight elevated blood pressures. likely mild pre-ecl ampsia. plan for delivery at 37 weeks (sunday)
[2023-06-29] MEDS: Ipratropium/Albuterol Sulfate 3 ML AMPUL.NEB INHALATION (17:40)
[2023-06-29 19:41] LABS: ALB/GLOB Ratio 0.4 RATIO (0.9-2.4); AST(SGOT) 38 U/L (15-37); Alanine Aminotransfer ALT/SGPT 40 U/L (13-56); Alkaline Phosphatase 160 U/L (45-117); Anion Gap 9 (5-15); BUN 7 mg/dL (7-18); BUN/Creat Ratio 11.7 RATIO (10-20); Calcium,Total 9.3 mg/dL (8.5-10.1); Chloride 108 mmol/L (98-107); EST Glomerular Filtration Rate 117 mL/min (>60); Est Glom Filt Rate - Afr Amer 142 mL/min (>60); Estimated Creatinine Clearance 181.96 ml/min; Globulin 4.8 g/dL (2.2-4.2); Glucose 81 mg/dL (74-106); Potassium 3.7 mmol/L (3.5-5.1); Protein, Total 6.8 g/dL (6.4-8.2); Sodium Level 138 mmol/L (136-145)
[2023-06-29 20:46] LABS: Bedside Glucose 129 mg/dL (74-106)
[2023-06-29] MEDS: Insulin NPH Human 100 UNITS/ML PEN 20 UNITS SC (21:05)
[2023-06-29] MEDS: Acetaminophen 500 MG Tablet 1000 MG PO (22:01)
[2023-06-30] VITALS (303 sets, daily range): BP systolic 118–143; BP diastolic 60–71; PULSE 52–116; RESP 20; TEMP 36.8–37.1; O2SAT 82–99
[2023-06-30] MEDS: Levothyroxine 175 MCG Tablet PO (05:35)
[2023-06-30 06:19] LABS: Bedside Glucose 77 mg/dL (74-106)
[2023-06-30 09:24] LABS: Bedside Glucose 92 mg/dL (74-106)
[2023-06-30] MEDS: guaiFENesin 1,200 MG Tablet 1200 MG PO (10:33)
[2023-06-30] MEDS: Enoxaparin 40 MG/0.4 ML Syringe SC (10:33)
[2023-06-30] MEDS: Docusate Sodium 100 MG Capsule PO (10:33)
[2023-06-30] MEDS: Ceftriaxone 2 GM in 0.9% Normal Saline (50mL MB+) 50 ML IV (10:33)
[2023-06-30] MEDS: Azithromycin 500 MG in Dextrose 5%-Water (250mL Bag) 250 ML 250 MG IV (11:33)
--- NOTE | 2023-06-30 12:33 | PCM.PN.OB ---
Subjective Subjective pt is sitting up in bed and coughing vigorously. She was given option to walk around halls to test her pulse ox and states that she is too tired at the moment to move around. She denies chest pain, loss of fluid, vaginal bleeding, or decreased movement. No fevers or chills and has not been able to produce sputum for culture yet. Objective Data Objective Data Vital Signs: Vital Signs Temp Pulse Resp BP Pulse Ox O2 Del Method O2 Flow Rate 98.4 F 102 H 18 133/62 H 96 Nasal Cannula 1 06/30/23 09:00 06/30/23 12:29 06/29/23 21:00 06/30/23 09:05 06/30/23 12:29 06/29/23 21:00 06/29/23 21:00 Oxygen Flow Rate (L/min) 1 Oxygen Delivery Method Nasal Cannula Weight: 324 lb Body Mass Index (BMI) 52.2 Intake & Output: Intake and Output for Last 24 Hours 06/28/23 06/29/23 06/30/23 23:59 23:59 23:59 Intake Total 354.5 / 354.5 50 / 50 Balance 354.5 / 354.5 50 / 50 Lab / Micro Data 06/29/23 14:33 06/29/23 14:33 Labs: Laboratory Results - last 24 hr 06/29/23 13:39: POC Glucose 83 06/29/23 14:33: WBC 9.6, RBC 3.89 L, Hgb 10.7 L, Hct 32.9 L, MCV 84.6, MCH 27.5, MCHC 32.5, RDW Std Deviation 44.9 H, RDW Coeff of Breanne 14.6, Plt Count 249, MPV 10.3, Immature Gran % (Auto) 1.200 H, Neut % (Auto) 67.5, Lymph % (Auto) 22.2, [place] % (Auto) 8.0, Eos % (Auto) 0.7, Baso % (Auto) 0.4, Absolute Neuts (auto) 6.5, Absolute Lymphs (auto) 2.14, Nucleated RBC % 0, Sodium 138, Potassium 3.7, Chloride 108 H, Carbon Dioxide 21.0, Anion Gap 9, BUN 7, Creatinine 0.60, Estim Creat Clear Calc 181.96, Est GFR (MDRD) Af Amer 142, Est GFR (MDRD) Non-Af 117, BUN/Creatinine Ratio 11.7, Glucose 81, Uric Acid 3.9, Calcium 9.3, Total Bilirubin 0.50, AST 38 H, ALT 40, Alkaline Phosphatase 160 H, Total Protein 6.8, Albumin 2.0 L, Globulin 4.8 H, Albumin/Globulin Ratio 0.4 L 06/29/23 14:45: MRSA (PCR) Negative 06/29/23 14:50: U Random Total Protein 22.4 H, Urine Creatinine 70.60, Protein/Creatinin Ratio 317 H 06/29/23 20:26: POC Glucose 129 H 06/30/23 05:49: POC Glucose 77 06/30/23 08:58: POC Glucose 92 Micro: Microbiology 06/29/23 14:37 Mucosa - Nose SARS-CoV-2, Influenza & RSV (PCR) - Final Influenzae A 06/29/23 14:50 Urine, Clean Catch Legionella Antigen - Final 06/29/23 14:50 Urine, Clean Catch Streptococcus pneumoniae Antigen (M - Final Radiography Diagnostic Testing: Radiology Impression Biophysical Profile Ultrasound 06/29/23 12:30 IMPRESSION: Normal biophysical profile of 88. Electronically Signed: Warren Nguyen MD at 15:08 EST , Chest X-Ray 06/29/23 13:00 IMPRESSION: No radiographic evidence of acute cardiopulmonary disease. Electronically Signed: Nikunj Dobson MD at 14:42 EST , ROS Constitutional Constitutional: Reports fatigue and lethargy; Denies fever(s), headache(s), night sweats or poor appetite Eyes Eyes: Reports other Details: no visual changes ; Denies floaters Cardiovascular Cardiovascular: Reports fatigue; Denies chest pain Respiratory/Chest Respiratory/Chest: Reports chest congestion, chest tightness, cough, dry cough, shortness of breath at rest and shortness of breath with exertion Gastrointestinal Gastrointestinal: Denies nausea or vomiting Genitourinary Genitourinary: Reports movement Details: present; Denies dysuria or genital pain Musculoskeletal Musculoskeletal: Reports back pain; Denies neck pain or numbness Neurologic Neurologic: Denies confusion, dizziness or headache(s) Psychiatric Psychiatric: Denies behavioral changes Physical Exam Const alert, oriented x3 and no apparent distress General Appearance: cooperative HEENT Head and Scalp: normocephalic Face and Sinus: normal facial exam Neck full ROM, No no lymphadenopathy and supple General: normal visual inspection Chest inspection of chest normal Resp Effort and Inspection: symmetric chest movement and labored Auscultation: wheezes right upper Cardio Cardio Narrative: hr 90's, regular rhythm GI non-tender GI Narrative: gravid, non-tender OB / External & Speculum: deferred Skin no rashes or lesions noted Neuro oriented x3 Psych mental status grossly normal NST FHR Rate Baby B Baseline: 130 Variability:: Moderate Accelerations:: 15 x 15 Decelerations:: Prolonged (change in baseline at 0230 am with variability down to 90's) FHR Category:: Category I Uterine Activity:: no contractions Assessment & Plan (1) Mild pre-eclampsia: (2) Pneumonia affecting in third trimester: (3) Acute maxillary sinusitis, unspecified: (4) History of section: (5) Gestational diabetes mellitus in third trimester: COMMENT: increase to 1000mg BID. weekly nst, weekly BPP for twice weekly total testing due to chtn and gdm, if not controlled recommend insulin. (6) Polyhydramnios affecting : COMMENT: testing ordered (7) Large for gestational age fetus: COMMENT: discussed glucose control. (8) HTN in , chronic: COMMENT: no meds. Plans w/MFM:growth US Q4wk and wkly BPP at 32 wk. (9) UTI in : QUALIFIERS: Trimester: second trimester Qualified Code(s): O23.42 - Unspecified infection of urinary tract in , second trimester COMMENT: Rx macrobid. Repeat culture neg (10) Anemia affecting : QUALIFIERS: Trimester: second trimester Qualified Code(s): O99.012 - Anemia complicating , second trimester COMMENT: start iron (11) Fibroid uterus: QUALIFIERS: Uterine leiomyoma location: unspecified location Qualified Code(s): D25.9 - Leiomyoma of uterus, unspecified COMMENT: growth US q4 weeks 04/09:86%. (12) AMA (advanced maternal age) multigravida 35+: QUALIFIERS: Trimester: third trimester Qualified Code(s): O09.523 - Supervision of elderly multigravida, third trimester COMMENT: low risk NIPT. (13) Obesity: QUALIFIERS: Obesity type: unspecified obesity type Obesity classification: unspecified obesity classification Serious obesity comorbidity presence: without serious comorbidity Qualified Code(s): E66.9 - Obesity, unspecified COMMENT: testing planned due to other comorbidities. (14) Supervision of high-risk : QUALIFIERS: Trimester: second trimester Qualified Code(s): O09.92 - Supervision of high risk , unspecified, second trimester COMMENT: [id number], YANNICK 07/31/23 boy [facility], [facility](20wk demise-Zamzam) Ju?- Antonio, RC/S 07-09-23 (15) : QUALIFIERS: Weeks of gestation: 36 weeks Qualified Code(s): Z3A.36 - 36 weeks gestation of COMMENT: NIPT low risk, didn't do ntd screen, carrier testing. nl anatomy. (16) Hypothyroidism: QUALIFIERS: Hypothyroidism type: postoperative Qualified Code(s): E89.0 - Postprocedural hypothyroidism COMMENT: labs q trimester, repeat labs ordered 05/31 (17) History of miscarriage: COMMENT: history of 2 1st trimester losses (18) Second trimester : COMMENT: h/o 2nd trimester loss- it was determined at this time that she was positive for Factor V leiden def. (19) Infertility counseling: COMMENT: RGI referral for managment, ovarian assessment report eggy supply fair 10, egg quality and age reduced and 40 (20) Factor 5 Leiden mutation, heterozygous: COMMENT: lovenox 40 daily per MFM; rpt lab as not confirmed but elevate Protein C on APL. 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 PLAN: Plan today's plan is to 1. encourage ambulation and test pulse ox with and without activity and responds 2. continue antibiotics and collect sputum sample if possible and follow up with Medicine team (chapis appreciated) 3. continue glucose monitoring and bedtime NPH 4. continue anticoagulation 5. consolidate plan for sunday's section 6. likely will stay in house with us until her section Sunday am (7:30) Charges/Coding Visit Charges Inpatient E&M: 98087 Subs Hosp L3
[2023-06-30] MEDS: Ipratropium/Albuterol Sulfate 3 ML AMPUL.NEB INHALATION (12:45)
--- NOTE | 2023-06-30 12:58 | PCM.PN.HOSP ---
Reason for Visit Reason for Visit: Diagnoses Malignant neoplasm of thyroid gland (06/29/23) Leiomyoma of uterus, unspecified (06/29/23) Neoplasm of uncertain behavior of connective and other soft tissue (06/29/23) Activated protein C resistance (06/29/23) Obesity, unspecified (06/29/23) Postprocedural hypothyroidism (06/29/23) Acute maxillary sinusitis, unspecified (06/29/23) Pneumonia, unspecified organism (06/29/23) Supervision of elderly multigravida, third trimester (06/29/23) Supervision of high risk , unspecified, second trimester (06/29/23) Unspecified pre-existing hypertension complicating , unspecified trimester (06/29/23) Mild to moderate pre-eclampsia, unspecified trimester (06/29/23) Unspecified infection of urinary tract in , second trimester (06/29/23) Gestational diabetes mellitus in , unspecified control (06/29/23) Polyhydramnios, unspecified trimester, not applicable or unspecified (06/29/23) Anemia complicating , second trimester (06/29/23) Diseases of the respiratory system complicating , third trimester (06/29/23) Encounter for other general counseling and advice on procreation (06/29/23) Encounter for elective termination of (06/29/23) 36 weeks gestation of (06/29/23) Personal history of other complications of , childbirth and the puerperium (06/29/23) History of uterine scar from previous surgery (06/29/23) Objective Data Objective Data Vital Signs: Vital Signs Temp Pulse Resp BP Pulse Ox O2 Del Method O2 Flow Rate 98.4 F 98 18 133/62 H 97 Nasal Cannula 1 06/30/23 09:00 06/30/23 12:57 06/29/23 21:00 06/30/23 09:05 06/30/23 12:57 06/29/23 21:00 06/29/23 21:00 Oxygen Flow Rate (L/min) 1 Oxygen Delivery Method Nasal Cannula Weight: 324 lb Body Mass Index (BMI) 52.2 Intake & Output: Intake and Output for Last 24 Hours 06/28/23 06/29/23 06/30/23 23:59 23:59 23:59 Intake Total 354.5 / 354.5 50 / 50 Balance 354.5 / 354.5 50 50 Lab / Micro Data 06/29/23 14:33 06/29/23 14:33 Labs: Laboratory Results - last 24 hr 06/29/23 13:39: POC Glucose 83 06/29/23 14:33: WBC 9.6, RBC 3.89 L, Hgb 10.7 L, Hct 32.9 L, MCV 84.6, MCH 27.5, MCHC 32.5, RDW Std Deviation 44.9 H, RDW Coeff of Breanne 14.6, Plt Count 249, MPV 10.3, Immature Gran % (Auto) 1.200 H, Neut % (Auto) 67.5, Lymph % (Auto) 22.2, [place] % (Auto) 8.0, Eos % (Auto) 0.7, Baso % (Auto) 0.4, Absolute Neuts (auto) 6.5, Absolute Lymphs (auto) 2.14, Nucleated RBC % 0, Sodium 138, Potassium 3.7, Chloride 108 H, Carbon Dioxide 21.0, Anion Gap 9, BUN 7, Creatinine 0.60, Estim Creat Clear Calc 181.96, Est GFR (MDRD) Af Amer 142, Est GFR (MDRD) Non-Af 117, BUN/Creatinine Ratio 11.7, Glucose 81, Uric Acid 3.9, Calcium 9.3, Total Bilirubin 0.50, AST 38 H, ALT 40, Alkaline Phosphatase 160 H, Total Protein 6.8, Albumin 2.0 L, Globulin 4.8 H, Albumin/Globulin Ratio 0.4 L 06/29/23 14:45: MRSA (PCR) Negative 06/29/23 14:50: U Random Total Protein 22.4 H, Urine Creatinine 70.60, Protein/Creatinin Ratio 317 H 06/29/23 20:26: POC Glucose 129 H 06/30/23 05:49: POC Glucose 77 06/30/23 08:58: POC Glucose 92 Micro: Microbiology 06/29/23 14:37 Mucosa - Nose SARS-CoV-2, Influenza & RSV (PCR) - Final Influenzae A 06/29/23 14:50 Urine, Clean Catch Legionella Antigen - Final 06/29/23 14:50 Urine, Clean Catch Streptococcus pneumoniae Antigen (M - Final Radiography Diagnostic Testing: Radiology Impression Biophysical Profile Ultrasound 06/29/23 12:30 IMPRESSION: Normal biophysical profile of 12/12. Electronically Signed: Warren Nguyen MD at 15:08 EST , Chest X-Ray 06/29/23 13:00 IMPRESSION: No radiographic evidence of acute cardiopulmonary disease. Electronically Signed: Nikunj Dobson MD at 14:42 EST , Physical Exam Narrative Patient was seen and examined. 1 female attendant and patient's nurse near the bedside. Flu test Positive. Physical exam General: Alert, Oriented x3, Cooperative, morbid obesity BMI 52.3 kg/m? HEENT: Atraumatic, PERRLA, EOMI, Normocephalic Oral: Oral mucosa moist. No Gingival or Mucosal Lesions/ Ulcerations Neck: Supple, No JVD, Negative Carotid Bruits Chest wall/Lungs: Air entry diminished in bilateral lung bases. Lungs clear. Pulse ox 96% on room air. Cardiovascular: Regular rate, Regular Rhythm, Normal S1, Normal S2, No M/G/R Abdomen: Bowel Sounds Present, Soft, Non Tender, abdomen distended from . : 37-week . No dysuria. No renal angle tenderness. No suprapubic tenderness. Extremities: mild pedal pitting edema, Capillary Refill Less than 3 Seconds Skin: No rashes, No breakdown Musculoskeletal: No Tenderness to Palpation of Joints or Extremities Neurological: Cranial nerves II-XII grossly intact, DTR 2+/4. No acute focal neurological deficit. Psych/Mental Status: Normal Affect, Appropriate. Assessment & Plan Assessment/Plan (1) Pneumonia: QUALIFIERS: Pneumonia type: due to unspecified organism Laterality: bilateral Lung location: lower lobe of lung Qualified Code(s): J18.9 - Pneumonia, unspecified organism PLAN: Plan This is 43-year-old female, 37-week being admitted for further evaluation and management of right lower lobe pneumonia. 1. Right lower lobe pneumonia affecting third term of : Patient is being admitted under Dr. Tinoco. Pneumonia workup including blood cultures x 2, sputum culture, urinary antigens and MRSA nasal screen. Started on IV antibiotics ceftriaxone and Zithromax. Patient is being managed on bronchodilator as needed for shortness of breath, Mucinex?DM, incentive spirometry and Pep. Patient denies history of chronic smoking. Denies history of chronic lung disease. 06/30: Flu test came positive but patient had already completed 5 days of Tamiflu therefore no need for retreatment. Discussed with the ID Dr. Fletcher. Patient has severe bouts of cough therefore Tessalon Perles 200 mg 3 times daily. Continue Mucinex DM. 2. Persistent tachycardia: Patient is stated she has tachycardia which is persistent sometimes even at rest but get worse on exertion even before she had flu and pneumonia. 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 Her current heart rate is 80 to 90/min. Monitor. 06/30: Heart rate is in 90s to low 100s. 3. 37-week : Patient on ultrasound biophysical monitoring. Management as per attending Dr. Tinoco. 06/30: As per Dr. Tinoco, she is planned for LCCS, section next Sunday. DVT prophylaxis: Recommend Lovenox 40 mg subcu daily. Charges/Coding Visit Charges Inpatient E&M: 19315 Subs Hosp L2
--- NOTE | 2023-06-30 13:45 | NURSING ---
Walked pt in [place] without oxygen. Pt sats remained 95-97%. Pt SOB with exertion, slight wheezes with auscultation.
[2023-06-30] MEDS: Benzonatate 100 MG Capsule 200 MG PO ×2 (13:54→22:03)
[2023-06-30 18:28] LABS: Bedside Glucose 122 mg/dL (74-106)
[2023-06-30] MEDS: guaiFENesin/D-Methorphan TAB.SR.12H 2 TABLET PO (22:03)
[2023-06-30] MEDS: Insulin NPH Human 100 UNITS/ML PEN 20 UNITS SC (22:09)
[2023-06-30 22:49] LABS: Bedside Glucose 121 mg/dL (74-106)
[2023-07-01] VITALS (271 sets, daily range): BP systolic 119–142; BP diastolic 60–90; PULSE 39–113; TEMP 36.2–36.6; O2SAT 83–99
[2023-07-01] MEDS: 0.9% Saline Lock 10 ML Syringe IV (05:31)
[2023-07-01] MEDS: Levothyroxine 175 MCG Tablet PO (05:31)
[2023-07-01] MEDS: Benzonatate 100 MG Capsule 200 MG PO ×3 (08:26→21:31)
[2023-07-01 09:04] LABS: Bedside Glucose 85 mg/dL (74-106)
[2023-07-01] MEDS: Docusate Sodium 100 MG Capsule PO (10:05)
[2023-07-01] MEDS: guaiFENesin/D-Methorphan TAB.SR.12H 2 TABLET PO ×2 (10:05→21:31)
[2023-07-01] MEDS: Ceftriaxone 2 GM in 0.9% Normal Saline (50mL MB+) 50 ML IV (10:06)
[2023-07-01] MEDS: Enoxaparin 40 MG/0.4 ML Syringe SC (10:06)
[2023-07-01] MEDS: Azithromycin 500 MG in Dextrose 5%-Water (250mL Bag) 250 ML 250 MG IV (11:05)
--- NOTE | 2023-07-01 13:09 | PN.HOSP_ITS ---
Reason for Visit Reason for Visit: Diagnoses Malignant neoplasm of thyroid gland (06/29/23) Leiomyoma of uterus, unspecified (06/29/23) Neoplasm of uncertain behavior of connective and other soft tissue (06/29/23) Activated protein C resistance (06/29/23) Obesity, unspecified (06/29/23) Postprocedural hypothyroidism (06/29/23) Acute maxillary sinusitis, unspecified (06/29/23) Pneumonia, unspecified organism (06/29/23) Supervision of elderly multigravida, third trimester (06/29/23) Supervision of high risk , unspecified, second trimester (06/29/23) Unspecified pre-existing hypertension complicating , unspecified trimester (06/29/23) Mild to moderate pre-eclampsia, unspecified trimester (06/29/23) Unspecified infection of urinary tract in , second trimester (06/29/23) Gestational diabetes mellitus in , unspecified control (06/29/23) Polyhydramnios, unspecified trimester, not applicable or unspecified (06/29/23) Anemia complicating , second trimester (06/29/23) Diseases of the respiratory system complicating , third trimester (06/29/23) Encounter for other general counseling and advice on procreation (06/29/23) Encounter for elective termination of (06/29/23) 36 weeks gestation of (06/29/23) Personal history of other complications of , childbirth and the puerperium (06/29/23) History of uterine scar from previous surgery (06/29/23) Objective Data Objective Data Vital Signs: Vital Signs Temp Pulse Resp BP Pulse Ox O2 Del Method O2 Flow Rate 97.5 F L 90 20 H 141/67 H 96 Room Air 2 07/01/23 12:27 07/01/23 13:04 06/30/23 15:45 07/01/23 12:27 07/01/23 13:04 07/01/23 11:27 06/30/23 15:45 Oxygen Flow Rate (L/min) 2 Oxygen Delivery Method Room Air Weight: 324 lb Body Mass Index (BMI) 52.2 Intake & Output: Intake and Output for Last 24 Hours 06/29/23 06/30/23 07/01/23 23:59 23:59 23:59 Intake Total 354.5 / 354.5 305 / 305 50 / 50 Balance 354.5 / 354.5 305 / 305 50 / 50 Lab / Micro Data 06/29/23 14:33 06/29/23 14:33 Labs: Laboratory Results - last 24 hr 06/30/23 18:05: POC Glucose 122 H 06/30/23 22:08: POC Glucose 121 H 07/01/23 08:25: POC Glucose 85 Micro: Microbiology 06/29/23 14:43 Blood Culture (Wb) - Arm Right Blood Culture - Preliminary No growth in 48 hours. 06/29/23 14:33 Blood Culture (Wb) - Arm Left Blood Culture - Preliminary No growth in 48 hours. 06/29/23 14:37 Mucosa - Nose SARS-CoV-2, Influenza & RSV (PCR) - Final Influenzae A 06/29/23 14:50 Urine, Clean Catch Legionella Antigen - Final 06/29/23 14:50 Urine, Clean Catch Streptococcus pneumoniae Antigen (M - Final Physical Exam Narrative Patient was seen and examined. The patient's eldest son and patient's nurse, Jeanine near the bedside. Flu test Positive. Pulse ox 94 to 96% on room air. Patient stated her cough is better. Mainly dry. Physical exam General: Alert, Oriented x3, Cooperative, morbid obesity BMI 52.3 kg/m? HEENT: Atraumatic, PERRLA, EOMI, Normocephalic Oral: Oral mucosa moist. No Gingival or Mucosal Lesions/ Ulcerations Neck: Supple, No JVD, Negative Carotid Bruits Chest wall/Lungs: Air entry diminished in bilateral lung bases. Bibasilar coarse crepitations. Pulse ox 96% on room air. Cardiovascular: Regular rate, Regular Rhythm, Normal S1, Normal S2, No M/G/R Abdomen: Bowel Sounds Present, Soft, Non Tender, abdomen distended from . : 37-week . No dysuria. No renal angle tenderness. No suprapubic tenderness. Extremities: mild pedal pitting edema, Capillary Refill Less than 3 Seconds Skin: No rashes, No breakdown Musculoskeletal: No Tenderness to Palpation of Joints or Extremities Neurological: Cranial nerves II-XII grossly intact, DTR 2+/4. No acute focal neurological deficit. Psych/Mental Status: Normal Affect, Appropriate. Assessment & Plan Assessment/Plan (1) Pneumonia: QUALIFIERS: Pneumonia type: due to unspecified organism Laterality: bilateral Lung location: lower lobe of lung Qualified Code(s): J18.9 - Pneumonia, unspecified organism PLAN: Plan This is 43-year-old female, 37-week being admitted for further evaluation and management of right lower lobe pneumonia. 1. Right lower lobe pneumonia affecting third term of : Patient is being admitted under Dr. Santoyo. Pneumonia workup including blood cultures x 2, sputum culture, urinary antigens and MRSA nasal screen. Started on IV antibiotics ceftriaxone and Zithromax. Patient is being managed on bronchodilator as needed for shortness of breath, Mucinex?DM, incentive spirometry and Pep. Patient denies history of chronic smoking. Denies history of chronic lung disease. 06/30: Flu test came positive but patient had already completed 5 days of Tamiflu therefore no need for retreatment. Discussed with the ID Dr. Fletcher. Patient has severe bouts of cough therefore Tessalon Perles 200 mg 3 times daily. Continue Mucinex DM. 07/01: Continue IV antibiotic and medications as mentioned above. Cough is better. Hospitalist team will follow as needed. 2. Persistent tachycardia: Patient is stated she has tachycardia which is persistent sometimes even at rest but get worse on exertion even before she had flu and pneumonia. 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 Her current heart rate is 80 to 90/min. Monitor. 06/30: Heart rate is in 90s to low 100s. 07/01: Heart rate is controlled. 3. 37-week : Patient on ultrasound biophysical monitoring. Management as per attending Dr. Santoyo. 06/30: As per Dr. Santoyo, she is planned for LCCS, section next Sunday. DVT prophylaxis: Recommend Lovenox 40 mg subcu daily. Charges/Coding Visit Charges Inpatient E&M: 33647 Subs Hosp L2
--- NOTE | 2023-07-01 13:22 | PCM.PN.OB ---
Subjective Subjective pt is sitting up in bedside chair and is breathing comfortably and not coughing. She appears much more comfortable today. She denies loss of fluid, vaginal bleeding, or decreased movement. Objective Data Objective Data Vital Signs: Vital Signs Temp Pulse Resp BP Pulse Ox O2 Del Method O2 Flow Rate 97.5 F L 100 20 H 141/67 H 96 Room Air 2 07/01/23 12:27 07/01/23 13:19 06/30/23 15:45 07/01/23 12:27 07/01/23 13:19 07/01/23 11:27 06/30/23 15:45 Oxygen Flow Rate (L/min) 2 Oxygen Delivery Method Room Air Weight: 324 lb Body Mass Index (BMI) 52.2 Intake & Output: Intake and Output for Last 24 Hours 06/29/23 06/30/23 07/01/23 23:59 23:59 23:59 Intake Total 354.5 / 354.5 305 / 305 305 / 305 Balance 354.5 / 354.5 305 / 305 305 / 305 Lab / Micro Data 06/29/23 14:33 06/29/23 14:33 Labs: Laboratory Results - last 24 hr 06/30/23 18:05: POC Glucose 122 H 06/30/23 22:08: POC Glucose 121 H 07/01/23 08:25: POC Glucose 85 Micro: Microbiology 06/29/23 14:43 Blood Culture (Wb) - Arm Right Blood Culture - Preliminary No growth in 48 hours. 06/29/23 14:33 Blood Culture (Wb) - Arm Left Blood Culture - Preliminary No growth in 48 hours. 06/29/23 14:37 Mucosa - Nose SARS-CoV-2, Influenza & RSV (PCR) - Final Influenzae A 06/29/23 14:50 Urine, Clean Catch Legionella Antigen - Final 06/29/23 14:50 Urine, Clean Catch Streptococcus pneumoniae Antigen (M - Final ROS ROS Narrative Constitutional: Reports fatigue and weakness. Fever present. HEENT: Reports systems reviewed and no addt'l complaints, except as documented Respiratory/Chest: Chest wall tightness/soreness from persistent cough. Increased shortness of breath over the last 10 to 12 days then described HPI CVS: Denies chest pressure/anginal-like symptoms. Gastrointestinal: Nausea. Denies coffee ground emesis, hematemesis or vomiting Genitourinary: 37-week . Third trimester. Denies burning urination or new urinary tract symptoms Musculoskeletal: Denies acute joint pain or limited range of motion. No acute injury Neurologic: Denies seizure-like symptoms. skin: No ulcer. No rash Endocrinology: Reports systems reviewed and no addt'l complaints, except as documented Hematologic/Lymphatic: Reports systems reviewed and no addt'l complaints, except as documented Rest 14 ROS are negative except as mentioned in HPI Constitutional Constitutional: Reports fatigue and lethargy; Denies change in weight, fever(s), headache(s), night sweats, poor appetite or weakness Eyes Eyes: Reports other Details: no visual changes ; Denies blurry vision, change in vision, floaters, seeing flashes or spots in vision ENT HEENT: Denies dizziness, headache(s), loss taste/smell or sore throat Cardiovascular Cardiovascular: Reports fatigue; Denies chest pain, dizziness, dyspnea, irregular heart rhythm, leg edema, palpitations, rapid heart rate or vomiting Respiratory/Chest Respiratory/Chest: Reports chest congestion, chest tightness, cough, dry cough, shortness of breath at rest and shortness of breath with exertion; Denies dyspnea or breast pain Gastrointestinal Gastrointestinal: Denies abdominal pain, anorexia, constipation, cramping, diarrhea, hemorrhoids, nausea, vomiting or weight changes Genitourinary Genitourinary: Reports movement Details: present; Denies dysuria, flank pain, genital lesions, genital pain, urinary frequency or urinary urgency Musculoskeletal Musculoskeletal: Reports back pain; Denies difficulty walking, joint pain, limited range of motion, muscle cramps, neck pain or numbness Integumentary Integumentary: Denies lesions or unusual bruising Neurologic Neurologic: Denies abnormal movements, abnormal speech, confusion, dizziness, headache(s), numbness, seizure-like activity or syncope Psychiatric Psychiatric: Denies anxiety, behavioral changes, change in appetite, change in libido, cognitive impairment, confusion, depression, difficulty concentrating, hallucinations or suicidal thoughts Endocrine Endocrinology: Denies excessive sweating, polydipsia or polyuria Hematologic/Lymphatic Hematologic/Lymphatic: Denies easy bleeding, easy bruising or lymphadenopathy Allergic/Immunologic Allergic/Immunologic: Denies itchy eyes, lip swelling, seasonal rhinorrhea, rhinitis, throat swelling, tongue swelling, eczemia, wheezing or asthma Physical Exam Const alert, oriented x3 and no apparent distress General Appearance: cooperative, anxious and diaphoretic HEENT normocephalic Eyes EOMs intact bilaterally and no scleral icterus General Eye: normal appearance of both eyes Neck full ROM, No no lymphadenopathy and supple General: normal visual inspection Lymph Lymphatic: no lymphadenopathy noted Chest inspection of chest normal Chest: abnormal inspection of the chest and symmetrical chest wall rise Resp normal respiratory effort Effort and Inspection: able to speak in complete sentences Auscultation: clear to auscultation bilaterally Cardio regular rate Cardio Narrative: hr 90's, regular rhythm GI soft to palpation and non-tender GI Narrative: gravid, non-tender Inspection: gravid Palpation: soft; Negative for tender external exam normal OB / External & Speculum: deferred Extremity normal to inspection, full ROM and no clubbing, cyanosis or edema General Extremity: Negative for calf tenderness or edema Skin no rashes or lesions noted Lesions: no lesions Rashes: no rashes Neuro oriented x3 Psych mental status grossly normal Assessment & Plan (1) Mild pre-eclampsia: (2) Pneumonia affecting in third trimester: (3) Acute maxillary sinusitis, unspecified: (4) History of section: (5) Gestational diabetes mellitus in third trimester: COMMENT: increase to 1000mg BID. weekly nst, weekly BPP for twice weekly total testing due to chtn and gdm, if not controlled recommend insulin. (6) Polyhydramnios affecting : COMMENT: testing ordered (7) Large for gestational age fetus: COMMENT: discussed glucose control. (8) HTN in , chronic: COMMENT: no meds. Plans w/MFM:growth US Q4wk and wkly BPP at 32 wk. (9) UTI in : QUALIFIERS: Trimester: second trimester Qualified Code(s): O23.42 - Unspecified infection of urinary tract in , second trimester COMMENT: Rx macrobid. Repeat culture neg (10) Anemia affecting : QUALIFIERS: Trimester: second trimester Qualified Code(s): O99.012 - Anemia complicating , second trimester COMMENT: start iron (11) Fibroid uterus: QUALIFIERS: Uterine leiomyoma location: unspecified location Qualified Code(s): D25.9 - Leiomyoma of uterus, unspecified COMMENT: growth US q4 weeks 12/4:86%. (12) AMA (advanced maternal age) multigravida 35+: QUALIFIERS: Trimester: third trimester Qualified Code(s): O09.523 - Supervision of elderly multigravida, third trimester COMMENT: low risk NIPT. (13) Obesity: QUALIFIERS: Obesity type: unspecified obesity type Obesity classification: unspecified obesity classification Serious obesity comorbidity presence: without serious comorbidity Qualified Code(s): E66.9 - Obesity, unspecified COMMENT: testing planned due to other comorbidities. (14) Supervision of high-risk : QUALIFIERS: Trimester: second trimester Qualified Code(s): O09.92 - Supervision of high risk , unspecified, second trimester COMMENT: [id number], YANNICK 07/31/23 boy [facility], [facility](20wk demise-Zamzam) Ju?- Antonio, /S 07-09-23 (15) : QUALIFIERS: Weeks of gestation: 36 weeks Qualified Code(s): Z3A.36 - 36 weeks gestation of COMMENT: NIPT low risk, didn't do ntd screen, carrier testing. nl anatomy. (16) Hypothyroidism: QUALIFIERS: Hypothyroidism type: postoperative Qualified Code(s): E89.0 - Postprocedural hypothyroidism COMMENT: labs q trimester, repeat labs ordered 05/31 (17) History of miscarriage: COMMENT: history of 2 1st trimester losses (18) Second trimester : COMMENT: h/o 2nd trimester loss- it was determined at this time that she was positive for Factor V leiden def. (19) Infertility counseling: COMMENT: RGI referral for managment, ovarian assessment report eggy supply fair 10, egg quality and age reduced and 40 (20) Factor 5 Leiden mutation, heterozygous: COMMENT: lovenox 40 daily per MFM; rpt lab as not confirmed but elevate Protein C on APL. 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 PLAN: Plan hospitalist consulted to assist in choice of antibiotics- zith + ceftriaxone - will defer to Hospitalist about timing of transition to PO abx if needed. respiratory therapy consulted for albuterol treatment as needed pt is influenza a pos- status post one week of tamiflu treatment continue nasal canula o2 as needed nst reactive cat 1 tracing plan to continue home insulin 20 units nph at bedtime and start checking fasting and 2hr pp levels Next lovenox dose will be 10 hours after section tomorrow. Received one dose today at 10 am. pt now has proteinuria and slight elevated blood pressures. likely mild pre-eclampsia. plan for delivery at 37 weeks (tomorrow) Charges/Coding Visit Charges Inpatient E&M: 04890 Subs Hosp L3
[2023-07-01 13:27] LABS: Bedside Glucose 101 mg/dL (74-106)
--- NOTE | 2023-07-01 19:25 | NURSING ---
Bedside report given to this RN at 1919 from [place]. This RN to resume care at this time.
[2023-07-01 21:28] LABS: Bedside Glucose 128 mg/dL (74-106)
[2023-07-01] MEDS: Insulin NPH Human 100 UNITS/ML PEN 20 UNITS SC (21:32)
[2023-07-02] VITALS (38 sets, daily range): BP systolic 134; BP diastolic 77; PULSE 75–98; TEMP 36.5; O2SAT 94–97
[2023-07-02 05:01] LABS: Absolute Lymphocyte Count 2.34 X10^3/uL (0.83-4.51); Absolute Neutrophil Count 5.2 X10^3/uL (2.0-7.7); Basophil# 0.06 X10^3/uL; Basophil% 0.7 % (0-1); Eosinophils% 1.1 % (0-5); Hematocrit 31.9 % (37-47); Hemoglobin 10.4 g/dL (12.0-15.0); Lymphocyte # 2.34 X10^3/ul (0.83-4.51); Lymphocyte % 26.7 % (19-41); Mean Corp Hgb Conc 32.6 g/dL (32-36); Mean Corpuscular Hgb 27.7 pg (27.0-32.0); Mean Corpuscular Volume 84.8 fL (81-99); Mean Platelet Vol. 10.3 fl (6.2-12.0); Monocyte# 0.81 X10^3/uL; Monocyte% 9.2 % (0-10); NRBC Flagged by Analyzer 0 % (0-5); Neutrophil # 5.22 X10^3/uL (2.7-7.7); Neutrophil % 59.5 % (47-70); Platelet Count 263 K/mm3 (150-450); RBC Distribution Width CV 14.4 % (11.6-14.6); RBC Distribution Width SD 44.2 fl (35.1-43.9); Red Blood Count 3.76 M/mm3 (4.2-5.4); White Blood Count 8.8 K/mm3 (4.4-11.0)
[2023-07-02 20:56] LABS: Bedside Glucose 110 mg/dL (74-106)
== END 2023-07-02 03:43 | disposition home or self-care (01) ==
LOC: WPOUT 12:00 → WP 12:00
PROVIDERS: Internal Medicine; PCP Internal Medicine; Referring Provider Obstetrics & Gynecology; Visit Provider Obstetrics & Gynecology
DX: O99.513 Diseases of the respiratory system complicating pregnancy, third trimester (principal); O99.891 Other specified diseases and conditions complicating pregnancy; R06.00 Dyspnea, unspecified; Z3A.36 36 weeks gestation of pregnancy; Z90.49 Acquired absence of other specified parts of digestive tract; J18.9 Pneumonia, unspecified organism; R00.0 Tachycardia, unspecified
CPT/HCPCS: 71046; 76819; 80053; 82570; 82962; 84156; 84550; 85025; 87040; 87081; 87449; 87631; 87641; 94640 ×3; 94668 ×2; A4216; J7120

== ENCOUNTER → 2023-06-29 | Outpatient (CLI) | payer MEDICAID, SELFPAY ==
--- OUTSIDE RECORDS SUMMARY | 2023-06-29 18:47 | XMS RPT_ITS | CCD ---
Author Name Unknown Address [address] [place] [address] Organization [facility] Care Team Providers Care Executive Director Global Brand Marketing Name Role Phone Micheline DENNIS, Pedro Pablo [...] Tapia MD Unavailable To Chamorro MD Unavailable [phone] Heath DENNIS, PhD, Johnny Ocampo Unavailable ELIJAH, SHAVON C Referring Unavailable TALAMPAS, [...] to adverse reactions to substance 12-26-2019 Itching [facility] (3 sources) *Adhesive Tape Propensity to adverse reactions 12-26-2019 [facility] Medications Current Medications Medication Drug Class(es) Dates Sig (Normalized) Sig (Original) cetirizine hydrochloride 10 mg oral tablet (3 sources) Histamine-1 Receptor Antagonist take 1 tablet by mouth once daily cetirizine 10 MG Tab Take 1 tablet by mouth daily. 0 Active docosahexaenoic acid 1000 mg / omega-3 acid ethyl esters (fpc) 300 mg delayed release oral capsule (3 sources) take 1 capsule by mouth once daily at breakfast Mcgraw-3 Fatty Acids (FISH OIL) 1000 MG Cap [...] 167.6 cm Alicia Patelf PA-C Work Phone: [facility] 11-13-2022 09:36-0400 Body temperature 97.39 [degF] Alicia Old Fort PA-C Work Phone: [facility] 11-13-2022 09:36-0400 Body weight 140.62 kg Alicia Husam PA-C Work Phone: [facility] 11-13-2022 09:36-0400 Diastolic blood pressure 76 mm[Hg] Alicia [place] PA-C Work Phone: [facility] 11-13-2022 09:36-0400 Heart rate 77 /min Alicia Husam PA-C Work Phone: [facility] 11-13-2022 09:36-0400 SaO2% (BldA) [Mass fraction] 100 % Alicia [place] PA-C Work Phone: [facility] 11-13-2022 09:36-0400 Systolic blood pressure 128 mm[Hg] Alicia Husam PA-C Work Phone: [facility] 10-18-2022 14:06-0400 Body mass index (BMI) [Ratio] 49.62 kg/m2 Shavon Elijah BUSINESS OFFICE ASSISTANT-UNIX SYSTEMS ADMINISTRATOR Work Phone: [facility] 10-18-2022 14:06-0400 Body temperature 98.2 [degF] Shavon Rodgerswell BUSINESS OFFICE ASSISTANT-UNIX SYSTEMS ADMINISTRATOR Work Phone: [facility] 10-18-2022 14:06-0400 Body weight 139.44 kg Shavon Jacksonboro BUSINESS OFFICE ASSISTANT-UNIX SYSTEMS ADMINISTRATOR Work Phone: [facility] 10-18-2022 14:06-0400 Diastolic blood pressure 65 mm[Hg] Shavon Rodgerswell BUSINESS OFFICE ASSISTANT-UNIX SYSTEMS ADMINISTRATOR Work Phone: [facility] 10-18-2022 14:06-0400 Heart rate 84 /min Shavon Elijah BUSINESS OFFICE ASSISTANT-UNIX SYSTEMS ADMINISTRATOR Work Phone: [facility] 10-18-2022 14:06-0400 Respiratory rate 16 /min Shavon [place] BUSINESS OFFICE ASSISTANT-UNIX SYSTEMS ADMINISTRATOR Work Phone: [facility] 10-18-2022 14:06-0400 SaO2% (BldA) [Mass fraction] 96 % Shavon [place] BUSINESS OFFICE ASSISTANT-UNIX SYSTEMS ADMINISTRATOR Work Phone: [facility] 10-18-2022 14:06-0400 Systolic blood pressure 137 mm[Hg] Shavon [place] BUSINESS OFFICE ASSISTANT-UNIX SYSTEMS ADMINISTRATOR Work Phone: [facility] 10-04-2022 07:48-0400 Body height 166.4 cm Julio Brittney BUSINESS OFFICE ASSISTANT.UNIX SYSTEMS ADMINISTRATOR Work Phone: [facility] 10-04-2022 07:48-0400 Body weight 138.35 kg Julio Brittney BUSINESS OFFICE ASSISTANT.UNIX SYSTEMS ADMINISTRATOR Work Phone: [facility] 10-04-2022 07:48-0400 Diastolic blood pressure 68 mm[Hg] Julio Brittney BUSINESS OFFICE ASSISTANT.UNIX SYSTEMS ADMINISTRATOR Work Phone: [facility] 10-04-2022 07:48-0400 Heart rate 81 /min Julio Brittney BUSINESS OFFICE ASSISTANT.UNIX SYSTEMS ADMINISTRATOR Work Phone: [facility] 10-04-2022 07:48-0400 SaO2% (BldA) [Mass fraction] 98 % Julio Brittney BUSINESS OFFICE ASSISTANT.UNIX SYSTEMS ADMINISTRATOR Work Phone: [facility] 10-04-2022 07:48-0400 Systolic blood pressure 114 mm[Hg] Julio Brittney BUSINESS OFFICE ASSISTANT.UNIX SYSTEMS ADMINISTRATOR Work Phone: [facility] 07-13-2022 08:34-0500 Body height 167.6 cm Shavon Nava BUSINESS OFFICE ASSISTANT-UNIX SYSTEMS ADMINISTRATOR Work Phone: [facility] 07-13-2022 08:34-0500 Body mass index (BMI) [Ratio] 48.42 kg/m2 Shavon Nava BUSINESS OFFICE ASSISTANT-UNIX SYSTEMS ADMINISTRATOR Work Phone: [facility] 07-13-2022 08:34-0500 Body weight 136.08 kg Shavon Nava BUSINESS OFFICE ASSISTANT-UNIX SYSTEMS ADMINISTRATOR Work Phone: [facility] 07-13-2022 08:34-0500 Diastolic blood pressure 66 mm[Hg] Shavon Nava BUSINESS OFFICE ASSISTANT-UNIX SYSTEMS ADMINISTRATOR Work Phone: [facility] 07-13-2022 08:34-0500 Heart rate 73 /min Shavon Nava BUSINESS OFFICE ASSISTANT-UNIX SYSTEMS ADMINISTRATOR Work Phone: [facility] 07-13-2022 08:34-0500 Systolic blood pressure 130 mm[Hg] Shavon Nava BUSINESS OFFICE ASSISTANT-UNIX SYSTEMS ADMINISTRATOR Work Phone: [facility] 07-07-2022 11:26-0500 Body weight 137.98 kg Darian Pruett MD Work Phone: [facility] 07-07-2022 11:26-0500 Diastolic blood pressure 83 mm[Hg] Darian Pruett MD Work Phone: [facility] 07-07-2022 11:26-0500 Heart rate 79 /min Darian Pruett MD Work Phone: [facility] 07-07-2022 11:26-0500 Systolic blood pressure 142 mm[Hg] Darian Pruett MD Work Phone: [facility] 01-23-2017 09:42-0400 BMI (Body Mass Index) 48.38 kg/m2 Pedro Pablo Tobias MD [facility] Work Phone: 01-23-2017 09:42-0400 Body Temperature 98.1 [degF] Pedro Pablo Tobias MD [facility] Work Phone: 01-23-2017 09:42-0400 BP Diastolic 79 mm[Hg] Pedro Pablo Tobias MD [facility] Work Phone: 01-23-2017 09:42-0400 BP Systolic 112 mm[Hg] Pedro Pablo Tobias MD [facility] Work Phone: 01-23-2017 09:42-0400 Pulse (Heart Rate) 80 /min Pedro Pablo Tobias MD [facility] Work Phone: 01-23-2017 09:42-0400 Respiratory Rate 20 /min Pedro Pablo Tobias MD [facility] Work Phone: 01-23-2017 09:42-0400 Weight 135.99 kg Pedro Pablo Tobias MD [facility] Work Phone: 01-19-2017 10:41-0400 BMI (Body Mass Index) 49.64 kg/m2 Adele Steinberg MD [facility] 01-19-2017 10:41-0400 Body Temperature 97.3 [degF] Adele Steinberg MD [facility] 01-19-2017 10:41-0400 BP Diastolic 75 mm[Hg] Adele Steinberg MD [facility] 01-19-2017 10:41-0400 BP Systolic 129 mm[Hg] Adele Steinberg MD [facility] 01-19-2017 10:41-0400 Height 167.64 cm Adele Steinberg MD [facility] 01-19-2017 10:41-0400 Pulse (Heart Rate) 92 /min Adele Steinberg MD [facility] 01-19-2017 10:41-0400 Respiratory Rate 16 /min Adele Steinberg MD [facility] 01-19-2017 10:41-0400 Weight 139.52 kg Adele Steinberg MD [facility] 01-19-2017 10:41-0400 Weight 139.53 kg Adele Steinberg MD [facility] Encounters Encounter Date Encounter Type Care Provider Facility Start: 06-05-2023 End: 06-05-2023 ambulatory RACHAEL NAM [facility] Start: 05-08-2023 End: 05-08-2023 ambulatory ABILIO CHRISTINA [facility] Start: 04-09-2023 End: 04-09-2023 ambulatory RACHAEL NAM [facility] Start: 04-04-2023 ambulatory Lianet ellis MD Work Phone: [facility] [place] Start: 03-27-2023 End: 03-28-2023 ambulatory LIANET ASIFAMPAUGUSTUS Facility:[facility] Start: 03-23-2023 End: 03-23-2023 ambulatory LIANET LAYAAMPAUGUSTUS [facility] Start: 03-22-2023 End: 03-23-2023 ambulatory LIANET MCKEON Facility:[facility] Start: 03-19-2023 ambulatory LIANET LAYAAMPAS [facility] Start: 03-05-2023 End: 03-05-2023 ambulatory LIANET LAYAAMPAUGUSTUS [facility] Start: 01-26-2023 End: 01-26-2023 ambulatory JAMIL MORELAND [facility] Start: 01-02-2023 Telephone encounter Darian hampton MD Work Phone: [facility] [place] Start: 01-01-2023 Telephone encounter Darian hampton MD Work Phone: [facility] [place] Procedures Date Procedure Procedure Detail Performing Clinician Start: 07-13-2022 Ct abdomen & pelvis w/contrast material Shavon Nava BUSINESS OFFICE ASSISTANT-UNIX SYSTEMS ADMINISTRATOR Work Phone: Start: 07-13-2022 End: 07-13-2022 Creatinine blood Shavon Nava BUSINESS OFFICE ASSISTANT-UNIX SYSTEMS ADMINISTRATOR Work Phone: Start: 07-07-2022 Us soft tissue head & neck real time imge docm Darian Pruett MD Work Phone: Start: 03-01-2022 Mammography Mammography Coordinator Start: 07-20-2018 Adult depression screening assessment Angely Black OD Work Phone: History of cholecystectomy S/P laparoscopic cholecystectomy Alicia Weiner PA-C Work Phone: Plan of Treatment Date Care Activity Detail Author Start: 02-08-2031 Tetanus vaccination TETANUS [facility] Start: 02-08-2031 Urine microalbumin profile DTaP,Tdap,Td Vaccine (8 - Td or Tdap) [facility] Start: 04-19-2027 Tetanus vaccination TETANUS [facility] Start: 04-19-2027 Urine microalbumin profile [facility] Start: 11-27-2023 HPV TESTING HPV TESTING [facility] Start: 10-05-2023 ANNUAL PCP TEAM WATER PUMPER CHINMAY DISEASE VISIT ANNUAL PCP TEAM CHRONIC DISEASE VISIT [facility] Start: 03-01-2023 Mammography [facility] Start: 02-12-2023 End: 04-14-2023 Thyroxine (T4) free [Mass/volume] in Serum or Plasma T4 FREE/FREE THYROX Lab Routine Papillary carcinoma of thyroid (HCC) Expected: 02/12/2023 (Approximate), Expires: 04/14/2023 [facility] Work Phone: Immunizations Immunization Date Immunization Notes Care Provider Yoko anthony 03-05-2020 influenza, seasonal, injectable Angely Black OD Work Phone: [facility] 03-05-2020 influenza virus vaccine, unspecified formulation Shavon Nava BUSINESS OFFICE ASSISTANT-UNIX SYSTEMS ADMINISTRATOR Work Phone: [facility] 04-24-2017 measles, mumps and rubella virus vaccine Angely Black OD Work Phone: [facility] Work Phone: 04-19-2017 tetanus toxoid, redu godfrey diphtheria toxoid, and acellular pertussis vaccine, adsorbed Angely Black OD Work Phone: [facility] 01-28-1994 trivalent poliovirus vaccine, live, oral Angely Black OD Work Phone: [facility] 12-28-1993 measles, mumps and rubella virus vaccine Angely Wayne OD Work Phone: [facility] 12-09-1986 diphtheria, tetanus toxoids and pertussis vaccine Angely Black OD Work Phone: [facility] 04-12-1983 diphtheria, tetanus toxoids and pertussis vaccine Angely Black OD Work Phone: [facility] 04-12-1983 trivalent poliovirus vaccine, live, oral Angely Black OD Work Phone: [facility] 09-09-1982 measles, mumps and rubella virus vaccine Angely Wayne OD Work Phone: [facility] 1980 diphtheria, tetanus toxoids and pertussis vaccine Angely Wayne OD Work Phone: [facility] 1980 trivalent poliovirus vaccine, live, oral Angely Wayne OD Work Phone: [facility] 1980 diphtheria, tetanus toxoids and pertussis vaccine Angely Wayne OD Work Phone: [facility] 1980 trivalent poliovirus vaccine, live, oral Anegly Wayne OD Work Phone: [facility] 1980 diphtheria, tetanus toxoids and pertussis vaccine Angely Wayne OD Work Phone: [facility] 1980 trivalent poliovirus vaccine, live, oral Angely Wayne OD Work Phone: [facility] Payers Date Payer Category Payer Medicaid [id number] 2022 Medicaid [id number] 2022 Private Health Insurance LAVERNE MILLER [id number] 2022-Present [address] [place] [address] [id number] 2022 Private Health Insurance [id number] 2020 Medicaid [employer] MEDICAID [id number] 2020-Present [phone] [address] [place] [address] Medicaid [id number] 2020 Medicaid [id number] 2019 Unknown [employer] AGE [employer] [id number] 2019-Present [address] [place] [address] [id number] 2019 Unknown [id number] 1980 Unknown [id number]. 594 1981 Unknown [id number]. 594 1981 Unknown [id number]. 594 1981 Unknown [id number] [id number]. 594 1981 Unknown [id number] [id number]. 594 1981 Unknown [id number]. 479 1981 Unknown [id number] [id number]. 479 1981 Unknown [id number] [id number]. 479 1981 Unknown [id number] [id number]. 479 1981 Unknown [id number] [id number]. 479 1981 Unknown [id number] [id number]. 479 1981 Unknown [id number] [id number]. 479 1981 Unknown [id number]. 479 Social History Date Type Detail Facility Start: 09-22-2011 End: 09-04-2014 Tobacco smoking status [facility] Never smoked tobacco [facility] Start: 04-08-2021 End: 11-13-2022 Alcohol intake Current non-drinker of alcohol (finding) [facility] Start: 1980 Sex Assigned At Not on file [facility] Start: 07-18-2021 End: 07-13-2022 Exposure to SARS-CoV-2 (event) Not sure [facility] Start: 11-14-2021 End: 11-24-2021 Exposure to SARS-CoV-2 (event) Unable to assess [facility] Start: 09-22-2011 End: 09-04-2014 Tobacco use and exposure Smokeless tobacco non-user [facility] Work Phone: Start: 09-29-2022 End: 10-18-2022 History of Social function [facility] Start: 09-29-2022 End: 10-18-2022 Tobacco use panel [facility] Adolescent depressio n screening assessment 0 [facility] Gender identity Identifies as fe male gender (finding) [facility] Medical Equipment Procedure Code Equipment Code Equipment Origin al Text Equipment Identifier Dates Mesh Xenmatrix A b 15x20 Cm - [id number] Start: 12-08-2014 Clinical Notes 10-02-2009 to 04-04-2023 Telephone Encounter - Carlos A Clemens - 02/06/2023 11:43 AM EDTTelephone Encounter - Alicia Weiner PA-C - 11/13/2022 11:12 AM EDTTelephone Encounter - Raven Mane - 11/13/2022 10:16 AM EDT Note Date & Type Note Facility 04-04-2023 Note Patient Outreach (IN [facility]) DIEGO DEL TORO ([id number]) 1980 F Date Time Provider Department 04/04/23 LIANET MCKEON During your visit today, we recorded the following information about you: Allergies As of Date: 04/04/2023 Noted Allergy Reaction ADHESIVE TAPE (ROSINS) 12/26/2019 9 - Itching Comments: Reina, paper tape ok Date Reviewed: 11/13/2022 Reviewed by: Alicia Weiner PA-C - Fully Assessed Visit Diagnosis:Encounter for screening mammogram for breast cancer [Z12.31] Order(s):[facility] [place] [[id number]] Order #: [id number] FUTURE Prescriptions as of 04/09/2023 - levothyroxine (SYNTHROID) 175 mcg tablet take 6 AND 1/2 per week - calcium carbonate (CALCIUM 300 ORAL) Take 1 tablet by mouth once daily. - GARLIC Take 1 mL by mouth once daily. - CPAP AutoPAP 5-20 cmH2O, mask to comfort, tubing, heated humidifier, filters, Lifetime supplies, - Miscellaneous Medical Supply [facility] Knee brace Dx: S89.92XA, M25.562 - Multivitamin [...] Encounter Status:Closed by JOSE, PRODUSER on 04/09/23 [facility] 02-06-2023 Miscellaneous Notes Patient procedure has been cancelled, she is . Carlos A Clemens Rx sent Patient asking prep [facility] Raven Mane Soils Analyst 02/09/2023 colon/egd ruano Patient denied sooner dates Raven Mane Soils Analyst documented in this encounter [facility] 01-02-2023 Miscellaneous Notes Spoke with Allyson at [facility] and clarified that the patient is to take 1 full tablet of Synthroid 175mcg 6 days/week and 1/2 of a 175mcg tablet 1 day a week. Zenia Fernandez RN Allyson calling from [employer] to get clarification on instructions sent over on levothyroxine (SYNTHROID) 175 mcg tablet. Contact Information [phone] Thank you documented in this encounter [facility] 01-02-2023 Miscellaneous Notes Darian Pruett MD P Lkwd Clerical Pool virtual in 6 weeks, check first before calling to see if patient was successful in making their own appointment 1st Attempt Left message to call office. 01/02/2023 8:39 AM Hoda Au documented in this encounter [facility] 01-01-2023 Note HNO ID: [id number] Author: Darian Pruett MD Service: ? Author Type: Physician Type: Progress Notes Filed: 01/01/2023 11:30 AM Note Text: Virtual Visit utilizing both audio and video components FaceTime I have communicated my name and active licensure. The patient's identity and physical location were verified at the time of this visit. Either the patient or their legal b2b sales representative has been informed of the risks and benefits of -- and alternatives to -- treatment through a remote evaluation and consents to proceed with the evaluation remotely. Patient location: [place], [place] Assessment / Plan Assessment: 1) Surgical [...] hard to do everything right. Seeing highway patrol officer TSH reported to be 0.09, basis for [...] refused gastric bypass surgery. 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 Tobias, at [facility] Pathology (12/28/09): 4cm classic papillary thyroid CA, [...] on either side. (more content not included)... [facility] 01-01-2023 Instructions Darian Pruett MD - [...] 4.1 pg/mL 3.8 documented in this encounter [facility] 01-01-2023 History of Presen t illness Narrative Virtual Visit utilizing both audio and video components FaceTime I have communicated my name and active licensure. The patient's identity and physical location were verified at the time of this visit. Either the patient or their legal b2b sales representative has been informed of the risks and benefits of -- and alternatives to -- treatment through a remote evaluation and consents to proceed with the evaluation remotely. Patient location: [place], [place] Assessment / Plan Assessment: 1) Surgical hypothyroidism [...] hard to do everything right. Seeing highway patrol officer TSH reported to be 0.09, basis for [...] refused gastric bypass surgery. 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 Tobias, at [facility] Pathology (12/28/09): 4cm classic papillary thyroid CA, [...] supplies, 1 Device 0 Miscellaneous Medical Supply [facility] Knee brace Dx: S89.92XA, M25.562 1 Each 0 Multivitamin capsule Take 1 capsule by mouth once daily. Lactobacillus acidophilus 10 billion cell cap Take by mouth once daily. No current facility-administered medications for this visit. ALLERGIES Allergen Reactions Adhesive Tape (Etelvina* Itching Tegaderm, paper tape ok documented in this encounter [facility] 12-19-2022 Note HNO ID: [id number] Author: Janna Ojeda Service: ? Author Type: ? Type: Progress Notes Filed: 12/18/2022 10:12 PM Note Text: The patient did not show up for the scheduled sleep study. The patient will be contacted to reschedule the sleep study. Janna Ojeda [facility] 12-18-2022 History of Presen t illness Narrative The patient did not show up for the scheduled sleep study. The patient will be contacted to reschedule the sleep study. Jannalawson Ojeda October 24, 2022 Standing PSG Orders signed in the last 90 days None Future PSG Orders signed in the last 90 days Ordered Auth. provider PAP TITRATION PSG (CPAP, BIPAP, ASV) [[id number]] 10/04/22 Julio Avalos APRN.[employer]IX SYSTEMS ADMINISTRATOR Assoc. diagnoses: Weight gain [R63.5], Sleep apnea, [...] for PAP titration study from [facility] Staff. Visit prep complete. Comments :No The sleep study is scheduled for 11/09. Insurance: Payor: [employer] MEDICAID / Plan: [employer] [facility] MEDICAID [facility] / Product Type: Medicaid / Payer/Plan Subscr Sex Relation Sub. Ins. ID Effective Group Num 1. ANTHEM MEDICA* GENNARO DEL [place]OROINE [place] 1980 Female Self [id number] 06[birth year] [address] [place] Jacobo documented in this encounter [facility] 11-13-2022 Note HNO ID: [id number] Author: Alicia Weiner PA-C Service: ? Author Type: Physician Sandblast Carver Type: Progress Notes Filed: 11/13/2022 12:32 PM [...] by mouth once daily. Miscellaneous Medical Supply [facility] Knee brace Dx: S89.92XA, M25.562 No current [...] depression, and de (more content not included)... [facility] 11-13-2022 History of Presen t illness [...] by mouth once daily. Miscellaneous Medical Supply [facility] Knee brace Dx: S89.92XA, M25.562 No current [...] Alicia Weiner PA-C documented in this encounter [facility] 11-13-2022 Nurse Note REVIEW OF SYSTEMS: General: [...] Irais Gilbert RN documented in this encounter [facility] 10-24-2022 Note HNO ID: [id number] Author: Michael Dawkins III, PhD Service: ? Author Type: Physician Type: Progress Notes Filed: 12/18/2022 10:12 PM Note Text: October 24, 2022 Standing PSG Orders signed in the last 90 days None Future PSG Orders signed in the last 90 days Ordered Auth. provider PAP TITRATION PSG (CPAP, BIPAP, ASV) [[id number]] 10/04/22 Julio Avalos APRN.[employer]IX SYSTEMS ADMINISTRATOR Assoc. diagnoses: Weight gain [R63.5], Sleep apnea, [...] Michael Dawkins III, PhD 1:28 PM, 10/24/2022 [facility] 10-24-2022 Note HNO ID: [id number] Author: Ny Jacobo Service: ? Author Type: ? Type: Progress Notes Filed: 12/18/2022 10:12 PM Note Text: October 24, 2022 An order has been received for PAP titration study from [facility]. [facility] Staff. Visit prep complete. Comments :No The sleep study is scheduled for 11/09. Insurance: Payor: [employer] MEDICAID / Plan: [facility] MEDICAID [facility] / Product Type: Medicaid / Payer/Plan Subscr Sex Relation Sub. Ins. ID Effective Group Num 1. ANTHEM MEDICA* DIEGO DEL TORO 1980 Female Self [id number] [birth year] [address] [place] Jacobo [facility] 10-18-2022 History of Presen t illness Narrative CC: Chief Complaint Patient presents with Follow-up This visit was completed via telephone. HPI: Ms. Del Toro, a 42 y.o. female from [facility], was seen in the [facility] [...] left nipple and followed up with her FIRST HELPER. Initial and follow up mammograms showed no [...] biopsy: (LLQ Abdominal wall) - Endometriosis (ER, [place], and CD10 reactive) B. Abdominal wall nodule #2, biopsy: (jose martin-umbilical nodule) - Histologically unremarkable fibroconnective tissue 05/15/18: Stable NDERA Previously seen by Dr. Ramirez for hernia [...] 1 capsule by mouth daily with breakfast. Mcgraw-3 Fatty Acids (FISH OIL) 1000 MG Cap [...] exam and may be out of the gorne-hl-sqsd or obscured by motion artifact. IMPRESSION IMPRESSION: [...] meantime. PRIYANK Ching documented in this encounter [facility] 10-18-2022 Instructions Claire Chavez RN - 10/18/2022 1:30 PM EDT Your Surgical Oncology Care Team Office: [phone] Dr. Johnny Joe/ Dr. Ari Becerra/ Dr. Natalie Case Nurse Practitioner--PRIYANK Ching Primary RN--Claire SYKESN, RN, OCN Heel Stainer--Melinda Monzon and Franca GUTIERREZ reviewed with patient documented in this encounter [facility] 10-07-2022 Miscellaneous Notes Pt called and is [...] edge of normal. documented in this encounter [facility] 10-04-2022 Note HNO ID: [id number] Author: Julio Avalos APRN.NIHARIKA Service: ? Author [...] comfort, tubing, heated humidifier, filters, Lifetime supplies, Ehnsd-7-RVS-EPA-Fish Oil (FISH OIL) 1,000 mg (120 mg-180 mg) cap Take 2 capsules by mouth once daily. (Patient not taking: Reported on 10/04/2022) Miscellaneous Medical Supply [facility] Knee brace Dx: S89.92XA, M25.562 Multivitamin capsule [...] Surgery (12/28/09): total thyroidectomy, Dr. Tobias, at [facility] * Path (12/28/09): 4cm classic papillary thyroid [...] normal. Eyes: Gen (more content not included)... [facility] 10-04-2022 History of Presen t illness Narrative SUBJECTIVE Digeo Del Toro is a 42 year old [...] comfort, tubing, heated humidifier, filters, Lifetime supplies, Modzu-0-RCK-EPA-Fish Oil (FISH OIL) 1,000 mg (120 mg-180 mg) cap Take 2 capsules by mouth once daily. (Patient not taking: Reported on 10/04/2022) [facility] Knee brace Dx: S89.92XA, M25.562 Multivitamin capsule [...] Surgery (12/28/09): total thyroidectomy, Dr. Tobias, at [facility] * Path (12/28/09): 4cm classic papillary thyroid [...] steps. PRIYANK Vargas documented in this encounter [facility] 08-08-2022 Note HNO ID: [id number] Author: Asya Parada-T Service: ? Author Type: [...] one year. Thank you for your attention. [facility] 07-07-2022 Note HNO ID: [id number] Author: Darian Pruett MD Service: ? Author [...] Color power Doppler were applied when indicated. [facility] 07-07-2022 Note HNO ID: [id number] Author: Darian Pruett MD Service: ? Author Type: Physician Type: Progress Notes Filed: 07/07/2022 12:13 PM Note Text: Assessment / Plan Assessment: 1) Surgical hypothyroidism. TSH high, apparently from forgetting doses. Rather than increase the dose significantly, I'll just increase the dose based on her weight change (6% gain), and have her take 175 x 7.5/wk followup labs in 6 weeks and send Medcurrent message. Discussed catching up for missed doses. 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 Fertility doc upped her dose to 200 mcg/d levothyroxine, she hasn't started yet. Insurance refused gastric bypass surgery. 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 Tobias, at [facility] Pathology (12/28/09): 4cm classic papillary thyroid CA, [...] Date DELIVERY O (more content not included)... [facility] 07-07-2022 Instructions Darian Pruett MD - 07/07/2022 12:12 PM EST Assessment / Plan Assessment: 1) Surgical hypothyroidism. TSH high, apparently from forgetting doses. Rather than increase the dose significantly, I'll just increase the dose based on her weight change (6% gain), and have her take 175 x 7.5/wk followup labs in 6 weeks and send Medcurrent message. Discussed catching up for missed doses. [...] at your labs and send comment by [employer] 2) return to me in 6 months [...] <14.4 IU/mL <1.0 documented in this encounter [facility] 07-07-2022 Procedure note Thyroid / Neck Ultrasound Findings: no suspicious adenopathy along great vessels or in lateral neck on either side. No masses in thyroid bed. Impression benign study Recommendation: followup ultrasound in 1 year Darian Pruett MD Clinical Issues Reason for the study: followup of thyroid CA Comparison: none Technical Issues Equipment: PopUp Leasingound Alpha 6 Transducer: Linear/Trapezoidal multifrequency Regions examined: Neck, Sagittal and transverse views were obtained. Color power Doppler were applied when indicated. documented in this encounter [facility] 07-07-2022 History of Presen t illness Narrative Assessment / Plan Assessment: 1) Surgical hypothyroidism. TSH high, apparently from forgetting doses. Rather than increase the dose significantly, I'll just increase the dose based on her weight change (6% gain), and have her take 175 x 7.5/wk followup labs in 6 weeks and send Medcurrent message. Discussed catching up for missed doses. 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 Fertility doc upped her dose to 200 mcg/d levothyroxine, she hasn't started yet. Insurance refused gastric bypass surgery. 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 Tobias, at [facility] Pathology (12/28/09): 4cm classic papillary thyroid CA, [...] humidifier, filters, Lifetime supplies, 1 Device 0 Xliuu-4-XSD-EPA-Fish Oil (FISH OIL) 1,000 mg (120 mg-180 mg) cap Take 2 capsules by mouth once daily. Miscellaneous Medical Supply [facility] Knee brace Dx: S89.92XA, M25.562 1 Each [...] paper tape ok documented in this encounter [facility] 06-13-2022 Note HNO ID: [id number] Author: Darian Pruett MD Service: ? Author [...] at your labs and send comment by [employer] 2) return to me this Sunday for quick neck ultrasound. 2) return to me in 6 months by virtual visit Darian Pruett MD Data Review: History Thyroid Cancer, she is not fogetting her levothyroxine any more, she is on 200 mcg/d since letting me know she was 4 weeks ago Insurance refused gastric bypass surgery. 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 Tobias, at [facility] Pathology (12/28/09): 4cm classic papillary thyroid CA, [...] Paternal Grandfather Al (more content not included)... [facility] 06-13-2022 Instructions Darian Pruett MD - [...] Darian Pruett MD documented in this encounter [facility] 06-13-2022 History of Presen t illness Narrative [...] refused gastric bypass surgery. 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 Tobias, at [facility] Pathology (12/28/09): 4cm classic papillary thyroid CA, [...] humidifier, filters, Lifetime supplies, 1 Device 0 Rzgth-6-ERU-EPA-Fish Oil (FISH OIL) 1,000 mg (120 mg-180 mg) cap Take 2 capsules by mouth once daily. Miscellaneous Medical Supply [facility] Knee brace Dx: S89.92XA, M25.562 1 Each [...] paper tape ok documented in this encounter [facility] 03-13-2022 Miscellaneous Notes Patient notified Anna. Please call patient and let them know mammogram was without problems. No changes needed at this time and to keep next scheduled appointment. Recommend repeat mammogram per screening guidelines in 1 year. Thanks. documented in this encounter [facility] 03-06-2022 Miscellaneous Notes Called pt regarding instructions for stress test and needs to reschedule. Transferred to [facility]. documented in this encounter [facility] 03-02-2022 Miscellaneous Notes March 02, 2022 PID: [id number] Diego Del Toro [address] [place] [address] Dear Ms. Del Toro, We are pleased [...] report will be kept on file at [facility] as part of your permanent medical record and are available for your continuing care. Thank you for allowing us to help in meeting your health care needs. Sincerely, Dr. Phipps Interpreting Radiologist [facility] (Normal over 40) documented in this encounter [facility] 02-02-2022 Miscellaneous Notes Left message regarding reminder for stress test tomorrow and given instructions. documented in this encounter [facility] 12-08-2021 History of Presen t illness Narrative [...] from Dr. Kinga Perez MD, a [facility] Staff. Visit prep complete. Comments :No The sleep study is scheduled for 12/07. Insurance: Payor: [employer] MEDICAID / Plan: [employer] ADVANTAGE MEDICAID / Product Type: Medicaid / Payor/Plan Subscr Sex Relation Sub. Ins. ID Effective Group Num 1. PARAMOUNT MED* ALVERTOG[place] S 1980 Female Self [id number] [birth year] [address] Ceasar Rosas documented in this encounter [facility] 08-26-2021 Miscellaneous Notes Spoke with patient regarding reminder for stress test on Sunday and given instructions documented in this encounter [facility] 08-19-2021 Miscellaneous Notes Please call the patient to clarify if she reduced levothyroxine to 6.5 tablets weekly? Her labs indicate that she is still getting too much thyroid hormone. Thank you- Tonja Pathak APRN.[employer] SYSTEM[employer] ADMINISTRATOR [employer] Latest Ref Rng & Units 08/10/2021 TSH 0.270 - 4.200 mIU/L 0.124 (L) Free T4 0.9 - 1.7 ng/dL 2.1 (H) documented in this encounter [facility] 08-13-2021 Miscellaneous Notes Done. Thank you, Cee Beasley Noted and sent to corporate travel coordinator. Dolly Wang LPN Order is placed. Thank you Yisel Rojo APRN.NIHARIKA The COVID swab ordered expires 08/20. In order to get stress echo done 08/29 the exp date needs to be changed documented in this encounter [facility] 08-08-2021 Miscellaneous Notes Patient states its not [...] be seen sooner. Patient was conferenced to [facility] for PCP scheduling. documented in this encounter [facility] 08-01-2021 History of Presen t illness Narrative Not on Zoom, no answer for telephone, voicemail full so cannot leave message. The appointment was cancelled for this patient. Darian Pruett MD documented in this encounter [facility] 07-22-2021 Miscellaneous Notes Patient came to desk asking to have glasses rx reprinted off from April. I was not able to find it or print it off. Patient would like hers and her sons as well. Per patient will be back the to get it. documented in this encounter [facility] documented as of this encounter (statuses as of 07/29/2021) [facility] History of Past illness Narrative* Problem Noted Date Resolved Date Nocturnal dyspnea 10/02/2009 10/30/2014 Overview: Volume overload following ; Spiral CT negative for PE but with small pleural effusions; Echocardiogram normal Supervision of other normal 02/22/2009 10/11/2009 with poor obstetric history 02/22/2009 10/11/2009 documented as of this encounter (statuses as of 08/01/2021) [facility] of [facility] illness Narrative* Problem Noted Date Resolved Date Nocturnal dyspnea 10/02/2009 10/30/2014 Overview: Volume overload following ; Spiral CT negative for PE but with small pleural effusions; Echocardiogram normal Supervision of other normal 02/22/2009 10/11/2009 with poor obstetric history 02/22/2009 10/11/2009 documented as of this encounter (statuses as of 08/01/2021) [facility] of [facility] illness Narrative* Problem Noted Date Resolved Date Nocturnal dyspnea 10/02/2009 10/30/2014 Overview: Volume overload following ; Spiral CT negative for PE but with small pleural effusions; Echocardiogram normal Supervision of other normal 02/22/2009 10/11/2009 with poor obstetric history 02/22/2009 10/11/2009 documented as of this encounter (statuses as of 08/08/2021) [facility] Narrative* Problem Noted Date Resolved Date Nocturnal dyspnea 10/02/2009 10/30/2014 Overview: Volume overload following ; Spiral CT negative for PE but with small pleural effusions; Echocardiogram normal Supervision of other normal 02/22/2009 10/11/2009 with poor obstetric history 02/22/2009 10/11/2009 documented as of this encounter (statuses as of 08/13/2021) [facility] Narrative* Problem Noted Date Resolved Date Nocturnal dyspnea 10/02/2009 10/30/2014 Overview: Volume overload following ; Spiral CT negative for PE but with small pleural effusions; Echocardiogram normal Supervision of other normal 02/22/2009 10/11/2009 with poor obstetric history 02/22/2009 10/11/2009 documented as of this encounter (statuses as of 08/19/2021) [facility] Narrative* Problem Noted Date Resolved Date Nocturnal dyspnea 10/02/2009 10/30/2014 Overview: Volume overload following ; Spiral CT negative for PE but with small pleural effusions; Echocardiogram normal Supervision of other normal 02/22/2009 10/11/2009 with poor obstetric history 02/22/2009 10/11/2009 documented as of this encounter (statuses as of 08/26/2021) [facility] Narrative* Problem Noted Date Resolved Date Nocturnal dyspnea 10/02/2009 10/30/2014 Overview: Volume overload following ; Spiral CT negative for PE but with small pleural effusions; Echocardiogram normal Supervision of other normal 02/22/2009 10/11/2009 with poor obstetric history 02/22/2009 10/11/2009 documented as of this encounter (statuses as of 12/08/2021) [facility] Narrative* Problem Noted Date Resolved Date Nocturnal dyspnea 10/02/2009 10/30/2014 Overview: Volume overload following ; Spiral CT negative for PE but with small pleural effusions; Echocardiogram normal Supervision of other normal 02/22/2009 10/11/2009 with poor obstetric history 02/22/2009 10/11/2009 documented as of this encounter (statuses as of 02/02/2022) [facility] Narrative* Problem Noted Date Resolved Date Nocturnal dyspnea 10/02/2009 10/30/2014 Overview: Volume overload following ; Spiral CT negative for PE but with small pleural effusions; Echocardiogram normal Supervision of other normal 02/22/2009 10/11/2009 with poor obstetric history 02/22/2009 10/11/2009 documented as of this encounter (statuses as of 03/04/2022) [facility] Narrative* Problem Noted Date Resolved Date Nocturnal dyspnea 10/02/2009 10/30/2014 Overview: Volume overload following ; Spiral CT negative for PE but with small pleural effusions; Echocardiogram normal Supervision of other normal 02/22/2009 10/11/2009 with poor obstetric history 02/22/2009 10/11/2009 documented as of this encounter (statuses as of 03/06/2022) [facility] Narrative* Problem Noted Date Resolved Date Nocturnal dyspnea 10/02/2009 10/30/2014 Overview: Volume overload following ; Spiral CT negative for PE but with small pleural effusions; Echocardiogram normal Supervision of other normal 02/22/2009 10/11/2009 with poor obstetric history 02/22/2009 10/11/2009 documented as of this encounter (statuses as of 03/13/2022) [facility] Narrative* Problem Noted Date Resolved Date Nocturnal dyspnea 10/02/2009 10/30/2014 Overview: Volume overload following ; Spiral CT negative for PE but with small pleural effusions; Echocardiogram normal Supervision of other normal 02/22/2009 10/11/2009 with poor obstetric history 02/22/2009 10/11/2009 documented as of this encounter (statuses as of 06/13/2022) [facility] Narrative* Problem Noted Date Resolved Date Nocturnal dyspnea 10/02/2009 10/30/2014 Overview: Volume overload following ; Spiral CT negative for PE but with small pleural effusions; Echocardiogram normal Supervision of other normal 02/22/2009 10/11/2009 with poor obstetric history 02/22/2009 10/11/2009 documented as of this encounter (statuses as of 06/17/2022) [facility] Narrative* Problem Noted Date Resolved Date Nocturnal dyspnea 10/02/2009 10/30/2014 Overview: Volume overload following ; Spiral CT negative for PE but with small pleural effusions; Echocardiogram normal Supervision of other normal 02/22/2009 10/11/2009 with poor obstetric history 02/22/2009 10/11/2009 documented as of this encounter (statuses as of 07/07/2022) [facility] Narrative* Problem Noted Date Resolved Date Nocturnal dyspnea 10/02/2009 10/30/2014 Overview: Volume overload following ; Spiral CT negative for PE but with small pleural effusions; Echocardiogram normal Supervision of other normal 02/22/2009 10/11/2009 with poor obstetric history 02/22/2009 10/11/2009 documented as of this encounter (statuses as of 10/04/2022) [facility] Narrative* Problem Noted Date Resolved Date Nocturnal dyspnea 10/02/2009 10/30/2014 Overview: Volume overload following ; Spiral CT negative for PE but with small pleural effusions; Echocardiogram normal Supervision of other normal 02/22/2009 10/11/2009 with poor obstetric history 02/22/2009 10/11/2009 documented as of this encounter (statuses as of 10/07/2022) [facility] Narrative* Problem Noted Date Diagnosed Date Resolved Date Nocturnal dyspnea 10/02/2009 10/30/2014 Overview: Volume overload following ; Spiral CT negative for PE but with small pleural effusions; Echocardiogram normal Supervision of other normal 02/22/2009 10/11/2009 with poor obstetric history 02/22/2009 10/11/2009 documented as of this encounter (statuses as of 11/13/2022) [facility] Narrative* Problem Noted Date Diagnosed Date Resolved Date Nocturnal dyspnea 10/02/2009 10/30/2014 Overview: Volume overload following ; Spiral CT negative for PE but with small pleural effusions; Echocardiogram normal Supervision of other normal 02/22/2009 10/11/2009 with poor obstetric history 02/22/2009 10/11/2009 documented as of this encounter (statuses as of 12/19/2022) [facility] Narrative* Problem Noted Date Diagnosed Date Resolved Date Nocturnal dyspnea 10/02/2009 10/30/2014 Overview: Volume overload following ; Spiral CT negative for PE but with small pleural effusions; Echocardiogram normal Supervision of other normal 02/22/2009 10/11/2009 with poor obstetric history 02/22/2009 10/11/2009 documented as of this encounter (statuses as of 01/01/2023) [facility] Narrative* Problem Noted Date Diagnosed Date Resolved Date Nocturnal dyspnea 10/02/2009 10/30/2014 Overview: Volume overload following ; Spiral CT negative for PE but with small pleural effusions; Echocardiogram normal Supervision of other normal 02/22/2009 10/11/2009 with poor obstetric history 02/22/2009 10/11/2009 documented as of this encounter (statuses as of 01/02/2023) [facility] Narrative* Problem Noted Date Diagnosed Date Resolved Date Nocturnal dyspnea 10/02/2009 10/30/2014 Overview: Volume overload following ; Spiral CT negative for PE but with small pleural effusions; Echocardiogram normal Supervision of other normal 02/22/2009 10/11/2009 with poor obstetric history 02/22/2009 10/11/2009 documented as of this encounter (statuses as of 01/02/2023) [facility] Narrative* Problem Noted Date Diagnosed Date Resolved Date Nocturnal dyspnea 10/02/2009 10/30/2014 Overview: Volume overload following ; Spiral CT negative for PE but with small pleural effusions; Echocardiogram normal Supervision of other normal 02/22/2009 10/11/2009 with poor obstetric history 02/22/2009 10/11/2009 documented as of this encounter (statuses as of 02/07/2023) [facility] Narrative* Problem Noted Date Diagnosed Date Resolved Date Nocturnal dyspnea 10/02/2009 10/30/2014 Overview: Volume overload following ; Spiral CT negative for PE but with small pleural effusions; Echocardiogram normal Supervision of other normal 02/22/2009 10/11/2009 with poor obstetric history 02/22/2009 10/11/2009 documented as of this encounter (statuses as of 04/09/2023) [facility] Diagnosis Encounter for screening mammogram for breast cancer [facility] APPOINTMENT CANCELLED- Primary [facility] Diagnosis Pre-op testing- Primary Preoperative examination, unspecified [facility]* Diagnosis 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 [facility]* Diagnosis Postoperative hypothyroidism- Primary Postsurgical hypothyroidism [facility]* Diagnosis Papillary carcinoma of thyroid (HCC)- Primary Malignant neoplasm of thyroid gland [facility] Diagnosis 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 [facility] Diagnosis Precordial pain- Primary Other fatigue Weight gain Abnormal weight gain Sleep apnea, unspecified type Post-surgical hypothyroidism Postsurgical hypothyroidism Vitamin D deficiency Unspecified vitamin D deficiency Obesity, Class III, BMI >= 40 Morbid obesity Lipid screening Screening for lipoid disorders Encounter for therapeutic drug monitoring Screening for colon cancer Special screening for malignant neoplasms, colon [facility]* Diagnosis 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 Desmoid Neoplasm of uncertain behavior of connective and other soft tissue [facility]* Diagnosis Change in bowel habits- Primary [...] other specified diseases [facility] Diagnosis Papillary carcinoma of thyroid (HCC)- Primary Malignant neoplasm of thyroid gland [facility]* Diagnosis Diarrhea, unspecified type- Primary Abdominal bloating Flatulence, eructation, and gas pain Change in bowel habits Other symptoms involving digestive system History of anemia Personal history of diseases of blood and blood-forming organs documented in this [facility] Encounter for screening mammogram for breast cancer documented in this encounter [facility] for referral (narrative)* Diagnostic Procedure Only (Routine) - Pending Review Specialty Diagnoses / Procedures Referred By Morris mckeon Referred To Contact [facility] Diagnoses Encounter for screening mammogram for breast cancer Procedures CHAZ SCREENING SCREENING MAMMOGRAPHY BI 2-[place] [address] [place] [address] [facility] [address] [place] [address] Referral ID Status Reason Start Date Expiration Date Visits Requested Visits Authorized [id number] Pending Review Auto-Generat ed Referral 07/27/2021 08/26/2022 1 1 [facility] for referral (narrative)* Diagnostic Procedure Only (Routine) - Authorized Specialty Diagnoses / Procedures Referred By Morris mckeon Referred To Contact [facility] Diagnoses Other fatigue Precordial pain Procedures NM CARDIAC PERF STRESS/EXERCISE MYOCARDIAL SPECT MULTIPLE STUDIES Julio Avalos APRN.CNP [address] [place] [address] [facility] [address] [place] [address] Referral ID Status Reason Start Date Expiration Date Visits Requested Visits Authorized [id number] Authorized Auto-Generat ed Referral 10/04/2022 11/03/2023 1 1 * Consult, Test, Treat (Routine) - Pending Review Specialty Diagnoses / Procedures Referred By Morris mckeon Referred To Contact General Surgery Diagnoses Screening for colon cancer Procedures CONSULT TO GENERAL SURGERY OFFICE/OUTPATIENT NEW HIGH MDM 60-74 MINUTES Julio Avalos APRN.CNP [address] [place] [address] Referral ID Status Reason Start Date Expiration Date Visits Requested Visits Authorized [id number] Pending Review PCP Requested Referral 10/04/2022 10/04/2023 1 1 [facility] for referral (narrative)* Outpatient Procedure (Routine) - Pending Review Specialty Diagnoses / Procedures Referred By Contac t Referred To Contact [facility] Diagnoses Diarrhea, unspecified type Abdominal bloating Change in bowel habits History of anemia Procedures COLONOSCOPY DIAGNOSTIC COLONOSCOPY FLX DX W/COLLJ SPEC WHEN PFRMD Alicia Weiner PA-C [address] [place] [address] [facility] [address] [address] Referral ID Status Reason Start Date Expiration Date Visits Requested Visits Authorized [id number] Pending Review Auto-Generat ed Referral 11/13/2022 11/14/2023 1 1 * Outpatient Procedure (Routine) - Pending Review Specialty Diagnoses / Procedures Referred By Contac t Referred To Contact [facility] Diagnoses Diarrhea, unspecified type Abdominal bloating Change in bowel habits History of anemia Procedures EGD DIAGNOSTIC ESOPHAGOGASTRODUODENOSC OPY TRANSORAL DIAGNOSTIC Alicia Weiner PA-C [address] [place] [address] [facility] Disease [address] [address] Referral ID Status Reason Start Date Expiration Date Visits Requested Visits Authorized [id number] Pending Review Auto-Generat ed Referral 11/13/2022 11/14/2023 1 1 [facility] for referral (narrative)* Diagnostic Procedure Only (Routine) - Pending Review Specialty Diagnoses / Procedures Referred By Contac t Referred To Contact [facility] Diagnoses Encounter for screening mammogram for breast cancer Procedures CHAZ SCREENING SCREENING MAMMOGRAPHY BI 2-VIEW BREAST INC Lianet Parra MD [address] [place] [address] [facility] [address] [place] [address] Referral ID Status Reason Start Date Expiration Date Visits Requested Visits Authorized [id number] Pending Review Auto-Generat ed Referral 3 05/03/2024 1 1 [facility] Summary Purpose Family History No Family [...] CT SCAN,ABDOMENT AND PELVIS,W CONTRAST Shavon Nava, BUSINESS OFFICE ASSISTANT-[employer]IX SYSTEMS ADMINISTRATOR [address] [place] [phone] Referral ID Status Reason Start Date Expiration Date Visits Re quested Visits Authorized [id number] Closed 02/22/2022 03/19/2023 1 1 Specialty Diagnoses / Procedures Referred By Morris mckeon Referred To Contact Diagnoses Desmoid Procedures CT CHEST WITH CONTRAST CHG DIAGNOSTIC COMPUTED TOMOGRAPHY THORAX W/CONTRAST Shavon Nava, BUSINESS OFFICE ASSISTANT-[employer] SYSTEMS ADMINISTRATOR [address] [place] [address] Referral ID Status Reason Start Date Expiration Date V isits Requested Visits Authorized [id number] Auth Not Needed 10/18/2022 11/12/2023 1 1 Additional Source Comments Source Comments (unrecognize d section and content) In the event this informatio n is protected by the Federal Confidentiality of Alcohol and Drug Abuse Patient Records regulations: The Federal rules restrict any use of the information to criminally investigate or prosecute any alcohol or drug abuse patient.[facility] the event this information is protected by the Federal Confidentiality of Alcohol and Drug Abuse Patient Records regulations: The Federal rules restrict any use of the information to criminally investigate or prosecute any alcohol or drug abuse patient.[facility] Center[facility] the event this information is protected by the Federal Confidentiality of Alcohol and Drug Abuse Patient Records regulations: The Federal rules restrict any use of the information to criminally investigate or prosecute any alcohol or drug abuse patient.[facility] Center[facility] the event this information is protected by the Federal Confidentiality of Alcohol and Drug Abuse Patient Records regulations: The Federal rules restrict any use of the information to criminally investigate or prosecute any alcohol or drug abuse patient.[facility] Center[facility] the event this information is protected by the Federal Confidentiality of Alcohol and Drug Abuse Patient Records regulations: The Federal rules restrict any use of the information to criminally investigate or prosecute any alcohol or drug abuse patient.[facility] Center[facility] the event this information is protected by the Federal Confidentiality of Alcohol and Drug Abuse Patient Records regulations: The Federal rules restrict any use of the information to criminally investigate or prosecute any alcohol or drug abuse patient.[facility] Center[facility] the event this information is protected by the Federal Confidentiality of Alcohol and Drug Abuse Patient Records regulations: The Federal rules restrict any use of the information to criminally investigate or prosecute any alcohol or drug abuse patient.[facility] Center[facility] the event this information is protected by the Federal Confidentiality of Alcohol and Drug Abuse Patient Records regulations: The Federal rules restrict any use of the information to criminally investigate or prosecute any alcohol or drug abuse patient.[facility] Center[facility] the event this information is protected by the Federal Confidentiality of Alcohol and Drug Abuse Patient Records regulations: The Federal rules restrict any use of the information to criminally investigate or prosecute any alcohol or drug abuse patient.[facility] Center[facility] the event this information is protected by the Federal Confidentiality of Alcohol and Drug Abuse Patient Records regulations: The Federal rules restrict any use of the information to criminally investigate or prosecute any alcohol or drug abuse patient.[facility] Center[facility] the event this information is protected by the Federal Confidentiality of Alcohol and Drug Abuse Patient Records regulations: The Federal rules restrict any use of the information to criminally investigate or prosecute any alcohol or drug abuse patient.[facility] Center[facility] the event this information is protected by the Federal Confidentiality of Alcohol and Drug Abuse Patient Records regulations: The Federal rules restrict any use of the information to criminally investigate or prosecute any alcohol or drug abuse patient.[facility] Center[facility] the event this information is protected by the Federal Confidentiality of Alcohol and Drug Abuse Patient Records regulations: The Federal rules restrict any use of the information to criminally investigate or prosecute any alcohol or drug abuse patient.[facility] Center[facility] the event this information is protected by the Federal Confidentiality of Alcohol and Drug Abuse Patient Records regulations: The Federal rules restrict any use of the information to criminally investigate or prosecute any alcohol or drug abuse patient.[facility] CenterIn the event this information is protected by the Federal Confidentiality of Alcohol and Drug Abuse Patient Records regulations: The Federal rules restrict any use of the information to criminally investigate or prosecute any alcohol or drug abuse patient.[facility] CenterIn the event this information is protected by the Federal Confidentiality of Alcohol and Drug Abuse Patient Records regulations: The Federal rules restrict any use of the information to criminally investigate or prosecute any alcohol or drug abuse patient.[facility] CenterIn the event this information is protected by the Federal Confidentiality of Alcohol and Drug Abuse Patient Records regulations: The Federal rules restrict any use of the information to criminally investigate or prosecute any alcohol or drug abuse patient.[facility] CenterIn the event this information is protected by the Federal Confidentiality of Alcohol and Drug Abuse Patient Records regulations: The Federal rules restrict any use of the information to criminally investigate or prosecute any alcohol or drug abuse patient.[facility] CenterIn the event this information is protected by the Federal Confidentiality of Alcohol and Drug Abuse Patient Records regulations: The Federal rules restrict any use of the information to criminally investigate or prosecute any alcohol or drug abuse patient.[facility] CenterIn the event this information is protected by the Federal Confidentiality of Alcohol and Drug Abuse Patient Records regulations: The Federal rules restrict any use of the information to criminally investigate or prosecute any alcohol or drug abuse patient.[facility] CenterIn the event this information is protected by the Federal Confidentiality of Alcohol and Drug Abuse Patient Records regulations: The Federal rules restrict any use of the information to criminally investigate or prosecute any alcohol or drug abuse patient.[facility] CenterIn the event this information is protected by the Federal Confidentiality of Alcohol and Drug Abuse Patient Records regulations: The Federal rules restrict any use of the information to criminally investigate or prosecute any alcohol or drug abuse patient.[facility] CenterIn the event this information is protected by the Federal Confidentiality of Alcohol and Drug Abuse Patient Records regulations: The Federal rules restrict any use of the information to criminally investigate or prosecute any alcohol or drug abuse patient.[facility] CenterIn the event this information is protected by the Federal Confidentiality of Alcohol and Drug Abuse Patient Records regulations: The Federal rules restrict any use of the information to criminally investigate or prosecute any alcohol or drug abuse patient.[facility] Reason for Visit (unrecogniz ed section and [...] SCAN,ABDOMENT AND PELVIS,W CONTRAST Shavon Nava C, BUSINESS OFFICE ASSISTANT-[employer] SYSTEMS ADMINISTRATOR [address] [place] [address] Referral ID Status Reason Start Date Expiration Date V isits Requested Visits Authorized [id number] Auth Not Needed 02/22/2022 03/19/2023 1 1 Reason Comments Thyroid Cancer Reason Comments Thyroid Problem Specialty Diagnoses / Procedures Referred By Contac t Referred To Contact Endocrinology / ENDOCRINOLOGY Diagnoses Thyroid cancer (HCC) neck ultrasound for thyroid Cancer *per [facility] Procedures US SOFT TISSUE HEAD & NECK REAL TIME IMGE DOCM THYROID BIOPSY/ULTRASOUND Darian Pruett MD [address] [place] [address] Darian Pruett MD [address] [place] [address] Referral ID Status Reason Start Date Expiration Date Visits Re quested Visits Authorized [id number] Closed 06/13/2022 05/06/2023 1 1 Referral ID Status Reason Start Date Expiration Date Visits Re quested Visits Authorized [id number] Closed 02/22/2022 03/19/2023 1 1 Reason Comments [...] NEW HIGH MDM 60-74 MINUTES Julio Avalos APRN.[employer] SYSTEM[employer] ADMINISTRATOR [address] [place] [address] Referral ID Status Reason Start Date Expiration Date Visits Requested Visits Authorized [id number] Pending Review PCP Requested Referral 10/04/2022 10/04/2023 1 1 Reason Comments Medication Clarification Reason Comments 02/09/2023 colon/egd ruano ' Care Teams (unrecognized sec tion and content) Executive Director Global Brand Marketing Relationship Specialty Start Date End Date Lianet Mckeon MD [address] [place] [address] PCP - General 11/04/14 Odilia Peres (Rn), RN [address] [place] [address] [facility] General Surgery 08/20/18 Executive Director Global Brand Marketing Relationship Specialty Start Date End Date Lianet Mckeon MD [address] [place] [address] PCP - General 11/04/14 Odilia Peres (Rn), RN [address] [place], [place] [phone] [facility] General Surgery 08/20/18 Executive Director Global Brand Marketing Relationship Specialty Start Date End Date Lianet Mckeon MD [address] [place] [address] PCP - General 11/04/14 Odilia Peres (Rn), RN [address] [place], [place] [phone] [facility] General Surgery 08/20/18 Executive Director Global Brand Marketing Relationship Specialty Start Date End Date Lianet Mckeon MD [address] [place] [address] PCP - General 11/04/14 Odilia Peres (Rn), RN [address] [place], [place] [phone] [facility] General Surgery 08/20/18 Executive Director Global Brand Marketing Relationship Specialty Start Date End Date Lianet Mckeon MD [address] [place] [address] PCP - General 11/04/14 Odilia Peres (Rn), RN [address] [place] [address] [facility] General Surgery 08/20/18 Executive Director Global Brand Marketing Relationship Specialty Start Date End Date Lianet Mckeon MD [address] [place] [address] PCP - General 11/04/14 Odilia Peres (Rn), RN [address] [place] [address] [facility] General Surgery 08/20/18 Executive Director Global Brand Marketing Relationship Specialty Start Date End Date Lianet Mckeon MD [address] [place] [address] PCP - General 11/04/14 Odilia Peres (Rn), RN [address] [place], [place] [phone] [facility] General Surgery 08/20/18 Executive Director Global Brand Marketing Relationship Specialty Start Date End Date Lianet Mckeon MD [address] [place] [address] PCP - General 11/04/14 Odilia Peres (Rn), RN [address] [place], [place] [phone] [facility] General Surgery 08/20/18 Executive Director Global Brand Marketing Relationship Specialty Start Date End Date Lianet Mckeon MD [address] [place] [address] PCP - General 11/04/14 Odilia Peres (Rn), RN [address] [place], [place] [phone] [facility] General Surgery 08/20/18 Executive Director Global Brand Marketing Relationship Specialty Start Date End Date Lianet Mckeon MD PCP - General Internal Medicine 09/09/14 Pietro Tapia MD [address] [facility] [address] [place] [phone] Surgeon Plastic Surgery 12/08/14 To Chamorro MD Surgeon Thoracic Surgery 12/08/14 Johnny Joe MD, PhD [address] [place] [phone] Surgeon Surgical Oncology 12/08/14 Executive Director Global Brand Marketing Relationship Specialty Start Date End Date Lianet Mckeon MD [address] [place] [address] PCP - General 11/04/14 Odilia Peres (Rn), RN [address] [place], [place] [phone] [facility] General Surgery 08/20/18 Executive Director Global Brand Marketing Relationship Specialty Start Date End Date Lianet Mckeon MD [address] [place] [address] PCP - General 11/04/14 Odilia Peres (Rn), RN [address] [place] [address] [facility] General Surgery 08/20/18 Executive Director Global Brand Marketing Relationship Specialty Start Date End Date Lianet Mkceon MD PCP - General Internal Medicine 09/09/14 Pietro Tapia MD [address] [facility] [address] [place] [address] Surgeon Plastic Surgery 12/08/14 To Chamorro MD Surgeon Thoracic Surgery 12/08/14 Johnny Joe MD, PhD [address] [place] [phone] Surgeon Surgical Oncology 12/08/14 Executive Director Global Brand Marketing Relationship Specialty Start Date End Date Lianet Mckeon MD [address] [place] [address] PCP - General 11/04/14 Odilia Peres (Rn), RN [address] [place] [address] [facility] General Surgery 08/20/18 Executive Director Global Brand Marketing Relationship Specialty Start Date End Date Lianet Mckeon MD [address] [place], [place] [id number] PCP - General 11/04/14 Odilia Peres (Rn), RN [address] [place] [address] [facility] General Surgery 08/20/18 Executive Director Global Brand Marketing Relationship Specialty Start Date End Date Lianet Mckeon MD PCP - General Internal Medicine 09/09/14 Pietro Tapia MD 5 [facility] [address] [place] [phone] Surgeon Plastic Surgery 12/08/14 To Chamorro MD [address] [place] [address] [place] [phone] Surgeon Thoracic Surgery 12/08/14 Johnny Joe MD, PhD [address] [place] [address] Surgeon Surgical Oncology 12/08/14 Executive Director Global Brand Marketing Relationship Specialty [place] [address] [place] [address] PCP - General 11/04/14 Odilia Peres (Rn), RN [address] [place], [place] [phone] [facility] General Surgery 08/20/18 Executive Director Global Brand Marketing Relationship Specialty Start Date End Date Lianet Mckeon MD [address] [place] [address] PCP - General 11/04/14 Odilia Peres (Rn), RN [address] [place], [place] [phone] [facility] General Surgery 08/20/18 Executive Director Global Brand Marketing Relationship Specialty Start Date End Date Lianet Mckeon MD [address] [place] [address] PCP - General 11/04/14 Odilia Peres (Rn), RN [address] [place] [address] [facility] General Surgery 08/20/18 Executive Director Global Brand Marketing Relationship Specialty Start Date End Date Lianet Mckeon MD [address] [place] [address] PCP - General 11/04/14 Odilia Peres (Rn), RN [address] [place] [address] [facility] General Surgery 08/20/18 Executive Director Global Brand Marketing Relationship Specialty Start Date End Date Lianet Mckeon MD [address] [place] [address] PCP - General 11/04/14 Odilia Peres (Rn), RN [phone] [place] [address] [facility] General Surgery 08/20/18 Executive Director Global Brand Marketing Relationship Specialty Start Date End Date Lianet Mckeon MD [address] [place] [address] PCP - General 11/04/14 Odilia [place] ([place] [address] [place] [phone] [facility] General Surgery 08/20/18 Executive Director Global Brand Marketing Relationship Specialty Start Date End Date Lianet Mckeon MD [address] [place] [address] PCP - General 11/04/14 Odilia Pe[place] ([place] [address] [place] [phone] [facility] General Surgery 08/20/18 INFORMATION SOURCE (unrecogn ized section and content) DATE CREATED AUTHOR AUTHOR'S ORGANIZ ATION 10/27/2022 [facility] DATE CREATED AUTHOR AUTHOR'S ORGANIZ ATION 04/10/2023 [facility] DATE CREATED AUTHOR AUTHOR'S ORGANIZ ATION 04/21/2023 [facility] DATE CREATED AUTHOR AUTHOR'S ORGANIZ ATION 06/06/2023 [facility] FOR RECORDS PERTAINING TO PATIENTS WHO ARE [...] BE BASED ON THE PRIMARY CLINICAL RECORDS. [employer] provides no warranty or guarantee of the accuracy or completeness of information in this document.
== END | disposition home or self-care (01) ==
PROVIDERS: PCP Internal Medicine; Referring Provider Obstetrics & Gynecology; Visit Provider Obstetrics & Gynecology
DX: O09.90 Supervision of high risk pregnancy, unspecified, unspecified trimester (principal); Z3A.00 Weeks of gestation of pregnancy not specified
CPT/HCPCS: 87081

== ENCOUNTER 2023-07-02 03:45 | Inpatient (IN) | payer MEDICAID, SELFPAY ==
[2023-07-02] VITALS (27 sets, daily range): BP systolic 114–153; BP diastolic 69–93; PULSE 72–85; RESP 14–18; TEMP 36.1–36.6; O2SAT 92–98; BMI 52.2
--- OUTSIDE RECORDS SUMMARY | 2023-07-02 04:13 | XMS RPT_ITS ---
Author Name Auto Generated Organization OHIP Care Team Providers [employer] Name Role Phone JULIO LUGO Referring Unavailable TALAMPAS, LIANET D Primary Care Unavailable JULIO LUGO Attending Unavailable MARY LOUAS, LIANET D Primary Care Unavailable DARIAN PRUETT Attending Unavailable DARIAN PRUETT Referring Unavailable TALAMPAS, LIANET D Primary Care Unavailable TALAMPAS, LIANET D Primary Care Unavailable DARIAN PRUETT Referring Unavailable TALAMPAS, LIANET D Primary Care Unavailable DARIAN PRUETT Referring Unavailable TALAMPAS, LIANET D Primary Care Unavailable DARIAN PRUETT Attending Unavailable ALICIA WEINER Attending Unavailable JULIO LUGO Referring Unavailable TALAMPAS, LIANET D Primary Care Unavailable TALAMPAS, LIANET Primary Care Unavailable RACHAEL NAM Attending Unavailable JAMES CANNON Referring Unavailab le TALAMPAS, LIANET Primary Care Unavailable VON CONTRERAS Attending Unavailable VON CONTRERAS Referring Unavailable RACHAEL NAM Attending Unavailable JAMES CANNON Referring Unavailab le TALAMPAS, LIANET Primary Care Unavailable ABILIO CHRISTINA Attending Unavailable JAMES CANNON Referring Unavailab le TALAMPAS, LIANET Primary Care Unavailable RACHAEL NAM Attending Unavailable JAMES CANNON Referring Unavailab le TALAMPAS, LIANET Primary Care Unavailable LYDIA MORELAND Attending Unavailable NO PRIMARY CARE, Primary Care Unavailable ADELE STEINBERG Referring UnavailLYDIA Herbert Attending Unavailable NO PRIMARY CARE, Primary Care Unavailable ADELE STEINBERG Referring Unavailabl e TALAMPAS, LIANET Primary Care Unavailable JAMES CANNON Referring Unavailab le NAMRACHAEL F Attending Unavailable TALAMPAS, LIANET D Referring Unavailable TALAMPAS, LIANET D Primary Care Unavailable TALAMPAS, LIANET Primary Care Unavailable JAY NAVA Attending Unavailable JAY NAVA Referring Unavailable TALAMPAS, LIANET Primary Care Unavailable ARI BECERRA Attending Unavailable ARI BECERRA Referring Unavailable PROBLEMS DATE TYPE CONDITION / CODE ATTENDING STATUS [facility] 03/27/2023 Active Sleep apnea, unspecified type / G47.30(ICD-10) NA Active [facility] 05/02/2021 Active Papillary carcin cisco of thyroid (HCC) / C73(ICD-10) NA Active [facility] 11/13/2022 Active Screening for co tana cancer / Z12.11(ICD-10) ALICIA WEINER Active [facility] 10/18/2022 Admitting diagnosis Neoplasm of uncertain behavior of connective and other soft tissue / D48.1(ICD-10) ARI BECERRA P Active [facility] 10/04/2022 Active Obesity, Class I II, BMI 40-49.9 (morbid obesity) (HCC) / E66.01(ICD-10) NA Active [facility] 03/15/2018 Active Post-surgical hypothyroidism / E89.0(ICD-10) NA Active [facility] 09/21/2011 Active Vitamin D defici ency / E55.9(ICD-10) NA Active [facility] 10/04/2022 Active Encounter for therapeutic drug monitoring / Z51.81(ICD-10) NA Active [facility] 10/04/2022 Active Weight gain / R63.5(ICD-10) NA Active [facility] 10/04/2022 Active Other fatigue / R53.83(ICD-10) NA Active [facility] 10/04/2022 Active Lipid screening / Z13.220(ICD-10) Active [facility] PROCEDURES No Procedure Records Found RESULTS CNPTOUTREACH Observed: 04/04/2023 12:00 AM Status: COMPLETED Source: [facility] REPOSITORY Patient Outreach (INTMMN) DIEGO DEL TORO ([id number]) 1980 F Date Time Provider Department 04/04/23 LIANET WATERMAN INTMMN During your visit today, we recorded the following information about you: Allergies As of Date: 04/04/2023 Noted Allergy Reaction ADHESIVE TAPE (ROSINS) 12/26/2019 9 - Itching Comments: Tegaderm, paper tape ok Date Reviewed: 11/13/2022 Reviewed by: Alicia Weiner PA-C - Fully Assessed Visit Diagnosis:Encounter for screening mammogram for breast cancer [Z12.31] Order(s):[facility] SCREENING [[id number]] Order #: [id number] FUTURE Prescriptions as of 04/09/2023 - levothyroxine (SYNTHROID) 175 mcg tablet take 6 AND 1/2 per week - calcium carbonate (CALCIUM 300 ORAL) Take 1 tablet by mouth once daily. - GARLIC Take 1 mL by mouth once daily. - CPAP AutoPAP 5-20 cmH2O, mask to comfort, tubing, heated humidifier, filters, Lifetime supplies, - Miscellaneous Medical Supply mis Knee brace Dx: S89.92XA, M25.562 - Multivitamin [...] >= 40 [E66.01] 10/04/2022 Encounter Status:Closed by JACKY AGRCIA on 04/09/23 CNOV Observed: 03/27/2023 9:00 PM Status: COMPLETED Source: [facility] REPOSITORY Office Visit (LDNESL) DIEGO DEL TORO ([id number]) 1980 F Date Time Provider Department 03/27/23 9:00 PM SLEEP LAB [facility] BED 1 LDNESL During your visit today, we recorded the following information about you: Referring Provider: LIANET WATERMAN [[id number]] Allergies As of Date: 03/27/2023 Noted Allergy Reaction ADHESIVE TAPE (ROSINS) 12/26/2019 9 - Itching Comments: Tegaderm, paper tape ok Date Reviewed: 11/13/2022 Reviewed by: Alicia Weiner PA-C - Fully Assessed Reason for Visit: Procedure [88] Visit Diagnoses:Weight gain [R63.5] Sleep apnea, unspecified type [G47.30] Order(s):PAP TITRATION PSG (CPAP, BIPAP, ASV) [[id number]] Order #: [id number]. #:[id number] Prescriptions as of 04/19/2023 - levothyroxine (SYNTHROID) 175 mcg tablet take 6 AND 1/2 per week - calcium carbonate (CALCIUM 300 ORAL) Take 1 tablet by mouth once daily. - GARLIC Take 1 mL by mouth once daily. - CPAP AutoPAP 5-20 cmH2O, mask to comfort, tubing, heated humidifier, filters, Lifetime supplies, - Miscellaneous Medical Supply misc Knee brace Dx: S89.92XA, M25.562 - Multivitamin capsule Take 1 capsule by mouth once daily. - Lactobacillus acidophilus 10 billion cell cap Take by mouth once daily. Problem List As Of Date 03/27/2023 Noted Resolved Supervision of Other Normal [Z34.80] [...] >= 40 [E66.01] 10/04/2022 Encounter Status:Closed by SAHRA ROBBINS on 04/19/23 PROGRESS NOTE Observed: 03/23/2023 10:30 AM Status: COMPLETED Source: [facility] REPOSITORY We had the pleasure of arcenio Eisenberg Alverto in the Heart Clinic at the Heart [facility] at [facility] on 03/23/2023. Ms. Del Toro is a 42 y.o. woman who is currently at 21 3/7 weeks of gestation seen in consultation for maternal obesity at the request of PRIYANK Wolf. On review of obstetric history, Ms. Del Toro is 8 para 3 with estimated due date 07/31/2023. Past medical history was reviewed and is significant for obesity, Factor V Leiden, desmoid tumor, papillary thyroid carcinoma, and obstructive sleep apnea. Current medications are ferrous sulfate, Lovenox, Synthroid, and vitamins. There are no known allergies. Family history was reviewed and is negative for congenital heart disease. On review of social history, Diego Del Toro lives with her family in [place], [place]. Today's echocardiogram demonstrated: SUMMARY: 1. Technically difficult study due to maternal habitus. 2. Normal echocardiogram. 3. This study is limited in evaluating minor valve abnormalities, septal defects, partial anomalous pulmonary venous connection, and aortic arch abnormalities. 4. The above findings, including the limitations, were discussed with the patient. REASON FOR EXAM: Maternal obesity. : - Maternal age: 42yr. - : 8. - Parity: 3. - Estimated delivery date: 07/31/2023. - Gestational age: 21wk. STUDY AND PROCEDURE DATA: The patient is . Procedure Description: New ([id number]) . Study status: Routine. Location: lab. Procedure: Transabdominal echocardiogram was performed for congenital heart disease evaluation. Patient status: Outpatient. FINDINGS: DESCRIPTION One fetus is present. Normal three vessel view. The rhythm is sinus rhythm, with a heart rate of 146bpm. The position is breech. Normal Doppler pattern of the ductus venosus, umbilical artery, and vein. Three vessel cord. ANATOMIC RELATIONSHIPS - Normal viceral situs. Left sided stomach. Left sided cardiac apex (levocardia). Normally related great vessels. VEINS AND ATRIA Atrial septum - There is a patent foramen ovale. There is a [id number]-[id number] shunt. Left atrium - The atrium is normal in size. Right atrium - The atrium is normal in size. Systemic veins - Inferior vena cava and superior vena cava seen entering normally into the right atrium. Pulmonary veins: There are at least 2 out of 4 pulmonary veins seen entering normally into the left atrium, with normal Doppler pattern. A-V CANAL Tricuspid valve - There is no regurgitation. - There is normal biphasic inflow spectral Doppler. Mitral valve - There is no regurgitation. - There is normal biphasic inflow spectral Doppler. VENTRICLES Right ventricle - The cavity size is normal. Wall thickness is normal. Systolic function is qualitatively normal. Left ventricle - The cavity size is normal. Wall thickness is normal. Systolic function is quantitatively normal. The fractional shortening (MM) is 41%. CONOTRUNCUS Aortic valve - There is no stenosis. There is no insufficiency. Pulmonic valve - There is no stenosis. There is no insufficiency. GREAT ARTERIES Aorta and systemic arteries: - Left aortic arch is demonstrated. Normal ductal arch seen. Normally related great arteries. Pulmonary arteries - The proximal branch pulmonary arteries are normal. - Main pulmonary artery: The artery is of normal size. Systemic-pulmonary shunts - Patent ductus arteriosus. Normal pulsed wave Doppler pattern. PERICARDIUM - There is no significant pericardial effusion. Impression: Following the echocardiogram, I met with Ms. Del Toro to discuss today's findings and recommendations. I reviewed the normal cardiac anatomy, and explained that there is no evidence of significant cardiac disease in the fetus. I explained the limitations of echocardiography in general, including our inability to rule out mild valve abnormalities, smaller VSDs, and persistent patency of the ductus arteriosus or the interatrial communication after . Recommendations: Given the normal findings today, we have not made a follow up appointment for Ms. Del Toro in the Heart Clinic. However, should any new concerns arise about the baby's heart either before or after delivery, we would be more than happy to reevaluate the baby at that time. Total encounter time was 30 minutes, which includes chart review, counseling, documentation and/or coordination of care. T4 FREE SERPL-MCNC Collected: 10:31 AM Status: F Source: [facility] REPOSITORY Order Comment: Specimen Type : BLOOD SPECIMEN Ordering Facility: [facility] Address: [address] [place] [address] TYPE CODE TESTS RESULT OUT OF RANGE REFERENCE UNITS LAB 3024-7(LOINC) T4 Free SerPl-mCnc 1.0 0.9-1.7 ng/dL Performed By: #### 3024-7 ## ## [facility] CLIA [id number] [address] [place] [address] OF [facility] CNPN Observed: 01/29/2023 12:00 AM Status: COMPLETED Source: [facility] REPOSITORY Telephone ([employer]) DIEGO DEL TORO ([id number]) 1980 F Date Time Provider Department 01/29/23 YANET JUAN During your visit today, we recorded the following information about you: Yanet Juan 01/29/2023 11:17 AM Signed Contacted patient for pre-op GI phone call via either phone and or [employer]. Patient understands prep instructions, sent either Mychart and/or Mail. Understands where to report on the day of procedure. All questions answered and or sent to providers office for clarification. Patient understands MyChart arrival time could change and wait for their arrival time call from the facility the day before procedure.Patient understands must have a truck driver instructor and or responsible green party present. Patient was given direct phone number to call ) if patient has any further questions or given the option to respond to Meal Sharing message If one was sent (please see below for MetaCartat message). Please see the prep instructions below. The first set of instructions are over the counter medications that you may flower picker at any pharmacy. The second set of instructions is by prescription only and will need to be picked up at your pharmacy you provided to your health care team. If you have any questions please contact the registered nurse surgical services at [phone] or respond to this Meal Sharing message. . Thank you, Yanet Miralax/Dulcolax Bowel Prep For this bowel preparation you will need to flower picker the following medications at any pharmacy. Four (4) Dulcolax tablets (generic name Bisacodyl) Please make sure you purchase the Laxative NOT stool Softer. 238 Gram (or 8.3 oz.) Bottle of Miralax (Generic name Polyethylene Glycol) 3 days prior to your procedure, DO NOT EAT HIGH FIBER FOODS Such as popcorn, beans, seeds, nuts, salad and raw veggies, corn, fresh and dried fruit and multi-grain breads. Foods that are good to eat several days before your procedure include but not limited too Lean Chicken breast, fish, Eggs, Soup's YOU MUST BE ON CLEAR LIQUIDS FOR 2 FULL DAYS PRIOR TO PROCEDURE DAY 1 (2 days before your colonoscopy) Clear Liquids all day, you may have water, coffee or tea- NO DAIRY, Clear broth (Beef, Chicken or vegetable) Clear carbonated beverages, apple juice, white grape juice , Gatorade, Jell-O, Isauro-Aid, Gummy Bears, and popsicles. NO DAIRY, TOMATO, OR ORANGE JUICE. ?NO? RED OR PURPLE! DAY 2 - (day before your colonoscopy) SAME DAY 1, Continue clear fluids and then follow the instructions below~ 8:00 AM - Mix the Miralax prep with 64 oz. of Gatorade or any of the clear fluids listed above and place in fridge. 1:00 PM - Take 2 Dulcolax Tablets with 8oz of water 3:00 PM - Start to drink the Miralax mixture. - Finish by midnight 4:00 PM - Take 2 Dulcolax tablets with 8oz of water. You may continue to drink clear liquids while you are taking your prep and after you finish as long as it is before midnight. Drink lots of fluids so you don't become dehydrated. Nothing to drink after midnight unless instructed otherwise by nursing staff and/or physician. Please remember to take your normal medications the morning of your procedure with a small sip of water especially your blood pressure medications. If you are diabetic, you need to contact your physicians regarding how to take your diabetic medications and/or insulin during the prepping period and the day of the procedure. Please see the below Juan Alberto instructions. How to prepare for your Colonoscopy using Golytley Your bowel must be empty so that your doctor can clearly view your colon. DO NOT eat any solid food the ENTIRE DAY before your colonoscopy DO NOT MIX the solution until the day before your colonoscopy. The prep is only good for 24 hrs. after it has been mixed A responsible family member or friend MUST come with you to your colonoscopy and REMAIN in the endoscopy area until you are discharged. You are NOT ALLOWED to drive, take a taxi, or leave the Endoscopy Center ALONE. If you do NOT have a responsible truck driver instructor (family member or friend) to take you home, your exam cannot be done with sedation and WILL BE cancelled. Please remove all jewelry if possible. Medication Some of the medication may need to be stopped or adjusted before your colonoscopy. Blood thinners - Such as Coumadin, Plavix, Pradaxa and Eliquis. Please contact your physician's office to see if you need to hold this medication prior to your procedure. Insulin or diabetes pills -Please call the doctor that monitors your glucose levels. Your insulin dosage needs to be adjusted due to the diet restrictions required with this bowl preparation. If you take aspirin, take it and ALL other medication prescribed by your doctor. You may take over the counter medications if you have a headache. Please take ALL mediations directed by the ordering physician. Please do not have anything to drink after midnight including water the night before the procedure unless you need to take a sip of water with your morning medications. Five (5) days before your colonoscopy Do not take medications that stop Diarrhea - Imodium, Kaopectate, or Pepto Bismol Do NOT take fiber supplements - Metamucil, Citrucel, FiberCon Do NOT take products that contain iron (check vitamin label) Do NOT take vitamin E. Two (2) to three (3) days before your colonoscopy DO NOT EAT HIGH FIBER FOODS No beans, seeds (flax, sunflower, quinoa), nuts, popcorn, multigrain bread salad/vegetables, or fresh and dried fruit. YOU MAY EAT Lean Chicken breast, fish, eggs, and soup One (1) Day before your colonoscopy ONLY DRINK CLEAR LIQUIDS the ENTIRE DAY BEFORE YOUR COLONOSCOPY. DO NOT EAT ANY SOLID FOODS. Drink at least eight (8) ounces of clear liquids every hour after waking up. Clear fluids include: Water, apple juice, white grape juice, broth (beef, chicken or vegetable), coffee and/or tea (NO DAIRY, MILK OR CREAMER) clear carbonated beverages (sprite, 7-up, javy-quan), Gatorade, or other sport drinks, Isauro-Aid, Jell-O Gummy Bears and popsicles. NOTHING RED IN COLOR. DO NOT DRINK ALCOHOL the day before or the day of your procedure. Preparing Bowel Prep Follow the instructions on the label. After mixing (warm water so the powder will dissolve), place the solution in the refrigerator. You may either add the flavor packet that comes with the bowel solution or you may use your own (Crystal Light, Isauro-Aid, Du, Country Time Lemonade, or any powder flavor that you may mix with water; NOTHING RED). If you use your own flavor, please add flavor glass by glass. You do not want to mix your own flavor in the container as you may over flavor the prep. If you add glass by glass you may also switch flavors during the consumption of your bowel prep. Day Before Your Colonoscopy You may start your bowel prep any time after 1:00 PM before 6:00 PM. Alternate between your bowel prep and clear liquids. You MUST drink the bowel prep until your bowels are COMPLETELY CLEAR (may have a yellowish tint). Please try to drink all of the prep to ensure you are completely cleaned out. If you are unsure if you're ?Clear?, please continue to drink till the bowel prep is gone for best results. Failure to have clear stools may lead to cancellation of your procedure. Allergies As of Date: 01/29/2023 Noted Allergy Reaction ADHESIVE TAPE (ROSINS) 12/26/2019 9 - Itching Comments: Tegaderm, paper tape ok Date Reviewed: 11/13/2022 Reviewed by: Alicia Weiner PA-C - Fully Assessed Prescriptions as of 01/29/2023 - levothyroxine (SYNTHROID) 175 mcg tablet take 6 AND 1/2 per week - calcium carbonate (CALCIUM 300 ORAL) Take 1 tablet by mouth once daily. - GARLIC Take 1 mL by mouth once daily. - CPAP AutoPAP 5-20 cmH2O, mask to comfort, tubing, heated humidifier, filters, Lifetime supplies, - Miscellaneous Medical Supply [facility] Knee brace Dx: S89.92XA, M25.562 - Multivitamin capsule Take 1 capsule by mouth once daily. - Lactobacillus acidophilus 10 billion cell cap Take by mouth once daily. Problem List As Of Date 01/29/2023 Noted Resolved Supervision of Other Normal [Z34.80] 02/22/2009 10/11/2009 with Poor Obstetric History [O09.299] 02/22/2009 10/11/2009 Nocturnal dyspnea [R06.00] 10/02/2009 10/30/2014 Class: Acute Papillary thyroid CA [C73] 01/05/2010 Vitamin D deficiency [E55.9] 09/21/2011 Desmoid tumor of abdomen [D48.1] 10/30/2014 Morbid obesity (HCC) [E66.01] 10/30/2014 PONV (postoperative nausea and vomiting) [R11.2*10/30/2014 Abnormality of gait [R26.9] 02/24/2015 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] 03/15/2018 Obesity, Class III, BMI >= 40 [E66.01] 10/04/2022 Encounter Status:Closed by YANET JUAN on 01/29/23 PROGRESS NOTE Observed: 01/26/2023 1:00 PM Status: COMPLETED Source: [facility] MEDICINE CONSULT Referring/Requesting Provider: Adele Steinberg MD PCP: No Primary Care, MD Prem INDICATION FOR CONSULT: Recurrent loss HISTORY OF PRESENT ILLNESS: Diego is a 42 y.o. at 13w3d who presents for consultation regarding recurrent loss. Her YANNICK was established by 6w1d US not in agreement with her LMP, she reports irregular periods. She had spotting in early , none since. She is taking Lovenox 60 mg daily and vaginal progesterone. 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 She had an elevated 1 hour GCT and will complete her 3 hour GTT. She declines nutrition consult. Uterine instrumentation prior CD Endocrine: irregular menstrual cycles Genetic: normal cell free DNA screening per patient (results not available at time of consult) Toxic exposures: none Personal or first degree relative history of DVT: pt's mother with DVT, no personal history OB History Para Term AB Living 8 3 2 4 2 SAB IAB Ectopic Multiple Live Births 4 2 # Outcome Date GA Lbr Ronald/2nd Weight Sex Delivery Anes PTL Lv 8 Current 7 Para 2019 FD 6 Term 2009 38w0d 4.4 kg M CS-Unspec Spinal ASHUTOSH 5 Term 2004 41w0d 4.649 kg M Vag-Spont EPI ASHUTOSH 4 SAB 3 SAB 2 SAB 1 SAB Past Medical History: Diagnosis Date 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/08/2014 Removed with partial resection of ribs 6 & 7 Encounter for blood transfusion Factor V Leiden mutation Hepatitis A Infertility, female Nodule, subcutaneous 2014 LLQ periumbilical nodule near c/s scar- biopsy done 2016 normal Obesity Obstructive sleep apnea uses CPAP 3-4x/week Papillary carcinoma of thyroid 2009 Readmitted for SOB after C/S, had severe anemia and found thyroid CA Pelvic prolapse Thyroid disease Past Surgical History: Procedure Laterality Date ABDOMINAL WALL SURGERY Left 12/08/2014 radical resection of left chest wall desmoid tumor, partial resection of left ribs (6 and 7) CHOLECYSTECTOMY 2012 COLONOSCOPY SKIN BIOPSY Left 2016 LLQ nodule THYROIDECTOMY 2010 PERTINENT FAMILY HISTORY: Family History Problem Relation Age of Onset Cancer Mother Twice-in remission MEDS: Outpatient Medications Marked as Taking for the 01/26/23 encounter (Office Visit) with Lydia Moreland, Medication Sig Dispense Refill Enoxaparin Sodium (LOVENOX) 60 MG/0.6ML SQ INJECT 0.6ml SUBCUTANEOUSLY EVERY 24 HOURS levothyroxine (SYNTHROID) 175 MCG tablet TAKE 1 TABLET BY MOUTH DAILY six days a week & ONE-HALF TABLET on day 7 (SEVEN) Progesterone (PROMETRIUM) 200 MG CAPS INSERT CAPSULE VAGINALLY AT BEDTIME multivitamin (TRINATAL RX) tablet Take by mouth daily With folic acid ALLERGY: Not on File REVIEW OF SYSTEMS: Pertinent items are noted in HPI. PHYSICAL EXAM: BP 134/71 Pulse 81 Resp 18 Ht 167.6 cm Wt (!) 138.7 kg (305 lb 11.2 oz) LMP 10/14/2022 SpO2 97% BMI 49.34 kg/m General Appearance: Alert, appropriate appearance for age. No acute distress and HEENT Exam: Grossly normal. IMAGING: See report LABS: No visits with results within 12 Month(s) from this visit. Latest known visit with results is: No results found for any previous visit. IMPRESSION: Diego is a 42 y.o. 42 y.o. at 13w3d with Active Non-Hospital Problems Diagnosis Date Noted Recurrent loss, antepartum condition or complication 01/29/2023 Priority: High Recommend APLS testing if not previously performed. Recommend genetic counseling. Prescribed progesterone by primary OB - can discontinue at this time. Spotting affecting , antepartum 01/29/2023 Priority: High - Rh positive per record review - No additional vaginal bleeding - Normal ultrasound without DESTIN - If additional bleeding occurs, would discontinue Lovenox and re-consult MFM. Factor V Leiden mutation 01/23/2023 Priority: High - Pt's mother with history of DVT and Factor V Leiden. No personal history of VTE. - ACOG guidelines recommend surveillance without anticoagulation or prophylactic LMWH/UFH antepartum, prophylactic anticoagulation or intermediate-dose LMWH/UFH - After discussion of R/B/A and shared decision making, recommend prophylactic LMWH antepartum (Enoxaparin 40 mg SC once daily) - enoxaparin 40 mg SC daily or Q 12 hours, depending on additional risks factors and shared decision making with Diego. Glucose intolerance of 01/29/2023 1 hour gct 174, 3 hour gtt ordered by OB. Obesity affecting in first trimester 01/29/2023 Body mass index is 49.34 kg/m . Obesity complicating is associated with increased maternal and risks including: gestational diabetes, hypertensive disorders, iatrogenic delivery, dysfunctional labor, postterm , large for gestational age , shoulder dystocia, obstructive sleep apnea, hemorrhage, stillbirth, anomalies, delivery and postcesarean complications. [place] of medicine recommend weight gain in : Obese (all classes) > 30: total weight gain 11-20 lbs, 0.5 lb per week in the second and third trimester. Nutrition consult offered, pt declined. Daily exercise recommended. 01/29/2023 total weight gain: -0.136 kg (-4.8 oz) History of delivery, currently 01/29/2023 Management per OB Abdominal hernia 01/23/2023 Desmoid tumor 01/23/2023 Obesity 01/23/2023 Thyroid disease 01/23/2023 S/P total thyroidectomy d/t thyroid cancer Thyroid labs from 10/04: TSH= 0.017 (L), T3= 3.8, Free T4= 3.2 (H) Continued management per endoicrinology Pelvic prolapse 01/23/2023 Obstructive sleep apnea 01/23/2023 - uses CPAP 3-4x/week, encourage CPAP use in - Ongoing management per OB Papillary carcinoma of thyroid 2009 Readmitted for SOB after C/S, had severe anemia and found thyroid CA Follow up with OB for care and APLS testing if not yet done. If +APLS labs, add bASA daily. anatomy assessment with MFM in 4-5 weeks. I decreased her Lovenox dose to 40 mg SC daily. I discontued her progesterone supplementation as she is 13+3 weeks. Chart review and preparation: 15 minutes. Face to face: 20 minutes. Documentation and care coordination: 15 minutes. Total time spent on patient care today: 50 minutes. TOBI Observed: 01/02/2023 12:00 AM Status: COMPLETED Source: [facility] REPOS[facility]ORY Telephone (ENDLKW) DIEGO DEL TORO ([id number]) 1980 F Date Time Provider Department 01/02/23 DARIAN PRUETT During your visit today, we recorded the following information about you: Angely Hoda 01/02/2023 8:39 AM Signed Darian Pruett MD P Lkwd Clerical Pool virtual in 6 weeks, check first before calling to see if patient was successful in making their own appointment 1st Attempt Left message to call office. 01/02/2023 8:39 AM Hoda Herrera 01/03/2023 8:10 AM Signed 2nd attempt, Sent [employer] message to call office. 01/03/2023 8:10 AM Patrizia Petersen 01/04/2023 9:23 AM Signed 3rd attempt Patrizia Adler Allergies As of Date: 01/02/2023 Noted Allergy Reaction ADHESIVE TAPE (ROSINS) 12/26/2019 9 - Itching Comments: Tegaderm, paper tape ok Date Reviewed: 11/13/2022 Reviewed by: Alicia Weiner PA-C - Fully Assessed Prescriptions as of 01/04/2023 - levothyroxine (SYNTHROID) 175 mcg tablet take 6 AND 1/2 per week - calcium carbonate (CALCIUM 300 ORAL) Take 1 tablet by mouth once daily. - GARLIC Take 1 mL by mouth once daily. - CPAP AutoPAP 5-20 cmH2O, mask to comfort, tubing, heated humidifier, filters, Lifetime supplies, - Miscellaneous Medical Supply mis Knee brace Dx: S89.92XA, M25.562 - Multivitamin capsule Take 1 capsule by mouth once daily. - Lactobacillus acidophilus 10 billion cell cap Take by mouth once daily. Problem List As Of Date 01/02/2023 Noted Resolved Supervision of Other Normal [Z34.80] 02/22/2009 10/11/2009 with Poor Obstetric History [O09.299] 02/22/2009 10/11/2009 Nocturnal dyspnea [R06.00] 10/02/2009 10/30/2014 Class: Acute Papillary thyroid CA [C73] 01/05/2010 Vitamin D deficiency [E55.9] 09/21/2011 Desmoid tumor of abdomen [D48.1] 10/30/2014 Morbid obesity (HCC) [E66.01] 10/30/2014 PONV (postoperative nausea and vomiting) [R11.2*10/30/2014 Abnormality of gait [R26.9] 02/24/2015 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] 03/15/2018 Obesity, Class III, BMI >= 40 [E66.01] 10/04/2022 Encounter Status:Closed by HODA PEDRO on 01/02/23 PROGRESS Observed: 01/01/2023 10:40 AM Status: COMPLETED Source: [facility] HNO ID: [id number] Author: Darian Pruett MD Service: ? Author Type: Physician Type: Progress Notes Filed: 01/01/2023 11:30 AM Note Text: Virtual Visit utilizing both audio and video components FaceTime I have communicated my name and active licensure. The patient's identity and physical location were verified at the time of this visit. Either the patient or their legal public relations representative has been informed of the risks and benefits of -- and alternatives to -- treatment through a remote evaluation and consents to proceed with the evaluation remotely. Patient location: [place], [place] Assessment / Plan Assessment: 1) Surgical [...] 1/2 pills per week. 2) return to vt in 6 weeks by virtual visit with [...] hard to do everything right. Seeing high school foreign language tutor TSH reported to be 0.09, basis for [...] refused gastric bypass surgery. 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 Tobias, at [facility] Pathology (12/28/09): 4cm classic papillary thyroid [...] Alcohol use: No Drug use: No MEDICATIONS AND ALLERGIES Current Outpatient Medications Medication Sig Dispense [...] supplies, 1 Device 0 Miscellaneous Medical Supply misc Knee brace Dx: S89.92XA, M25.562 1 Each 0 Multivitamin capsule Take 1 capsule by mouth once daily. Lactobacillus acidophilus 10 billion cell cap Take by mouth once daily. No current facility-administered medications for this visit. ALLERGIES Allergen Reactions Adhesive Tape (Etelvina* Itching Tegaderm, paper tape ok CNPN Observed: 01/01/2023 12:00 AM Status: COMPLETED Source: [facility] Telephone (ENDLKW) DIEGO DEL TORO ([id number]) 1980 F Date Time Provider Department 01/01/23 DARIAN PRUETT [employer] During your visit today, we recorded the following information about you: Jeanne Malcolm 01/01/2023 12:03 PM Signed Allyson calling from [employer] to get clarification on instructions sent over on levothyroxine (SYNTHROID) 175 mcg tablet. Contact Information [phone] Thank you Zenia Fernandez RN 01/02/2023 1:53 PM Signed Spoke with Allyson at [facility] and clarified that the patient is to take 1 full tablet of Synthroid 175mcg 6 days/week and 1/2 of a 175mcg tablet 1 day a week. Zenia Fernandez RN Allergies As of Date: 01/01/2023 Noted Allergy Reaction ADHESIVE TAPE (ROSINS) 12/26/2019 9 - Itching Comments: Tegaderm, paper tape ok Date Reviewed: 11/13/2022 Reviewed by: Alicia Weiner PA-C - Fully Assessed Reason for Visit: Medication Clarification [Other] Prescriptions as of 01/02/2023 - levothyroxine (SYNTHROID) 175 mcg tablet take 6 AND 1/2 per week - calcium carbonate (CALCIUM 300 ORAL) Take 1 tablet by mouth once daily. - GARLIC Take 1 mL by mouth once daily. - CPAP AutoPAP 5-20 cmH2O, mask to comfort, tubing, heated humidifier, filters, Lifetime supplies, - Miscellaneous Medical Supply [facility] Knee brace Dx: S89.92XA, M25.562 - Multivitamin capsule Take 1 capsule by mouth once daily. - Lactobacillus acidophilus 10 billion cell cap Take by mouth once daily. Problem List As Of Date 01/01/2023 Noted Resolved Supervision of Other Normal [Z34.80] 02/22/2009 10/11/2009 with Poor Obstetric History [O09.299] 02/22/2009 10/11/2009 Nocturnal dyspnea [R06.00] 10/02/2009 10/30/2014 Class: Acute Papillary thyroid CA [C73] 01/05/2010 Vitamin D deficiency [E55.9] 09/21/2011 Desmoid tumor of abdomen [D48.1] 10/30/2014 Morbid obesity (HCC) [E66.01] 10/30/2014 PONV (postoperative nausea and vomiting) [R11.2*10/30/2014 Abnormality of gait [R26.9] 02/24/2015 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] 03/15/2018 Obesity, Class III, BMI >= 40 [E66.01] 10/04/2022 Encounter Status:Closed by ZENIA FERNANDEZ on 01/02/23 TOBI Observed: 12/29/2022 12:00 AM Status: COMPLETED Source: [facility] Telephone (ENDLKW) DIEGO DEL TORO ([id number]) 1980 F Date Time Provider Department 12/29/22 DARIAN PRUETT During your visit today, we recorded the following information about you: Marisol Sue 12/29/2022 11:31 AM Signed OBGYN called the patient to say her TSH is 0.09. Patient was concerned of potential miscarriage due to elevated numbers. Please call to advise at [phone]. Thanks. Darian Pruett MD 12/31/2022 10:41 AM Signed I am seeing her tomorrow, 01/01/23. The TSH is within the normal range for all but the 3rd trimester. Don't know who the Ob is, will learn from her at the upcoming visit. Allergies As of Date: 12/29/2022 Noted Allergy Reaction ADHESIVE TAPE (ROSINS) 12/26/2019 9 - Itching Comments: Tegaderm, paper tape ok Date Reviewed: 11/13/2022 Reviewed by: Alicia Weiner PA-C - Fully Assessed Reason for Visit: Patient Question [9194] Prescriptions as of 12/31/2022 - calcium carbonate (CALCIUM 300 ORAL) Take 1 tablet by mouth once daily. - GARLIC Take 1 mL by mouth once daily. - levothyroxine (SYNTHROID) 175 mcg tablet take 7 AND 1/2 pills per week (one a day with extra 1/2 pill on Sunday) - CPAP AutoPAP 5-20 cmH2O, mask to comfort, tubing, heated humidifier, filters, Lifetime supplies, - Miscellaneous Medical Supply misc Knee brace Dx: S89.92XA, M25.562 - Multivitamin capsule Take 1 capsule by mouth once daily. - Lactobacillus acidophilus 10 billion cell cap Take by mouth once daily. Problem List As Of Date 12/29/2022 Noted Resolved Supervision of Other Normal [Z34.80] 02/22/2009 10/11/2009 with Poor Obstetric History [O09.299] 02/22/2009 10/11/2009 Nocturnal dyspnea [R06.00] 10/02/2009 10/30/2014 Class: Acute Papillary thyroid CA [C73] 01/05/2010 Vitamin D deficiency [E55.9] 09/21/2011 Desmoid tumor of abdomen [D48.1] 10/30/2014 Morbid obesity (HCC) [E66.01] 10/30/2014 PONV (postoperative nausea and vomiting) [R11.2*10/30/2014 Abnormality of gait [R26.9] 02/24/2015 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] 03/15/2018 Obesity, Class III, BMI >= 40 [E66.01] 10/04/2022 Encounter Status:Closed by MARISOL SUE on 12/29/22 PROGRESS Observed: 12/18/2022 10:12 PM Status: COMPLETED Source: [facility] HNO ID: [id number] Author: Janna Ojeda Service: ? Author Type: ? Type: Progress Notes Filed: 12/18/2022 10:12 PM Note Text: The patient did not show up for the scheduled sleep study. The patient will be contacted to reschedule the sleep study. Janna Ojeda PROGRESS Observed: 11/13/2022 9:52 AM Status: COMPLETED Source: [facility] HNO ID: [id number] Author: Alicia Weiner PA-C Service: ? Author Type: Physician Sales Engineer Account Manager Type: Progress Notes Filed: 11/13/2022 12:32 PM Note Text: HISTORY AND PHYSICAL Diego Del Toro 1980 REFERRING PHYSICIAN: Julio Lugo APRN.CNP CHIEF COMPLAINT: Consult (Colonoscopy consult, abdominal [...] cell cap Take by mouth once daily. [facility] Knee brace Dx: S89.92XA, M25.562 No current [...] entered by the nurse and reviewed by vt Nursing Notes: Irais Gilbert RN 11/13/2022 9:43 [...] the PFSH and ROS obtained by others. TODD Finley-CPHYSICAL EXAMINATION: General: The patient is 42 year old female, well nourished, well hydrated in no acute distress. The patient is oriented to time, place, and person. VITALS: Blood pressure 128/76, pulse 77, temperature 36.3 ?C (97.4 ?F), height 167.6 cm (5' 6 ), weight (!) 140.6 kg (310 lb), last menstrual period 09/18/2022, SpO2 100 %. Body mass index is 50.04 kg/m?. HEENT: Normal cephalic, ataumatic, pupils are equally [...] of chest pain Consultation requested by Julio Lugo CNP for an opinion regarding abdominal bloating, diarrhea, and need for high-risk colonoscopy due to personal history of abdominal desmoid tumor and papillary thyroid cancer. My final recommendations will be communicated back to the requesting physician by way of shared Medical record or letter to requesting physician via US mail. PACO Finley Observed: 11/13/2022 9:30 AM Status: COMPLETED Source: [facility] REPOS[facility] Office Visit (GENSWS) DIEGO DEL TORO ([id number]) 1980 F Date Time Provider Department 11/13/22 9:30 AM ALICIA WEINER During your visit today, we recorded the following information about you: Temperature Pulse Blood pressure Weight 97.4 degrees 77/minute 128/76 140.6 kg Height 1.676 m Irais Gilbert RN 11/13/2022 9:43 AM Signed [...] last Mammogram screening? 03/01/2022 Last Colonoscopy: 11/04/2014 APRIL Gutierres PA-C 11/13/2022 12:32 PM Signed HISTORY AND PHYSICAL Diego Del Toro 1980 REFERRING PHYSICIAN: Julio Lugo APRN.CERAMIC TILE INSTALLER CHIEF COMPLAINT: Consult (Colonoscopy consult, abdominal pain. [...] Wall Resection THYROIDECTOMY TOTAL/SUBTOTAL LMTD NECK DISSECT 8-24-10 TOTAL THYROID Current Outpatient Medications Medication Sig [...] by mouth once daily. Miscellaneous Medical Supply [facility] Knee brace Dx: S89.92XA, M25.562 No current [...] entered by the nurse and reviewed by vt Nursing Notes: Irais Gilbert RN 11/13/2022 9:43 [...] Blood pressure 128/76, pulse 77, temperature 36.3 ?C (97.4 ?F), height 167.6 cm (5' 6 ), weight (!) 140.6 kg (310 lb), last menstrual period 09/18/2022, SpO2 100 %. Body mass index is 50.04 kg/m?. HEENT: Normal cephalic, ataumatic, pupils are equally [...] of chest pain Consultation requested by Julio Lugo CNP for an opinion regarding abdominal bloating, diarrhea, and need for high-risk colonoscopy due to personal history of abdominal desmoid tumor and papillary thyroid cancer. My final recommendations will be communicated back to the requesting physician by way of shared Medical record or letter to requesting physician via US mail. Alicia Weiner PA-C Referring Provider: JULIO LUGO [[id number]] Allergies As of Date: 11/13/2022 Noted Allergy Reaction ADHESIVE TAPE (ROSINS) 12/26/2019 9 - Itching Comments: Tegaderm, paper tape ok Date Reviewed: 11/13/2022 Reviewed by: Alicia Weiner PA-C - Fully Assessed Reason for Visit: Consult [173] Cmt: Colonoscopy consult, abdominal pain. Primary Visit Diagnosis:Change in bowel habits [R19.4] Other Visit Diagnoses:Diarrhea, unspecified type [R19.7] Abdominal bloating [R14.0] Desmoid tumor of abdomen [D48.1] Papillary thyroid CA [C73] S/P laparoscopic cholecystectomy [Z90.49] History of chest pain [Z87.898] Order(s):CONSULT TO GENERAL SURGERY [9011] Order #: [id number]: 1 Prescriptions as of 11/13/2022 - peg 3350-Electrolytes (GOLYTELY) 236-22.74-6.74 -5.86 gram suspension Take 4,000 mL by mouth one time only for 1 dose. - calcium carbonate (CALCIUM 300 ORAL) Take 1 tablet by mouth once daily. - GARLIC Take 1 mL by mouth once daily. - levothyroxine (SYNTHROID) 175 mcg tablet take 7 AND 1/2 pills per week (one a day with extra 1/2 pill on Sunday) - CPAP AutoPAP 5-20 cmH2O, mask to comfort, tubing, heated humidifier, filters, Lifetime supplies, - Miscellaneous Medical Supply misc Knee brace Dx: S89.92XA, M25.562 - Multivitamin capsule Take 1 capsule by mouth once daily. - Lactobacillus acidophilus 10 billion cell cap Take by mouth once daily. Problem List As Of Date 11/13/2022 Noted Resolved Supervision of Other Normal [Z34.80] 02/22/2009 10/11/2009 with Poor Obstetric History [O09.299] 02/22/2009 10/11/2009 Nocturnal dyspnea [R06.00] 10/02/2009 10/30/2014 Class: Acute Papillary thyroid CA [C73] 01/05/2010 Vitamin D deficiency [E55.9] 09/21/2011 Desmoid tumor of abdomen [D48.1] 10/30/2014 Morbid obesity (HCC) [E66.01] 10/30/2014 PONV (postoperative nausea and vomiting) [R11.2*10/30/2014 Abnormality of gait [R26.9] 02/24/2015 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] 03/15/2018 Obesity, Class III, BMI >= 40 [E66.01] 10/04/2022 Visit Notes: >> Irais Gilbert RN Mon Nov 13, 2022 9:41 AM Status: Signed REVIEW OF SYSTEMS: General: The patient [...] 03/01/2022 Last Colonoscopy: 11/04/2014 Irais Gilbert RN Medications Discontinued During This Encounter Prescriptions - cholecalciferol (VITAMIN D3) 50 mcg (2,000 unit) tablet (Discontinued) Reported on 11/13/2022 - Bgipc-3-XGJ-EPA-Fish Oil (FISH OIL) 1,000 mg (120 mg-180 mg) cap (Discontinued) Reported on 10/04/2022 Encounter Status:Closed by ALICIA WEINER on 11/13/22 CNPN Observed: 11/13/2022 12:00 AM Status: COMPLETED Source: [facility] RE[facility] Telephone ([employer]) DIEGO DEL TORO ([id number]) 1980 F Date Time Provider Department 11/13/22 ALICIA WEINER [employer] During your visit today, we recorded the following information about you: Raven Mane 11/13/2022 10:17 AM Signed 02/09/2023 colon/egd ruano Patient denied sooner dates Raven Mane E Business Consultant Raven Mane 11/13/2022 10:17 AM Signed Patient asking prep [facility] [place] Raven Mane E Business Consultant Alicia Weiner PA-C 11/13/2022 11:12 AM Signed Rx sent Yanet Juan 02/06/2023 11:44 AM Signed Patient procedure has been cancelled, she is . Yanet Juan Allergies As of Date: 11/13/2022 Noted Allergy Reaction ADHESIVE TAPE (ROSINS) 12/26/2019 9 - Itching Comments: Tegaderm, paper tape ok Date Reviewed: 11/13/2022 Reviewed by: Alicia Weiner PA-C - Fully Assessed Reason for Visit: 02/09/2023 colon/egd ruano ' [Other] Primary Visit Diagnosis:Diarrhea, unspecified type [R19.7] Other Visit Diagnoses:Abdominal bloating [R14.0] Change in bowel habits [R19.4] History of anemia [Z86.2] Order(s):EGD DIAGNOSTIC [GI9] Order #: [id number] FUTURE COLONOSCOPY DIAGNOSTIC [GI11] Order #: [id number] FUTURE [] peg 3350-Electrolytes (GOLYTELY) 236-22.74-6.74 -5.86 gram suspensionTake 4,000 mL by mouth one time only for 1 dose.Disp: 1 EachRfl: 0 Prescriptions as of 02/06/2023 - levothyroxine (SYNTHROID) 175 mcg tablet take 6 AND 1/2 per week - calcium carbonate (CALCIUM 300 ORAL) Take 1 tablet by mouth once daily. - GARLIC Take 1 mL by mouth once daily. - CPAP AutoPAP 5-20 cmH2O, mask to comfort, tubing, heated humidifier, filters, Lifetime supplies, - Miscellaneous Medical Supply [facility] Knee brace Dx: S89.92XA, M25.562 - Multivitamin capsule Take 1 capsule by mouth once daily. - Lactobacillus acidophilus 10 billion cell cap Take by mouth once daily. Problem List As Of Date 11/13/2022 Noted Resolved Supervision of Other Normal [Z34.80] [...] Class III, BMI >= 40 [E66.01] 10/04/2022 Prescriptions ordered this encounter Disp Refills Start End PEG 3350-ELECTROLYTES 236 GRAM-22.74* 1 Ea* 0 11/13/2022 11/13/2022 Route: ORAL Sig: Take 4,000 mL by mouth one time only for 1 dose. Encounter Status:Closed by YANET JUAN on 02/06/23 PROGRESS Observed: 10/24/2022 11:58 AM Status: COMPLETED Source: [facility] HNO ID: [id number] Author: Michael Dawkins III, PhD Service: ? Author Type: Physician Type: Progress Notes Filed: 12/18/2022 10:12 PM Note Text: October 24, 2022 Standing PSG Orders signed in the last 90 days None Future PSG Orders signed in the last 90 days Ordered Auth. provider PAP TITRATION PSG (CPAP, BIPAP, ASV) [[id number]] 10/04/22 Julio Lugo APRN.CERAMIC TILE INSTALLER Assoc. diagnoses: Weight gain [R63.5], Sleep apnea, [...] CHASTITY on APAP 5-20 cmH2O [facility] Staff Note: I have read the above protocol, edited as needed, and agree to the plan. Michael Dawkins III, PhD 1:28 PM, 10/24/2022 PROGRESS Observed: 10/24/2022 9:40 AM Status: COMPLETED Source: [facility] HNO ID: [id number] Author: Ny Jacobo Service: ? Author Type: ? Type: Progress Notes Filed: 12/18/2022 10:12 PM Note Text: October 24, 2022 An order has been received for PAP titration study from Dr. Julio Lugo, a B. [facility] Staff. Visit prep complete. Comments :No The sleep study is scheduled for 11/09. Insurance: Payor: [employer] / Plan: [facility] MEDICAID [facility] / Product Type: Medicaid / Payer/Plan Subscr Sex Relation Sub. Ins. ID Effective Group Num 1. [employer]* DIEGO DEL TORO 1980 Female Self [id number] 06[birth year] [id number] Ny [facility] Observed: 10/06/2022 12:00 AM Status: COMPLETED Source: [facility] Telephone (INTMWS) DIEGO DEL TORO ([id number]) 1980 F Date Time Provider Department 10/06/22 JULIO LUGO During your visit today, we recorded the following information about you: Julio Lugo APRN.NIHARIKA 10/06/2022 4:00 PM Signed Please call Diego and let her know [...] CRP just on the edge of normal. Alicia Kaufman RN 10/07/2022 8:41 AM Signed Pt called and is notified of providers results and instructions. Pt voices understanding. Alicia Kaufman RN Allergies As of Date: 10/06/2022 Noted Allergy Reaction ADHESIVE TAPE (ROSINS) 12/26/2019 9 - Itching Comments: Tegaderm, paper tape ok Date Reviewed: 10/04/2022 Reviewed by: Julio Lugo APRN.CERAMIC TILE INSTALLER - Fully Assessed Reason for Visit: Results [95] Prescriptions as of 10/07/2022 - calcium carbonate (CALCIUM 300 ORAL) Take 1 tablet by mouth once daily. - GARLIC Take 1 mL by mouth once daily. - levothyroxine (SYNTHROID) 175 mcg tablet take 7 AND 1/2 pills per week (one a day with extra 1/2 pill on Sunday) - CPAP AutoPAP 5-20 cmH2O, mask to comfort, tubing, heated humidifier, filters, Lifetime supplies, - Okrej-1-PSJ-EPA-Fish Oil (FISH OIL) 1,000 mg (120 mg-180 mg) cap Take 2 capsules by mouth once daily. - Miscellaneous Medical Supply misc Knee brace Dx: S89.92XA, M25.562 - Multivitamin capsule Take 1 capsule by mouth once daily. - Lactobacillus acidophilus 10 billion cell cap Take by mouth once daily. - cholecalciferol (VITAMIN D3) 50 mcg (2,000 unit) tablet Take 1 tablet by mouth once daily. Facility-Administered Medications as of 10/07/2022 - perflutren lipid microspheres 1.3 mL in NaCl (PF) 0.9% 10 mL injection (DEFINITY) - sodium chloride 0.9 % (flush) 10 mL (BD POSIFLUSH) Problem List As Of Date 10/06/2022 Noted Resolved Supervision of Other Normal [Z34.80] 02/22/2009 10/11/2009 with Poor Obstetric History [O09.299] 02/22/2009 10/11/2009 Nocturnal dyspnea [R06.00] 10/02/2009 10/30/2014 Class: Acute Papillary thyroid CA [C73] 01/05/2010 Vitamin D deficiency [E55.9] 09/21/2011 Desmoid tumor of abdomen [D48.1] 10/30/2014 Morbid obesity (HCC) [E66.01] 10/30/2014 PONV (postoperative nausea and vomiting) [R11.2*10/30/2014 Abnormality of gait [R26.9] 02/24/2015 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] 03/15/2018 Obesity, Class III, BMI >= 40 [E66.01] 10/04/2022 Encounter Status:Closed by ALICIA KAUFMAN on 10/07/22 COMP METAB 2000 PNL SERPL Collected: 8:32 AM Status: F Source: [facility] Order Comment: Specimen Type : BLOOD SPECIMEN Ordering Facility: [facility] Address: [address] [place] [id number] TYPE CODE TESTS RESULT OUT OF RANGE REFERENCE UNITS LAB 2885-2(LOINC) Prot SerPl-mCnc 6.7 6.3-8.0 g/dL LAB 1751-7(LOINC) Albumin SerPl-mCnc 3.9 3.9-4.9 g/dL LAB 39543-1(LOINC) Calcium SerPl-mCnc 9.3 8.5-10.2 mg/dL LAB 1975-2(LOINC) Bilirub SerPl-mCnc 0.2 0.2-1.3 mg/dL LAB 6768-6(LOINC) ALP SerPl-cCnc 82 34-123 U/L LAB 1920-8(LOINC) AST SerPl-cCnc 22 13-35 U/L LAB 1742-6(LOINC) ALT SerPl-cCnc 22 7-38 U/L LAB 2345-7(LOINC) Glucose SerPl-mCnc 100 High 74-99 mg/dL Result Comment: The [place] [employer] (ADA) provides guidance for cutoff values for fasting glucose and random glucose. The ADA defines fasting as no caloric intake for at least 8 hours. Fasting plasma glucose results between 100 to 125 mg/dL indicate increased risk for diabetes (prediabetes). Fasting plasma glucose results greater than or equal to 126 mg/dL meet the criteria for diagnosis of diabetes. In the absence of unequivocal hyperglycemia, results should be confirmed by repeat testing. In a patient with classic symptoms of hyperglycemia or hyperglycemic crisis, random plasma glucose results greater than or equal to 200 mg/dL meet the criteria for diagnosis of diabetes. Reference: Standards of Medical Care in Diabetes 2016, [place] [employer]. Diabetes Care. 2016.39(Suppl 1). LAB 3094-0(LOINC) BUN SerPl-mCnc 10 7-21 mg/ dL LAB 2160-0(LOINC) Creat SerPl-mCnc 0.63 0.58-0.96 mg/dL LAB 2951-2(LOINC) Sodium SerPl-sCnc 140 136-144 mmol/L LAB 2823-3(LOINC) Potassium SerPl-sCnc 4.4 3.7-5.1 mmol/L LAB 2075-0(LOINC) Chloride SerPl-sCnc 105 97-105 mmol/L LAB 2028-9(LOINC) CO2 SerPl-sCnc 25 22-30 mmo l/L LAB 33367-4(LOINC) Anion Gap SerPl-sCnc 10 9-18 mmol/L LAB GFRALL ESTIMATED GLOMERULAR FILTRATION RATE 114 >=60 mL/min/1 .73m??? Result Comment: Estimated Gl omerular Filtration Rate (eGFR) is calculated using the 2020 CKD-EPI creatinine equation. This equation utilizes serum creatinine, sex, and age as parameters. The creatinine assay has traceable calibration to isotope dilution-mass spectrometry. Refer to KDIGO guidelines for clinical interpretation. In patients with unstable renal function, e.g. those with acute kidney injury, the eGFR may not accurately reflect actual GFR. Performed By: #### 71056-1, 97256-3, 32827-6, 3051-0 #### [facility] CLIA [id number] [address] [place] [address] OF [place] IRON+TIBC PNL SERPL Collected: 10/05/19 23 8:32 AM Status: F Source: [facility] REPOSITORY Order Comment: Specimen Type : BLOOD SPECIMEN Ordering Facility: [facility] Address: [address] [place], [place] [id number] TYPE CODE TESTS RESULT OUT OF RANGE REFERENCE UNITS LAB 2498-4(LOINC) Iron SerPl-mCnc 34 Low 41-186 ug/dL LAB 2500-7(LOINC) TIBC SerPl-mCnc 318 232-386 ug/dL LAB 95063-6(LOINC) Iron/TIBC SerPl-sRto 10.7 Low 15.0-57.0 % Performed By: #### 97303-7, 15937-9, 52268-7, 3051-0 #### [facility] CLIA [id number] [address] [place] [address] [place] LIPID 1996 PNL SERPL Collected: 023 8:32 AM Status: F Source: [facility] REPOSITORY Order Comment: Specimen Type : BLOOD SPECIMEN Ordering Facility: [facility] Address: [address] [place] [id number] TYPE CODE TESTS RESULT OUT OF RANGE REFERENCE UNITS LAB 2093-3(LOINC) Cholest SerPl-mCnc 142 <200 mg/dL Result Comment: <200 mg/dL, Desirable 200-239 mg/dL, Borderline high >239 mg/dL, High LAB 2571-8(LOINC) Trigl SerPl-mCnc 132 <150 mg/dL Result Comment: <150 mg/dL, Normal 150-199 mg/dL, Borderline high 200-499 mg/dL, High >499 mg/dL, Very high LAB 2085-9(LOINC) HDLc SerPl-mCnc 42 >39 mg/dL Result Comment: 40-59 mg/dL, Acceptable >59 mg/dL, High: Negative risk factor for coronary heart disease <40 mg/dL, Low: Positive risk factor for coronary heart disease LAB 39204-4(LOINC) NonHDLc SerPl-mCnc 100 <130 mg/dL Result Comment: <130 mg/dL, Optimal 130-159 mg/dL, Near optimal/above optimal 160-189 mg/dL, Borderline high 190-219 mg/dL, High >219 mg/dL, Very high Secondary prevention optimal non HDL Cholesterol levels are recommended to be <100 mg/dL LAB FT FASTING TIME 12 hrs LAB 2091-7(LOINC) VLDLc SerPl-mCnc 26 <30 mg/dL LAB 9830-1(LOINC) Cholest/HDL c SerPl 3.38 <5.10 LAB 2089-1(LOINC) LDLc SerPl-mCnc 74 <100 mg/dL Result Comment: <100 mg/dL, Optimal 100-129 mg/dL, Near optimal/above optimal 130-159 mg/dL, Borderline high 160-189 mg/dL, High >189 mg/dL, Very high Secondary prevention optimal LDL Cholesterol levels are recommended to be < 70 mg/dL LAB 39023-9(LOINC) LDLc/HDLc SerPl 1.76 <2.54 Result Comment: Reference: 1. National Cholesterol Education Program ATP III Guideline At-A-Glance Quick Desk Reference: National Heart, Lung, and Blood [place]. National Institutes of Health. 2001: NIH Publication No. 01-3305. 2. An International Atherosclerosis Society position paper: global recommendations for the management of dyslipidemia: executive summary, Atherosclerosis. 2014: 232(2):410-413. Performed By: #### 16334-7, 12238-3, 24571-1, 3051-0 #### [facility] CLIA [id number] [address] [place] [address] [place] T3FREE SERPL-MCNC Collected: 3 8:32 AM Status: F Source: [facility] REPOSITORY Order Comment: Specimen Type : BLOOD SPECIMEN Ordering Facility: [facility] Address: [place] [address] TYPE CODE TESTS RESULT OUT OF RANGE REFERENCE UNITS LAB 3051-0([facility]) T3Free SerPl-mCnc 3.8 2.3-4.1 pg/mL Performed By: #### 74528-2, 05395-0, 07756-5, 3051-0 #### [facility] CLIA [id number] [address] [facility] [id number] CBC W AUTO DIFF BLD Collected: 10/04/2022 8:[address] atus: F Source: [facility] REPOSITORY Order Comment: Specimen Type : BLOOD SPECIMEN Ordering Facility: [facility] Address: [address] [place] [id number] TYPE CODE TESTS RESULT OUT OF RANGE REFERENCE UNITS LAB 6690-2([facility]) WBC # Bld Auto 6.34 3.70-11.00 k/uL LAB 789-8([facility]) RBC # Bld Auto 4.48 3.90-5.20 m/ uL LAB 718-7([facility]) Hgb Bld-mCnc 12.0 11.5-15.5 g/dL LAB 4544-3([facility]) Hct VFr Bld Auto 37.3 36.0-46.0 % LAB 787-2([facility]) MCV RBC Auto 83.3 80.0-100.0 fL LAB 785-6([facility]) MCH RBC Qn Auto 26.8 26.0-34.0 p g LAB 786-4([facility]) MCHC RBC Auto-mCnc 32.2 30.5-36.0 g/dL LAB 34465-4([facility]) RDW RBC-Rto 13.2 11.5-15.0 % LAB 777-3(INC) Platelet # Bld Auto 352 150-400 k/uL LAB 95052-7([facility]) PMV Bld Auto 9.9 9.0-12.7 fL LAB 770-8([facility]) Neutrophils/leuk NFr Bld Auto 54.3 % LAB 751-8(INC) Neutrophils # Bld Auto 3.44 1.45-7.50 k/uL LAB 736-9(LOINC) Lymphocytes/leuk NFr Bld Auto 30.6 % LAB 731-0(LOINC) Lymphocytes # Bld Auto 1.94 1.00-4.00 k/uL LAB 5905-5(LOINC) Monocytes/leuk NFr Bld Auto 10.7 % LAB 742-7(LOINC) Monocytes # Bld Auto 0.68 <0.87 k/uL LAB 713-8(INC) Eosinophil/leuk NFr Bld Auto 3.6 % LAB 711-2(INC) Eosinophil # Bld Auto 0.23 <0.46 k/uL LAB 706-2(INC) Basophils/leuk NFr Bld Auto 0.3 % LAB 704-7(INC) Basophils # Bld Auto <0.03 <0.11 k/uL LAB 26418-8(INC) Imm Granulocytes/pablo k NFr Bld Auto 0.5 % LAB 63239-6([facility]) Imm Granulocytes # Bld Auto 0.03 <0.10 k/uL LAB 58537-0([facility]) nRBC/100 WBC Bld-Rto 0.0 /100 WBC LAB 771-6([facility]) nRBC # Bld Auto <0.01 <0.01 k/u L LAB 72451-5([facility]) Differential method Bld Auto Performed By: #### 77479-0, 4537-7 #### [facility] CLIA [id number] [address] OF [facility] ESR BLD QN WESTRGRN Collected: 10/05/19 23 8:32 AM Status: F Source: [facility] REPOSITORY Order Comment: Specimen Type : BLOOD SPECIMEN Ordering Facility: [facility] Address: [address] [place] [address] TYPE CODE TESTS RESULT OUT OF RANGE REFERENCE UNITS LAB 4537-7([facility]) ESR Bld Qn Westrgrn 16 0-20 mm/hr Performed By: #### 30013-3, 4537-7 #### [facility] CLIA [id number] [address] STATES [place] 25([place])D3 SERPL-MCNC Collected: 10/05/19 8:32 AM Status: F Source: [facility] REPOSITORY Order Comment: Specimen Type : BLOOD SPECIMEN Ordering Facility: [facility] Address: [address] [place] [phone] TYPE CODE TESTS RESULT OUT OF RANGE REFERENCE UNITS LAB 1988-(LOINC) 25(OH)D3 SerPl-mCnc 35.8 31.0-80.0 ng/mL Result Comment: Classificati on of 25 [place] Vitamin D status: Deficiency/Insufficiency: < or = 30 ng/ml. Sufficiency/Optimal Levels: 31-80 ng/mL Toxicity: > 100 ng/mL. Test performed by chemiluminescent immunoassay. Performed By: #### 1988-07 ## ## [facility] CLIA [id number] [address] [place] [address] OF [place]ETH DEPRECATED HGB A1C BLD Collected: 10/04 8:32 AM Status: F Source: [facility] REPOSITORY Order Comment: Specimen Type : BLOOD SPECIMEN Ordering Facility: [facility] Address: [address] [place] [phone] TYPE CODE TESTS RESULT OUT OF RANGE REFERENCE UNITS LAB 4548-4(LOINC) HbA1c MFr Bld 5.3 4.3-5.6 % Result Comment: [place] [employer] bet[employer] Association guidelines indicate that patients with HgbA1c in the range 5.7-6.4% are at increased risk for development of diabetes, and intervention by lifestyle modification may be beneficial. HgbA1c greater or equal to 6.5% is considered diagnostic of diabetes. LAB 84696-7(LOINC) Est. average glucose Bld gHb Est-mCnc 105 mg/dL Result Comment: eAG: (Estima phil average glucose) is a calculated value from HgbA1c and is public relations representative of the average blood glucose level in the last 2-3 month period. Performed By: #### 84979-1 # ### [facility] CLIA [id number] [facility] [address] OF [place] CRP SERPL-MCNC Collected: 05/31/202 3 8:32 AM Status: F Source: [facility] REPOSITORY Order Comment: Specimen Type : BLOOD SPECIMEN Ordering Facility: [facility] Address: [address] [place] [address] TYPE CODE TESTS RESULT OUT OF RANGE REFERENCE UNITS LAB 1987-(LOINC) CRP SerPl-mCnc 0.9 High <0.9 mg/dL Performed By: #### 2132-9, 3 024-7, 3015-07, 1987-09 #### [facility] CLIA [id number] [address] [place] [address] [place] VIT B12 SERPL-MCNC Collected: 3 8:32 AM Status: F Source: [facility] REPOSITORY Order Comment: Specimen Type : BLOOD SPECIMEN Ordering Facility: [facility] Address: [address] [place], [place] [phone] TYPE CODE TESTS RESULT OUT OF RANGE REFERENCE UNITS LAB 2131-9(LOINC) Vit B12 SerPl-mCnc 137 593-7915 pg/mL Performed By: #### 2132-9, 3 024-7, 3015-07, 1987-09 #### [facility] CLIA [id number] [address] [place] [address] [place] T4 FREE SERPL-MCNC Collected: 3 8:32 AM Status: F Source: [facility] REPOSITORY Order Comment: Specimen Type : BLOOD SPECIMEN Ordering Facility: [facility] Address: [address] [place], [place] [phone] TYPE CODE TESTS RESULT OUT OF RANGE REFERENCE UNITS LAB 3024-7(LOINC) T4 Free SerPl-mCnc 3.2 High 0.9-1.7 ng/dL Performed By: #### 2132-9, 3 024-7, 3015-07, 1987-09 #### [facility] CLIA [id number] [address] [place] [address] [place] TSH SERPL-ACNC Collected: 3 8:32 AM Status: F Source: [facility] REPOSITORY Order Comment: Specimen Type : BLOOD SPECIMEN Ordering Facility: [facility] Address: [address] [place] [address] TYPE CODE TESTS RESULT OUT OF RANGE REFERENCE UNITS LAB 3016-3(LOINC) TSH SerPl-aCnc 0.017 Low 0.270-4.200 mIU/L Result Comment: If the patie nt is , TSH reference range varies by gestational period: First Trimester (weeks 9-12): 0.180-2.990 mIU/L Second Trimester: 0.110-3.980 mIU/L Third Trimester: 0.480-4.710 mIU/L Seferino Leon et al. A Practical Approach for the Verifications and Determination of Site- and Trimester-Specific Reference Intervals for Thyroid Function tests in . Thyroid, 2019:29:3:412-420. Sebastian Ocampo, et al. 2017 Guidelines of the [place] Thyroid Association for the Diagnosis and Management of Thyroid Disease during and the . Thyroid, 2017:27:3:315-389. Performed By: #### 2132-9, 3 024-7, 3016-3, 1987- #### [facility] CLIA [id number] [address] [facility] [place] [id number] [place] PROGRESS Observed: 10/04/2022 7:53 AM Status: COMPLETED Source: [facility] REPOSITORY HNO ID: [id number] Author: Julio Lugo APRN.CERAMIC TILE INSTALLER Service: ? Author Type: Nurse Practitioner Type: [...] year old female established patient of Lianet Waterman MD. She presents today with several concerns. [...] comfort, tubing, heated humidifier, filters, Lifetime supplies, Thwpa-1-OIV-EPA-Fish Oil (FISH OIL) 1,000 mg (120 mg-180 mg) cap Take 2 capsules by mouth once daily. (Patient not taking: Reported on 10/04/2022) [facility] Knee brace Dx: S89.92XA, M25.562 Multivitamin capsule [...] Surgery (12/28/09): total thyroidectomy, Dr. Tobias, at [facility] * Path (12/28/09): 4cm classic papillary [...] and updated as appropriate. Encouraged proper diet AND exercise as well as compliance with taking medications. Age-appropriate health preventative measures were discussed. Return if symptoms worsen or fail to improve, for Keep next scheduled appointment.. Complete testing, call with results, decide on next steps. Julio Lugo APRN-CERAMIC TILE INSTALLER CNOV Observed: 10/04/2022 7:40 AM Status: COMPLETED Source: [facility] REPOSITORY Office Visit (INTMWS) DIEGO DEL TORO ([id number]) 1980 F Date Time Provider Department 10/04/22 7:40 AM JULIO LUGO INTPINO During your visit today, we recorded the following information about you: Pulse Blood pressure Weight Height 81/minute 114/68 138.3 kg 1.664 m Last Period 09/18/22 uJlio Lugo APRN.CERAMIC TILE INSTALLER 10/04/2022 9:21 AM Signed SUBJECTIVE Diego Del Toro is a 42 [...] year old female established patient of Lianet Waterman MD. She presents today with several concerns. [...] comfort, tubing, heated humidifier, filters, Lifetime supplies, Vbhge-7-LYJ-EPA-Fish Oil (FISH OIL) 1,000 mg (120 mg-180 mg) cap Take 2 capsules by mouth once daily. (Patient not taking: Reported on 10/04/2022) Miscellaneous Medical Supply [facility] Knee brace Dx: S89.92XA, M25.562 Multivitamin capsule [...] Surgery (12/28/09): total thyroidectomy, Dr. Tobias, at [facility] * Path (12/28/09): 4cm classic papillary [...] and updated as appropriate. Encouraged proper diet AND exercise as well as compliance with taking medications. Age-appropriate health preventative measures were discussed. Return if symptoms worsen or fail to improve, for Keep next scheduled appointment.. Complete testing, call with results, decide on next steps. Julio Lugo APRN-CERAMIC TILE INSTALLER Allergies As of Date: 10/04/2022 Noted Allergy Reaction ADHESIVE TAPE (ROSINS) 12/26/2019 9 - Itching Comments: Tegaderm, paper tape ok Date Reviewed: 10/04/2022 Reviewed by: Julio Lugo APRN.CERAMIC TILE INSTALLER - Fully Assessed Reason for Visit: Chest Pain [21] Cmt: off and on and described it as burning sensation would like to have a stress test Abdominal Pain [1] Cmt: with loose stools and is interested in a colonoscopy Fatigue [46] Cmt: uses CPAP and questions if need PAP titration to check settings Lab Orders [1688] Weight Problem [121] Primary Visit Diagnosis:Precordial pain [R07.2] Other Visit Diagnoses:Other fatigue [R53.83] Weight gain [R63.5] Sleep apnea, unspecified type [G47.30] 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] Vitamin D deficiency [E55.9] Obesity, Class III, BMI >= 40 [E66.01] Lipid screening [Z13.220] Encounter for therapeutic drug monitoring [Z51.81] Screening for colon cancer [Z12.11] Order(s):CBC + DIFF [SQCBCDIF] Order #: [id number] FUTURE HGB A1C [PWZEY4R] Order #: [id number] FUTURE COMP METABOLIC PANEL [SQCMP] Order #: [id number] FUTURE TSH BLD [SQTSH] Order #: [id number] FUTURE T3 FREE BLD [SQFREET3] Order #: [id number] FUTURE T4 FREE/FREE THYROX [SQFT4] Order #: [id number] FUTURE IRON + TIBC [SQIRON] Order #: [id number] FUTURE LIPID PANEL BASIC [SQLIPB] Order #: [id number] FUTURE VITAMIN D 25 HYDROXY [SQVITD] Order #: [id number] FUTURE VITAMIN B12 BLOOD [SQB12] Order #: [id number] FUTURE SED RATE WESTERGREN [WSR] Order #: [id number] FUTURE C-REACTIVE PROTEIN (CRP) [SQCRP] Order #: [id number] FUTURE CONSULT TO GENERAL SURGERY [9011] Order #: [id number]: 1 FUTURE PAP TITRATION PSG (CPAP, BIPAP, ASV) [5191886] Order #: [id number] FUTURE NM CARDIAC PERF STRESS/EXERCISE [9842812] Order #: [id number] FUTURE Prescriptions as of 10/04/2022 - calcium carbonate (CALCIUM 300 ORAL) Take 1 tablet by mouth once daily. - GARLIC Take 1 mL by mouth once daily. - levothyroxine (SYNTHROID) 175 mcg tablet take 7 AND 1/2 pills per week (one a day with extra 1/2 pill on Sunday) - CPAP AutoPAP 5-20 cmH2O, mask to comfort, tubing, heated humidifier, filters, Lifetime supplies, - Cante-0-KQU-EPA-Fish Oil (FISH OIL) 1,000 mg (120 mg-180 mg) cap Take 2 capsules by mouth once daily. - Miscellaneous Medical Supply mis Knee brace Dx: S89.92XA, M25.562 - Multivitamin capsule Take 1 capsule by mouth once daily. - Lactobacillus acidophilus 10 billion cell cap Take by mouth once daily. - cholecalciferol (VITAMIN D3) 50 mcg (2,000 unit) tablet Take 1 tablet by mouth once daily. 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 Follow-up and Disposition History for Encounter Date Provider Department Center 10/04/2022 [id number] LUGO [facility] MICHA Encounter Status:Closed by JULIO LUGO on 10/04/22 PROGRESS Observed: 08/07/2022 10:45 PM Status: COMPLETED Source: [facility] REPOSITORY [facility] ID: [id number] Author: Asya Bynum Poly-T Service: ? Author [...] one year. Thank you for your attention. CT ABDOMEN/PELVIS WITH CONTRAST Observed: 07/13/2022 6:08 PM Status: F Source: [facility] REPOSITORY EXAM: CT ABDOMEN/PELVIS WITH CONTRAST, 07/13/2022 09:39 AM COMPARISON: CT abdomen/pelvis December 25, 2021. CLINICAL INDICATIONS: Surveillance. 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 PROTOCOL: Standard. CONTRAST: Iohexol (OMNIPAQUE) 300 MG/ML vial 50 mL; Route of Administration: Oral; Dose: 50 mL. iohexol (OMNIPAQUE) 350 MG/ML injection 1-171 mL; Route of Administration: Intravenous; Dose: 140 mL. FINDINGS: Lung Bases: The visualized lung bases and lower mediastinal structures are unremarkable. ABDOMEN Liver: Liver is normal in size and CT density. No focal lesions. Biliary/Gallbladder: Cholecystectomy. The biliary tree is nondilated. Spleen: Spleen is normal in size and CT density. Pancreas: Pancreas is normal. There is no evidence of pancreatic mass or peripancreatic fluid. Adrenals: Adrenal glands are unremarkable. Kidneys: Kidneys are normal in size. There are no stones or hydronephrosis. Stable too small to characterize hypodensity in the left kidney interpolar region. Retroperitoneal/Vasculature: No retroperitoneal adenopathy is identified. Gastrointestinal/Mesentery: Stable right paramidline ventral abdominal wall hernia, containing mesenteric fat without formation or substantial change. The bowel loops are non-dilated without wall thickening or mass. PELVIS Bladder: The bladder is normal. Genital: The uterus, ovaries and adnexal structures are unremarkable. Small volume free pelvic fluid which is within normal limits given patient's reproductive age. Bony Structures: Interval increase in size of the previously present subcutaneous nodule in the midline umbilical abdominal wall measuring 1.8 x 2 cm (series 2: Image 95) previously measuring 1.3 x 1.1 cm. The same nodule was present on remote study from August 2014, which measured 1.1 x 1.1 cm. The previously present left lower quadrant abdominal wall is stable, measuring 1.2 x 2.1 cm, previously 1.3 x 1.9 cm on 12/26/2019 IMPRESSION: 1. Interval increased size of the periumbilical abdominal wall nodule. While the left lower quadrant abdominal wall nodule is stable. These nodules have been present in remote examinations, including 2017, and reportedly these were previously biopsied. Correlate with biopsy results 2. No intra-abdominal pelvic lymphadenopathy. 3. Stable right paramidline non-bowel containing abdominal wall hernia. 4. No acute intra-abdominal process. EDURE Observed: 07/07/2022 12:12 PM Status: COMPLETED Source: [facility] REPOSITORY HNO ID: [id number] Author: Darian Pruett MD Service: ? Author [...] Color power Doppler were applied when indicated. PROGRESS Observed: 07/07/2022 11:29 AM Status: COMPLETED Source: [facility] REPOSITORY HNO ID: [id number] Author: Darian Pruett MD Service: ? Author Type: Physician Type: Progress Notes Filed: 07/07/2022 12:13 PM Note Text: Assessment / Plan Assessment: 1) Surgical hypothyroidism. TSH high, apparently from forgetting doses. Rather than increase the dose significantly, I'll just increase the dose based on her weight change (6% gain), and have her take 175 x 7.5/wk followup labs in 6 weeks and send Zaplee message. Discussed catching up for missed doses. 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 Fertility doc upped her dose to 200 mcg/d levothyroxine, she hasn't started yet. Insurance refused gastric bypass surgery. 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 Tobias, at [facility] Pathology (12/28/09): 4cm classic papillary thyroid [...] Wall Resection THYROIDECTOMY TOTAL/SUBTOTAL LMTD NECK DISSECT 8-24-10 TOTAL THYROID FAMILY HISTORY Problem Relation Age of Onset Breast Cancer Mother Diabetes Maternal Grandmother Heart Maternal Grandmother Lipids Maternal Grandmother Hypertension Maternal Grandmother Heart Maternal Grandfather Lipids Maternal Grandfather Hypertension Maternal Grandfather other (Parkinson's Disease) Paternal Grandfather Alcohol/Drug Maternal Uncle Social History Tobacco Use Smoking status: Never Smokeless tobacco: Never Substance Use Topics Alcohol use: No Drug use: No MEDICATIONS AND ALLERGIES Current Outpatient Medications Medication Sig Dispense Refill levothyroxine (SYNTHROID) 175 mcg tablet take 6 AND 1/2 pills per week (one a day but only 1/2 pill on Sunday) 90 tablet 3 CPAP AutoPAP 5-20 cmH2O, mask to comfort, tubing, heated humidifier, filters, Lifetime supplies, 1 Device 0 Ycvid-6-VQS-EPA-Fish Oil (FISH OIL) 1,000 mg (120 mg-180 mg) cap Take 2 capsules by mouth once daily. Miscellaneous Medical Supply [facility] Knee brace Dx: S89.92XA, M25.562 1 Each [...] Tape (Etelvina* Itching Tegaderm, paper tape ok CNOV Observed: 07/07/2022 11:20 AM Status: COMPLETED Source: [facility] REPOSITORY Office Visit (MARITZAKW) DIEGO DEL TORO ([id number]) 1980 F Date Time Provider Department 07/07/22 11:20 AM DARIAN PRUETT During your visit today, we recorded the following information about you: Pulse Blood pressure Weight 79/minute 142/83 138 kg Darian Pruett MD 07/07/2022 12:13 PM Signed Assessment / Plan Assessment: 1) Surgical hypothyroidism. TSH high, apparently from forgetting doses. Rather than increase the dose significantly, I'll just increase the dose based on her weight change (6% gain), and have her take 175 x 7.5/wk followup labs in 6 weeks and send Zaplee message. Discussed catching up for missed doses. 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 Fertility doc upped her dose to 200 mcg/d levothyroxine, she hasn't started yet. Insurance refused gastric bypass surgery. 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 Tobias, at [facility] Pathology (12/28/09): 4cm classic papillary thyroid [...] Alcohol use: No Drug use: No MEDICATIONS AND ALLERGIES Current Outpatient Medications Medication Sig Dispense Refill levothyroxine (SYNTHROID) 175 mcg tablet take 6 AND 1/2 pills per week (one a day but only 1/2 pill on Sunday) 90 tablet 3 CPAP AutoPAP 5-20 cmH2O, mask to comfort, tubing, heated humidifier, filters, Lifetime supplies, 1 Device 0 Dyfbb-6-JOU-EPA-Fish Oil (FISH OIL) 1,000 mg (120 mg-180 mg) cap Take 2 capsules by mouth once daily. Miscellaneous Medical Supply [facility] Knee brace Dx: S89.92XA, M25.562 1 Each [...] Tape (Etelvina* Itching Tegaderm, paper tape ok Darian Pruett MD 07/07/2022 12:12 PM Signed Assessment / Plan Assessment: 1) Surgical hypothyroidism. TSH high, apparently from forgetting doses. Rather than increase the dose significantly, I'll just increase the dose based on her weight change (6% gain), and have her take 175 x 7.5/wk followup labs in 6 weeks and send Zaplee message. Discussed catching up for missed doses. [...] 4.1 pg/mL Thyroglobulin Ab <14.4 IU/mL <1.0 Darian Pruett MD 07/07/2022 12:13 PM Signed Thyroid / Neck Ultrasound Findings: no suspicious [...] Color power Doppler were applied when indicated. 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 #:[id number]: 1 T4 FREE/FREE THYROX [SQFT4] Order #: [id number] FUTURE TSH BLD [SQTSH] Order #: [id number] FUTURE T4 FREE/FREE THYROX [SQFT4] Order #: [id number] FUTURE TSH BLD [SQTSH] Order #: [id number] FUTURE THYROGLOBULIN, SERUM WITH REFLEX TO IA OR LC-MS/MS [SQTHYRORF] Order #: [id number] FUTURE levothyroxine (SYNTHROID) 175 mcg tablettake 7 AND 1/2 pills per week (one a day with extra 1/2 pill on Sunday)Disp: 100 tabletRfl: 3 Prescriptions as of 07/07/2022 - levothyroxine (SYNTHROID) 175 mcg tablet take 7 AND 1/2 pills per week (one a day with extra 1/2 pill on Sunday) - CPAP AutoPAP 5-20 cmH2O, mask to comfort, tubing, heated humidifier, filters, Lifetime supplies, - Mcnpm-6-AUO-EPA-Fish Oil (FISH OIL) 1,000 mg (120 mg-180 mg) cap Take 2 capsules by mouth once daily. - Miscellaneous Medical Supply [facility] mathew Dx: S89.92XA, M25.562 - Multivitamin capsule Take 1 capsule by mouth once daily. - Lactobacillus acidophilus 10 billion cell cap Take by mouth once daily. - cholecalciferol (VITAMIN D3) 50 mcg (2,000 unit) tablet Take 1 tablet by mouth once daily. 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 TSH high, apparently from forgetting doses. Rather than increase the dose significantly, I'll just increase the dose based on her weight change (6% gain), and have her take 175 x 7.5/wk followup labs in 6 weeks and send Zaplee message. Discussed catching up for missed doses. [...] at your labs and send comment by Zaplee 2) return to me in 6 months [...] 4.1 pg/mL Thyroglobulin Ab <14.4 IU/mL <1.0 Prescriptions ordered this encounter Disp Refills Start End LEVOTHYROXINE 175 MCG TABLET 100 * 3 07/07/2022 Sig: take 7 AND 1/2 pills per week (one a day with extra 1/2 pill on Sunday) Medications Discontinued During This Encounter Prescriptions - levothyroxine (SYNTHROID) 175 mcg tablet (Discontinued) take 6 AND 1/2 pills per week (one a day but only 1/2 pill on Sunday) Disposition: Return in about 6 months (around 01/07/2023) for thyroid virtual. Follow-up and Disposition History for Encounter Date Provider Department Center 07/07/2022 [id number] Status:Closed by DARIAN PRUETT on 07/07/22 PROGRESS Observed: 12/08/2021 1:33 AM Status: COMPLETED Source: [facility] REPOSITORY HNO ID: [id number] Author: Janna Ortega Service: ? Author Type: ? Type: Progress Notes Filed: 12/08/2021 1:33 AM Note Text: The patient did not show up for the scheduled sleep study. The patient will be contacted to reschedule the sleep study. Janna Ortega PROGRESS Observed: 11/11/2021 11:35 AM Status: COMPLETED Source: [facility] REPOSITORY HNO ID: [id number] Author: Michael Dawkins III, PhD Service: ? Author Type: Physician Type: Progress Notes Filed: 12/08/2021 1:33 AM Note Text: November 11, 2021 Standing PSG Orders signed [...] from Last 2 Encounters: 08/10/21 : 46.16 kg/m? 01/13/21 : 43.77 kg/m? PAST MEDICAL HISTORY Diagnosis Date - Cholecystitis, acute 2011 removed - Desmoid tumor - Thyroid mass papillary cancer - Unspecified , without mention of complication, unspecified [...] Transcutaneous CO2 if available [facility] Staff Note: I have read the above protocol, edited as needed, and agree to the plan. Michael Dawkins III, PhD 11:47 AM, 11/11/2021 PROGRESS Observed: 11/11/2021 9:45 AM Status: COMPLETED Source: [facility] REPOSITORY HNO ID: [id number] Author: Ceasar Rosas Service: ? Author Type: ? Type: Progress Notes Filed: 12/08/2021 1:33 AM Note Text: November 11, 2021 An order has been received for PAP titration study from Dr. Kinga Perez MD, a B. [facility] Staff. Visit prep complete. Comments :No The sleep study is scheduled for 12/07. Insurance: Payor: [employer] MEDICAID / Plan: [employer] ADVANTAGE MEDICAID / Product Type: Medicaid / Payor/Plan Subscr Sex Relation Sub. Ins. ID Effective Group Num 1. IRINEO VERNON* DIEGO DEL TORO 1980 Female Self [id number] 10[birth year]20 [address] Ceasar Rosas ALLERGIES DATE TYPE / CODE NAME / CODE REACTION SEVERITY SOURCE 12/26/2019 Chemical/704361783(S NO MED CT) ADHESIVE TAPE (ROSINS) ITCHING [facility] Miscellaneous Allergy/010709965(SNOM ED CT) NO KNOWN ALLERGIES [facility] ENCOUNTERS ADMIT/DISCHARGE ACCOUNT NUMBER ADMITTING ENCOUNTER CLASS LOCATION SOURCE 06/05/2023/06/05/19 24 [id number] Ambulatory Building:[facility] 05/08/2023/05/08/19 24 [id number] Ambulatory Building:[facility] 04/09/2023/04/09/20 23 [id number] Ambulatory Building:[facility] 03/27/2023/03/27/20 23 [id number] Ambulatory [facility] [facility] 03/23/2023/03/23/20 23 [id number] Ambulatory Building:[facility] 03/22/2023/03/22/20 23 [id number] Ambulatory [facility] ing:[facility] 03/22/2023 [id number] [facility] 03/19/2023 [id number] Ambulatory Building:[facility] 03/05/2023/03/05/20 23 [id number] Ambulatory Building:[facility] 01/26/2023/01/27/20 23 [id number] Ambulatory Building:[facility] 01/26/2023/01/27/20 23 [id number] Ambulatory Building:[facility] 01/01/2023/01/02/20 23 [id number] Ambulatory [facility] HospitalBuild ing:SHIKHA [facility] 11/13/2022/11/14/19 23 [id number] Ambulatory [facility] Hospital[facility] ing:TRINA [facility] 10/18/2022 [id number] Ambulatory JAMESBuildin g :CT5ONS [facility] 10/04/2022/10/05/19 23 [id number] Ambulatory [facility] HospitalBuild ing:WOLTressa [facility] 10/04/2022/10/05/19 23 [id number] Ambulatory [facility] HospitalBuild ing:TREY [facility] 07/13/2022 [id number] Ambulatory JAMESBuildin g :ILCCTD [facility] 07/07/2022/07/08/19 23 [id number] Ambulatory [facility] HospitalBuild ing:MINAGERALDINE [facility] PAYERS ENCOUNTER GUARANTOR PAYER SUBSCRIBER SOURCE 06/05/2023 DIEGO S ALVERTODOB: [place], [place] [address]Itp: (HP) Primary Insurance:[facility] MEDICAIDPolicy Number: [id number] Date: DIEGO S BUTZERDOB: [id number] [place] [address] [facility] 05/08/2023 DIEGO S BUTZERDOB: [place], [place] [address]Qqy: (HP) [place] Insurance:[employer] [place] MEDICAIDPolicy Number: [id number] Date: DIEGO S BUTZERDOB: [id number] [place] [address] [facility] 04/09/2023 DIEGO S BUTZERDOB: [place], [place] [address]Shs: (HP) Primary Insurance:[facility] MEDICAIDPolicy Number: [id number] Date: DIEGO S BUTZERDOB: [id number] [place] [address] [facility] 03/27/2023 Primary Insurance:[place] [facility] Number: [id number] Date:1190-98-68Kafv Name:X DIEGO S BUTZERDOB: [id number] [place] [address] [facility] 03/23/2023 DIEGO S BUTZERDOB: [place], [place] [address]Aac: (HP) Primary Insurance:[employer] MEDICAIDPolicy Number: [id number] Date: DIEGO S BUTZERDOB: [id number] [place] [address] [facility] 03/22/2023 Primary Insurance:[place] Number: [id number] Date:8386-09-71Wkrb Name:X DIEGO Elgin BUTZERDOB: [id number] [place] [address] [facility] 03/22/2023 Primary Insurance:[employer] Number: [id number] Date:3455-24-17Vtza Name:X DIEGO Elgin BUTZERDOB: [id number] [place] [address] [facility] 03/19/2023 DIEGO S BUTZERDOB: [place], [place] [address]Vyz: (HP) [place] Insurance:[place]IDPolicy Number: [id number] Date: DIEGO S BUTZERDOB: [id number] [place] [address] [facility] 03/05/2023 DIEGO S BUTZERDOB: [place], [place] [address]Zqv: (HP) [place] Insurance:[place] MEDICAIDPolicy Number: [id number] Date: DIEGO S BUTZERDOB: [id number] [place] [address] [facility] 01/26/2023 DIEGO S BUTZERDOB: [place], [place] [address]Tpz: (HP) [place] Insurance:[place] MEDICAIDPolicy Number: [id number] Date: DIEGO S BUTZERDOB: [id number] [place] [address] [facility] 01/26/2023 DIEGO BUTZERDOB: [place], [place] [address]Yhj: (HP) [place] Insurance:[place] MED[place]ID[place] Number: [id number] Date: DIEGO S BUTZERDOB: [id number] [place] [address] [facility] 11/13/2022 Primary Insurance:[place] [employer] [facility] [place] Number: [id number] Date:5675-05-77Xmzv Name:X DIEGO S BUTZERDOB: [id number] [place] [address] [facility] 10/18/2022 DIEGO S BUTZERDOB: [place], [place] [address]Dfw: (HP) [facility]: [id number] Date:6265-15-29Zypv Name:MANAGED CARE DIEGO S BUTZERDOB: [id number] [place], [place] [address]Hyf: (HP) [facility] 10/18/2022 Secondary Insurance:[place] MEDICAIDPolicy Number: [id number] Date:3245-39-27Pyoe Name:CAID DIEGO S BUTZERDOB: [id number] [place], [place] [address]Knv: (HP) [facility] 10/04/2022 Primary Insurance:[employer] [employer] [place] Number: [id number] Date:1149-64-80Kpad Name:X DIEGO S BUTZERDOB: [id number] [place] [address] [facility] 10/04/2022 Primary Insurance:[employer] [employer] [place] Number: [id number] Date:9036-79-36Pawc Name:Foreign Eisenberg JULIENNEB: [id number] [place] [address] [facility] 07/13/2022 DIEGO ROBINSB: [place], [place] [address]Eoh: (HP) [facility] Number: [id number] Date:0340-92-57Fgqn Name:MANAGED CARE DIEGO Elgin JULIENNEB: [id number] [place], [place] [address]Fgu: (HP) [facility] 07/07/2022 Primary Insurance:[employer] [employer] [place] Number: [id number] Date:9658-00-38Quzk Name:X DIEGO Elgin ALVERTODOB: [id number] [place] [address] [facility]
[2023-07-02] MEDS: Acetaminophen 500 MG Tablet 1000 MG PO ×4 (04:34→21:48)
[2023-07-02] MEDS: 0.9% Saline Lock 10 ML Syringe IV ×4 (04:35→21:49)
[2023-07-02] MEDS: Lactated Ringers 1,000 ML 999 ML IV (04:35)
[2023-07-02 05:44] LABS: Bedside Glucose 85 mg/dL (74-106)
[2023-07-02 05:54] LABS: Syphilis Antibodies Non-reactive
[2023-07-02] MEDS: proMETHazine 25 MG Tablet PO (06:33)
[2023-07-02] MEDS: Lactated Ringers 1,000 ML 150 ML IV (06:33)
[2023-07-02] MEDS: Sodium Citrate/Citric Acid 30 ML UDC PO (06:33)
[2023-07-02] MEDS: Cefazolin 3 GM in 0.9% Normal Saline (100mL Bag) 100 ML IV (07:25)
--- NOTE | 2023-07-02 08:43 | EX.PCM.OBRPT ---
Assessment & Plan (1) Breech extraction: (2) Mild pre-eclampsia: (3) Pneumonia affecting in third trimester: (4) History of section: (5) Gestational diabetes mellitus in third trimester: COMMENT: increase to 1000mg BID. weekly nst, weekly BPP for twice weekly total testing due to chtn and gdm, if not controlled recommend insulin. (6) Polyhydramnios affecting : COMMENT: testing ordered (7) Large for gestational age fetus: COMMENT: discussed glucose control. (8) HTN in , chronic: COMMENT: no meds. Plans w/MFM:growth US Q4wk and wkly BPP at 32 wk. (9) UTI in : QUALIFIERS: Trimester: second trimester Qualified Code(s): O23.42 - Unspecified infection of urinary tract in , second trimester COMMENT: Rx macrobid. Repeat culture neg (10) Anemia affecting : QUALIFIERS: Trimester: second trimester Qualified Code(s): O99.012 - Anemia complicating , second trimester COMMENT: start iron (11) Fibroid uterus: QUALIFIERS: Uterine leiomyoma location: unspecified location Qualified Code(s): D25.9 - Leiomyoma of uterus, unspecified COMMENT: growth US q4 weeks /4:86%. (12) AMA (advanced maternal age) multigravida 35+: QUALIFIERS: Trimester: third trimester Qualified Code(s): O09.523 - Supervision of elderly multigravida, third trimester COMMENT: low risk NIPT. (13) Obesity: QUALIFIERS: Obesity type: unspecified obesity type Obesity classification: unspecified obesity classification Serious obesity comorbidity presence: without serious comorbidity Qualified Code(s): E66.9 - Obesity, unspecified COMMENT: testing planned due to other comorbidities. (14) Supervision of high-risk : QUALIFIERS: Trimester: second trimester Qualified Code(s): O09.92 - Supervision of high risk , unspecified, second trimester COMMENT: [id number], YANNICK 07/31/23 darrick Mancera, Cristobal(20wk demise-Zamzam) Ju?- Antonio, RC/S 07-09-23 (15) : QUALIFIERS: Weeks of gestation: 36 weeks Qualified Code(s): Z3A.36 - 36 weeks gestation of COMMENT: NIPT low risk, didn't do ntd screen, carrier testing. nl anatomy. (16) Hypothyroidism: QUALIFIERS: Hypothyroidism type: postoperative Qualified Code(s): E89.0 - Postprocedural hypothyroidism COMMENT: labs q trimester, repeat labs ordered 05/31 (17) History of miscarriage: COMMENT: history of 2 1st trimester losses (18) Second trimester : COMMENT: h/o 2nd trimester loss- it was determined at this time that she was positive for Factor V leiden def. (19) Infertility counseling: COMMENT: RGI referral for managment, ovarian assessment report eggy supply fair 10, egg quality and age reduced and 40 (20) Factor 5 Leiden mutation, heterozygous: COMMENT: lovenox 40 daily per MFM; rpt lab as not confirmed but elevate Protein C on APL. 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 (23) Acute maxillary sinusitis, unspecified: Maternal Data Information YANNICK Calculator Estimated Delivery Date Method Current WG Current Estimate 07/23/23 LMP (Certain) 37w 0d Other Estimates 07/31/23 Ultrasound #1 35w 6d 07/20/23 Ultrasound #2 37w 3d Final YANNICK: 07/23/23 Final YANNICK Source: LMP Gestational age: 37 weeks [place] Doctor Who Attended Delivery: Elena Jean Details Operative Information Date of Procedure: 07/02/23 Pre-Operative Diagnosis: mild pre-eclampsia, 37 weeks, breech, prior section, morbid obesity Post-Operative Diagnosis: mild pre-eclampsia, 37 weeks, breech, prior section, morbid obesity Classification: Scheduled Procedure Type: low transverse 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 She was prepped and draped in the normal sterile fashion and was placed in a dorsal supine position with a leftward tilt. Pfannenstiel skin incision was made with a scalpel and carried through to the underlying layers. The fascia was nicked in the midline and extended laterally using Noel scissors. The anterior aspect of the fascia was grasped with Bianca clamps and the underlying rectus muscles dissected off using the Metzenbaum scissors. The rectus muscles were in the midline. Peritoneum was entered sharply. The uterus was identified and an rubin-O retractor was inserted into the abdomen. Bladder flap was created off the uterus using Metzenbaum scissors. A transverse incision was made with a scalpel and extended laterally manually. The 's feet were first to present and were gently grasped and guided out of the uterine incision. The legs and torso followed. The anterior shoulder was carefully swept across the chest. The infant was rotated to the opposite side and opposite arm was swept down and over the chest. The head was delivered with the help of my bacteriology research assistant using fundal pressure and also a finger in the mouth to flex the head. The mouth and nares were bulb suctioned. After a 30 second delay the cord was clamped and cut. The end was handed off to the awaiting photograph tinter for routine assessment. Placenta was delivered manually without difficulty but was noted to be bilobed and sent for pathology analysis. The uterus was cleared of all clots and debris. Incision was closed with an 0 Vicryl suture in a running locked fashion. Second layer of 1-0 monocryl suture was used in imbricating manner to create excellent closure and hemostasis. The gutters were cleared of all clots and debris. The peritoneum was closed in a pursestring pattern using a 3-0 Vicryl suture. This muscle was reapproximated with a 3-0 Vicryl. The fascia was closed with a stratafix suture. Subcutaneous tissue layer was irrigated then closed using a plain gut suture. The skin was closed with a 4-0 Monocryl subcuticular stitch. The skin was also sealed with surgical glue. The patient tolerated the procedure well sponge lap and needle counts were correct at each tissue closure plane and the patient is now being brought to the recovery room in stable condition Presentation: Positive for Footling Breech Amniotic Membrane Rupture Type: Artificial Amniotic Fluid Description: Clear Placental Delivery Description: Manual Removal Placenta Disposition: [facility] Cord Vessel Description: 3 Vessels Cord Entanglement: None Cord Gases: ABG and VBG A Gender: Male Delayed Cord Clamping: Yes Complications Risks of Surgery Discussed w/Patient: Bleeding, Anesthesia Risks, Infection and Injury to surrounding structure(s) including bowel and bladder Complications: none Multi Select Codes Urinary/Genital Urinary/Genital CPT Codes: 56004 delivery+ Care([facility])
--- NOTE | 2023-07-02 08:50 | DCINST_ITS ---
Discharge Instructions Diet Discharge Diet: No restrictions Activity Discharge Activity: May Not Drive (for 2 weeks or while taking narcotic pain medications.), May Shower and May Take a Tub Bath (in 7 days.) May resume sexual activity in: 4-6 weeks Weight Bearing Status: Full weight bearing Lifting Restrictions: 20 pounds Dressing / Incision Call your doctor if your incision/area has: Continuous Slow Oozing, Sudden Increased Bleeding, Increased Pain/ Swelling, Increased Redness and Foul Smelling Discharge Call your doctor if you observe: Fever of 101 or Higher and Using more than 1 pad per hour Suture Line Care: Avoid Pulling/Pushing and Avoid Pinching/Bending Cleanse incision/area with: Soap & Water and Keep Dressing Clean & Dry Follow Up Care Please Follow Up With: Jyothi Coleman DO When: Call [phone] to make an appointment for an incision check in 1-2 weeks. Test Results: Test results from this visit will be discussed in further detail at your follow- up appointment, if applicable. Discharge Plan Admission Admit Date/Time: 07/02/23 03:45 Attending Provider: Jyothi Coleman Primary Care Provider: Marleny Waterman Discharge Orders/Prescriptions Prescriptions: No Action levothyroxine 175 mcg tablet 175 mcg PO DAILY PNV-DHA 27 mg iron-1 mg -300 mg capsule PO (DME) blood-glucose meter Mis See Rx Instructions .MEDSUPPLY Qty: 1 0RF Rx Instructions: As directed- Test fasting and 2 hours after meals miscellaneous medical supply Misc See Rx Instructions miscellaneous .COMPLEX Qty: 1 0RF Rx Instructions: abdominal binder as directed; DX. K46.9 Abdominal hernia (DME) Blood Glucose Test Strip See Rx Instructions .Route Qty: 120 10RF Rx Instructions: As directed- fasting & 2 HR post meals(4x/day) enoxaparin [Lovenox] 40 mg/0.4 mL syringe 40 mg subcut DAILY 30 Days Qty: 4 6RF (DME) lancets Misc See Rx Instructions .MEDSUPPLY Qty: 200 8RF Rx Instructions: As directed- fasting & 2 HR post meals(4x/day) Slow Fe 137 mg (45 mg iron) tablet extended release See Rx Instructions PO DAILY Qty: 30 4RF Rx Instructions: 137mg orally daily; docusate sodium [Colace] 100 mg capsule 100 mg PO DAILY Qty: 30 4RF Humulin N NPH Insulin KwikPen 100 unit/mL (3 mL) insulin pen 35 unit subcut QPM Qty: 15 0RF amoxicillin 500 mg capsule 1,000 mg PO BID 10 Days Qty: 40 0RF magnesium oxide 400 mg (241.3 mg magnesium) tablet 400 mg PO DAILY Qty: 30 2RF Hold Instructions: Order Changed Rx Instructions: take half tab daily Referrals / Follow Up: Marleny Waterman MD [Primary Care Provider] -
[2023-07-02] MEDS: Oxytocin 15 Units/NS 250ml 15 UNITS/250 ML IV.SOLN 83 UNITS IV (09:00)
[2023-07-02] MEDS: Ketorolac 30 MG/ML Syringe IV ×3 (10:00→21:49)
[2023-07-02 10:01] LABS: Bedside Glucose 89 mg/dL (74-106)
[2023-07-02] MEDS: oxyCODONE 5 MG Tablet PO ×2 (10:54→15:38)
[2023-07-02] MEDS: Lactated Ringers 1,000 ML 100 ML IV (15:47)
[2023-07-02 16:10] LABS: Bedside Glucose 76 mg/dL (74-106)
[2023-07-02] MEDS: Enoxaparin 40 MG/0.4 ML Syringe SC (20:28)
[2023-07-02] MEDS: Insulin NPH Human 100 UNITS/ML PEN 17 UNITS SC (22:00)
[2023-07-02 22:55] LABS: Bedside Glucose 126 mg/dL (74-106)
[2023-07-03 00:36] VITALS: BP 143/71; PULSE 76; RESP 16; TEMP 36.8; O2SAT 98
[2023-07-03 00:58] LABS: Bedside Glucose 90 mg/dL (74-106)
[2023-07-03] MEDS: Ketorolac 30 MG/ML Syringe IV (04:37)
[2023-07-03] MEDS: 0.9% Saline Lock 10 ML Syringe IV ×3 (04:38→15:38)
[2023-07-03] MEDS: Acetaminophen 500 MG Tablet 1000 MG PO ×3 (04:38→17:44)
[2023-07-03 04:44] VITALS: BP 144/79; PULSE 79; RESP 16; TEMP 36.6; O2SAT 96
[2023-07-03 05:09] LABS: Hematocrit 27.8 % (37-47); Hemoglobin 9.1 g/dL (12.0-15.0); Mean Corp Hgb Conc 32.7 g/dL (32-36); Mean Corpuscular Hgb 27.8 pg (27.0-32.0); Mean Platelet Vol. 9.9 fl (6.2-12.0); Platelet Count 243 K/mm3 (150-450); RBC Distribution Width CV 14.6 % (11.6-14.6); RBC Distribution Width SD 45.1 fl (35.1-43.9); Red Blood Count 3.27 M/mm3 (4.2-5.4); White Blood Count 9.9 K/mm3 (4.4-11.0)
[2023-07-03 06:59] LABS: Bedside Glucose 125 mg/dL (74-106)
[2023-07-03 08:00] VITALS: BP 122/90; PULSE 78; RESP 16; TEMP 37.2; O2SAT 96
--- NOTE | 2023-07-03 08:23 | PN.OBGYN_ITS ---
Subjective Subjective Patient doing well without complaints. Tolerating PO. Slow to ambulate and voiding without difficulty. Feeding well. Denies chest pain, shortness of breath, calf pain/swelling, fevers, chills, lightheadedness. Objective Data Objective Data Vital Signs: Vital Signs Temp Pulse Resp BP Pulse Ox O2 Del Method 97.8 F 79 16 144/79 H 96 Room Air 07/03/23 04:44 07/03/23 04:44 07/03/23 04:44 07/03/23 04:44 07/03/23 04:44 07/03/23 04:44 Oxygen Delivery Method Room Air Weight: 324 lb Body Mass Index (BMI) 52.2 Intake & Output: Intake and Output for Last 24 Hours 07/01/23 07/02/23 07/03/23 23:59 23:59 23:59 Intake Total 2049 / 2049 Output Total 1700 / 1700 500 / 500 Balance 350 / 350 -500 / -500 Lab / Micro Data Attestation: I reviewed the patient's lab results. 07/03/23 05:00 Labs: Laboratory Results - last 24 hr 07/02/23 09:29: POC Glucose 89 07/02/23 15:41: POC Glucose 76 07/02/23 21:55: POC Glucose 126 H 07/03/23 00:35: POC Glucose 90 07/03/23 05:00: WBC 9.9, RBC 3.27 L, Hgb 9.1 L, Hct 27.8 L, MCV 85.0, MCH 27.8, MCHC 32.7, RDW Std Deviation 45.1 H, RDW Coeff of Breanne 14.6, Plt Count 243, MPV 9.9 07/03/23 06:40: POC Glucose 125 H ROS Constitutional Constitutional: Reports systems reviewed and no addt'l complaints, except as documented; Denies anorexia or headache(s) Cardiovascular Cardiovascular: Reports systems reviewed and no addt'l complaints, except as documented; Denies dizziness, dyspnea, nausea or tachypnea Respiratory/Chest Respiratory/Chest: Reports systems reviewed and no addt'l complaints, except as documented; Denies cough, dyspnea, shortness of breath at rest or tachypnea Gastrointestinal Gastrointestinal: Reports systems reviewed and no addt'l complaints, except as documented; Denies abdominal pain, constipation or nausea Genitourinary Genitourinary: Reports systems reviewed and no addt'l complaints, except as documented; Denies burning urination, difficulty urinating, dysuria, urinary frequency or urinary incontinence Musculoskeletal Musculoskeletal: Reports systems reviewed and no addt'l complaints, except as documented Integumentary Integumentary: Reports systems reviewed and no addt'l complaints, except as documented Neurologic Neurologic: Reports systems reviewed and no addt'l complaints, except as documented; Denies abnormal speech, dizziness or headache(s) Psychiatric Psychiatric: Reports systems reviewed and no addt'l complaints, except as do cumented Endocrine Endocrinology: Reports systems reviewed and no addt'l complaints, except as documented Hematologic/Lymphatic Hematologic/Lymphatic: Reports systems reviewed and no addt'l complaints, except as documented Physical Exam Const alert, oriented x3 and no apparent distress Neck full ROM Resp normal respiratory effort, normal air movement and no retractions Effort and Inspection: able to speak in complete sentences and symmetric chest movement GI soft to palpation Inspection: incision intact Bladder / Kidney Exam: bladder normal to palpation Uterus Palpation: uterus fundus firm Extremity normal to inspection and full ROM Psych mental status grossly normal, thought process normal and cooperative Assessment & Plan (1) Pneumonia affecting in third trimester: PLAN: Per Up To Date continue pre delivery IV ATB x 1 day for total of 5 days of treatment. Discussed with Dr Coleman and agreed with plan. (2) Gestational diabetes mellitus in third trimester: COMMENT: increase to 1000mg BID. weekly nst, weekly BPP for twice weekly total testing due to chtn and gdm, if not controlled recommend insulin. (3) Breech extraction: (4) Mild pre-eclampsia: (5) HTN in , chronic: COMMENT: no meds. Plans w/MFM:growth US Q4wk and wkly BPP at 32 wk. (6) Anemia affecting : QUALIFIERS: Trimester: second trimester Qualified Code(s): O99.012 - Anemia complicating , second trimester COMMENT: start iron (7) Obesity: QUALIFIERS: Obesity type: unspecified obesity type Obesity classification: unspecified obesity classification Serious obesity comorbidity presence: without serious comorbidity Qualified Code(s): E66.9 - Obesity, unspecified COMMENT: testing planned due to other comorbidities. (8) Hypothyroidism: QUALIFIERS: Hypothyroidism type: postoperative Qualified Code(s): E89.0 - Postprocedural hypothyroidism COMMENT: labs q trimester, repeat labs ordered 05/31 (9) Factor 5 Leiden mutation, heterozygous: COMMENT: lovenox 40 daily per MFM; rpt lab as not confirmed but elevate Protein C on APL. 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 (12) Acute maxillary sinusitis, unspecified: Charges/Coding Multi Select Codes Urinary/Genital Urinary/Genital CPT Codes: No Charge
[2023-07-03] MEDS: Ibuprofen 600 MG Tablet PO ×3 (09:00→20:58)
[2023-07-03] MEDS: Enoxaparin 40 MG/0.4 ML Syringe SC ×2 (09:01→20:58)
[2023-07-03] MEDS: oxyCODONE 5 MG Tablet PO ×3 (09:07→21:21)
--- NOTE | 2023-07-03 10:02 | NURSING ---
pt refusing IV meds at this time.
[2023-07-03] MEDS: Azithromycin 500 MG in Dextrose 5%-Water (250mL Bag) 250 ML 250 MG IV (11:58)
--- NOTE | 2023-07-03 13:08 | NURSING ---
pt allowed Zithromycin infusion but refusing ceftriaxone at this time. Ambulation encouraged and wheelchair removed from room.
[2023-07-03 14:00] VITALS: BP 135/71; PULSE 86; RESP 16; TEMP 36.8
[2023-07-03] MEDS: Ceftriaxone 2 GM in 0.9% Normal Saline (50mL MB+) 50 ML IV (14:37)
[2023-07-03 15:30] LABS: Bedside Glucose 154 mg/dL (74-106)
[2023-07-03] MEDS: Insulin NPH Human 100 UNITS/ML PEN 17 UNITS SC (21:21)
[2023-07-03 21:24] LABS: Bedside Glucose 98 mg/dL (74-106)
[2023-07-03 21:30] VITALS: BP 128/79; PULSE 81; RESP 18; TEMP 36.2
[2023-07-03] MEDS: Levothyroxine 175 MCG Tablet PO (22:44)
[2023-07-04] VITALS (9 sets, daily range): BP systolic 125–158; BP diastolic 56–77; PULSE 72–89; RESP 16–20; TEMP 36.1–36.6; O2SAT 93–96
[2023-07-04] MEDS: Acetaminophen 500 MG Tablet 1000 MG PO ×4 (00:22→18:05)
[2023-07-04] MEDS: Senna/Docusate Sodium 1 Tablet PO ×2 (00:22→09:08)
[2023-07-04] MEDS: Ibuprofen 600 MG Tablet PO ×4 (02:49→20:53)
[2023-07-04] MEDS: Levothyroxine 175 MCG Tablet PO (06:31)
[2023-07-04] MEDS: SimETHICONE 80 MG Chewable Tablet PO (06:36)
--- NOTE | 2023-07-04 08:31 | PCM.PN.OB ---
Subjective Subjective Patient is laying in bed comfortably without complaints. She states that she slept on an off during the night. Lochia is mild and pain is minimal. coughing is minimal. she is no longer febrile. fasting glucose levels still elevated Objective Data Objective Data Vital Signs: Vital Signs Temp Pulse Resp BP Pulse Ox O2 Del Method 97 F L 73 18 138/73 H 96 Room Air 07/04/23 02:45 07/04/23 02:45 07/04/23 02:45 07/04/23 02:45 07/04/23 02:45 07/04/23 02:45 Oxygen Delivery Method Room Air Weight: 324 lb Body Mass Index (BMI) 52.2 Intake & Output: Intake and Output for Last 24 Hours 07/02/23 07/03/23 07/04/23 23:59 23:59 23:59 Intake Total 2049 / 0 306 / 306 Output Total 1700 / 1700 500 / 500 Balance 350 / 350 -194 / -194 Lab / Micro Data 07/03/23 05:00 Labs: Laboratory Results - last 24 hr 07/03/23 14:46: POC Glucose 154 H 07/03/23 21:01: POC Glucose 98 ROS Constitutional Constitutional: Reports systems reviewed and no addt'l complaints, except as documented Cardiovascular Cardiovascular: Denies chest pain, dizziness, dyspnea or irregular heart rhythm Respiratory/Chest Respiratory/Chest: Denies cough, pain on inspiration or shortness of breath at rest Gastrointestinal Gastrointestinal: Denies abdominal pain, nausea or vomiting Genitourinary Genitourinary: Denies burning urination Musculoskeletal Musculoskeletal: Denies muscle cramps, muscle spasms or muscle weakness Neurologic Neurologic: Denies confusion, dizziness, headache(s) or lack of coordination Psychiatric Psychiatric: Denies anxiety, behavioral changes or depression Physical Exam HEENT normocephalic Resp normal respiratory effort and normal air movement GI soft to palpation, non-tender and non-distended Rectal Exam: other Other Details: Incision is clean, dry, and intact no CVA tenderness Extremity normal to inspection General Extremity: edema bilateral (trace ) Assessment & Plan (1) Breech extraction: (2) Mild pre-eclampsia: (3) Pneumonia affecting in third trimester: (4) Gestational diabetes mellitus in third trimester: COMMENT: increase to 1000mg BID. weekly nst, weekly BPP for twice weekly total testing due to chtn and gdm, if not controlled recommend insulin. (5) HTN in , chronic: COMMENT: no meds. Plans w/MFM:growth US Q4wk and wkly BPP at 32 wk. (6) Anemia affecting : QUALIFIERS: Trimester: second trimester Qualified Code(s): O99.012 - Anemia complicating , second trimester COMMENT: start iron (7) Obesity: QUALIFIERS: Obesity type: unspecified obesity type Obesity classification: unspecified obesity classification Serious obesity comorbidity presence: without serious comorbidity Qualified Code(s): E66.9 - Obesity, unspecified COMMENT: testing planned due to other comorbidities. (8) Hypothyroidism: QUALIFIERS: Hypothyroidism type: postoperative Qualified Code(s): E89.0 - Postprocedural hypothyroidism COMMENT: labs q trimester, repeat labs ordered 05/31 (9) Factor 5 Leiden mutation, heterozygous: COMMENT: lovenox 40 daily per MFM; rpt lab as not confirmed but elevate Protein C on APL. testing per other comoboridities (10) Papillary thyroid carcinoma: COMMENT: s/p thyroid removal on thyroid hormone replacement. PLAN: Plan s/p LTCS PPD # 2 1. routine post care 2. breast feeding- support given 3. rh positive 4. rubella immune 5. stop IV abx for pneumonia an start on amoxicillin to complete a 10 day course (4 days starting today) -albuterol inhaler ordered for PRN cough 6. increasing bedtime NPH to 20 units 7. lovenox 40 mg sc daily 8. plan for dc tomorrow
[2023-07-04 09:45] LABS: Bedside Glucose 96 mg/dL (74-106)
[2023-07-04] MEDS: AMOXICILLIN 500 MG CAPSULE 1000 MG PO ×2 (11:31→22:42)
[2023-07-04] MEDS: NIFEdipine 30 MG Tablet PO (11:35)
[2023-07-04 11:54] LABS: Bedside Glucose 83 mg/dL (74-106)
[2023-07-04] MEDS: oxyCODONE 5 MG Tablet PO ×2 (12:41→18:53)
[2023-07-04] MEDS: Albuterol 2.5 MG/3 ML VIAL.NEB. INHALATION ×2 (12:57→23:39)
--- NOTE | 2023-07-04 15:19 | NURSING ---
Encouraged pt to use cough and deep breathing and incentive spirometer. States she feels better sitting up. Will assess for aerosol when due. Pt. states she isn't coughing well at this point.
[2023-07-04 15:27] LABS: Bedside Glucose 93 mg/dL (74-106)
[2023-07-04] MEDS: guaiFENesin 1,200 MG Tablet 1200 MG PO (18:05)
--- NOTE | 2023-07-04 19:01 | NURSING ---
Patient states her respiratory congestion is worsening and that it feels more difficult to take a breath. She states she is using her incentive spirometer but unable to cough due to her abdominal pain. Patient's O2 is 95%. Patient encouraged to use PRN albuterol however patient is declining at this time. Patient was given 5mg oxycodone, encouraged to use her IS, and call when ready for the albuterol.
--- NOTE | 2023-07-04 20:38 | NURSING ---
Pt requested to visit with her Mother in law when this RN entered the room to take vitals and assessment. This RN instructed pt to call out when she was ready. pt verbalized understanding.
[2023-07-04] MEDS: Enoxaparin 40 MG/0.4 ML Syringe SC (22:42)
[2023-07-04] MEDS: Insulin NPH Human 100 UNITS/ML PEN 20 UNITS SC (22:44)
[2023-07-04 23:09] LABS: Bedside Glucose 129 mg/dL (74-106)
[2023-07-05] MEDS: Acetaminophen 500 MG Tablet 1000 MG PO ×4 (00:05→18:24)
[2023-07-05 03:15] VITALS: BP 115/54; PULSE 77; RESP 16; TEMP 36.1; O2SAT 96
[2023-07-05] MEDS: Ibuprofen 600 MG Tablet PO ×3 (03:17→15:16)
[2023-07-05] MEDS: guaiFENesin 1,200 MG Tablet 1200 MG PO ×2 (06:15→18:24)
[2023-07-05] MEDS: Levothyroxine 175 MCG Tablet PO (06:15)
[2023-07-05] MEDS: Senna/Docusate Sodium 1 Tablet PO ×2 (06:41→08:48)
--- NOTE | 2023-07-05 06:45 | DS.PCM_ITS ---
Providers Date of Admission: 07/02/23 Primary Care Physician: Dr. Marleny Waterman MD Reason For Visit: REPEAT Diagnosis Discharge Diagnosis (1) Breech extraction: Status: Acute Code(s): O32.1XX0 - Maternal care for breech presentation, not applicable or unspecified (2) Mild pre-eclampsia: Status: Acute Code(s): O14.00 - Mild to moderate pre-eclampsia, unspecified trimester (3) Pneumonia affecting in third trimester: Status: Acute Code(s): O99.513 - Diseases of the respiratory system complicating , third trimester; J18.9 - Pneumonia, unspecified organism (4) Gestational diabetes mellitus in third trimester: Status: Acute Code(s): O24.419 - Gestational diabetes mellitus in , unspecified control (5) HTN in , chronic: Status: Chronic Code(s): O10.919 - Unspecified pre-existing hypertension complicating , unspecified trimester (6) Anemia affecting : Status: Acute Code(s): O99.019 - Anemia complicating , unspecified trimester Qualifiers: Trimester: second trimester Qualified Code(s): O99.012 - Anemia complicating , second trimester (7) Obesity: Status: Acute Code(s): E66.9 - Obesity, unspecified Qualifiers: Obesity classification: unspecified obesity classification Obesity type: unspecified obesity type Serious obesity comorbidity presence: without serious comorbidity Qualified Code(s): E66.9 - Obesity, unspecified (8) Hypothyroidism: Status: Acute Code(s): E03.9 - Hypothyroidism, unspecified Qualifiers: Hypothyroidism type: postoperative Qualified Code(s): E89.0 - Postprocedural hypothyroidism (9) Factor 5 Leiden mutation, heterozygous: Status: Acute Code(s): D68.51 - Activated protein C resistance (10) Papillary thyroid carcinoma: Status: Acute Code(s): C73 - Malignant neoplasm of thyroid gland Medications at Discharge Home Medications levothyroxine 175 mcg tablet 175 mcg PO DAILY 04/22/20 multivitamin no.47-iron fum 27 mg-folate no.1 1 mg-dha 300 mg capsule (PNV-DHA) cap PO 12/20/22 blood-glucose meter #1 ea 02/05/23 miscellaneous medical supply See Rx Instructions miscellaneous .COMPLEX abdominal hernia support #1 ea 03/20/23 blood sugar diagnostic (Blood Glucose Test strips) #120 ea 05/02/23 enoxaparin 40 mg/0.4 mL subcutaneous syringe (Lovenox) 40 mg (0.4 mL) subcut DAILY 30 days #4 mL 05/02/23 ferrous sulfate 137 mg (45 mg iron) tablet,extended release (Slow Fe) See Rx Instructions PO DAILY #30 tabs 05/02/23 lancets #200 ea 05/02/23 insulin NPH isoph U-100 human 100 unit/mL (3 mL) subcutaneous pen (Humulin N NPH U-100 Insulin KwikPen) 35 unit (0.35 mL) subcut QPM #15 mL 06/08/23 docusate sodium 100 mg capsule (Colace) 100 mg PO DAILY #30 caps 06/15/23 magnesium oxide 400 mg (241.3 mg magnesium) tablet 400 mg PO DAILY #30 tabs 06/21/23 amoxicillin 500 mg capsule 1,000 mg (2 x 500 mg) PO BID 10 days #40 caps 06/08 05/30 albuterol sulfate 90 mcg/actuation aerosol inhaler 2 puff inhalation Q4H PRN shortness of breath or wheezing #8.5 grams 07/04/23 ibuprofen 800 mg tablet 800 mg PO Q8H PRN pain #30 tabs 07/04/23 oxycodone-acetaminophen 5 mg-325 mg tablet (Percocet) 1 tab PO Q4H PRN pain 7 days #15 tabs 07/04/23 nifedipine 30 mg tablet,extended release 24 hr (Procardia XL) 30 mg PO DAILY #30 tabs 07/05/23 Hospital Course Summary of Care Provided Hospital Course: patient presented and was initially admitted for pneumonia, was also diagnosed with mild preeclampsia. Patient has a history of gestational diabetes co ntrolled with medication and polyhydramnios. 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 Patient was monitored over the weekend and then delivered at 37 weeks via repeat low-transverse . Postoperatively patient had return of bowel and bladder function and was ambulating well, tolerating adequate p.o., and was stable for discharge to home on postop day #3. Discharge medications include Procardia naproxen and Percocet. Follow-up in office in 1 week for blood pressure check 2 weeks for incision check in 6 weeks for visit. Routine post section diet and activity instructions. Weight / BMI Weight Weight: 324 lb Body Mass Index (BMI) 52.2 ABG / Lab / Microbiology Data 07/03/23 05:00 Laboratory: Laboratory Results - last 24 hr 07/04/23 09:07: POC Glucose 96 07/04/23 11:34: POC Glucose 83 07/04/23 15:04: POC Glucose 93 07/04/23 22:49: POC Glucose 129 H D/C Instructions Discharge Diet: No restrictions Discharge Activity: May Not Drive (for 2 weeks or while taking narcotic pain medications.), May Shower and May Take a Tub Bath (in 7 days) May shower in (days): 0 May resume sexual activity in: 4-6 weeks Weight Bearing Status: Full weight bearing Call your doctor if your incision/area has: Continuous Slow Oozing, Sudden Increased Bleeding, Increased Pain/ Swelling, Increased Redness and Foul Smelling Discharge Call your doctor if you observe: Fever of 101 or Higher and Using more than 1 pad per hour Suture Line Care: Avoid Pulling/Pushing and Avoid Pinching/Bending Cleanse incision/area with: Soap & Water and Keep Dressing Clean & Dry Please Follow Up With: Jyothi Coleman DO When: Call [phone] to make an appointment for an incision check in 1-2 weeks. Meaningful Use Info Meaningful Use Diagnoses (Choose all that apply): None applicable Discharge Plan Admission Admit Date/Time: 07/02/23 03:45 Primary Reason for Your Visit: section and treatment of pneumonia Attending Provider: Jyothi Coleman Primary Care Provider: Marleny Waterman Discharge Orders/Prescriptions Prescriptions: New albuterol sulfate 90 mcg/actuation HFA aerosol inhaler 2 puff inhalation Q4H PRN (Reason: shortness of breath or wheezing) Qty: 8.5 0RF ibuprofen 800 mg tablet 800 mg PO Q8H PRN (Reason: pain) Qty: 30 0RF oxycodone-acetaminophen [Percocet] 5-325 mg tablet 1 tab PO Q4H PRN (Reason: pain) 7 Days Qty: 15 0RF Rx Instructions: 1-2 tabs q 4 hrs as needed for pain nifedipine [Procardia XL] 30 mg tablet extended release 24hr 30 mg PO DAILY Qty: 30 2RF Continued levothyroxine 175 mcg tablet 175 mcg PO DAILY PNV-DHA 27 mg iron-1 mg -300 mg capsule PO (DME) blood-glucose meter Misc See Rx Instructions .MEDSUPPLY Qty: 1 0RF Rx Instructions: As directed- Test fasting and 2 hours after meals miscellaneous medical supply Misc See Rx Instructions miscellaneous .COMPLEX Qty: 1 0RF Rx Instructions: abdominal binder as directed; DX. K46.9 Abdominal hernia (DME) Blood Glucose Test Strip See Rx Instructions .Route Qty: 120 10RF Rx Instructions: As directed- fasting & 2 HR post meals(4x/day) enoxaparin [Lovenox] 40 mg/0.4 mL syringe 40 mg subcut DAILY 30 Days Qty: 4 6RF (DME) lancets Misc See Rx Instructions .MEDSUPPLY Qty: 200 8RF Rx Instructions: As directed- fasting & 2 HR post meals(4x/day) Slow Fe 137 mg (45 mg iron) tablet extended release See Rx Instructions PO DAILY Qty: 30 4RF Rx Instructions: 137mg orally daily; docusate sodium [Colace] 100 mg capsule 100 mg PO DAILY Qty: 30 4RF Humulin N NPH Insulin KwikPen 100 unit/mL (3 mL) insulin pen 35 unit subcut QPM Qty: 15 0RF amoxicillin 500 mg capsule 1,000 mg PO BID 10 Days Qty: 40 0RF magnesium oxide 400 mg (241.3 mg magnesium) tablet 400 mg PO DAILY Qty: 30 2RF Hold Instructions: Order Changed Rx Instructions: take half tab daily Referrals / Follow Up: Mraleny Waterman MD [Primary Care Provider] - Disposition Disposition (needs filled in before D/C Order can be placed): Home, Self Care
--- NOTE | 2023-07-05 06:47 | PCM.PN.OB ---
Subjective Subjective Patient doing well co increased swelling in legs, still having shortness of breath and coughing, wheezing. Tolerating PO. Ambulating and voiding without difficulty. feeding with first bottle now. Denies chest pain, calf pain, fevers, chills, lightheadedness. Objective Data Objective Data Vital Signs: Vital Signs Temp Pulse Resp BP Pulse Ox O2 Del Method 97.0 F L 77 16 115/54 L 96 Room Air 07/05/23 03:15 07/05/23 03:15 07/05/23 03:15 07/05/23 03:15 07/05/23 03:15 07/05/23 03:15 Oxygen Delivery Method Room Air Weight: 324 lb Body Mass Index (BMI) 52.2 Intake & Output: Intake and Output for Last 24 Hours 07/03/23 07/04/23 07/05/23 23:59 23:59 23:59 Intake Total 306 / 306 Output Total 500 / 500 Balance -194 / -194 Lab / Micro Data 07/03/23 05:00 Labs: Laboratory Results - last 24 hr 07/04/23 09:07: POC Glucose 96 07/04/23 11:34: POC Glucose 83 07/04/23 15:04: POC Glucose 93 07/04/23 22:49: POC Glucose 129 H ROS Constitutional Constitutional: Reports systems reviewed and no addt'l complaints, except as documented Cardiovascular Cardiovascular: Reports systems reviewed and no addt'l complaints, except as documented Respiratory/Chest Respiratory/Chest: Reports systems reviewed and no addt'l complaints, except as documented Gastrointestinal Gastrointestinal: Reports systems reviewed and no addt'l complaints, except as documented Physical Exam Const alert, oriented x3 and no apparent distress HEENT Head and Scalp: atraumatic Resp normal respiratory effort Auscultation: wheezes and diminished lung sounds Cardio regular rate and regular rhythm GI soft to palpation and non-tender Inspection: incision intact, healing well and drainage (none) Bimanual Exam - Vag & Uterus: uterus non-tender Uterus Palpation: uterus fundus firm (below Umbilicus) Assessment & Plan (1) Status post delivery: (2) Breech extraction: (3) Mild pre-eclampsia: (4) Pneumonia affecting in third trimester: (5) Gestational diabetes mellitus in third trimester: COMMENT: increase to 1000mg BID. weekly nst, weekly BPP for twice weekly total testing due to chtn and gdm, if not controlled recommend insulin. (6) HTN in , chronic: COMMENT: no meds. Plans w/MFM:growth US Q4wk and wkly BPP at 32 wk. (7) Factor 5 Leiden mutation, heterozygous: COMMENT: lovenox 40 daily per MFM; rpt lab as not confirmed but elevate Protein C on APL. testing per other comoboridities (8) Hypothyroidism: QUALIFIERS: Hypothyroidism type: postoperative Qualified Code(s): E89.0 - Postprocedural hypothyroidism COMMENT: labs q trimester, repeat labs ordered 05/31 (9) Papillary thyroid carcinoma: COMMENT: s/p thyroid removal on thyroid hormone replacement. PLAN: Plan s/p LTCS PPD # 3 1. routine post care 2. breast feeding- support given 3. rh positive 4. rubella immune 5. amoxicillin to complete a 10 day course day 5 today -albuterol inhaler ordered for PRN cough repeat CXR today due to increased swelling. reviewed with radiology- improved and no need to lasix, no crackles heard in lungs either. 6. increasing bedtime NPH to 20 units 7. lovenox 40 mg sc daily 8. plan for dc today
[2023-07-05 06:54] LABS: Bedside Glucose 82 mg/dL (74-106)
[2023-07-05 08:45] VITALS: BP 148/70; PULSE 71; RESP 18; TEMP 36.6; O2SAT 97
--- NOTE | 2023-07-05 09:05 | RAD_ITS ---
STUDY: X-RAY CHEST REASON FOR EXAM: Female, 43 years old. Increased swelling, compare to previous xray TECHNIQUE: PA and lateral views of the chest. COMPARISON: Comparison is made with prior study dated June 29, 2023. FINDINGS: The lungs are clear and expanded. There is no demonstrated pleural abnormality. Normal size heart. Normal mediastinum and sin. Normal visualized pulmonary arteries. Normal visualized aortic arch and descending thoracic aorta. Normal visualized thoracic spine. Normal visualized ribs, clavicles, and shoulders. There is no demonstrated abnormality of the visualized soft tissue structures of the upper abdomen. RAD/Chest PA and Lateral IMPRESSION: Normal x-ray examination of the chest. Electronically Signed: Warren Nguyen MD at 12:15 EST ,
[2023-07-05] MEDS: NIFEdipine 30 MG Tablet PO (11:10)
[2023-07-05] MEDS: AMOXICILLIN 500 MG CAPSULE 1000 MG PO (11:10)
[2023-07-05 11:33] LABS: Bedside Glucose 89 mg/dL (74-106)
[2023-07-05] MEDS: oxyCODONE 5 MG Tablet PO ×2 (11:57→18:24)
[2023-07-05 13:45] VITALS: BP 131/66; PULSE 60; RESP 16; TEMP 36.8; O2SAT 96
--- NOTE | 2023-07-05 14:56 | CASEMGMT ---
Social Work Assessment Labor and Delivery Unit Patient Address:[address] [place] [address] [place] [address] Phone number: [phone] Date of Referral: 07/02/23 Time of Referral:? 929 Referred By: Elena Purcell Date of Intervention: ??07/04/23 Time of Intervention:? 1200 Reason for Referral:? special care admission Sw completed chart review and has been monitoring patient and chart. Sw presented to bedside and introduced self to mother of baby (GABO- Linda) and father of baby (FOTressa- Antonio). Sw explained reason for sw involvement and completed psychosocial assessment. Sw provided literature for parents to review and list of county resources that are available to them should any needs or concerns arise. History obtained from: medical records, MOB and FOB Household composition: Currently residing in the family home is GABO AYON's 2 children: Calderon (18 years old) and Cristobal (13 years old), YVETTE, YVETTE's son: Ze (11 years old) and now baby when he is ready for discharge. Parents deny any issues or concerns with their housing. Patient's parent/guardian status:? ?GABO states that she and YVETTE have been together for 4 years. They were introduced to each other by mutual friends. Each parent has a child/children with a former partner. baby is couples first baby together following several losses. GABO denies any issues or concerns with domestic violence or intimate partner violence. Medical History: GABO is 43 year old female who is 8, para 2- now 3 following labor and delivery of . GABO received routine care during with [place]. GABO presented to hospital for dyspnea following diagnoses of pneumonia and was transferred to labor and delivery. GABO delivered baby on 07/02/23 via delivery at 37 weeks gestation. Baby boy, named Denys, was born weighing 6lb 8oz and his apgars were 6 and 8 at one and five minutes of life, respectfully. Following delivery baby was transferred to [facility] ([facility] due to respiratory distress, large for gestational age, mother with gestational diabetes, and ankyloglossia. No discharge identified at this time. Educational Status:? Both parents graduated from high school. MOB obtained a college degree. Financial Status:Both parents are gainfully employed outside of the home. 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 Supplies:?? Parents have obtained all necessary baby supplies, including: car seat, safe sleep space, clothes, diapers and wipes. GABO states that she does have a breast pump for home. Childcare/Caregiver(s):? GABO will be the primary caregiver to baby along with FOTressa when he is not at work. GABO reports that when both parents have returned to work they have their families who will help care for baby. Transportation:?? No barriers, both parents have reliable means of transportation. Programs/Agencies Involved: GABO is connected to Medicaid for insurance. ??? Children Services/Legal Issues:??? No history of involvement, no issues or concerns reported at this time. Behavioral Health Issues: ??Mental Health History:??YVETTE denies mental health history. GABO states that she has not been diagnosed with anxiety or depression, but does believe that she has experienced the typical baby blues in the past. Parents discussed at length how this experience has been different than the other times they have had babies. ? Substance Use History:??MOB denies substance use prior to and during . FOB states that he used to drink alcohol, mostly on weekends. FOB states that he would drink in excess, and one weekend he decided that he wasn't going to do that anymore. YVETTE states that he has been sober now (including nicotine) for 15 years. Family History:?Parents deny family history of substance use/ addiction use disorders and significant mental health diagnoses. ? Drug Screens: ??NO drug screens observed in chart review. Family/Social Stressors:? Parents deny any issues or concerns at this time. Support Systems: Parents state that both sides of families are important. Depression/Shaken Baby/Safe Sleeping:? Sw educated parents on signs and symptoms of baby blues and depression and anxiety. Parents express understanding. Sw educated parents on shaken baby prevention and ABCs of safe sleep. Parents express understanding. ASSESSMENT:? MOB and baby admitted following labor and delivery. Baby currently requires hospitalization to [facility]. Parents were actively engaged throughout completion of psychosocial assessment. Parents have been observed to providing appropriate hands on care of . Parents have natural supports in place and have obtained all necessary baby supplies. PLAN:? MOB and baby to be discharged when medically ready. ?No other services requested or indicated. Silva Bethea, [employer], HOME HEALTH RN
[2023-07-05 15:40] LABS: Bedside Glucose 86 mg/dL (74-106)
== END 2023-07-05 18:30 | disposition home or self-care (01) | DRG 540 ==
PROVIDERS: Admitting Provider Obstetrics & Gynecology; PCP Internal Medicine; Visit Provider Obstetrics & Gynecology
PROC: 10D00Z1 Extraction of Products of Conception, Low, Open Approach (ICD-10-PCS; CPT 59514; principal; 2023-07-02 07:15)
DX: O32.1XX0 Maternal care for breech presentation, not applicable or unspecified (principal); O11.4 Pre-existing hypertension with pre-eclampsia, complicating childbirth; J18.9 Pneumonia, unspecified organism; O99.12 Other diseases of the blood and blood-forming organs and certain disorders involving the immune mechanism complicating childbirth; E66.01 Morbid (severe) obesity due to excess calories; D68.51 Activated protein C resistance; D25.9 Leiomyoma of uterus, unspecified; D48.113 Desmoid tumor of abdominal wall; E89.0 Postprocedural hypothyroidism; O24.429 Gestational diabetes mellitus in childbirth, unspecified control; Z3A.37 37 weeks gestation of pregnancy; O99.284 Endocrine, nutritional and metabolic diseases complicating childbirth; Z37.0 Single live birth; O99.52 Diseases of the respiratory system complicating childbirth; O26.23 Pregnancy care for patient with recurrent pregnancy loss, third trimester; O99.214 Obesity complicating childbirth; Z85.850 Personal history of malignant neoplasm of thyroid; Z87.440 Personal history of urinary (tract) infections
CPT/HCPCS: 36415; 59025; 59050; 71046; 76819; 80053; 82570; 82962; 84156; 84550; 85025; 85027; 86780; 86850; 86900; 86901; 87040; 87081; 87449; 87631; 87641; 94640; 94668; 99221; J7120; A4216; G0378; J2405

== ENCOUNTER → 2024-07-07 | Outpatient (CLI) | payer MEDICAID, SELFPAY ==
[2024-07-07 12:07] LABS: hCG Titer Quant., Serum 156 mIU/mL (<9 non-preg)
== END | disposition home or self-care (01) ==
LOC: PAVLAB 11:22
PROVIDERS: PCP Internal Medicine; Referring Provider Advanced Practice Midwife; Visit Provider Advanced Practice Midwife
DX: Z34.90 Encounter for supervision of normal pregnancy, unspecified, unspecified trimester (principal)
CPT/HCPCS: 36415; 84702

== ENCOUNTER → 2024-07-09 | Outpatient (CLI) | payer MEDICAID, SELFPAY ==
[2024-07-09 14:33] LABS: hCG Titer Quant., Serum 209 mIU/mL (<9 non-preg)
== END | disposition home or self-care (01) ==
PROVIDERS: PCP Internal Medicine; Referring Provider Advanced Practice Midwife; Visit Provider Advanced Practice Midwife
DX: Z34.90 Encounter for supervision of normal pregnancy, unspecified, unspecified trimester (principal)
CPT/HCPCS: 36415; 84702